=== PATIENT | female | born 1955 | race Caucasian/White ===

== ENCOUNTER → 2017-12-06 13:54 | Outpatient (CLI) | payer MEDICAID, SELFPAY ==
[2017-12-06 14:13] LABS: Basophils # 1.8 K/mm3 (0-0.2); Basophils % 5.1 % (0.1-2.0); Eosinophils # 1.2 K/mm3 (0.0-0.4); Eosinophils % 3.4 % (0.1-12.0); Hematocrit 39.5 % (37.0-47.0); Hemoglobin 11.8 g/dL (12.2-16.2); Lymphocytes # 6.4 K/mm3 (0.7-4.5); Mean Corpuscular HGB Conc 29.7 g/dL (31.8-35.4); Mean Corpuscular Hemoglobin 23.8 pg (27.0-31.2); Mean Corpuscular Volume 80.1 fl (81-99); Mean Platelet Volume 8.9 fl (7.4-10.4); Monocytes # 0.8 K/mm3 (0.1-1.0); Monocytes % 2.3 % (1.7-9.3); Neutrophils % 76.2 % (37.0-80.0); Platelet Count 410 K/mm3 (142-424); Red Blood Count 4.93 M/mm3 (4.20-5.40); Red Cell Distribution Width 15.9 % (11.5-17.5); White Blood Count 35.4 K/mm3 (4.8-10.8)
[2017-12-06 14:21] LABS: MANUAL DIFFERENTIAL MANUAL DIFFERENTIAL (MANUAL DIFF)
[2017-12-06 15:06] LABS: Alanine Aminotransferase 18 U/L (12-78); Albumin Level 4.2 gm/dL (3.4-5.0); Albumin/Globulin Ratio 1.2 (1.1-1.8); Alkaline Phosphatase 124 U/L (46-116); Anion Gap 12.3 mEq/L (5-15); Aspartate Amino Transferase 19 U/L (15-37); Bilirubin,Total 0.4 mg/dL (0.2-1.0); Blood Urea Nitrogen 11 mg/dL (7-18); Calcium 9.4 mg/dL (8.5-10.1); Carbon Dioxide 28 mmol/L (21.0-32.0); Chloride 105 mmol/L (98-107); Creatinine,Serum 0.84 mg/dL (0.55-1.02); Estimated Glomerular Filt Rate 69 ml/min (>60); GFR (African American) 84 ML/MIN (>60); Globulin 3.5 gm/dl (1.3-3.2); Glucose 110 mg/dL (74-106); Potassium 4.3 mmoL/L (3.5-5.1); Sodium 141 mmol/L (136-145); Total Protein,Serum 7.7 gm/dL (6.4-8.2)
[2017-12-06 15:20] LABS: Anisocytosis 1+; Eosinophils % 3 % (0-3); Lymphocytes % 24 % (10-50); Microcytosis 1+; Monocytes % 12 % (2-9); Neutrophils % 58 % (42-76); Platelet Estimate Normal; Total Cells Counted 100
[2017-12-08 15:13] LABS: Peripheral Smear Review Scanned Result
== END ==
PROVIDERS: PCP Family Medicine; Visit Provider Internal Medicine
DX: C92.10 Chronic myeloid leukemia, BCR/ABL-positive, not having achieved remission (principal)
CPT/HCPCS: 36415; 80053; 85007; 85025

== ENCOUNTER 2017-12-28 11:27 | Inpatient (IN) | payer MEDICAID, SELFPAY ==
[2017-12-28 11:28] VITALS: BP 141/71; PULSE 92; RESP 16; TEMP 37.1; O2SAT 96; BMI 34.3
[2017-12-28 11:59] LABS: Basophils # 2.8 K/mm3 (0-0.2); Eosinophils # 1.9 K/mm3 (0.0-0.4); Eosinophils % 3.3 % (0.1-12.0); Hematocrit 36.4 % (37.0-47.0); Hemoglobin 10.6 g/dL (12.2-16.2); Lymphocytes # 7.9 K/mm3 (0.7-4.5); Lymphocytes % 13.9 K/mm3 (10-50); Mean Corpuscular HGB Conc 29.1 g/dL (31.8-35.4); Mean Corpuscular Hemoglobin 24.1 pg (27.0-31.2); Mean Corpuscular Volume 82.8 fl (81-99); Mean Platelet Volume 8.6 fl (7.4-10.4); Monocytes # 2.2 K/mm3 (0.1-1.0); Monocytes % 3.8 % (1.7-9.3); Neutrophils # 44.8 K/mm3 (1.8-7.8); Platelet Count 460 K/mm3 (142-424); Red Cell Distribution Width 16.7 % (11.5-17.5)
[2017-12-28 12:02] LABS: White Blood Count 56.7 K/mm3 (4.8-10.8)
[2017-12-28 12:03] LABS: MANUAL DIFFERENTIAL MANUAL DIFFERENTIAL (MANUAL DIFF)
[2017-12-28 12:09] LABS: Alanine Aminotransferase 18 U/L (12-78); Albumin Level 3.7 gm/dL (3.4-5.0); Albumin/Globulin Ratio 0.9 (1.1-1.8); Alkaline Phosphatase 119 U/L (46-116); Anion Gap 11.9 mEq/L (5-15); Aspartate Amino Transferase 10 U/L (15-37); Bilirubin,Total 0.3 mg/dL (0.2-1.0); Blood Urea Nitrogen 9 mg/dL (7-18); Calcium 8.4 mg/dL (8.5-10.1); Carbon Dioxide 28 mmol/L (21.0-32.0); Chloride 102 mmol/L (98-107); Creatinine Clearance Estimated 86 mL/min (0-300); Estimated Glomerular Filt Rate 57 ml/min (>60); GFR (African American) 68 ML/MIN (>60); Globulin 3.9 gm/dl (1.3-3.2); Glucose 167 mg/dL (74-106); Potassium 3.9 mmoL/L (3.5-5.1); Sodium 138 mmol/L (136-145); Total Protein,Serum 7.6 gm/dL (6.4-8.2)
--- NOTE | 2017-12-28 12:16 | HMH.EDNVD ---
ED Disposition Clinical Impression: Colitis, Leucocytosis, CLL (chronic lymphocytic leukemia), HTN (hypertension), Diabetes Disposition: Still a Patient Condition on Discharge: Fair Referrals: Nguyen Stone MD [Primary Care Provider] - - Critical Care Critical Care Time: No Attestation: On 12/28/17, the high probability of a clinically significant, sudden or life threatening deterioration of the following system(s) required my full and direct attention, intervention and personal management. The time I documented below is in addition to time spent performing reported procedures but includes the following listed in this critical care notation. Medical Decision Making - Medical Records Medical records reviewed: Yes: I reviewed the patient's medical records. Vital Signs: 12/28/17 11:28 Temperature 98.7 F Temperature Source Oral Pulse Rate [Right Brachial] 92 H Respiratory Rate 16 Blood Pressure [Right Arm] 141/71 Blood Pressure Mean [Right Arm] 94 Blood Pressure Source [Right Arm] Automatic Cuff Blood Pressure Position [Right Arm] Supine 02 Sat by Pulse Oximetry 96 Oxygen Delivery Method Room Air - Lab Data Lab results reviewed: Yes: I reviewed the patient's lab results. Lab Results 12/28/17 11:40: WBC 56.7 H*, RBC 4.40, Hgb 10.6 L, Hct 36.4 L, MCV 82.8, MCH 24.1 L, MCHC 29.1 L, RDW 16.7, Plt Count 460 H, MPV 8.6, Neut % (Auto) 79.0, Lymph % (Auto) 13.9, [place] % (Auto) 3.8, Eos % (Auto) 3.3, Baso % (Auto) 5.0 H, Neut # (Auto) 44.8 H, Lymph # (Auto) 7.9 H, [place] # (Auto) 2.2 H, Eos # (Auto) 1.9 H, Baso # (Auto) 2.8 H, Total Counted 200, Neutrophils % (Manual) 62, Band Neutrophils % 3.5, Lymphocytes % (Manual) 16, Monocytes % (Manual) 7, Eosinophils % (Manual) 5 H, Basophils % (Manual) 3.5 H, Metamyelocytes % 3.0 H, Blast Cells % 0.5, Platelet Estimate Slight increase, Hypochromasia 1+, Anisocytosis 1+ 12/28/17 11:40: Sodium 138, Potassium 3.9, Chloride 102, Carbon Dioxide 28, Anion Gap 11.9, BUN 9, Creatinine 1.00, Estimated Creat Clear 86, Estimated GFR 57 L, Est GFR ( Amer) 68, Glucose 167 H, Calcium 8.4 L, Total Bilirubin 0.3, AST 10 L, ALT 18, Alkaline Phosphatase 119 H, Total Protein 7.6, Albumin 3.7, Globulin 3.9 H, Albumin/Globulin Ratio 0.9 L 12/28/17 11:40: Magnesium 1.7 12/28/17 11:40: PT 12.5 H, INR 1.16 H, APTT 30.4 Result diagrams: 12/28/17 11:40 12/28/17 11:40 Orders (Tests/Meds): ED MEDICATIONS Generic Name Dose Route Start Last Admin Trade Name Freq PRN Reason Stop Dose Admin Sodium Chloride 1,000 mls @ 999 mls/hr 12/28/17 12:00 12/28/17 11:58 Sod Chlor 0.9% 1000ml Bag IV 12/28/17 13:00 999 mls/hr .Q1H1M JONAS Administration Discontinued Medications Generic Name Dose Route Start Last Admin Trade Name Freq PRN Reason Stop Dose Admin Dicyclomine HCl 10 mg 12/28/17 12:30 12/28/17 12:34 Bentyl 10mg Capsule PO 12/28/17 12:31 10 mg ONCE ONE Administration Sodium Chloride 500 mls @ 999 mls/hr 12/28/17 12:15 Sod Chlor 0.9% 1000ml Bag IV 12/28/17 12:45 .Q31M JONAS Loperamide HCl 4 mg 12/28/17 12:29 12/28/17 12:34 Imodium 2 Mg Capsule PO 12/28/17 12:30 4 mg ONCE ONE Administration Ondansetron HCl 4 mg 12/28/17 12:35 12/28/17 12:36 Zofran 4mg/2ml Vial IV 12/28/17 12:36 4 mg ONCE ONE Administration ORDERS Category Date Time Status Acute abdomen XR series [XR acute abdomen series] Stat Exams 12/28/17 12:31 Ordered Diarrhea Panel, PCR Stat Lab 12/28/17 12:09 Ordered Urinalysis and Microscopic Stat Lab 12/28/17 11:39 Ordered Blood Culture Stat Micro 02/27/18 12:15 Ordered - Amanuel Inquiry Pt receiving controlled substance: No Amanuel was queried for this patient: No Medical Decision Making Narrative: The patient did have a white count of 57k with a 44% neutrophil. I obtain blood cultures lactic acid and started IV antibiotic. I repeated her abdominal exam that was soft nontender no guarding no rigidity
--- NOTE | 2017-12-28 12:20 | ED_ITS ---
ED Disposition Clinical Impression: Colitis, Leucocytosis, CLL (chronic lymphocytic leukemia), HTN (hypertension), Diabetes Disposition: Still a Patient Condition on Discharge: Fair Referrals: Nguyen Stone MD [Primary Care Provider] - - Critical Care Critical Care Time: No Attestation: On 12/28/17, the high probability of a clinically significant, sudden or life threatening deterioration of the following system(s) required my full and direct attention, intervention and personal management. The time I documented below is in addition to time spent performing reported procedures but includes the following listed in this critical care notation. Medical Decision Making - Medical Records Medical records reviewed: Yes: I reviewed the patient's medical records. Vital Signs: 12/28/17 11:28 Temperature 98.7 F Temperature Source Oral Pulse Rate [Right Brachial] 92 H Respiratory Rate 16 Blood Pressure [Right Arm] 141/71 Blood Pressure Mean [Right Arm] 94 Blood Pressure Source [Right Arm] Automatic Cuff Blood Pressure Position [Right Arm] Supine 02 Sat by Pulse Oximetry 96 Oxygen Delivery Method Room Air - Lab Data Lab results reviewed: Yes: I reviewed the patient's lab results. Lab Results 12/28/17 11:40: WBC 56.7 H*, RBC 4.40, Hgb 10.6 L, Hct 36.4 L, MCV 82.8, MCH 24.1 L, MCHC 29.1 L, RDW 16.7, Plt Count 460 H, MPV 8.6, Neut % (Auto) 79.0, Lymph % (Auto) 13.9, [place] % (Auto) 3.8, Eos % (Auto) 3.3, Baso % (Auto) 5.0 H, Neut # (Auto) 44.8 H, Lymph # (Auto) 7.9 H, [place] # (Auto) 2.2 H, Eos # (Auto) 1.9 H, Baso # (Auto) 2.8 H, Total Counted 200, Neutrophils % (Manual) 62, Band Neutrophils % 3.5, Lymphocytes % (Manual) 16, Monocytes % (Manual) 7, Eosinophils % (Manual) 5 H, Basophils % (Manual) 3.5 H, Metamyelocytes % 3.0 H, Blast Cells % 0.5, Platelet Estimate Slight increase, Hypochromasia 1+, Anisocytosis 1+ 12/28/17 11:40: Sodium 138, Potassium 3.9, Chloride 102, Carbon Dioxide 28, Anion Gap 11.9, BUN 9, Creatinine 1.00, Estimated Creat Clear 86, Estimated GFR 57 L, Est GFR ( Amer) 68, Glucose 167 H, Calcium 8.4 L, Total Bilirubin 0.3, AST 10 L, ALT 18, Alkaline Phosphatase 119 H, Total Protein 7.6, Albumin 3.7, Globulin 3.9 H, Albumin/Globulin Ratio 0.9 L 12/28/17 11:40: Magnesium 1.7 12/28/17 11:40: PT 12.5 H, INR 1.16 H, APTT 30.4 Result diagrams: 12/28/17 11:40 12/28/17 11:40 Orders (Tests/Meds): ED MEDICATIONS Generic Name Dose Route Start Last Admin Trade Name Freq PRN Reason Stop Dose Admin Sodium Chloride 1,000 mls @ 999 mls/hr 12/28/17 12:00 12/28/17 11:58 Sod Chlor 0.9% 1000ml Bag IV 12/28/17 13:00 999 mls/hr .Q1H1M JONAS Administration Discontinued Medications Generic Name Dose Route Start Last Admin Trade Name Freq PRN Reason Stop Dose Admin Dicyclomine HCl 10 mg 12/28/17 12:30 12/28/17 12:34 Bentyl 10mg Capsule PO 12/28/17 12:31 10 mg ONCE ONE Administration Sodium Chloride 500 mls @ 999 mls/hr 12/28/17 12:15 Sod Chlor 0.9% 1000ml Bag IV 12/28/17 12:45 .Q31M JONAS Loperamide HCl 4 mg 12/28/17 12:29 12/28/17 12:34 Imodium 2 Mg Capsule PO 12/28/17 12:30 4 mg ONCE ONE Administration Ondansetron HCl 4 mg 12/28/17 12:35 12/28/17 12:36 Zofran 4mg/2ml Vial IV 12/28/17 12:36 4 mg ONCE ONE Administration ORDERS
--- NOTE | 2017-12-28 12:31 | XR_ITS ---
XR acute abdomen series HISTORY: Nausea, vomiting, and diarrhea ITS.REASON: NVD ORDERING PHYSICIAN: Nguyen Stone MD PATIENT AGE: 62 years COMPARISON: 09/05/2017 FINDINGS: Cardiac size is upper limits of normal. No acute finding in the chest. There is a small hiatal hernia. The bowel gas pattern is nonspecific with gas-filled loops of small and large bowel. There are surgical clips in the right upper quadrant. A 2 mm calcific density is present to the left of the L3-L4 lumbar vertebra and was present on the previous study and may be due to a phlebolith. There are multiple pelvic calcifications consistent with phleboliths. No acute bony anomalies. IMPRESSION: Nonspecific nonobstructive bowel gas pattern, no acute finding.
[2017-12-28 12:38] LABS: Magnesium 1.7 mg/dL (1.4-2.2)
[2017-12-28 12:40] LABS: Activated Partial Thrombo Time 30.4 seconds (23.6-34.0); INR 1.16 (0.9-1.1); Prothrombin Time 12.5 seconds (9.4-11.8)
[2017-12-28 12:43] LABS: Band Neutrophils % 3.5 (0-8); Basophils % 3.5 (0-1); Blastocytes % 0.5; Eosinophils % 5 % (0-3); Lymphocytes % 16 % (10-50); Monocytes % 7 % (2-9); Neutrophils % 62 % (42-76); Platelet Estimate Slight Increase; Total Cells Counted 200
[2017-12-28 12:44] LABS: Hypochromasia 1+
[2017-12-28 12:45] LABS: Anisocytosis 1+
[2017-12-28 13:09] LABS: Microscopic, Urine URINE MICROSCOPIC (MICROSCOPIC)
[2017-12-28 13:11] VITALS: BMI 36.1
[2017-12-28 13:13] LABS: Appearance,Urine CLEAR (Clear); Bilirubin,Urine Negative (Negative); Blood, Urine Negative (Negative); Color,Urine YELLOW (Yellow); Glucose,Urine (UA) Negative (Negative); Ketones,Urine Negative (Negative); Leukocyte Esterase,Urine Negative (Negative); Nitrate,Urine Negative (Negative); PH,Urine 5.5 (5.0-8.5); Protein,Urine Negative (Negative); Specific Gravity, Urine <= 1.005 (1.005-1.030); Urobilinogen,Urine 0.2 EU/dl (0.2)
[2017-12-28 13:27] LABS: Lactic Acid 0.8 mmol/L (0.4-2.0)
[2017-12-28 13:30] VITALS: BP 109/67; PULSE 96; RESP 18; TEMP 36.4; O2SAT 96
[2017-12-28 13:32] LABS: Bacteria,Urine 1+ /lpf; Mucus,Urine 1+ /lpf; WBC,Urine Occasional #/hpf (0-3)
[2017-12-28 14:06] VITALS: BP 115/79; PULSE 83; RESP 18; TEMP 36.9; O2SAT 97
[2017-12-28 14:40] VITALS: BP 123/73; PULSE 87; RESP 20; TEMP 36.8; O2SAT 97
[2017-12-28 15:58] VITALS: O2SAT 97
--- NOTE | 2017-12-28 17:17 | PC.NURSE ---
1440 - Pt arrived to room 209 via wheelchair escorted by ER staff. Pt in NAD. Call perry within reach and bed in low position. Pt oriented to room.
--- NOTE | 2017-12-28 17:46 | HMH.HP ---
*Admission Date: 12/28/17 *Chief complaint: Nausea, vomiting, diarrhea *History of present illness: Ms Craven is a 62 year old white female with multiple medical problems including stage I chronic lymphocytic leukemia, hypertension and diabetes. She is status post cholecystectomy, appendectomy and hysterectomy. One week ago , she developed urinary tract infection and was given an antibiotic that she has finished. 3 days ago she developed vomiting , mostly food , green diarrhea and crampy diffuse abdominal pain. She denies fever/ chills. She came to the ED stating that I am dehydrated and I need IV fluids . She was diagnosed with CML and was last seen by Dr. Mcdonough 12/2017. She has had ongoing social problems from the beginning with bedbugs in the home. Social Security has been contacted to evaluate the home. The landlord said he was not going to do anything about them. When on the Gleevec she responded well with White BC decreasing from 60,000-3000. She then developed diarrhea and was seen multiple times in the emergency room because of the diarrhea, The chemo was stopped. She ststes this time she has had vomiting and diarrhea x 3 days in the last 3 days and diarrhea daily ?3 days. She has been able to retain some food and fluids. She has been voiding without difficulty although she describes dysuria. She denies any blood in her stool or vomiting blood. She has had no upper respiratory tract symptoms denies fever. [facility] History Medical History: Reports:: Arrhythmia, Atherosclerotic Heart Disease, Cancer, Coronary Artery Disease, Depression, Diabetes Mellitus Type 2, Heart Murmur, Hyperlipidemia, Hypertension, Myocardial Infarction, Peripheral Vascular Disease, Valvular Heart Disease Denies:: Diabetes Mellitus Type 1, MRSA Other Medical History: Reports: Anemia, Arthritis Laterality Cases: Left: Other, Bilateral: Tonsillectomy Other Surgeries: Yes: Angioplasty, Appendectomy, Cardiac Catheterization, Colonoscopy, Coronary Stent, Diagnostic Lap, EGD, Hysterectomy-Total Amputation: No Fractures: Yes (LEFT FOOT) - *Social History Educational Level: Completed GED/General Educational Development Smoking Status: Current every day smoker Tobacco Type: cigarettes # Packs/Day (cigarettes): 0 Alcohol Intake: never Substance Use Type: denies use Occupational Status: disabled Housing: house Household Members: children - Psychiatric History Expresses thoughts of harming self/others: None Suicide Plan Description: No Plan Pschychiatric History:: Reports:: Depression *Family Hx:: Cancer, Coronary Artery Disease, Diabetes, Hyperlipidemia, Hypertension, Stroke Review of Systems - Constitutional Reports headache(s), Denies body ache(s), Denies chills, Denies fever(s) - ENT Denies ear pain, Denies sore throat - *Cardiovascular Reports chest pain, Reports shortness of breath, Reports lightheadedness - *Respiratory Reports change in phlegm color, Reports cough, Reports shortness of breath, Denies coughing up blood - *Gastrointestinal Reports abdominal pain, Reports loose stools, Reports nausea, Reports vomiting, Denies heartburn, Denies vomiting blood, Denies bright, red blood in stools, Denies black, tarry stools - *Genitourinary Reports painful urination - *Musculoskeletal Reports muscle weakness Comments: The walker and cane for ambulation - *Neurologic Reports dizziness - Psychiatric Reports depression Meds Home Medications Medication Instructions Recorded Confirmed Type Albuterol Sulfate [Albuterol HFA 1 puff IH BID 12/28/17 12/28/17 History Inhaler] Atorvastatin Calcium [Atorvastatin 80 mg PO HS 12/28/17 12/28/17 History 80mg Tab] Ferrous Sulfate 325 mg PO DAILY 12/28/17 12/28/17 History Fluticasone/Vilanterol [Breo 1 spray IH DAILY 12/28/17 12/28/17 History Ellipta 100-25 Mcg INH] Furosemide [Furosemide 40MG tAB] 40 mg PO DAILY 12/28/17 12/28/17 History Lisinopril [Lisinopril 5mg Tab
--- NOTE | 2017-12-28 18:57 | PC.NURSE ---
Report given to Brittany Simpson RN
[2017-12-28 20:00] VITALS: BP 150/79; PULSE 89; RESP 18; TEMP 36.4; O2SAT 96
[2017-12-29] VITALS (8 sets, daily range): BP systolic 98–151; BP diastolic 48–81; PULSE 60–94; RESP 17–20; TEMP 36.4–36.9; O2SAT 95–99; BMI 35.9
[2017-12-29 06:54] LABS: Basophils # 1.4 K/mm3 (0-0.2); Basophils % 3.5 % (0.1-2.0); Eosinophils # 1.2 K/mm3 (0.0-0.4); Eosinophils % 3.1 % (0.1-12.0); Hematocrit 30.4 % (37.0-47.0); Lymphocytes # 5.6 K/mm3 (0.7-4.5); Lymphocytes % 14.7 K/mm3 (10-50); Mean Corpuscular HGB Conc 29.3 g/dL (31.8-35.4); Mean Corpuscular Hemoglobin 24.2 pg (27.0-31.2); Mean Corpuscular Volume 82.4 fl (81-99); Mean Platelet Volume 8.3 fl (7.4-10.4); Monocytes # 1.4 K/mm3 (0.1-1.0); Monocytes % 3.7 % (1.7-9.3); Neutrophils % 78.6 % (37.0-80.0); Platelet Count 334 K/mm3 (142-424); Red Blood Count 3.68 M/mm3 (4.20-5.40); Red Cell Distribution Width 16.7 % (11.5-17.5); White Blood Count 38.2 K/mm3 (4.8-10.8)
[2017-12-29 07:03] LABS: Anion Gap 8.1 mEq/L (5-15); Blood Urea Nitrogen 8 mg/dL (7-18); Carbon Dioxide 30 mmol/L (21.0-32.0); Chloride 107 mmol/L (98-107); Creatinine Clearance Estimated 104 mL/min (0-300); Creatinine,Serum 0.87 mg/dL (0.55-1.02); Estimated Glomerular Filt Rate 66 ml/min (>60); GFR (African American) 80 ML/MIN (>60); Glucose 103 mg/dL (74-106); Magnesium 1.7 mg/dL (1.4-2.2); Potassium 4.1 mmoL/L (3.5-5.1); Sodium 141 mmol/L (136-145)
--- NOTE | 2017-12-29 07:24 | PC.NURSE ---
REPORT GIVEN TO Dwight RAMON W/C
[2017-12-29 07:26] LABS: MANUAL DIFFERENTIAL MANUAL DIFFERENTIAL (MANUAL DIFF)
--- NOTE | 2017-12-29 07:29 | P.CONPHA_ITS ---
[facility] Pharmacy VTE Monitoring - Patient Demographics Admission date: 12/28/17 Report Date: 12/29/17 Time: 07:28 Allergies/Adverse Reactions: Patient Allergies acetaminophen [ACETAMINOPHEN] Allergy (Intermediate, Verified 12/28/17 11:29) I-RASH adhesive tape [ADHESIVE TAPE] Allergy (Intermediate, Verified 12/28/17 11:29) I-RASH digoxin [DIGOXIN] Allergy (Intermediate, Verified 12/28/17 11:29) NA-NAUSEA/VOMITING hydrocortisone [HYDROCORTISONE] Allergy (Intermediate, Verified 12/28/17 11:29) I-RASH Penicillins [PENICILLINS] Allergy (Intermediate, Verified 12/28/17 11:29) I-RASH ciprofloxacin [CIPROFLOXACIN] Allergy (Mild, Verified 12/28/17 11:29) NA-NAUSEA/VOMITING milk [MILK] Allergy (Mild, Verified 12/28/17 11:29) DIARRHEA Height: 1.63 m Weight: 95.481 kg Patient Problems: Current Active Problems Colitis (Acute) Leucocytosis (Acute) CLL (chronic lymphocytic leukemia) (Acute) HTN (hypertension) (Chronic) Diabetes (Chronic) - VTE Risk Labs: VTE Related Lab Results Hgb 10.6 g/dL (12.2-16.2) L 12/28/17 11:40 Hct 30.4 % (37.0-47.0) L 12/29/17 06:30 Plt Count 334 K/mm3 (142-424) D 12/29/17 06:30 PT 12.5 seconds (9.4-11.8) H 12/28/17 11:40 INR 1.16 (0.9-1.1) H 12/28/17 11:40 APTT 30.4 seconds (23.6-34.0) 12/28/17 11:40 BUN 8 mg/dL (7-18) 12/29/17 06:30 Creatinine 0.87 mg/dL (0.55-1.02) 12/29/17 06:30 Estimated Creat Clear 104 mL/min (0-300) 12/29/17 06:30 Was VTE Risk Assessment Performed: Yes VTE Score: 5 VTE Risk Level: Low Risk Clinical Trial Participant: No - Prophylaxis VTE Prophylaxis Ordered?: Yes Types of VTE Prophylaxis: TEDS Knee High, Pharmacological Pharmacologic Type: Other (XARELTO)
--- NOTE | 2017-12-29 08:40 | HMH.ACPN2 ---
Internal Medicine - PN: Subj *Date: 12/29/17 *Time: 08:40 Interval history: States that she slept at intervals. States her legs were bothering her. States she did not receive her pain medicine last night. She had no further diarrhea or vomiting since admission. She has been eating well. She has some slight nausea but no abdominal pain. Voiding without difficulty and has been up to the bathroom. Exam Vital signs and Labs for Last 24 Hours: Temp Pulse Resp BP Pulse Ox 98.5 F 68 20 98/48 99 12/29/17 07:34 12/29/17 07:34 12/29/17 07:34 12/29/17 07:34 12/29/17 07:34 Laboratory Results - last 24 hr 12/29/17 06:30: WBC 38.2 H* D, RBC 3.68 L, Hgb 9.0 L D, Hct 30.4 L, MCV 82.4, MCH 24.2 L, MCHC 29.3 L, RDW 16.7, Plt Count 334 D, MPV 8.3, Neut % (Auto) 78.6, Lymph % (Auto) 14.7, [place] % (Auto) 3.7, Eos % (Auto) 3.1, Baso % (Auto) 3.5 H, Neut # (Auto) 30.0 H, Lymph # (Auto) 5.6 H, [place] # (Auto) 1.4 H, Eos # (Auto) 1.2 H, Baso # (Auto) 1.4 H 12/29/17 06:30: Sodium 141, Potassium 4.1, Chloride 107, Carbon Dioxide 30, Anion Gap 8.1, BUN 8, Creatinine 0.87, Estimated Creat Clear 104, Estimated GFR 66, Est GFR ( Amer) 80, Glucose 103 D, Magnesium 1.7 I & O for Last 24 hours: Intake & Output 12/26/17 12/27/17 12/28/17 12/29/17 11:59 11:59 11:59 11:59 Intake Total 3274 / 4274 Output Total 400 / 400 Balance 2874 / 3874 Weight 210 lb 8 oz - Constitutional no acute distress Comments: Eating breakfast and appears comfortable. - *Routine HEENT Exam Comments: Bilateral ear exam reveal cerumen in bilateral ear canals. - *Routine Respiratory Exam Present: CTA bilaterally (Anteriorly and posteriorly) - *Routine Cardiovascular Exam Present: RRR, murmur - *Routine Abdominal Exam Present: soft, normoactive bowel sounds. Absent: tenderness, distended - *Routine Extremities Exam Present: full ROM. Absent: edema, calf tenderness - *Routine Skin Exam Comments: No excoriations noted - *Routine Neurological Exam Present: alert, oriented X3 Assessment and Plan (1) CLL (chronic lymphocytic leukemia) Current visit: Yes Status: Acute Category: Medical Code(s): C91.10 - Chronic lymphocytic leukemia of B-cell type not having achieved remission (2) Colitis Current visit: Yes Status: Acute Category: Medical Code(s): K52.9 - Noninfective gastroenteritis and colitis, unspecified (3) Diabetes Current visit: Yes Status: Chronic Category: Medical Code(s): E11.9 - Type 2 diabetes mellitus without complications (4) HTN (hypertension) Current visit: Yes Status: Chronic Category: Medical Code(s): I10 - Essential (primary) hypertension (5) Leucocytosis Current visit: Yes Status: Acute Category: Medical Code(s): D72.829 - Elevated white blood cell count, unspecified (6) Infestation by bed bug Current visit: Yes Status: Chronic Category: Medical Code(s): B88.8 - Other specified infestations She has chronic bedbug problems at home. - Assessment and plan all Dx Assessment and Plan for all problems:: Social service consult. Dr. Mcdonough to see today.
[2017-12-29 10:58] LABS: Eosinophils % 2 % (0-3); Lymphocytes % 20 % (10-50); Monocytes % 2 % (2-9); Neutrophils % 70 % (42-76); Platelet Estimate Normal; Total Cells Counted 100
[2017-12-29 10:59] LABS: Hypochromasia 1+
[2017-12-29 11:00] LABS: Anisocytosis 1+
--- NOTE | 2017-12-29 11:50 | SW/DCPLANNER ---
Spoke with this patient this morning regarding home situation. Patient has stated that she lives in a terrible home situation that is full of bed bugs and her adult son lives with her. Patient has stated that transitioning to housing is difficult due to needing her social security card (patient has already started process and will hopefully get card soon) and her adult living with her being a felon. I explained to patient the importance of moving in with family or homeless detention due to health issues and patient has refused. Patient has stated that once she gets her Social Security card she will begin the housing process. I informed patient that this can be a lengthy process and patient stated that she has already spoke with someone from housing and will be able to move into [place] when Social Security card is available. I will follow up with this patient at time of discharge to assist with any needs/new orders. Patient has refused all recommendations at this time
[2017-12-29 19:16] LABS: Adenovirus F 40/41, stool Not Detected (NotDetected); Astrovirus Not Detected (NotDetected); Campylobacter Not Detected (NotDetected); Clostridium Difficile A/B, PCR Not Detected (NotDetected); Cryptosporidium Not Detected (NotDetected); Cyclospora Cayetanesis Not Detected (NotDetected); Entamoeba histolytica Not Detected (NotDetected); Enteroaggregative E coli Not Detected (NotDetected); Enteropathogenic E coli Not Detected (NotDetected); Enterotoxigenic E coli Not Detected (NotDetected); Giardia lamblia Not Detected (NotDetected); Norovirus Not Detected (NotDetected); Plesimonas Shigalloides, PCR Not Detected (NotDetected); Rotavirus A Not Detected (NotDetected); Salmonella, PCR Not Detected (NotDetected); Sapovirus Not Detected (NotDetected); Shiga-like toxin E coli Not Detected (NotDetected); Shigella Enterovasive E coli Not Detected (NotDetected); Vibrio Cholerae Not Detected (NotDetected); Vibrio, PCR Not Detected (NotDetected); Yersinia Entercolitica, PCR Not Detected (NotDetected)
[2017-12-30 04:36] VITALS: BP 125/61; PULSE 82; RESP 22; TEMP 36.3; O2SAT 98
--- NOTE | 2017-12-30 04:53 | PC.NURSE ---
Addendum entered by Rosa Ramos RN 12/30/17 06:40: Pt wearing 2L NC at night, states she does this at home Original Note: Pt rested well this shift with no complaints of pain or discomfort. BS active in all 4 qauds, mild tenderness noted to BLQ. Lung sounds clear. BLE edema noted, non-pitting. VSS. No acute distress noted. Will continue to monitor.
[2017-12-30 06:19] VITALS: O2SAT 95
--- NOTE | 2017-12-30 07:01 | PC.NURSE ---
REPORT GIVEN TO Ramses ESQUIVEL
[2017-12-30 07:50] VITALS: BP 124/66; PULSE 86; RESP 22; TEMP 36.6; O2SAT 98
[2017-12-30 08:00] VITALS: O2SAT 98
--- NOTE | 2017-12-30 08:23 | HMH.ACPN2 ---
Internal Medicine - PN: Jah *Date: 12/30/17 *Time: 08:23 Interval history: Pt sitting up in bed, reports she is doing well and ready to go home today. She tolerated breakfast well, denies any pain or N/V/D. She notes some intermittent bloating and gas. Exam Vital signs and Labs for Last 24 Hours: Temp Pulse Resp BP Pulse Ox 97.8 F 86 22 124/66 98 12/30/17 07:50 12/30/17 07:50 12/30/17 07:50 12/30/17 07:50 12/30/17 07:50 Laboratory Results - last 24 hr 12/29/17 06:30: Total Counted 100, Neutrophils % (Manual) 70, Band Neutrophils % 3.0, Lymphocytes % (Manual) 20, Monocytes % (Manual) 2, Eosinophils % (Manual) 2, Basophils % (Manual) 1.0, Metamyelocytes % 2.0 H, Platelet Estimate Normal, RBC Morphology Not Reportable, Hypochromasia 1+, Anisocytosis 1+ 12/29/17 19:00: Stl Aeromonas (PCR) Not detected, Stl C. cayetanensis PCR Not detected, Stool Rotavirus (PCR) Not detected, Stl Adenov F 40/41 PCR Not detected, Stool Astrovirus (PCR) Not detected, Stool Campylobacter PCR Not detected, Stl C.difficile Tox PCR Not detected, Stool Cryptosporidium PCR Not detected, Stl E.coli Shiga Tox PCR Not detected, Stool E coli O157 PCR Not detected, Stl Enterotoxigenic E PCR Not detected, Stool EPEC (PCR) Not detected, Stool EAEC (PCR) Not detected, Stl E. histolytica PCR Not detected, Stool Giardia Lamblia PCR Not detected, Stool Salmonella PCR Not detected, Stool Sapovirus (PCR) Not detected, Stl P. shigelloides PCR Not detected, Stl Shigella/EIEC PCR Not detected, St Y.enterocolitica PCR Not detected, Stool Vibrio (PCR) Not detected, Stl Vibrio cholerae PCR Not detected, Stl Norovirus GI/GII PCR Not detected I & O for Last 24 hours: Intake & Output 12/27/17 12/28/17 12/29/17 12/30/17 11:59 11:59 11:59 11:59 Intake Total 3754 / 4754 1730 / 1730 Output Total 400 / 400 Balance 3354 / 4354 1730 / 1730 Weight 210 lb 8 oz 210 lb 7.993 oz - Constitutional no acute distress - *Routine HEENT Exam Comments: unremarkable - *Routine Respiratory Exam Present: CTA bilaterally - *Routine Cardiovascular Exam Present: RRR - *Routine Abdominal Exam Present: soft, normoactive bowel sounds. Absent: tenderness, distended, rigid, organomegaly, mass Comments: obese - *Routine Extremities Exam Present: full ROM. Absent: edema, calf tenderness - *Routine Skin Exam Present: dry, warm - *Routine Neurological Exam Present: alert, oriented X3, normal speech Assessment and Plan (1) CLL (chronic lymphocytic leukemia) Current visit: Yes Status: Acute Category: Medical Code(s): C91.10 - Chronic lymphocytic leukemia of B-cell type not having achieved remission (2) Colitis Current visit: Yes Status: Acute Category: Medical Code(s): K52.9 - Noninfective gastroenteritis and colitis, unspecified (3) Diabetes Current visit: Yes Status: Chronic Category: Medical Code(s): E11.9 - Type 2 diabetes mellitus without complications (4) HTN (hypertension) Current visit: Yes Status: Chronic Category: Medical Code(s): I10 - Essential (primary) hypertension (5) Leucocytosis Current visit: Yes Status: Acute Category: Medical Code(s): D72.829 - Elevated white blood cell count, unspecified (6) Infestation by bed bug Current visit: Yes Status: Chronic Category: Medical Code(s): B88.8 - Other specified infestations - Assessment and plan all Dx Assessment and Plan for all problems:: possible discharge today per Dr. Stone
--- NOTE | 2017-12-30 08:26 | P.PN_ITS ---
Internal Medicine - PN: Jah *Date: 12/30/17 *Time: 08:23 Interval history: Pt sitting up in bed, reports she is doing well and ready to go home today. She tolerated breakfast well, denies any pain or N/V/D. She notes some intermittent bloating and gas. Exam Vital signs and Labs for Last 24 Hours: Temp Pulse Resp BP Pulse Ox 97.8 F 86 22 124/66 98 12/30/17 07:50 12/30/17 07:50 12/30/17 07:50 12/30/17 07:50 12/30/17 07:50 Laboratory Results - last 24 hr 12/29/17 06:30: Total Counted 100, Neutrophils % (Manual) 70, Band Neutrophils % 3.0, Lymphocytes % (Manual) 20, Monocytes % (Manual) 2, Eosinophils % (Manual ) 2, Basophils % (Manual) 1.0, Metamyelocytes % 2.0 H, Platelet Estimate Normal , RBC Morphology Not Reportable, Hypochromasia 1+, Anisocytosis 1+ 12/29/17 19:00: Stl Aeromonas (PCR) Not detected, Stl C. cayetanensis PCR Not detected, Stool Rotavirus (PCR) Not detected, Stl Adenov F 40/41 PCR Not detected, Stool Astrovirus (PCR) Not detected, Stool Campylobacter PCR Not detected, Stl C.difficile Tox PCR Not detected, Stool Cryptosporidium PCR Not detected, Stl E.coli Shiga Tox PCR Not detected, Stool E coli O157 PCR Not detected, Stl Enterotoxigenic E PCR Not detected, Stool EPEC (PCR) Not detected , Stool EAEC (PCR) Not detected, Stl E. histolytica PCR Not detected, Stool Giardia Lamblia PCR Not detected, Stool Salmonella PCR Not detected, Stool Sapovirus (PCR) Not detected, Stl P. shigelloides PCR Not detected, Stl Shigella /EIEC PCR Not detected, St Y.enterocolitica PCR Not detected, Stool Vibrio (PCR ) Not detected, Stl Vibrio cholerae PCR Not detected, Stl Norovirus GI/GII PCR Not detected I & O for Last 24 hours: Intake & Output 12/27/17 12/28/17 12/29/17 12/30/17 11:59 11:59 11:59 11:59 Intake Total 3754 / 4754 1730 / 1730 Output Total 400 / 400 Balance 3354 / 4354 1730 / 1730 Weight 210 lb 8 oz 210 lb 7.993 oz - Constitutional no acute distress - *Routine HEENT Exam Comments: unremarkable - *Routine Respiratory Exam Present: CTA bilaterally - *Routine Cardiovascular Exam Present: RRR - *Routine Abdominal Exam Present: soft, normoactive bowel sounds. Absent: tenderness, distended, rigid, organomegaly, mass Comments: obese - *Routine Extremities Exam Present: full ROM. Absent: edema, calf tenderness - *Routine Skin Exam Present: dry, warm - *Routine Neurological Exam Present: alert, oriented X3, normal speech Assessment and Plan (1) CLL (chronic lymphocytic leukemia) Current visit: Yes Status: Acute Category: Medical Code(s): C91.10 - Chronic lymphocytic leukemia of B-cell type not having achieved remission (2) Colitis Current visit: Yes Status: Acute Category: Medical Code(s): K52.9 - Noninfective gastroenteritis and colitis, unspecified (3) Diabetes Current visit: Yes Status: Chronic Category: Medical Code(s): E11.9 - Type 2 diabetes mellitus without complications (4) HTN (hypertension) Current visit: Yes Status: Chronic Category: Medical Code(s): I10 - Essential (primary) hypertension (5) Leucocytosis Current visit: Yes Status: Acute Category: Medical Code(s): D72.829 - Elevated white blood cell count, unspecified (6) Infestation by bed bug Current visit: Yes Status: Chronic Category: Medical Code(s): B88.8 - Other specified infestations - Assessment and plan all Dx Assessment and Plan
--- NOTE | 2017-12-30 10:08 | PC.NURSE ---
Infection Control nurse contacted regarding patient's two year history of bed bugs in her home setting and whether to completely follow Bed Bug; Manangement of Patient with protocol due to not visually seeing any bed bugs on the patient or in the patient's belongings since admission- even after assisting the patient in the shower with visual inspection. Per protocol, the patient is to be moved to a clean room and the current room the patient is in is to be cleaned. IC nurse stated if no bed bugs were actually seen after the patient had been cleaned up and all belongings were double bagged, it was safe to keep the patient in the same room at this time. Will continue to monitor.
[2017-12-30 13:13] LABS: Peripheral Smear Review Scanned Result
--- NOTE | 2018-01-03 14:36 | HMH.DCSUM ---
General - General Admission date: 12/28/17 Discharge date: 12/30/17 HPI HPI: Ms Craven is a 62 year old white female with multiple medical problems including stage I chronic lymphocytic leukemia, hypertension and diabetes. She is status post cholecystectomy, appendectomy and hysterectomy. One week ago , she developed urinary tract infection and was given an antibiotic that she has finished. 3 days ago she developed vomiting , mostly food , green diarrhea and crampy diffuse abdominal pain. She denies fever/ chills. She came to the ED stating that I am dehydrated and I need IV fluids . She was diagnosed with CML and was last seen by Dr. Mcdonough 12/2017. She has had ongoing social problems from the beginning with bedbugs in the home. Automotive Tire Worker has been contacted to evaluate the home. The landlord said he was not going to do anything about them. When on the Gleevec she responded well with White BC decreasing from 60,000-3000. She then developed diarrhea and was seen multiple times in the emergency room because of the diarrhea. The chemo was stopped. She states this time she has had vomiting and diarrhea x 3 days in the last 3 days and diarrhea daily ?3 days. She has been able to retain some food and fluids. She has been voiding without difficulty although she describes dysuria. She denies any blood in her stool or vomiting blood. She has had no upper respiratory tract symptoms denies fever. Hospital Course Hospital Course: The patient was started on IVF's and antiemetics. Her diarrhea panel was normal. She did improve. Her nausea, vomiting, and diarrhea resolved. Dr. Mcdonough did see the patient and she has a follow-up appt with him on 01/19 at 2:00 PM. She was stable to be discharged home. She will be going to stay with a friend upon discharge d/t her bed bug situation. Objective Vital signs: Temp Pulse Resp BP Pulse Ox 97.8 F 86 22 124/66 98 12/30/17 07:50 12/30/17 07:50 12/30/17 07:50 12/30/17 07:50 12/30/17 08:00 Narrative: - Constitutional no acute distress Comments: Sitting up in the bed. Appears comfortable. Conversant. Has completed her dinner and ate pork chops and backed potato. She denies any nausea after this. - *Routine HEENT Exam Head: Present: normocephalic, atraumatic Eye: Present: PERRL. Absent: scleral injection ENT: Present: mucous membranes moist, oropharynx clear - *Routine Neck Exam Present: supple. Absent: carotid bruit, lymphadenopathy, thyromegaly - *Routine Respiratory Exam Present: CTA bilaterally Comments: Diminished breath sounds posteriorly - *Routine Cardiovascular Exam Present: RRR, murmur - *Routine Abdominal Exam Present: soft, normoactive bowel sounds. Absent: tenderness, distended - *Routine Extremities Exam Present: edema (Trace bilaterally), pulses intact. Absent: tenderness - *Routine Neurological Exam Present: alert, oriented X3 DS: Diagnosis - Discharge Diagnosis (1) Colitis Status: Acute (2) CLL (chronic lymphocytic leukemia) Status: Chronic (3) Leucocytosis Status: Chronic (4) Diabetes Status: Chronic (5) HTN (hypertension) Status: Chronic (6) Infestation by bed bug Status: Acute Discharge Plan - Patient Discharge Instructions ACTIVITY: Continue current activity DIET: diabetic diet Additional Instructions: Appointment in [address] Stone. Appointment January [address] Mcdonough at 2 PM the [facility]. Patient Instructions: DI for Colitis - Follow up Plan Follow up with: Nguyen Stone MD [Primary Care Provider] - 1 week Disposition: Home, Self-Longterm Medications: Home Medications Medication Instructions Recorded Confirmed Type Albuterol Sulfate [Albuterol HFA 1 puff IH BID 12/28/17 12/28/17 History Inhaler] Atorvastatin Calcium [Atorvastatin 80 mg PO HS 12/28/17 12/28/17 History 80mg Tab] Ferrous Sulfate 325 mg
--- NOTE | 2018-01-03 14:40 | P.DS_ITS ---
General - General Admission date: 12/28/17 Discharge date: 12/30/17 HPI HPI: Ms Craven is a 62 year old white female with multiple medical problems including stage I chronic lymphocytic leukemia, hypertension and diabetes. She is status post cholecystectomy, appendectomy and hysterectomy. One week ago , she developed urinary tract infection and was given an antibiotic that she has finished. 3 days ago she developed vomiting , mostly food , green diarrhea and crampy diffuse abdominal pain. She denies fever/ chills. She came to the ED stating that I am dehydrated and I need IV fluids . She was diagnosed with CML and was last seen by Dr. Mcdonough 12/2017. She has had ongoing social problems from the beginning with bedbugs in the home. Highway Painter Helper has been contacted to evaluate the home. The landlord said he was not going to do anything about them. When on the Gleevec she responded well with White BC decreasing from 60,000-3000. She then developed diarrhea and was seen multiple times in the emergency room because of the diarrhea. The chemo was stopped. She states this time she has had vomiting and diarrhea x 3 days in the last 3 days and diarrhea daily ?3 days. She has been able to retain some food and fluids. She has been voiding without difficulty although she describes dysuria. She denies any blood in her stool or vomiting blood. She has had no upper respiratory tract symptoms denies fever. Hospital Course Hospital Course: The patient was started on IVF's and antiemetics. Her diarrhea panel was normal. She did improve. Her nausea, vomiting, and diarrhea resolved. Dr. Mcdonough did see the patient and she has a follow-up appt with him on 01/19 at 2: 00 PM. She was stable to be discharged home. She will be going to stay with a friend upon discharge d/t her bed bug situation. Objective Vital signs: Temp Pulse Resp BP Pulse Ox 97.8 F 86 22 124/66 98 12/30/17 07:50 12/30/17 07:50 12/30/17 07:50 12/30/17 07:50 12/30/17 08:00 Narrative: - Constitutional no acute distress Comments: Sitting up in the bed. Appears comfortable. Conversant. Has completed her dinner and ate pork chops and backed potato. She denies any nausea after this. - *Routine HEENT Exam Head: Present: normocephalic, atraumatic Eye: Present: PERRL. Absent: scleral injection ENT: Present: mucous membranes moist, oropharynx clear - *Routine Neck Exam Present: supple. Absent: carotid bruit, lymphadenopathy, thyromegaly - *Routine Respiratory Exam Present: CTA bilaterally Comments: Diminished breath sounds posteriorly - *Routine Cardiovascular Exam Present: RRR, murmur - *Routine Abdominal Exam Present: soft, normoactive bowel sounds. Absent: tenderness, distended - *Routine Extremities Exam Present: edema (Trace bilaterally), pulses intact. Absent: tenderness - *Routine Neurological Exam Present: alert, oriented X3 DS: Diagnosis - Discharge Diagnosis (1) Colitis Status: Acute (2) CLL (chronic lymphocytic leukemia) Status: Chronic (3) Leucocytosis Status: Chronic (4) Diabetes Status: Chronic (5) HTN (hypertension) Status: Chronic (6) Infestation by bed bug Status: Acute Discharge Plan - Patient Discharge Instructions ACTIVITY: Continue current activity DIET: diabetic diet Additional Instructions: Appointment in [address] Stone. Appointment January [address] Mcdonough at 2 PM
--- NOTE | 2018-02-09 13:06 | HMH.CONS ---
*Admission Date: 12/28/17 *History of present illness: Ms Craven is a 62 year old white female with multiple medical problems including stage I chronic lymphocytic leukemia, hypertension and diabetes. She is status post cholecystectomy, appendectomy and hysterectomy. One week ago , she developed urinary tract infection and was given an antibiotic that she has finished. 3 days ago she developed vomiting , mostly food , green diarrhea and crampy diffuse abdominal pain. She denies fever/ chills. She came to the ED stating that I am dehydrated and I need IV fluids . She was diagnosed with CML and was last seen by Dr. Mcdonough 12/2017. She has had ongoing social problems from the beginning with bedbugs in the home. Autobody Technician has been contacted to evaluate the home. The landlord said he was not going to do anything about them. When on the Gleevec she responded well with White BC decreasing from 60,000-3000. She then developed diarrhea and was seen multiple times in the emergency room because of the diarrhea. The chemo was stopped. She states this time she has had vomiting and diarrhea x 3 days in the last 3 days and diarrhea daily ?3 days. She has been able to retain some food and fluids. She has been voiding without difficulty although she describes dysuria. She denies any blood in her stool or vomiting blood. She has had no upper respiratory tract symptoms denies fever. Consult from Dr. Mcdonough Was asked to see the patient because she was admitted for diarrhea. Had diarrhea on her Gleevec she also has diarrhea without the Gleevec. As of the diarrhea we been having difficulty getting control of her white count. We should stop this and start a new drug in the clinic. I will start her ondasatanib. Evelinael exam today she has no splenomegaly a white counts are 35,000 or higher. [facility] History Medical History: Reports:: Arrhythmia, Atherosclerotic Heart Disease, Cancer, Coronary Artery Disease, Depression, Diabetes Mellitus Type 2, Heart Murmur, Hyperlipidemia, Hypertension, Myocardial Infarction, Peripheral Vascular Disease, Valvular Heart Disease Denies:: Diabetes Mellitus Type 1, MRSA Other Medical History: Reports: Anemia, Arthritis Laterality Cases: Left: Other, Bilateral: Tonsillectomy Other Surgeries: Yes: Angioplasty, Appendectomy, Cardiac Catheterization, Colonoscopy, Coronary Stent, Diagnostic Lap, EGD, Hysterectomy-Total Amputation: No Fractures: Yes (LEFT FOOT) - *Social History Educational Level: Completed GED/General Educational Development Smoking Status: Current every day smoker Tobacco Type: cigarettes # Packs/Day (cigarettes): 0 Alcohol Intake: never Substance Use Type: denies use Occupational Status: disabled Housing: house Household Members: children - Psychiatric History Expresses thoughts of harming self/others: None Suicide Plan Description: No Plan Pschychiatric History:: Reports:: Depression *Family Hx:: Cancer, Coronary Artery Disease, Diabetes, Hyperlipidemia, Hypertension, Stroke Review of Systems - *Neurologic Reports dizziness, Reports headache(s) Meds Home Medications Medication Instructions Recorded Confirmed Type Albuterol Sulfate [Albuterol HFA 1 puff IH BID 12/28/17 01/20/18 History Inhaler] Atorvastatin Calcium [Atorvastatin 80 mg PO HS 12/28/17 01/20/18 History 80mg Tab] Ferrous Sulfate 325 mg PO DAILY 12/28/17 01/20/18 History Fluticasone/Vilanterol [Breo 1 spray IH DAILY 12/28/17 01/20/18 History Ellipta 100-25 Mcg INH] Furosemide [Furosemide 40MG tAB] 40 mg PO BID 12/28/17 01/20/18 History Lisinopril [Lisinopril 5mg Tablet] 5 mg PO DAILY 12/28/17 01/20/18 History Metformin HCl [Metformin 500mg 500 mg PO BIDWM 12/28/17 01/20/18 History Tablet] Omeprazole [Omeprazole 20mg 20 mg PO BID 12/28/17 01/20/18 History Capsule] Oxybutynin Chloride [Ditropan Xl] 5 mg PO BID 12/28/17 01/20/18 History Potassium Chloride [Pot Chlor 20 20 meq PO
--- NOTE | 2018-02-23 16:00 | HMH.CONS ---
*Admission Date: 12/28/17 *History of present illness: Ms Craven is a 62 year old white female with multiple medical problems including stage I chronic lymphocytic leukemia, hypertension and diabetes. She is status post cholecystectomy, appendectomy and hysterectomy. One week ago , she developed urinary tract infection and was given an antibiotic that she has finished. 3 days ago she developed vomiting , mostly food , green diarrhea and crampy diffuse abdominal pain. She denies fever/ chills. She came to the ED stating that I am dehydrated and I need IV fluids . She was diagnosed with CML and was last seen by Dr. Mcdonough 12/2017. She has had ongoing social problems from the beginning with bedbugs in the home. Wound Care Physician has been contacted to evaluate the home. The landlord said he was not going to do anything about them. When on the Gleevec she responded well with White BC decreasing from 60,000-3000. She then developed diarrhea and was seen multiple times in the emergency room because of the diarrhea. The chemo was stopped. She states this time she has had vomiting and diarrhea x 3 days in the last 3 days and diarrhea daily ?3 days. She has been able to retain some food and fluids. She has been voiding without difficulty although she describes dysuria. She denies any blood in her stool or vomiting blood. She has had no upper respiratory tract symptoms denies fever. Consult from Dr. Mcdonough Was asked to see the patient because she was admitted for diarrhea. Had diarrhea on her Gleevec she also has diarrhea without the Gleevec. As of the diarrhea we been having difficulty getting control of her white count. We should stop this and start a new drug in the clinic. I will start her ondasatanib. Evelinael exam today she has no splenomegaly a white counts are 35,000 or higher. [facility] History Medical History: Reports:: Arrhythmia, Atherosclerotic Heart Disease, Cancer, Coronary Artery Disease, Depression, Diabetes Mellitus Type 2, Heart Murmur, Hyperlipidemia, Hypertension, Myocardial Infarction, Peripheral Vascular Disease, Valvular Heart Disease Denies:: Diabetes Mellitus Type 1, MRSA Other Medical History: Reports: Anemia, Arthritis Laterality Cases: Left: Other, Bilateral: Tonsillectomy Other Surgeries: Yes: Angioplasty, Appendectomy, Cardiac Catheterization, Colonoscopy, Coronary Stent, Diagnostic Lap, EGD, Hysterectomy-Total Amputation: No Fractures: Yes (LEFT FOOT) - *Social History Educational Level: Completed GED/General Educational Development Smoking Status: Current every day smoker Tobacco Type: cigarettes # Packs/Day (cigarettes): 0 Alcohol Intake: never Substance Use Type: denies use Occupational Status: disabled Housing: house Household Members: children - Psychiatric History Expresses thoughts of harming self/others: None Suicide Plan Description: No Plan Pschychiatric History:: Reports:: Depression *Family Hx:: Cancer, Coronary Artery Disease, Diabetes, Hyperlipidemia, Hypertension, Stroke Review of Systems - *Neurologic Reports dizziness, Reports headache(s) Meds Home Medications Medication Instructions Recorded Confirmed Type Albuterol Sulfate [Albuterol HFA 1 puff IH BID 12/28/17 02/13/18 History Inhaler] Atorvastatin Calcium [Atorvastatin 80 mg PO HS 12/28/17 02/13/18 History 80mg Tab] Ferrous Sulfate 325 mg PO DAILY 12/28/17 02/13/18 History Fluticasone/Vilanterol [Breo 1 spray IH DAILY 12/28/17 02/13/18 History Ellipta 100-25 Mcg INH] Furosemide [Furosemide 40MG tAB] 40 mg PO BID 12/28/17 02/13/18 History Lisinopril [Lisinopril 5mg Tablet] 5 mg PO DAILY 12/28/17 02/13/18 History Metformin HCl [Metformin 500mg 500 mg PO BIDWM 12/28/17 02/13/18 History Tablet] Omeprazole [Omeprazole 20mg 20 mg PO BID 12/28/17 02/13/18 History Capsule] Oxybutynin Chloride [Ditropan Xl] 5 mg PO BID 12/28/17 02/13/18 History Potassium Chloride [Pot Chlor 20 20 meq PO
--- NOTE | 2018-02-23 16:04 | P.CONS_ITS ---
*Admission Date: 12/28/17 *History of present illness: Ms Craven is a 62 year old white female with multiple medical problems including stage I chronic lymphocytic leukemia, hypertension and diabetes. She is status post cholecystectomy, appendectomy and hysterectomy. One week ago , she developed urinary tract infection and was given an antibiotic that she has finished. 3 days ago she developed vomiting , mostly food , green diarrhea and crampy diffuse abdominal pain. She denies fever/ chills. She came to the ED stating that I am dehydrated and I need IV fluids . She was diagnosed with CML and was last seen by Dr. Mcdonough 12/2017. She has had ongoing social problems from the beginning with bedbugs in the home. Shoemaking Finisher has been contacted to evaluate the home. The landlord said he was not going to do anything about them. When on the Gleevec she responded well with White BC decreasing from 60,000-3000. She then developed diarrhea and was seen multiple times in the emergency room because of the diarrhea. The chemo was stopped. She states this time she has had vomiting and diarrhea x 3 days in the last 3 days and diarrhea daily ?3 days. She has been able to retain some food and fluids. She has been voiding without difficulty although she describes dysuria. She denies any blood in her stool or vomiting blood. She has had no upper respiratory tract symptoms denies fever. Consult from Dr. Mcdonough Was asked to see the patient because she was admitted for diarrhea. Had diarrhea on her Gleevec she also has diarrhea without the Gleevec. As of the diarrhea we been having difficulty getting control of her white count. We should stop this and start a new drug in the clinic. I will start her ondasatanib. Evelinael exam today she has no splenomegaly a white counts are 35, 000 or higher. [facility] History Medical History: Reports:: Arrhythmia, Atherosclerotic Heart Disease, Cancer, Coronary Artery Disease, Depression, Diabetes Mellitus Type 2, Heart Murmur, Hyperlipidemia, Hypertension, Myocardial Infarction, Peripheral Vascular Disease , Valvular Heart Disease Denies:: Diabetes Mellitus Type 1, MRSA Other Medical History: Reports: Anemia, Arthritis Laterality Cases: Left: Other, Bilateral: Tonsillectomy Other Surgeries: Yes: Angioplasty, Appendectomy, Cardiac Catheterization, Colonoscopy, Coronary Stent, Diagnostic Lap, EGD, Hysterectomy-Total Amputation: No Fractures: Yes (LEFT FOOT) - *Social History Educational Level: Completed GED/General Educational Development Smoking Status: Current every day smoker Tobacco Type: cigarettes # Packs/Day (cigarettes): 0 Alcohol Intake: never Substance Use Type: denies use Occupational Status: disabled Housing: house Household Members: children - Psychiatric History Expresses thoughts of harming self/others: None Suicide Plan Description: No Plan Pschychiatric History:: Reports:: Depression *Family Hx:: Cancer, Coronary Artery Disease, Diabetes, Hyperlipidemia, Hypertension, Stroke Review of Systems - *Neurologic Reports dizziness, Reports headache(s) Meds Home Medications Medication Instructions Recorded Confirmed Type Albuterol Sulfate [Albuterol HFA 1 puff IH BID 12/28/17 02/13/18 History Inhaler] Atorvastatin Calcium [Atorvastatin 80 mg PO HS 12/28/17 02/13/18 History 80mg Tab] Ferrous Sulfate 325 mg PO DAILY 12/28/17 02/13/18 History Fluticasone/Vilanterol [Breo 1 spray IH DAILY 12/28/17 02/13/18 History Ellipta 100-25 Mcg INH] Furosemide [Furosemide 40MG
== END 2017-12-30 13:40 | disposition home or self-care (01) | DRG 392 ==
LOC: ER 12:55 → 2ND 13:15
PROVIDERS: Admitting Provider Family Medicine; Emergency Provider Emergency Medicine; Family Provider Family Medicine; PCP Family Medicine; Visit Provider Family Medicine
DX: K52.9 Noninfective gastroenteritis and colitis, unspecified (principal); C91.10 Chronic lymphocytic leukemia of B-cell type not having achieved remission; I10 Essential (primary) hypertension; E11.9 Type 2 diabetes mellitus without complications; I25.10 Atherosclerotic heart disease of native coronary artery without angina pectoris; Z95.5 Presence of coronary angioplasty implant and graft; Z72.0 Tobacco use; Z60.8 Other problems related to social environment
CPT/HCPCS: 36415; 74021; 80048; 80053; 81001; 83605; 83735; 85007; 85025; 85610; 85730; 87040; 87086; 87507; 94640; 94760; 94761; 96365; 96366; 96367; 96374; 96375; 99284; J2405

== ENCOUNTER 2018-01-08 08:19 | Emergency (ER) | payer MEDICAID, SELFPAY ==
--- NOTE | 2018-01-08 | CT_ITS ---
CT cervical spine wo con Ordering Physician: Marlyn Lopez MD Patient Age: 62 years: Female HISTORY: ITS.REASON: FELL DOWN RAMP AND HIT HEAD posterior head and neck pain TECHNIQUE: Helical CT scanning performed through the cervical spine with sagittal coronal reconstructions on CT workstation. COMPARISON : None FINDINGS . No acute fracture nor subluxation evident. The cervical spine appears intact. C1-C2 relationships appear normal. The nonspecific straightening cervical spine most likely positional but can reflect spasm or recent injury. Vertebral bodies and disc spaces intact. There are some early degenerative facet changes throughout bilaterally. Most notable notable to the right at C 2/3 . Prevertebral soft tissues appear normal Other scattered small moderate nodes throughout the neck the Thyroid appears mildly enlarged bilaterally with right lobe larger than left and thickening of the isthmus which measures up to 8 mm AP.. Also Question/Suspect, 9 mm nodule coronal image 21 although .. At junction right lobe and isthmus.this low-density could be due to streak artifact here IMPRESSION. 1. No acute findings in the cervical spine. No fracture nor subluxation nonspecific straightening. 2. Mild degenerative facet changes as detailed intact. 3. Thyroid appears slightly enlarged of particularly the right lobe. Also note thickened isthmus, with suspect 9 mm nodule in the junction of right lobe and isthmus and question nodule inferior right lobe.
[2018-01-08 08:27] VITALS: BP 154/82; PULSE 75; RESP 16; TEMP 36.6; O2SAT 98; BMI 40.3
[2018-01-08 08:28] VITALS: BMI 40.3
--- NOTE | 2018-01-08 08:29 | CT_ITS ---
CT head/brain wo con Ordering Physician: Marlyn Lopez MD Patient Age: 62 years: Female HISTORY: ITS.REASON: fell down ramp and hit head Hit back of head. Posterior head and neck pain COMPARISON: 02/02/[address] head TECHNIQUE: Axial images obtained without contrast. Brain and bone windows performed & reviewed. FINDINGS: No acute intracranial findings No midline shift, mass effect, intracranial hemorrhage, hydrocephalus, or extra-axial fluid collection is evident. . Ventricles and basal cisterns are satisfactory Physiologic calcification of the basal ganglia bilaterally again noted The calvarium has an unremarkable appearance. No mastoid effusion. No sinus air-fluid levels.. IMPRESSION : Negative CT head without contrast. No acute intracranial finding CT No significant change since January [address]
--- NOTE | 2018-01-08 08:32 | HMH.EDFALL ---
ED Disposition Clinical Impression: Head contusion, DJD (degenerative joint disease) of cervical spine, Thyroid nodule, Anticoagulant long-term use, CLL (chronic lymphocytic leukemia), Fall Disposition: Home, Self-Care Condition on Discharge: Fair Additional Instructions: 1- You need to stay with a family member or a friend x 24 hours , fall precautions. 2- HOB 30 degree, apply ice pack and 24 hours head injury instructions. 3- to return for any change. 4- follow up with the business control specialist in [place] and discuss if xalerto still needed especially with her diagnosis of CLL. 5- follow up with pcp in am for a recheck and review your Ct scan regardinh non emergency findings. Referrals: Nguyen Stone MD [Primary Care Provider] - - Critical Care Critical Care Time: No Attestation: On , the high probability of a clinically significant, sudden or life threatening deterioration of the following system(s) required my full and direct attention, intervention and personal management. The time I documented below is in addition to time spent performing reported procedures but includes the following listed in this critical care notation. Medical Decision Making Vital Signs: 01/08/18 08:27 Temperature 97.8 F Temperature Source Oral Pulse Rate [Right Brachial] 75 Respiratory Rate 16 Blood Pressure [Right Arm] 154/82 Blood Pressure Mean [Right Arm] 106 Blood Pressure Source [Right Arm] Automatic Cuff Blood Pressure Position [Right Arm] Sitting 02 Sat by Pulse Oximetry 98 Oxygen Delivery Method Room Air - CT Data CT Scan: Head, C-Spine Time Received: 10:[address] Reviewed: Yes: I have viewed the radiologist's interpretation Preliminary Findings: Normal/NAD, Abnormal Findings Narrative: 1. No acute findings in the cervical spine. No fracture nor subluxation nonspecific straightening. 2. Mild degenerative facet changes as detailed intact. 3. Thyroid appears slightly enlarged of particularly the right lobe. Also note thickened isthmus, with suspect 9 mm nodule in the junction of right lobe and isthmus and question nodule inferior right lobe. - Amanuel Inquiry Pt receiving controlled substance: No Amanuel was queried for this patient: No Medical Decision Making Narrative: The patient remoianed stable , denieed any additional pains. There was no acute findings, but hse had non emergent findings especially on cervical ct scan , she was goven a copy to follow up with pcp on these foindings. I made her aware that CT scan is not a 100% and a head injury instructions is needed, she will need to stay with a relative or a friend tonight. she and her friend vervalized understanding. Fall HPI - General Stated Complaint: Fell at home hit head - History of Present Illness HPI Narrative: This is a 62 yrs old WF weel known to me from prior ED visits and hospital admissions with multiple medical problems including but not limited to CLL, diarrhea, CAD and anticoagulation with xalerto. Today, she slipped and fell on her outdoor ramp over the snow and hit the back of her head, she denies LOC, nausea or vomiting, no bleeding per orifices. she points to the right preito-occipital for tenderness. she started that ther neck always hurts but denies change in the nature of her neck pain. she is sitting up chatting and provided full history. 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 ) Location of injury: head Quality: dull Associated symptoms (after fall): denies - Related Data Home Medications Medication Instructions Recorded Confirmed Albuterol Sulfate [Albuterol HFA 1 puff IH BID 12/28/17 01/08/18 Inhaler] Atorvastatin Calcium [Atorvastatin 80
--- NOTE | 2018-01-08 08:36 | ED_ITS ---
ED Disposition Clinical Impression: Head contusion, DJD (degenerative joint disease) of cervical spine, Thyroid nodule, Anticoagulant long-term use, CLL (chronic lymphocytic leukemia), Fall Disposition: Home, Self-Care Condition on Discharge: Fair Additional Instructions: 1- You need to stay with a family member or a friend x 24 hours , fall precautions. 2- HOB 30 degree, apply ice pack and 24 hours head injury instructions. 3- to return for any change. 4- follow up with the brick paving checker in [place] and discuss if xalerto still needed especially with her diagnosis of CLL. 5- follow up with pcp in am for a recheck and review your Ct scan regardinh non emergency findings. Referrals: Nguyen Stone MD [Primary Care Provider] - - Critical Care Critical Care Time: No Attestation: On , the high probability of a clinically significant, sudden or life threatening deterioration of the following system(s) required my full and direct attention, intervention and personal management. The time I documented below is in addition to time spent performing reported procedures but includes the following listed in this critical care notation. Medical Decision Making Vital Signs: 01/08/18 08:27 Temperature 97.8 F Temperature Source Oral Pulse Rate [Right Brachial] 75 Respiratory Rate 16 Blood Pressure [Right Arm] 154/82 Blood Pressure Mean [Right Arm] 106 Blood Pressure Source [Right Arm] Automatic Cuff Blood Pressure Position [Right Arm] Sitting 02 Sat by Pulse Oximetry 98 Oxygen Delivery Method Room Air - CT Data CT Scan: Head, C-Spine Time Received: 10:[address] Reviewed: Yes: I have viewed the radiologist's interpretation Preliminary Findings: Normal/NAD, Abnormal Findings Narrative: 1. No acute findings in the cervical spine. No fracture nor subluxation nonspecific straightening. 2. Mild degenerative facet changes as detailed intact. 3. Thyroid appears slightly enlarged of particularly the right lobe. Also note thickened isthmus, with suspect 9 mm nodule in the junction of right lobe and isthmus and question nodule inferior right lobe. - Amanuel Inquiry Pt receiving controlled substance: No Amanuel was queried for this patient: No Medical Decision Making Narrative: The patient remoianed stable , denieed any additional pains. There was no acute findings, but hse had non emergent findings especially on cervical ct scan , she was goven a copy to follow up with pcp on these foindings. I made her aware that CT scan is not a 100% and a head injury instructions is needed, she will need to stay with a relative or a friend tonight. she and her friend vervalized understanding. Fall HPI - General Stated Complaint: Fell at home hit head - History of Present Illness HPI Narrative: This is a 62 yrs old WF weel known to me from prior ED visits and hospital admissions with multiple medical problems including but not limited to CLL, diarrhea, CAD and anticoagulation with xalerto. Today, she slipped and fell on her outdoor ramp over the snow and hit the back of her head, she denies LOC, nausea or vomiting, no bleeding per orifices. she points to the right preito- occipital for tenderness. she started that ther neck always hurts but denies change in the nature of her neck pain. she is sitting up chatting and provided full history. she remembered me from the last ED visit MD complaint: fall Onset (ago): minute(s)
[2018-01-08 10:32] VITALS: BP 135/85; PULSE 80; RESP 22; TEMP 36.7; O2SAT 94
== END 2018-01-08 10:35 | disposition home or self-care (01) ==
PROVIDERS: Emergency Provider Emergency Medicine; Family Provider Family Medicine; PCP Family Medicine
DX: S00.90XA Unspecified superficial injury of unspecified part of head, initial encounter (principal); W00.0XXA Fall on same level due to ice and snow, initial encounter; Y92.017 Garden or yard in single-family (private) house as the place of occurrence of the external cause; M47.892 Other spondylosis, cervical region; Z79.01 Long term (current) use of anticoagulants; I10 Essential (primary) hypertension; E11.9 Type 2 diabetes mellitus without complications; E78.5 Hyperlipidemia, unspecified; I73.9 Peripheral vascular disease, unspecified; I25.10 Atherosclerotic heart disease of native coronary artery without angina pectoris; Z90.49 Acquired absence of other specified parts of digestive tract; Z95.5 Presence of coronary angioplasty implant and graft; Z79.84 Long term (current) use of oral hypoglycemic drugs; Z88.0 Allergy status to penicillin; Z88.8 Allergy status to other drugs, medicaments and biological substances
CPT/HCPCS: 70450; 72125; 99282

== ENCOUNTER 2018-01-20 15:17 | Emergency (ER) | payer MEDICAID, SELFPAY ==
[2018-01-20 15:21] VITALS: BP 147/74; PULSE 61; RESP 18; TEMP 36.8; O2SAT 97; BMI 34.3
--- NOTE | 2018-01-20 15:27 | HMH.EDGENADL ---
ED Disposition Clinical Impression: Atypical chest pain, CLL (chronic lymphocytic leukemia) Disposition: Home, Self-Care Condition on Discharge: Good Additional Instructions: See Dr. Stone and Dr. Canales for follow up. Your white blood cell count is more elevated than usual and you need to discuss this with Dr. Canales. You may see Dr. Stone for your atypical chest pain for follow up; you will need to call for appointments this week. Referrals: Kole Muñoz MD [Primary Care Provider] - - Critical Care Critical Care Time: No Attestation: On , the high probability of a clinically significant, sudden or life threatening deterioration of the following system(s) required my full and direct attention, intervention and personal management. The time I documented below is in addition to time spent performing reported procedures but includes the following listed in this critical care notation. Medical Decision Making - Medical Records Medical records reviewed: Yes: I reviewed the patient's medical records. - Amanuel Inquiry Pt receiving controlled substance: No Vital Signs: 01/20/18 15:21 Temperature 98.3 F Temperature Source Oral Pulse Rate [Right Radial] 61 Respiratory Rate 18 Blood Pressure [Right Arm] 147/74 Blood Pressure Mean [Right Arm] 98 Blood Pressure Source [Right Arm] Automatic Cuff Blood Pressure Position [Right Arm] Sitting 02 Sat by Pulse Oximetry 97 Oxygen Delivery Method Room Air - Lab Data Lab results reviewed: Yes: I reviewed the patient's lab results. Lab Results 01/20/18 15:30: Urine Color Yellow, Urine Appearance Clear, Urine pH 8.0, Ur Specific [place] 1.010, Urine Protein Negative, Urine Glucose (UA) Negative, Urine Ketones Negative, Urine Blood Negative, Urine Nitrate Negative, Urine Bilirubin Negative, Urine Urobilinogen 0.2, Ur Leukocyte Esterase Negative, Urine RBC None, Urine WBC 5-10, Ur Squamous Epith Cells 10-20, Urine Bacteria Trace 01/20/18 15:30: WBC 85.1 H*, RBC 4.01 L, Hgb 10.0 L, Hct 33.1 L, MCV 82.7, MCH 24.9 L, MCHC 30.1 L, RDW 17.2, Plt Count 302, MPV 7.9, Neut % (Auto) 87.8 H, Lymph % (Auto) 7.8 L, [place] % (Auto) 2.7, Eos % (Auto) 1.7, Baso % (Auto) 3.9 H, Neut # (Auto) 74.7 H, Lymph # (Auto) 6.6 H, [place] # (Auto) 2.3 H, Eos # (Auto) 1.5 H, Baso # (Auto) 3.3 H, Total Counted 200, Neutrophils % (Manual) 66, Band Neutrophils % 2.0, Lymphocytes % (Manual) 18, Monocytes % (Manual) 7, Eosinophils % (Manual) 3, Metamyelocytes % 4.0 H, Blast Cells % 1.0, Platelet Estimate Normal, RBC Morphology Not Reportable, Hypochromasia 1+ 01/20/18 15:30: Sodium 141, Potassium 4.2, Chloride 104, Carbon Dioxide 30, Anion Gap 11.2, BUN 8, Creatinine 0.78, Estimated Creat Clear 110, Estimated GFR 75, Est GFR ( Amer) 91, Glucose 98, Calcium 8.4 L, Total Bilirubin 0.5, AST 19, ALT 20, Alkaline Phosphatase 156 H, Total Creatine Kinase 58, CK-MB (CK-2) < 0.5, CK-MB (CK-2) Rel Index 0.9, Troponin I < 0.02, Total Protein 7.4, Albumin 3.6, Globulin 3.8 H, Albumin/Globulin Ratio 0.9 L 01/20/18 16:45: Lactic Acid 0.8 Result diagrams: 01/20/18 15:30 01/20/18 15:30 Orders (Tests/Meds): ED MEDICATIONS Generic Name Dose Route Start Last Admin Trade Name Freq PRN Reason Stop Dose Admin Sodium Chloride 1,000 mls @ 250 mls/hr 01/20/18 16:30 01/20/18 16:30 Sod Chlor 0.9% 1000ml Bag IV 02/19/18 16:29 250 mls/hr .Q4H JONAS Administration ORDERS Category Date Time Status Blood Culture Stat Micro 01/20/18 16:48 Ordered - Radiology Data #1 Image(s): Chest Image Reviewed: Yes I have reviewed radiologist's interpretation Preliminary Findings: Normal/NAD - ECG Data Tracing #1 I reviewed this ECG and interpreted as documented below: no change from 02/04/17. Old nonspecific changes ECG initial impression date: 01/20/18 ECG initial impression time: 15:10 ECG normal with no acute: arrhythmias, ischemia, conduction abnormalities, chamber hypertrophy - Physician Consu
--- NOTE | 2018-01-20 15:28 | XR_ITS ---
XR chest portable HISTORY: ITS.REASON: CHEST PAIN ORDERING PHYSICIAN: Candelaria Deutsch MD PATIENT AGE: 62 years COMPARISON: 07/19/2017 FINDINGS: Mild cardiomegaly without failure. No lobar consolidation or collapse. Calcified granulomas present in the left midlung. IMPRESSION: Mild cardiomegaly, no acute finding.
--- NOTE | 2018-01-20 15:30 | ED_ITS ---
ED Disposition Clinical Impression: Atypical chest pain, CLL (chronic lymphocytic leukemia) Disposition: Home, Self-Care Condition on Discharge: Good Additional Instructions: See Dr. Stone and Dr. Canales for follow up. Your white blood cell count is more elevated than usual and you need to discuss this with Dr. Canales. You may see Dr. Stone for your atypical chest pain for follow up; you will need to call for appointments this week. Referrals: Kole Muñoz MD [Primary Care Provider] - - Critical Care Critical Care Time: No Attestation: On , the high probability of a clinically significant, sudden or life threatening deterioration of the following system(s) required my full and direct attention, intervention and personal management. The time I documented below is in addition to time spent performing reported procedures but includes the following listed in this critical care notation. Medical Decision Making - Medical Records Medical records reviewed: Yes: I reviewed the patient's medical records. - Amanuel Inquiry Pt receiving controlled substance: No Vital Signs: 01/20/18 15:21 Temperature 98.3 F Temperature Source Oral Pulse Rate [Right Radial] 61 Respiratory Rate 18 Blood Pressure [Right Arm] 147/74 Blood Pressure Mean [Right Arm] 98 Blood Pressure Source [Right Arm] Automatic Cuff Blood Pressure Position [Right Arm] Sitting 02 Sat by Pulse Oximetry 97 Oxygen Delivery Method Room Air - Lab Data Lab results reviewed: Yes: I reviewed the patient's lab results. Lab Results 01/20/18 15:30: Urine Color Yellow, Urine Appearance Clear, Urine pH 8.0, Ur Specific [place] 1.010, Urine Protein Negative, Urine Glucose (UA) Negative, Urine Ketones Negative, Urine Blood Negative, Urine Nitrate Negative, Urine Bilirubin Negative, Urine Urobilinogen 0.2, Ur Leukocyte Esterase Negative, Urine RBC None, Urine WBC 5-10, Ur Squamous Epith Cells 10-20, Urine Bacteria Trace 01/20/18 15:30: WBC 85.1 H*, RBC 4.01 L, Hgb 10.0 L, Hct 33.1 L, MCV 82.7, MCH 24.9 L, MCHC 30.1 L, RDW 17.2, Plt Count 302, MPV 7.9, Neut % (Auto) 87.8 H, Lymph % (Auto) 7.8 L, [place] % (Auto) 2.7, Eos % (Auto) 1.7, Baso % (Auto) 3.9 H, Neut # (Auto) 74.7 H, Lymph # (Auto) 6.6 H, [place] # (Auto) 2.3 H, Eos # (Auto) 1.5 H, Baso # (Auto) 3.3 H, Total Counted 200, Neutrophils % (Manual) 66, Band Neutrophils % 2.0, Lymphocytes % (Manual) 18, Monocytes % (Manual) 7, Eosinophils % (Manual) 3, Metamyelocytes % 4.0 H, Blast Cells % 1.0, Platelet Estimate Normal, RBC Morphology Not Reportable, Hypochromasia 1+ 01/20/18 15:30: Sodium 141, Potassium 4.2, Chloride 104, Carbon Dioxide 30, Anion Gap 11.2, BUN 8, Creatinine 0.78, Estimated Creat Clear 110, Estimated GFR 75, Est GFR ( Amer) 91, Glucose 98, Calcium 8.4 L, Total Bilirubin 0.5, AST 19, ALT 20, Alkaline Phosphatase 156 H, Total Creatine Kinase 58, CK- MB (CK-2) < 0.5, CK-MB (CK-2) Rel Index 0.9, Troponin I < 0.02, Total Protein 7.4, Albumin 3.6, Globulin 3.8 H, Albumin/Globulin Ratio 0.9 L 01/20/18 16:45: Lactic Acid 0.8 Result diagrams: 01/20/18 15:30 01/20/18 15:30 Orders (Tests/Meds): ED MEDICATIONS Generic Name Dose Route Start Last Admin Trade Name Freq PRN Reason Stop Dose Admin Sodium Chloride 1,000 mls @ 250 mls/hr 01/20/18 16:30 01/20/18 16:30 Sod Chlor 0.9% 1000ml Bag IV 02/19/18 16:29 250 mls/hr .Q4H JONAS Administration ORDERS Category Date Time Status Blood C
[2018-01-20 15:37] LABS: Microscopic, Urine URINE MICROSCOPIC (MICROSCOPIC)
[2018-01-20 15:40] LABS: Appearance,Urine CLEAR (Clear); Bilirubin,Urine Negative (Negative); Blood, Urine Negative (Negative); Color,Urine YELLOW (Yellow); Glucose,Urine (UA) Negative (Negative); Ketones,Urine Negative (Negative); Leukocyte Esterase,Urine Negative (Negative); Nitrate,Urine Negative (Negative); Protein,Urine Negative (Negative); Urobilinogen,Urine 0.2 EU/dl (0.2)
[2018-01-20 15:52] LABS: Basophils # 3.3 K/mm3 (0-0.2); Basophils % 3.9 % (0.1-2.0); Eosinophils # 1.5 K/mm3 (0.0-0.4); Eosinophils % 1.7 % (0.1-12.0); Hematocrit 33.1 % (37.0-47.0); Lymphocytes # 6.6 K/mm3 (0.7-4.5); Lymphocytes % 7.8 K/mm3 (10-50); Mean Corpuscular HGB Conc 30.1 g/dL (31.8-35.4); Mean Corpuscular Hemoglobin 24.9 pg (27.0-31.2); Mean Corpuscular Volume 82.7 fl (81-99); Mean Platelet Volume 7.9 fl (7.4-10.4); Monocytes # 2.3 K/mm3 (0.1-1.0); Monocytes % 2.7 % (1.7-9.3); Neutrophils # 74.7 K/mm3 (1.8-7.8); Neutrophils % 87.8 % (37.0-80.0); Platelet Count 302 K/mm3 (142-424); Red Blood Count 4.01 M/mm3 (4.20-5.40); Red Cell Distribution Width 17.2 % (11.5-17.5)
[2018-01-20 15:55] LABS: White Blood Count 85.1 K/mm3 (4.8-10.8)
--- NOTE | 2018-01-20 15:55 | PC.NURSE ---
ADVISED DR BURKETT WBC 81
[2018-01-20 15:56] LABS: MANUAL DIFFERENTIAL MANUAL DIFFERENTIAL (MANUAL DIFF)
--- NOTE | 2018-01-20 15:58 | PC.NURSE ---
[facility] TO COME PICK PT UP. FAMILY MEMBER TO RIDE WITH PT IN [place] TO [facility].
[2018-01-20 16:02] LABS: Bacteria,Urine Trace /lpf
[2018-01-20 16:12] LABS: Alanine Aminotransferase 20 U/L (12-78); Albumin Level 3.6 gm/dL (3.4-5.0); Albumin/Globulin Ratio 0.9 (1.1-1.8); Alkaline Phosphatase 156 U/L (46-116); Anion Gap 11.2 mEq/L (5-15); Aspartate Amino Transferase 19 U/L (15-37); Bilirubin,Total 0.5 mg/dL (0.2-1.0); Blood Urea Nitrogen 8 mg/dL (7-18); CKMB Relative Index 0.9 U/L (0-4.0); Calcium 8.4 mg/dL (8.5-10.1); Carbon Dioxide 30 mmol/L (21.0-32.0); Chloride 104 mmol/L (98-107); Creatine Kinase 58 U/L (26-192); Creatine Kinase MB < 0.5 ng/ml (0.0-3.6); Creatinine Clearance Estimated 110 mL/min (0-300); Creatinine,Serum 0.78 mg/dL (0.55-1.02); Estimated Glomerular Filt Rate 75 ml/min (>60); GFR (African American) 91 ML/MIN (>60); Globulin 3.8 gm/dl (1.3-3.2); Glucose 98 mg/dL (74-106); Potassium 4.2 mmoL/L (3.5-5.1); Sodium 141 mmol/L (136-145); Total Protein,Serum 7.4 gm/dL (6.4-8.2); Troponin I < 0.02 ng/ml (0.00-0.06)
[2018-01-20 17:12] LABS: Eosinophils % 3 % (0-3); Lymphocytes % 18 % (10-50); Monocytes % 7 % (2-9); Neutrophils % 66 % (42-76); Total Cells Counted 200
[2018-01-20 17:13] LABS: Lactic Acid 0.8 mmol/L (0.4-2.0)
[2018-01-20 17:13] LABS: Platelet Estimate Normal
[2018-01-20 17:14] LABS: Hypochromasia 1+
[2018-01-20 19:12] VITALS: BP 142/78; PULSE 84; RESP 18; TEMP 36.8; O2SAT 94
== END 2018-01-20 18:50 | disposition home or self-care (01) ==
PROVIDERS: Emergency Provider Emergency Medicine; Family Provider Family Medicine; PCP Family Medicine
DX: R07.89 Other chest pain (principal); C91.10 Chronic lymphocytic leukemia of B-cell type not having achieved remission; I10 Essential (primary) hypertension; I25.10 Atherosclerotic heart disease of native coronary artery without angina pectoris; F17.210 Nicotine dependence, cigarettes, uncomplicated; E11.9 Type 2 diabetes mellitus without complications; Z79.84 Long term (current) use of oral hypoglycemic drugs; Z79.82 Long term (current) use of aspirin; Z88.0 Allergy status to penicillin; Z90.49 Acquired absence of other specified parts of digestive tract; Z88.8 Allergy status to other drugs, medicaments and biological substances
CPT/HCPCS: 71045; 80053; 81001; 82550; 82553; 83605; 84484; 85007; 85025; 87040; 93005; 96365; 99284

== ENCOUNTER → 2018-02-07 14:08 | Outpatient (CLI) | payer MEDICAID, SELFPAY ==
[2018-02-07 14:27] LABS: Basophils # 0.2 K/mm3 (0-0.2); Basophils % 2.1 % (0.1-2.0); Eosinophils # 0.4 K/mm3 (0.0-0.4); Eosinophils % 4.8 % (0.1-12.0); Hematocrit 30.7 % (37.0-47.0); Hemoglobin 9.1 g/dL (12.2-16.2); Lymphocytes # 1.5 K/mm3 (0.7-4.5); Lymphocytes % 17.3 K/mm3 (10-50); Mean Corpuscular HGB Conc 29.6 g/dL (31.8-35.4); Mean Corpuscular Volume 84.5 fl (81-99); Mean Platelet Volume 9.6 fl (7.4-10.4); Monocytes # 0.4 K/mm3 (0.1-1.0); Monocytes % 4.7 % (1.7-9.3); Neutrophils # 6.3 K/mm3 (1.8-7.8); Neutrophils % 71.1 % (37.0-80.0); Platelet Count 232 K/mm3 (142-424); Red Blood Count 3.64 M/mm3 (4.20-5.40); Red Cell Distribution Width 16.7 % (11.5-17.5); White Blood Count 8.9 K/mm3 (4.8-10.8)
[2018-02-07 15:03] LABS: Alanine Aminotransferase 12 U/L (12-78); Albumin Level 3.6 gm/dL (3.4-5.0); Albumin/Globulin Ratio 1.1 (1.1-1.8); Alkaline Phosphatase 114 U/L (46-116); Anion Gap 11.2 mEq/L (5-15); Aspartate Amino Transferase 13 U/L (15-37); Bilirubin,Total 0.4 mg/dL (0.2-1.0); Blood Urea Nitrogen 10 mg/dL (7-18); Calcium 8.6 mg/dL (8.5-10.1); Carbon Dioxide 30 mmol/L (21.0-32.0); Chloride 106 mmol/L (98-107); Creatinine,Serum 0.66 mg/dL (0.55-1.02); Estimated Glomerular Filt Rate 91 ml/min (>60); GFR (African American) 111 ML/MIN (>60); Globulin 3.2 gm/dl (1.3-3.2); Glucose 101 mg/dL (74-106); Potassium 4.2 mmoL/L (3.5-5.1); Sodium 143 mmol/L (136-145); Total Protein,Serum 6.8 gm/dL (6.4-8.2)
== END ==
PROVIDERS: Visit Provider Internal Medicine
DX: C92.10 Chronic myeloid leukemia, BCR/ABL-positive, not having achieved remission (principal)
CPT/HCPCS: 36415; 80053; 85025

== ENCOUNTER → 2018-02-17 14:19 | Outpatient (CLI) | payer MEDICAID, SELFPAY | PROVIDERS: Visit Provider Family Medicine | DX: D50.9 Iron deficiency anemia, unspecified (principal) | CPT/HCPCS: 36415; 86850 ==

== ENCOUNTER 2018-02-18 08:45 | Outpatient (CLI) | payer MEDICAID, SELFPAY ==
[2018-02-18] VITALS (22 sets, daily range): BP systolic 109–133; BP diastolic 45–98; PULSE 60–78; RESP 20; TEMP 36.3–36.9; O2SAT 95–98; BMI 37.5
[2018-02-18 17:06] LABS: Hematocrit 32.7 % (37.0-47.0); Hemoglobin 10.2 g/dL (12.2-16.2)
== END 2018-02-18 17:23 | disposition home or self-care (01) ==
LOC: INF 08:45
PROVIDERS: Family Provider Family Medicine; PCP Family Medicine; Visit Provider Family Medicine
DX: D50.9 Iron deficiency anemia, unspecified (principal)
CPT/HCPCS: 36430; 85014; 85018; P9016

== ENCOUNTER → 2018-03-23 13:46 | Outpatient (CLI) | payer MEDICAID, SELFPAY ==
[2018-03-23 14:20] LABS: Basophils % 0.7 % (0.1-2.0); Eosinophils # 0.2 K/mm3 (0.0-0.4); Eosinophils % 3.9 % (0.1-12.0); Hematocrit 31.2 % (37.0-47.0); Hemoglobin 9.9 g/dL (12.2-16.2); Lymphocytes # 2.3 K/mm3 (0.7-4.5); Lymphocytes % 48.5 K/mm3 (10-50); Mean Corpuscular HGB Conc 31.8 g/dL (31.8-35.4); Mean Corpuscular Hemoglobin 26.7 pg (27.0-31.2); Mean Platelet Volume 9.2 fl (7.4-10.4); Monocytes # 0.3 K/mm3 (0.1-1.0); Monocytes % 5.5 % (1.7-9.3); Neutrophils % 41.4 % (37.0-80.0); Platelet Count 167 K/mm3 (142-424); Red Blood Count 3.71 M/mm3 (4.20-5.40); Red Cell Distribution Width 14.9 % (11.5-17.5); White Blood Count 4.8 K/mm3 (4.8-10.8)
[2018-03-23 15:15] LABS: Alanine Aminotransferase 25 U/L (12-78); Albumin Level 3.7 gm/dL (3.4-5.0); Albumin/Globulin Ratio 1.2 (1.1-1.8); Alkaline Phosphatase 194 U/L (46-116); Anion Gap 10.4 mEq/L (5-15); Aspartate Amino Transferase 20 U/L (15-37); Bilirubin,Total 0.5 mg/dL (0.2-1.0); Blood Urea Nitrogen 13 mg/dL (7-18); Calcium 8.8 mg/dL (8.5-10.1); Carbon Dioxide 31 mmol/L (21.0-32.0); Chloride 103 mmol/L (98-107); Estimated Glomerular Filt Rate 64 ml/min (>60); GFR (African American) 77 ML/MIN (>60); Globulin 3.1 gm/dl (1.3-3.2); Glucose 103 mg/dL (74-106); Potassium 4.4 mmoL/L (3.5-5.1); Sodium 140 mmol/L (136-145); Total Protein,Serum 6.8 gm/dL (6.4-8.2)
--- NOTE | 2018-03-29 18:27 | SW/DCPLANNER ---
[facility] Distress Screening Survey: 03/23/2018 Score: 10 Visited by Nurse Navigator (Tram) during initial appointment. Tram has stated that distress level was at a 10 due to two appointment (Oncology and family MD) scheduled the same day at same time, having bedbugs, and transportation. I called and spoke with patient this evening 03/29/18 and patient has stated that she currently still rates her distress level at a 10 due to not receiving her lost Passport insurance card in the mail today. I explained to the patient that this can be a lengthy process and having a holiday weekend () can make the process even slower. We discussed option with [facility] and patient has refused services at this time. Patient stated that she will be less stress once she receives her Passport card in the mail and be on waiting list for housing. I also attempted to assist patient with housing in December of this year and refused due to her son living with her whom is a felon. I did leave my name and phone number for this patient to contact if she has anything she needs or any questions.
== END ==
PROVIDERS: Physician Assistant; Visit Provider Internal Medicine
DX: C92.10 Chronic myeloid leukemia, BCR/ABL-positive, not having achieved remission (principal)
CPT/HCPCS: 36415; 80053; 84443; 85025

== ENCOUNTER 2018-07-27 16:59 | Observation (INO) ==
[2018-07-27 19:03] LABS: Albumin Level 3.6 gm/dL (3.4-5.0); Anion Gap 6.9 mEq/L (5-15); Bilirubin,Total 0.8 mg/dL (0.2-1.0); Calcium 8.8 mg/dL (8.5-10.1); Globulin 3.6 gm/dl (1.3-3.2); Potassium 3.9 mmoL/L (3.5-5.1); Total Protein,Serum 7.2 gm/dL (6.4-8.2)
[2018-07-27 19:37] LABS: Basophils % 0.3 % (0.1-2.0); Eosinophils # 0.2 K/mm3 (0.0-0.4); Eosinophils % 3.4 % (0.1-12.0); Hematocrit 27.7 % (37.0-47.0); Hemoglobin 8.4 g/dL (12.2-16.2); Lymphocytes # 1.2 K/mm3 (0.7-4.5); Lymphocytes % 28.6 K/mm3 (10-50); Mean Corpuscular HGB Conc 30.2 g/dL (31.8-35.4); Mean Corpuscular Hemoglobin 24.3 pg (27.0-31.2); Mean Corpuscular Volume 80.4 fl (81-99); Mean Platelet Volume 9.2 fl (7.4-10.4); Monocytes # 0.3 K/mm3 (0.1-1.0); Neutrophils # 2.6 K/mm3 (1.8-7.8); Neutrophils % 59.6 % (37.0-80.0); Platelet Count 163 K/mm3 (142-424); Red Blood Count 3.45 M/mm3 (4.20-5.40); Red Cell Distribution Width 15.2 % (11.5-17.5); White Blood Count 4.3 K/mm3 (4.8-10.8)
[2018-07-28 06:40] LABS: Eosinophils # 0.2 K/mm3 (0.0-0.4); Eosinophils % 4.5 % (0.1-12.0)
[2018-07-28 06:52] LABS: Basophils % 0.3 % (0.1-2.0); Hematocrit 31.6 % (37.0-47.0); Lymphocytes # 1.5 K/mm3 (0.7-4.5); Lymphocytes % 34.1 K/mm3 (10-50); Mean Corpuscular HGB Conc 32.3 g/dL (31.8-35.4); Mean Corpuscular Volume 80.6 fl (81-99); Mean Platelet Volume 9.4 fl (7.4-10.4); Monocytes # 0.5 K/mm3 (0.1-1.0); Monocytes % 10.4 % (1.7-9.3); Neutrophils # 2.2 K/mm3 (1.8-7.8); Neutrophils % 50.6 % (37.0-80.0); Platelet Count 149 K/mm3 (142-424); Red Blood Count 3.91 M/mm3 (4.20-5.40); Red Cell Distribution Width 15.7 % (11.5-17.5); White Blood Count 4.4 K/mm3 (4.8-10.8)
[2018-07-28 06:54] LABS: Hemoglobin 10.2 g/dL (12.2-16.2)
--- NOTE | 2018-07-28 07:40 | Pharmacy Consult Notes ---
[facility] Pharmacy VTE Monitoring - Patient Demographics Admission date: 07/28/18 Report Date: 07/28/18 Time: 07:40 Allergies/Adverse Reactions: Patient Allergies acetaminophen [ACETAMINOPHEN] Allergy (Intermediate, Verified 04/15/18 22:35) I-RASH adhesive tape [ADHESIVE TAPE] Allergy (Intermediate, Verified 04/15/18 22:35) I-RASH digoxin [DIGOXIN] Allergy (Intermediate, Verified 04/15/18 22:35) NA-NAUSEA/VOMITING hydrocortisone [HYDROCORTISONE] Allergy (Intermediate, Verified 04/15/18 22:35) I-RASH Penicillins [PENICILLINS] Allergy (Intermediate, Verified 04/15/18 22:35) I-RASH ciprofloxacin [CIPROFLOXACIN] Allergy (Mild, Verified 04/15/18 22:35) NA-NAUSEA/VOMITING milk [MILK] Allergy (Mild, Verified 04/15/18 22:35) DIARRHEA cephalexin [From Keflex] Allergy (Verified 04/15/18 22:35) Height: 1.63 m Weight: 97.664 kg - VTE Risk Labs: VTE Related Lab Results Hgb 10.2 g/dL (12.2-16.2) L D 07/28/18 05:50 Hct 31.6 % (37.0-47.0) L 07/28/18 05:50 Plt Count 149 K/mm3 (142-424) 07/28/18 05:50 BUN 10 mg/dL (7-18) 07/27/18 17:45 Creatinine 0.87 mg/dL (0.55-1.02) 07/27/18 17:45 Estimated Creat Clear 91 mL/min (0-300) 07/27/18 17:45 Was VTE Risk Assessment Performed: Yes VTE Score: 8 VTE Risk Level: Moderate Risk Clinical Trial Participant: No - Prophylaxis VTE Prophylaxis Ordered?: Yes Types of VTE Prophylaxis: TEDS Knee High
--- NOTE | 2018-07-28 08:21 | Progress Note ---
Internal Medicine - PN: Subj *Date: 07/28/18 *Time: 08:18 Interval history: Ms. Perez is a 63yo female with CML. She was admitted yesterday due to anemia and the need for a blood fusion. She was directly admitted from the office and received 2 units of blood. She states she still feels very weak and tired this morning. Exam Vital signs and Labs for Last 24 Hours: Temp Pulse Resp BP Pulse Ox 98.0 F 47 L 16 125/66 98 07/28/18 05:49 07/28/18 05:49 07/28/18 05:49 07/28/18 05:49 07/28/18 05:49 Laboratory Results - last 24 hr 07/27/18 17:45: Sodium 136, Potassium 3.9, Chloride 104, Carbon Dioxide 29, Anion Gap 6.9, BUN 10, Creatinine 0.87, Estimated Creat Clear 91, Estimated GFR 66, Est GFR ( Amer) 80, Glucose 82, Calcium 8.8, Total Bilirubin 0.8, AST 14 L, ALT 21, Alkaline Phosphatase 164 H, Total Protein 7.2, Albumin 3.6, Globulin 3.6 H, Albumin/Globulin Ratio 1.0 L 07/27/18 17:45: WBC 4.3 L D, RBC 3.45 L, Hgb 8.4 L, Hct 27.7 L, MCV 80.4 L, MCH 24.3 L, MCHC 30.2 L, RDW 15.2, Plt Count 163, MPV 9.2, Neut % (Auto) 59.6, Lymph % (Auto) 28.6, [place] % (Auto) 8.0, Eos % (Auto) 3.4, Baso % (Auto) 0.3, Neut # (Auto) 2.6, Lymph # (Auto) 1.2, [place] # (Auto) 0.3, Eos # (Auto) 0.2, Baso # (Auto) 0.0 07/27/18 20:45: Blood Type A Positive, Antibody Screen Negative, Crossmatch (AHG) See Detail 07/28/18 02:00: Stl Aeromonas (PCR) Not detected, Stl C. cayetanensis PCR Not detected, Stool Rotavirus (PCR) Not detected, Stl Adenov F 40/41 PCR Not detected, Stool Astrovirus (PCR) Not detected, Stool Campylobacter PCR Not detected, Stl C.difficile Tox PCR Not detected, Stool Cryptosporidium PCR Not detected, Stl E.coli Shiga Tox PCR Not detected, Stool E coli O157 PCR Not detected, Stl Enterotoxigenic E PCR Not detected, Stool EPEC (PCR) Detected A, Stool EAEC (PCR) Not detected, Stl E. histolytica PCR Not detected, Stool Giardia Lamblia PCR Not detected, Stool Salmonella PCR Not detected, Stool Sapovirus (PCR) Not detected, Stl P. shigelloides PCR Not detected, Stl Shigella/EIEC PCR Not detected, St Y.enterocolitica PCR Not detected, Stool Vibrio (PCR) Not detected, Stl Vibrio cholerae PCR Not detected, Stl Norovirus GI/GII PCR Not detected 07/28/18 05:50: WBC 4.4 L, RBC 3.91 L, Hgb 10.2 L D, Hct 31.6 L, MCV 80.6 L, MCH 26.0 L, MCHC 32.3, RDW 15.7, Plt Count 149, MPV 9.4, Neut % (Auto) 50.6, Lymph % (Auto) 34.1, [place] % (Auto) 10.4 H, Eos % (Auto) 4.5, Baso % (Auto) 0.3, Neut # (Auto) 2.2, Lymph # (Auto) 1.5, [place] # (Auto) 0.5, Eos # (Auto) 0.2, Baso # (Auto) 0.0 I & O for Last 24 hours: Intake & Output 07/25/18 07/26/18 07/27/18 07/28/18 11:59 11:59 11:59 11:59 Intake Total 651 / 651 Balance 651 / 651 Weight 215 lb 5 oz - Constitutional no acute distress - *Routine Respiratory Exam Present: CTA bilaterally - *Routine Cardiovascular Exam Present: RRR - *Routine Abdominal Exam Present: soft, normoactive bowel sounds, tenderness (diffusely ttp) - *Routine Extremities Exam Absent: cyanosis, clubbing, edema Assessment and Plan (1) Anemia Current visit: No Status: Acute Category: Medical Code(s): D64.9 - Anemia, unspecified (2) Infestation by bed bug Current visit: No Status: Acute Category: Medical Code(s): B88.8 - Other specified infestations (3) Diabetes Current visit: No Status: Chronic Category: Medical Code(s): E11.9 - Type 2 diabetes mellitus without complications (4) HTN (hypertension) Current visit: No Status: Chronic Category: Medical Code(s): I10 - Essential (primary) hypertension (5) CML (chronic myelocytic leukemia) Current visit: No Status: Chronic Category: Medical Code(s): C92.10 - Chronic myeloid leukemia, BCR/ABL-positive, not having achieved remission - Assessment and plan all Dx Assessment and Plan for all problems:: Patient's H&H has improved. Hematology has been consulted as patient had an appointment today but will miss it due to being in the hospital.
--- NOTE | 2018-07-28 14:24 | Discharge Summary ---
General - General Admission date:: 07/27/18 Discharge date: 07/28/18 HPI HPI: Ms. Hannah is a 63 year old female who presented to [facility] with c/o chest pain for 2 days. She was seen in the office after an [facility] ER visit for chest pain, anemia, and edema. She felt her chest pain seemed to be related to sinus drainage. She c/o shortness of breath all the time, worse with exertion, dizziness for 1 week, palpitations "flutters," and bilateral leg edema. She was extremely fatigued. She was admitted for a blood transfusion d/t a low HGB. Hospital Course Hospital Course: In the emergency room her hemoglobin was 7.8. Upon admission to the floor it was recorded as 8.4. She received 2 units of packed red blood cells and her hemoglobin improved to 10.2. Her pulse had been low. Her EKG on admission was reviewed. Her edema improved with lasix. She has an appointment with oncology as an outpatient at [address] [place] [address] and is stable to be discharged. Her stool was positive for EPEC but patient was not c/o diarrhea. Objective Vital signs: Temp Pulse Resp BP Pulse Ox 97.8 F 54 L 18 147/70 99 07/28/18 08:00 07/28/18 08:00 07/28/18 08:00 07/28/18 08:00 07/28/18 08:00 Narrative: General Appearance: NAD. HEENT: unremarkable. Oral cavity: no lesions, mucosa moist and WNL, no erythema. Neck: supple, no lymphadenopathy. Chest: normal shape and expansion. Heart: RSR, aortic murmur. Lungs: clear to auscultation. Abdomen: obese, soft and nontender. Neurologic Exam: Intact, gait normal. Skin: normal, no rash. Back: mild dorsal kyphosis. Extremities: 3+ leg edema and bug bites. Results Labs on day of discharge: Labs from last 24 hours 07/28/18 07/28/18 07/27/18 05:50 02:00 20:45 WBC 4.4 L RBC 3.91 L Hgb 10.2 L D Hct 31.6 L MCV 80.6 L MCH 26.0 L MCHC 32.3 RDW 15.7 Plt Count 149 MPV 9.4 Neut % (Auto) 50.6 Lymph % (Auto) 34.1 [place] % (Auto) 10.4 H Eos % (Auto) 4.5 Baso % (Auto) 0.3 Neut # (Auto) 2.2 Lymph # (Auto) 1.5 [place] # (Auto) 0.5 Eos # (Auto) 0.2 Baso # (Auto) 0.0 Sodium Potassium Chloride Carbon Dioxide Anion Gap BUN Creatinine Estimated Creat Clear Estimated GFR Est GFR ( Amer) Glucose Calcium Total Bilirubin AST ALT Alkaline Phosphatase Total Protein Albumin Globulin Albumin/Globulin Ratio Stl Aeromonas (PCR) Not detected Stl C. cayetanensis PCR Not detected Stool Rotavirus (PCR) Not detected Stl Adenov F 40/41 PCR Not detected Stool Astrovirus (PCR) Not detected Stool Campylobacter PCR Not detected Stl C.difficile Tox PCR Not detected Stool Cryptosporidium PCR Not detected Stl E.coli Shiga Tox PCR Not detected Stool E coli O157 PCR Not detected Stl Enterotoxigenic E PCR Not detected Stool EPEC (PCR) Detected A Stool EAEC (PCR) Not detected Stl E. histolytica PCR Not detected Stool Giardia Lamblia PCR Not detected Stool Salmonella PCR Not detected Stool Sapovirus (PCR) Not detected Stl P. shigelloides PCR Not detected Stl Shigella/EIEC PCR Not detected St Y.enterocolitica PCR Not detected Stool Vibrio (PCR) Not detected Stl Vibrio cholerae PCR Not detected Stl Norovirus GI/GII PCR Not detected Blood Type A Positive Antibody Screen Negative Crossmatch (AHG) See Detail 07/27/18 07/27/18 17:45 17:45 WBC 4.3 L D RBC 3.45 L Hgb 8.4 L Hct 27.7 L MCV 80.4 L MCH 24.3 L MCHC 30.2 L RDW 15.2 Plt Count 163 MPV 9.2 Neut % (Auto) 59.6 Lymph % (Auto) 28.6 [place] % (Auto) 8.0 Eos % (Auto) 3.4 Baso % (Auto) 0.3 Neut # (Auto) 2.6 Lymph # (Auto) 1.2 [place] # (Auto) 0.3 Eos # (Auto) 0.2 Baso # (Auto) 0.0 Sodium 136 Potassium 3.9 Chloride 104 Carbon Dioxide 29 Anion Gap 6.9 BUN 10 Creatinine 0.87 Estimated Creat Clear 91 Estimated GFR 66 Est GFR ( Amer) 80 Glucose 82 Calcium 8.8 Total Bilirubin 0.8 AST 14 L ALT 21 Alkaline Phosphatase 164 H Total Protein 7.2 Albumin 3.6 Globulin 3.6 H Albumin/Globulin Ratio 1.0 L Stl Aeromonas (PCR) Stl C. cayetanensis PCR Stool Rotavirus (PCR) Stl Adenov F 40/41 PCR Stool Astrovirus (PCR) Stool Campylobacter PCR Stl C.difficile Tox PCR Stool Cryptosporidium PCR Stl E.coli Shiga Tox PCR Stool E coli O157 PCR Stl Enterotoxigenic E PCR Stool EPEC (PCR) Stool EAEC (PCR) Stl E. histolytica PCR Stool Giardia Lamblia PCR Stool Salmonella PCR Stool Sapovirus (PCR) Stl P. shigelloides PCR Stl Shigella/EIEC PCR St Y.enterocolitica PCR Stool Vibrio (PCR) Stl Vibrio cholerae PCR Stl Norovirus GI/GII PCR Blood Type Antibody Screen Crossmatch (AHG) DS: Diagnosis - Discharge Diagnosis (1) Anemia Status: Acute (2) Infestation by bed bug Status: Acute (3) Diabetes Status: Chronic (4) HTN (hypertension) Status: Chronic (5) CML (chronic myelocytic leukemia) Status: Chronic (6) E coli infection Status: Acute Discharge Plan - Patient Discharge Instructions ACTIVITY: Continue current activity DIET: continue same diet Patient Instructions: Anemia - Follow up Plan Follow up with: Lata Morrell MD [Staff Physician] - 07/28/18 2:00 pm Disposition: Home, Self-Correction Medications: Home Medications Medication Instructions Recorded Confirmed Type Atorvastatin Calcium [Atorvastatin 80 mg PO HS 12/28/17 07/28/18 History 80mg Tab] Ferrous Sulfate 325 mg PO BID 12/28/17 07/28/18 History Fluticasone/Vilanterol [Breo 1 spray IH DAILY 12/28/17 07/28/18 History Ellipta 100-25 Mcg INH] Furosemide [Furosemide 40MG tAB] 40 mg PO BID 12/28/17 07/28/18 History Lisinopril [Lisinopril 5mg Tablet] 5 mg PO DAILY 12/28/17 07/28/18 History Metformin HCl [Glucophage 500mg 500 mg PO BIDWM 12/28/17 07/28/18 History Tablet] Omeprazole [Omeprazole 20mg 20 mg PO BID 12/28/17 07/28/18 History Capsule] Oxybutynin Chloride [Ditropan Xl] 5 mg PO BID 12/28/17 07/28/18 History Potassium Chloride [Pot Chlor 20 20 meq PO DAILY 12/28/17 07/28/18 History mEq Tab] Rivaroxaban [Xarelto 20mg Tablet] 20 mg PO DAILY 12/28/17 07/28/18 History Sotalol HCl [Betapace 80mg Tablet] 80 mg PO BID 12/28/17 07/28/18 History diazePAM [diazePAM 5mg Tablet] 5 mg PO TID 12/28/17 07/28/18 History Albuterol Sulfate [Albuterol HFA 1 inh PO DAILY 01/20/18 07/28/18 History Inhaler] Loperamide HCl [Imodium 2 mg 2 mg PO DAILY 01/20/18 07/28/18 History capsule] Aspirin 81 mg PO DAILY 07/28/18 07/28/18 History Prescriptions/Medication Reconciliation: Continue Potassium Chloride [Pot Chlor 20 mEq Tab] 20 meq PO DAILY Sotalol HCl [Betapace 80mg Tablet] 80 mg PO BID Rivaroxaban [Xarelto 20mg Tablet] 20 mg PO DAILY Oxybutynin Chloride [Ditropan Xl] 5 mg PO BID Omeprazole [Omeprazole 20mg Capsule] 20 mg PO BID Metformin HCl [Glucophage 500mg Tablet] 500 mg PO BIDWM Lisinopril [Lisinopril 5mg Tablet] 5 mg PO DAILY Furosemide [Furosemide 40MG tAB] 40 mg PO BID Ferrous Sulfate 325 mg PO BID Atorvastatin Calcium [Atorvastatin 80mg Tab] 80 mg PO HS diazePAM [diazePAM 5mg Tablet] 5 mg PO TID Albuterol Sulfate [Albuterol HFA Inhaler] 1 inh PO DAILY Loperamide HCl [Imodium 2 mg capsule] 2 mg PO DAILY Ondansetron [Zofran 4mg ODT] 4 mg PO Q8HP PRN #6 tab.rapdis PRN Reason: Nausea Aspirin 81 mg PO DAILY Fluticasone/Vilanterol [Breo Ellipta 100-25 Mcg INH] 1 spray IH DAILY Discontinued Albuterol Sulfate [Albuterol HFA Inhaler] 1 puff IH BID
== END 2018-07-28 13:30 | disposition home or self-care (01) ==
LOC: 2ND
PROVIDERS: ADMIT Family Medicine; ATTEND Family Medicine

== ENCOUNTER → 2018-08-08 15:18 | Outpatient (CLI) | payer MEDICAID, SELFPAY ==
[2018-08-08 16:31] LABS: Basophils % 0.7 % (0.1-2.0); Eosinophils # 0.2 K/mm3 (0.0-0.4); Eosinophils % 4.6 % (0.1-12.0); Hematocrit 34.8 % (37.0-47.0); Hemoglobin 10.5 g/dL (12.2-16.2); Lymphocytes # 1.8 K/mm3 (0.7-4.5); Lymphocytes % 43.8 K/mm3 (10-50); Mean Corpuscular HGB Conc 30.3 g/dL (31.8-35.4); Mean Corpuscular Hemoglobin 25.3 pg (27.0-31.2); Mean Corpuscular Volume 83.5 fl (81-99); Monocytes # 0.3 K/mm3 (0.1-1.0); Monocytes % 6.7 % (1.7-9.3); Neutrophils # 1.8 K/mm3 (1.8-7.8); Neutrophils % 44.2 % (37.0-80.0); Platelet Count 171 K/mm3 (142-424); Red Blood Count 4.16 M/mm3 (4.20-5.40); Red Cell Distribution Width 15.8 % (11.5-17.5); White Blood Count 4.1 K/mm3 (4.8-10.8)
[2018-08-08 19:01] LABS: Alanine Aminotransferase 16 U/L (12-78); Albumin Level 3.8 gm/dL (3.4-5.0); Albumin/Globulin Ratio 1.2 (1.1-1.8); Alkaline Phosphatase 124 U/L (46-116); Anion Gap 13.9 mEq/L (5-15); Aspartate Amino Transferase 17 U/L (15-37); Bilirubin,Total 0.6 mg/dL (0.2-1.0); Blood Urea Nitrogen 5 mg/dL (7-18); Calcium 8.7 mg/dL (8.5-10.1); Carbon Dioxide 30 mmol/L (21.0-32.0); Chloride 103 mmol/L (98-107); Creatinine,Serum 0.63 mg/dL (0.55-1.02); Estimated Glomerular Filt Rate 96 ml/min (>60); Ferritin 22 ng/mL (8-388); GFR (African American) 116 ML/MIN (>60); Globulin 3.2 gm/dl (1.3-3.2); Glucose 83 mg/dL (74-106); Potassium 3.9 mmoL/L (3.5-5.1); Sodium 143 mmol/L (136-145)
[2018-08-10 06:23] LABS: Iron 104 ug/dL (27-139); UIBC 235 ug/dL (118-369)
[2018-08-10 07:30] LABS: Iron Saturation 31 % (15-55)
== END ==
PROVIDERS: PCP Family Medicine; Visit Provider Internal Medicine Medical Oncology
DX: C92.10 Chronic myeloid leukemia, BCR/ABL-positive, not having achieved remission (principal)
CPT/HCPCS: 36415; 80053; 81206; 82728; 83540; 83550; 85025

== ENCOUNTER 2018-09-22 12:08 | Inpatient (IN) ==
--- NOTE | 2018-09-22 12:27 | Emergency Department Note ---
ED Disposition Clinical Impression: Pedal edema, Obesity (BMI 30-39.9), Sinus bradycardia, Chronic anemia, Hx of heart failure, Pre-syncope Clinical Impression: (Ruled Out): Congenital heart failure Disposition: Still a Patient Condition on Discharge: Fair Referrals: Nguyen Stone MD [Primary Care Provider] - - Critical Care Critical Care Time: No Attestation: On 09/22/18, the high probability of a clinically significant, sudden or life threatening deterioration of the following system(s) required my full and direct attention, intervention and personal management. The time I documented below is in addition to time spent performing reported procedures but includes the following listed in this critical care notation. Medical Decision Making - Amanuel Inquiry Pt receiving controlled substance: No Amanuel was queried for this patient: No Vital Signs: 09/22/18 12:11 09/22/18 14:22 09/22/18 14:42 Temperature 97.8 F Temperature Source Oral Pulse Rate [Left Radial] 60 62 64 Respiratory Rate 18 Blood Pressure [Right Arm] 146/76 H 140/85 133/62 Blood Pressure Mean [Right Arm] 99 103 85 Blood Pressure Source [Right Arm] Automatic Cuff Automatic Cuff Automatic Cuff Blood Pressure Position [Right Arm] Sitting Sitting Sitting 02 Sat by Pulse Oximetry 97 98 98 Oxygen Delivery Method Room Air Room Air Room Air - Lab Data Lab Results 09/22/18 12:24: WBC 5.2, RBC 4.06 L, Hgb 10.3 L, Hct 34.1 L, MCV 83.9, MCH 25.4 L, MCHC 30.2 L, RDW 14.6, Plt Count 200, MPV 8.5, Neut % (Auto) 57.9, Lymph % (Auto) 30.7, [place] % (Auto) 5.0, Eos % (Auto) 4.4, Baso % (Auto) 2.0, Neut # (Auto) 3.0, Lymph # (Auto) 1.6, [place] # (Auto) 0.3, Eos # (Auto) 0.2, Baso # (A uto) 0.1 09/22/18 12:24: Sodium 141, Potassium 3.6, Chloride 104, Carbon Dioxide 31, Anion Gap 9.6, BUN 14, Creatinine 0.84, Estimated Creat Clear 85, Estimated GFR 69, Est GFR ( Amer) 83, Glucose 96, Calcium 8.5, Total Bilirubin 0.7, AST 15, ALT 17, Alkaline Phosphatase 115, Troponin I < 0.02, Total Protein 7.0, Albumin 3.5, Globulin 3.5 H, Albumin/Globulin Ratio 1.0 L 09/22/18 12:24: B-Natriuretic Peptide 82 09/22/18 12:24: Stool Occult Blood Negative Result diagrams: 09/22/18 12:24 09/22/18 12:24 Orders (Tests/Meds): ED MEDICATIONS Discontinued Medications Generic Name Dose Route Start Last Admin Trade Name Jihan PRN Reason Stop Dose Admin Furosemide 20 mg 09/22/18 12:30 09/22/18 13:00 Lasix 20mg/2ml Vial IV 09/22/18 12:31 20 mg ONCE ONE Administration Iopamidol 75 ml 09/22/18 14:05 09/22/18 14:07 [id number]; 75ml Vial IV 09/22/18 14:06 75 ml ONCE ONE Administration Protocol Sodium Chloride 10 ml 09/22/18 14:05 09/22/18 14:07 Rad-Saline Flush 10ml Syringe IV 09/22/18 14:06 10 ml ONCE ONE Administration ORDERS Category Date Time Status CT abdomen pelvis w con Stat Cat Scan 09/22/18 12:31 Taken XR chest 2V Stat Exams 09/22/18 12:14 Taken Occult Blood,Stool Stat Lab 09/22/18 12:24 Ordered Urinalysis and Microscopic Stat Lab 09/22/18 14:17 Ordered - Radiology Data #1 Image(s): Chest Image Reviewed: Yes I reviewed the patient's radiology image Preliminary Findings: Normal/NAD - CT Data CT Scan: Abdomen, Pelvis Time Received: 15:24 - ECG Data Tracing #1 Sinus bradycardia 42/min Baseline artifact Q wave in inferior leads no acute findings ECG initial impression date: 09/22/18 ECG initial impression time: 12:25 Medical Decision Narrative: I reviewed her EKG that showed sinus bradycardia 42 compared to old EKG from July 29, 2018 and is unchanged. Patient continued to complain of dizziness I contacted Dr. Briggs who accepted her on behalf of Dr. Stone. General Adult HPI - General Chief complaint: PAIN Stated complaint: edema Time Seen by Provider: 09/22/18 12:15 Mode of Arrival: EMS Limitations: No Limitations Description of Symptoms (Recalled from ER Triage Doc. by RN): to ed per squad with c/o raj ankle edema worse yesterday, generalized pain, SOB starting yesterday. pt with hx of lower extremity edema but worse starting yesterday - History of Present Illness HPI narrative: 83 years old white female with history of congestive heart failure COPD and chronic lower abdominal pain, last bowel movement was last night, is scheduled for colonoscopy and upper GI by Dr. Galan on September 26, 2018. 3 days ago she developed shortness of breath that is progressively getting worse with ex ertional dyspnea without orthopnea. She denies having chest pain palpitations hemoptysis hematemesis coffee-ground emesis melanotic stool or bleeding per rectum. He denies having dysuria hematuria frequency.. He admits for pedal edema.. Onset (ago): day(s) (3 days shortness of breath. Chronic lower abdominal pain.) Location: chest, abdomen Radiation: non-radiation Severity: moderate Quality: aching Consistency: constant Relieving factors: none Exacerbating factors: none Associated symptoms: denies other symptoms - Related Data Home Medications Medication Instructions Recorded Confirmed Atorvastatin Calcium [Atorvastatin 80 mg PO HS 12/28/17 09/22/18 80mg Tab] Ferrous Sulfate 325 mg PO BID 12/28/17 09/22/18 Fluticasone/Vilanterol [Breo 1 spray IH DAILY 12/28/17 09/22/18 Ellipta 100-25 Mcg INH] Furosemide [Furosemide 40MG tAB] 40 mg PO BID 12/28/17 09/22/18 Lisinopril [Lisinopril 5mg Tablet] 5 mg PO DAILY 12/28/17 09/22/18 Metformin HCl [Glucophage 500mg 500 mg PO BIDWM 12/28/17 09/22/18 Tablet] Omeprazole [Omeprazole 20mg 20 mg PO BID 12/28/17 09/22/18 Capsule] Oxybutynin Chloride [Ditropan Xl] 5 mg PO BID 12/28/17 09/22/18 Potassium Chloride [Pot Chlor 20 20 meq PO DAILY 12/28/17 09/22/18 mEq Tab] Rivaroxaban [Xarelto 20mg Tablet] 20 mg PO DAILY 12/28/17 09/22/18 Sotalol HCl [Betapace 80mg Tablet] 80 mg PO BID 12/28/17 09/22/18 diazePAM [diazePAM 5mg Tablet] 5 mg PO TID 12/28/17 09/22/18 Albuterol Sulfate [Albuterol HFA 1 inh PO DAILY 01/20/18 09/22/18 Inhaler] Loperamide HCl [Imodium 2 mg 2 mg PO DAILY 01/20/18 09/22/18 capsule] Aspirin 81 mg PO DAILY 07/28/18 09/22/18 [id number]/Sod Sulf,Bicarb,Cl/KCl 240 ml PO Q10M 09/22/18 09/22/18 [[id number] and Electrolytes Soln] Previous Rx's Medication Instructions Recorded Ondansetron [Zofran 4mg ODT] 4 mg PO Q8HP PRN #6 tab.rapdis 05/24/18 Allergies Allergy/AdvReac Type Severity Reaction Status Date / Time acetaminophen [ACETAMINOPHEN] Allergy Intermediate I-RASH Verified 08/26/18 13:07 adhesive tape [ADHESIVE TAPE] Allergy Intermediate I-RASH Verified 08/26/18 13:07 digoxin [DIGOXIN] Allergy Intermediate NA-NAUSEA/V Verified 08/26/18 13:07 OMITING hydrocortisone Allergy Intermediate I-RASH Verified 08/26/18 13:07 [HYDROCORTISONE] Penicillins [PENICILLINS] Allergy Intermediate I-RASH Verified 08/26/18 13:07 ciprofloxacin [CIPROFLOXACIN] Allergy Mild NA-NAUSEA/V Verified 08/26/18 13:07 OMITING milk [MILK] Allergy Mild DIARRHEA Verified 08/26/18 13:07 cephalexin [From Keflex] Allergy Verified 08/26/18 13:07 [facility] History I have reviewed the patient's past medical history: Yes Medical History: Reports:: Arrhythmia, Atherosclerotic Heart Disease, Cancer (MCL), Coronary Artery Disease, Depression, Diabetes Mellitus Type 2, Heart Murmur, Hyperlipidemia, Hypertension, Myocardial Infarction, Peripheral Vascular Disease, Valvular Heart Disease Denies:: Diabetes Mellitus Type 1, Internal Pacemaker, MRSA Other Medical History: Reports: Anemia, Arthritis Comment: IBS Laterality Cases: Left: Other, Bilateral: Tonsillectomy Other Surgeries: Yes: Angioplasty, Appendectomy, Cardiac Catheterization, Cholecystectomy, Colonoscopy, Coronary Stent, Diagnostic Lap, EGD, Hysterectomy- Total. No: Pacemaker Amputation: No Fractures: Yes (LEFT FOOT) Comment: Cardiac stent, lt foot - Social History Smoking Status: Current every day smoker Tobacco Type: cigarettes # Packs/Day (cigarettes): 1 #Yrs smoked (if former smoker): 40 Alcohol Intake: never Substance Use Type: denies use Occupational Status: disabled Housing: house Household Members: children - Psychiatric History Expresses thoughts of harming self/others: None Suicide Plan Description: No Plan Pschychiatric History:: Reports:: Depression Family Hx:: Cancer, Coronary Artery Disease, Diabetes, Hyperlipidemia, Hypertension, Stroke ROS Obtained: Yes All systems reviewed & no additional complaints Physical Exam - General General appearance: alert, in no apparent distress - Head Head exam: atraumatic, normocephalic, normal inspection - Eye Eye exam: Present: normal appearance, PERRL, EOMI. Absent: scleral icterus, nystagmus - ENT ENT exam: Present: normal exam, normal oropharynx, mucous membranes moist, TM's normal bilaterally, normal external ear exam - Neck Neck exam: Present: normal inspection, full ROM, trachea midline, other (He has no JVD.). Absent: tenderness, meningismus, lymphadenopathy, thyromegaly - Chest Chest inspection: Present: normal inspection, symmetric chest wall rise. Absent: tenderness - Respiratory Respiratory exam: Present: normal lung sounds bilaterally. Absent: respiratory distress, wheezes - Cardiovascular Cardiovascular exam: Present: regular rate, normal rhythm, normal heart sounds. Absent: JVD - Abdominal Exam Abdominal exam: Present: soft, normal bowel sounds, other (Abdomen is large soft obese nontender no focal tenderness no guarding no rigidity no cross or rebound tenderness.). Absent: distention, tenderness, guarding, rebound, rigidity, Stokes's sign, tenderness at McBurney's Point - External exam: Present: normal external exam - Extremities Exam Extremities exam: Present: normal inspection, full ROM, normal capillary refill, pedal edema (1+ pedal edema of the left foot trace edema on the right foot. ). Absent: tenderness, calf tenderness - Back Exam Back exam: Present: normal inspection. Absent: tenderness, CVA tenderness (R), CVA tenderness (L), muscle spasm, paraspinal tenderness, vertebral tenderness - Neurological Exam Neurological exam: Present: alert, oriented X3, CN II-XII intact, motor sensory deficit, reflexes normal - Psychiatric Psychiatric exam: Present: normal affect, normal mood - Skin Skin exam: Present: warm, dry, intact, normal color - Lymphatic Lymphatic Findings: no adenopathy
[2018-09-22 12:47] LABS: Basophils # 0.1 K/mm3 (0-0.2); Eosinophils # 0.2 K/mm3 (0.0-0.4); Eosinophils % 4.4 % (0.1-12.0); Hematocrit 34.1 % (37.0-47.0); Hemoglobin 10.3 g/dL (12.2-16.2); Lymphocytes # 1.6 K/mm3 (0.7-4.5); Lymphocytes % 30.7 % (10-50); Mean Corpuscular HGB Conc 30.2 g/dL (31.8-35.4); Mean Corpuscular Hemoglobin 25.4 pg (27.0-31.2); Mean Corpuscular Volume 83.9 fl (81-99); Mean Platelet Volume 8.5 fl (7.4-10.4); Monocytes # 0.3 K/mm3 (0.1-1.0); Neutrophils % 57.9 % (37.0-80.0); Platelet Count 200 K/mm3 (142-424); Red Blood Count 4.06 M/mm3 (4.20-5.40); Red Cell Distribution Width 14.6 % (11.5-17.5); White Blood Count 5.2 K/mm3 (4.8-10.8)
[2018-09-22 12:59] LABS: Alanine Aminotransferase 17 U/L (12-78); Albumin Level 3.5 gm/dL (3.4-5.0); Alkaline Phosphatase 115 U/L (46-116); Anion Gap 9.6 mEq/L (5-15); Aspartate Amino Transferase 15 U/L (15-37); Bilirubin,Total 0.7 mg/dL (0.2-1.0); Blood Urea Nitrogen 14 mg/dL (7-18); Calcium 8.5 mg/dL (8.5-10.1); Carbon Dioxide 31 mmol/L (21.0-32.0); Chloride 104 mmol/L (98-107); Globulin 3.5 gm/dl (1.3-3.2); Glucose 96 mg/dL (74-106); Potassium 3.6 mmoL/L (3.5-5.1); Sodium 141 mmol/L (136-145)
[2018-09-23 06:34] LABS: Basophils # 0.1 K/mm3 (0-0.2); Basophils % 2.7 % (0.1-2.0); Eosinophils # 0.2 K/mm3 (0.0-0.4); Eosinophils % 4.2 % (0.1-12.0); Hematocrit 35.3 % (37.0-47.0); Hemoglobin 10.8 g/dL (12.2-16.2); Lymphocytes # 1.7 K/mm3 (0.7-4.5); Lymphocytes % 33.7 % (10-50); Mean Corpuscular HGB Conc 30.5 g/dL (31.8-35.4); Mean Corpuscular Hemoglobin 25.4 pg (27.0-31.2); Mean Corpuscular Volume 83.5 fl (81-99); Mean Platelet Volume 8.3 fl (7.4-10.4); Monocytes # 0.4 K/mm3 (0.1-1.0); Monocytes % 6.8 % (1.7-9.3); Neutrophils # 2.7 K/mm3 (1.8-7.8); Neutrophils % 52.7 % (37.0-80.0); Platelet Count 220 K/mm3 (142-424); Red Blood Count 4.23 M/mm3 (4.20-5.40); Red Cell Distribution Width 14.7 % (11.5-17.5); White Blood Count 5.2 K/mm3 (4.8-10.8)
[2018-09-23 06:47] LABS: Anion Gap 9.6 mEq/L (5-15); Calcium 8.9 mg/dL (8.5-10.1); Potassium 3.6 mmoL/L (3.5-5.1)
--- NOTE | 2018-09-23 09:06 | Pharmacy Consult Notes ---
[facility] Pharmacy VTE Monitoring - Patient Demographics Admission date: 09/22/18 Report Date: 09/23/18 Time: 09:06 Allergies/Adverse Reactions: Patient Allergies acetaminophen [ACETAMINOPHEN] Allergy (Intermediate, Verified 08/26/18 13:07) I-RASH adhesive tape [ADHESIVE TAPE] Allergy (Intermediate, Verified 08/26/18 13:07) I-RASH digoxin [DIGOXIN] Allergy (Intermediate, Verified 08/26/18 13:07) NA-NAUSEA/VOMITING hydrocortisone [HYDROCORTISONE] Allergy (Intermediate, Verified 08/26/18 13:07) I-RASH Penicillins [PENICILLINS] Allergy (Intermediate, Verified 08/26/18 13:07) I-RASH ciprofloxacin [CIPROFLOXACIN] Allergy (Mild, Verified 08/26/18 13:07) NA-NAUSEA/VOMITING milk [MILK] Allergy (Mild, Verified 08/26/18 13:07) DIARRHEA cephalexin [From Keflex] Allergy (Verified 08/26/18 13:07) Height: 1.63 m Weight: 105.715 kg Patient Problems: Current Active Problems Pedal edema (Acute) Obesity (BMI 30-39.9) (Acute) Sinus bradycardia (Acute) Chronic anemia (Acute) Hx of heart failure (Acute) Pre-syncope (Acute) - VTE Risk Labs: VTE Related Lab Results Hgb 10.8 g/dL (12.2-16.2) L 09/23/18 06:16 Hct 35.3 % (37.0-47.0) L 09/23/18 06:16 Plt Count 220 K/mm3 (142-424) 09/23/18 06:16 BUN 14 mg/dL (7-18) 09/23/18 06:16 Creatinine 0.85 mg/dL (0.55-1.02) 09/23/18 06:16 Estimated Creat Clear 99 mL/min (50-200) 09/23/18 06:16 - Prophylaxis VTE Prophylaxis Ordered?: Yes Types of VTE Prophylaxis: TEDS Knee High, Pharmacological Pharmacologic Type: Other (XARELTO) - VTE Diagnosis Confirmed Treatment or plan recommended: Continue Current Treatment
--- NOTE | 2018-09-23 10:01 | Progress Note ---
Internal Medicine - PN: Subj *Date: 09/23/18 *Time: 07:45 Interval history: Ms. Hannah is a 63yo WF with history of CHF, COPD, CAD with stent, depression, and CML treated by Dr. Mcdonough. She was brought to the [facility] ED yesterday by squad after three days of progressive SOB with exertional dyspnea at home and worsening bilateral lower extremity edema. She denied any associated chest pain or cough. She reported some lower abdominal pain which is chronic. Upon arrival, her CXR showed borderline cardiomegaly with nothing acute and no change since 07/29/2018. Her abdominal CT showed nothing acute. Her hgb was slightly decreased at 10.3. Her EKG showed sinus bradycardia and was unchanged from 07/29/2018. She was admitted for further evaluation. This morning she is resting quietly in bed watching tv. She reports some generalized achiness and pain. She tolerated her breakfast well. She feels that her edema has improved since admission. Exam Vital signs and Labs for Last 24 Hours: Temp Pulse Resp BP Pulse Ox 98.1 F 56 L 18 122/56 L 97 09/23/18 08:00 09/23/18 08:42 09/23/18 09:40 09/23/18 08:00 09/23/18 08:42 Laboratory Results - last 24 hr 09/22/18 12:24: WBC 5.2, RBC 4.06 L, Hgb 10.3 L, Hct 34.1 L, MCV 83.9, MCH 25.4 L, MCHC 30.2 L, RDW 14.6, Plt Count 200, MPV 8.5, Neut % (Auto) 57.9, Lymph % (Auto) 30.7, [place] % (Auto) 5.0, Eos % (Auto) 4.4, Baso % (Auto) 2.0, Neut # (Auto) 3.0, Lymph # (Auto) 1.6, [place] # (Auto) 0.3, Eos # (Auto) 0.2, Baso # (Auto) 0.1 09/22/18 12:24: Sodium 141, Potassium 3.6, Chloride 104, Carbon Dioxide 31, Anion Gap 9.6, BUN 14, Creatinine 0.84, Estimated Creat Clear 85, Estimated GFR 69, Est GFR ( Amer) 83, Glucose 96, Calcium 8.5, Total Bilirubin 0.7, AST 15, ALT 17, Alkaline Phosphatase 115, Troponin I < 0.02, Total Protein 7.0, Albumin 3.5, Globulin 3.5 H, Albumin/Globulin Ratio 1.0 L 09/22/18 12:24: B-Natriuretic Peptide 82 09/22/18 12:24: Stool Occult Blood Negative 09/22/18 19:45: Troponin I < 0.02 09/23/18 00:35: Troponin I < 0.02 09/23/18 06:16: WBC 5.2, RBC 4.23, Hgb 10.8 L, Hct 35.3 L, MCV 83.5, MCH 25.4 L, MCHC 30.5 L, RDW 14.7, Plt Count 220, MPV 8.3, Neut % (Auto) 52.7, Lymph % (Auto) 33.7, [place] % (Auto) 6.8, Eos % (Auto) 4.2, Baso % (Auto) 2.7 H, Neut # (Auto) 2.7, Lymph # (Auto) 1.7, [place] # (Auto) 0.4, Eos # (Auto) 0.2, Baso # (Auto) 0.1 09/23/18 06:16: Sodium 141, Potassium 3.6, Chloride 102, Carbon Dioxide 33 H, Anion Gap 9.6, BUN 14, Creatinine 0.85, Estimated Creat Clear 99, Estimated GFR 68, Est GFR ( Amer) 82, Glucose 109 H, Calcium 8.9 I & O for Last 24 hours: Intake & Output 09/20/18 09/21/18 09/22/18 09/23/18 11:59 11:59 11:59 11:59 Intake Total 840 / 840 Output Total 3350 / 3350 Balance -2510 / -2510 Weight 233 lb 1 oz
--- NOTE | 2018-09-23 10:05 | History & Physical Report ---
*Admission Date: 09/22/18 *Chief complaint: Shortness of Breath, Pedal Edema *History of present illness: Ms. Hannah is a 63yo WF with history of CHF, COPD, DM, CAD with stent, depression, and CML treated by Dr. Mcdonough. She was brought to the [facility] ED yesterday by squad after three days of progressive SOB with exertional dyspnea at home and worsening bilateral lower extremity edema. She denied any associated chest pain or cough. She reported some lower abdominal pain which is chronic. Upon arrival, her CXR showed borderline cardiomegaly with nothing acute and no change since 07/29/2018. Her abdominal CT showed nothing acute. Her hgb was slightly decreased at 10.3. Her EKG showed sinus bradycardia and was unchanged from 07/29/2018. She was admitted for further evaluation. This morning she is resting quietly in bed watching tv. She reports some generalized achiness and pain. She tolerated her breakfast well. She feels that her edema and SOB have improved since admission. She denies any chest pain or productive cough. She reports that she is scheduled for colonoscopy and EGD with Dr. Lantigua this coming Wednesday. [facility] History Medical History: Reports:: Arrhythmia, Atherosclerotic Heart Disease, Cancer (MCL), Congestive Heart Failure, Chronic Obstructive Pulmonary Disease (COPD), Coronary Artery Disease, Depression, Diabetes Mellitus Type 2, Heart Murmur, Hiatal Hernia, Hyperlipidemia, Hypertension, Myocardial Infarction, Peripheral Vascular Disease, Valvular Heart Disease Denies:: Diabetes Mellitus Type 1, Internal Pacemaker, MRSA Other Medical History: Reports: Anemia, Arthritis Laterality Cases: Left: Other, Bilateral: Tonsillectomy Other Surgeries: Yes: Angioplasty, Appendectomy, Cardiac Catheterization, Cholecystectomy, Colonoscopy, Coronary Stent, Diagnostic Lap, EGD, Hysterectomy- Total. No: Pacemaker Amputation: No Fractures: Yes (LEFT FOOT) - *Social History Smoking Status: Current every day smoker Tobacco Type: cigarettes # Packs/Day (cigarettes): 1 #Yrs smoked (if former smoker): 40 Alcohol Intake: never Substance Use Type: denies use Occupational Status: disabled Housing: house Household Members: children - Psychiatric History Expresses thoughts of harming self/others: None Suicide Plan Description: No Plan Pschychiatric History:: Reports:: Depression *Family Hx:: Cancer, Coronary Artery Disease, Diabetes, Hyperlipidemia, Hypertension, Stroke Review of Systems - Constitutional Reports fatigue, Reports headache(s), Reports weakness - Eyes Reports blurry vision, Reports change in vision, Denies loss of vision - ENT Reports headache(s), Reports nasal congestion - *Cardiovascular Reports shortness of breath, Reports leg swelling, Reports lightheadedness, Denies chest pain, Denies chest pain with activity - *Respiratory Reports shortness of breath, Reports shortness of breath with activity, Denies chest congestion, Denies cough - *Gastrointestinal Reports abdominal pain, Denies loose stools, Denies nausea, Denies vomiting - *Genitourinary Reports urinary incontinence - *Musculoskeletal Reports muscle weakness - *Neurologic Reports dizziness, Reports weakness - Hematologic/Lymphatic Denies enlarged lymph nodes Meds Home Medications Medication Instructions Recorded Confirmed Type Atorvastatin Calcium [Atorvastatin 80 mg PO HS 12/28/17 09/22/18 History 80mg Tab] Ferrous Sulfate 325 mg PO BID 12/28/17 09/22/18 History Fluticasone/Vilanterol [Breo 1 spray IH DAILY 12/28/17 09/22/18 History Ellipta 100-25 Mcg INH] Furosemide [Furosemide 40MG tAB] 40 mg PO BID 12/28/17 09/22/18 History Lisinopril [Lisinopril 5mg Tablet] 5 mg PO DAILY 12/28/17 09/22/18 History Metformin HCl [Glucophage 500mg 500 mg PO BIDWM 12/28/17 09/22/18 History Tablet] Omeprazole [Omeprazole 20mg 20 mg PO BID 12/28/17 09/22/18 History Capsule] Oxybutynin Chloride [Ditropan Xl] 5 mg PO BID 12/28/17 09/22/18 History Potassium Chloride [Pot Chlor 20 20 meq PO DAILY 12/28/17 09/22/18 History mEq Tab] Rivaroxaban [Xarelto 20mg Tablet] 20 mg PO DAILY 12/28/17 09/22/18 History Sotalol HCl [Betapace 80mg Tablet] 80 mg PO BID 12/28/17 09/22/18 History diazePAM [diazePAM 5mg Tablet] 5 mg PO TID 12/28/17 09/22/18 History Albuterol Sulfate [Albuterol HFA 1 inh PO BIDP PRN 01/20/18 09/23/18 History Inhaler] Loperamide HCl [Imodium 2 mg 2 mg PO DAILY 01/20/18 09/22/18 History capsule] Aspirin 81 mg PO DAILY 07/28/18 09/22/18 History Nitroglycerin 0.4 mg SL Q5MINP PRN 09/22/18 09/22/18 History [id number]/Sod Sulf,Bicarb,Cl/KCl 240 ml PO Q10M 09/22/18 09/22/18 History [[id number] and Electrolytes Soln] Promethazine HCl [Phenergan 25mg 25 mg PO TIDP PRN 09/22/18 09/22/18 History tab] Allergies Allergy/AdvReac Type Severity Reaction Status Date / Time acetaminophen [ACETAMINOPHEN] Allergy Intermediate I-RASH Verified 08/26/18 13:07 adhesive tape [ADHESIVE TAPE] Allergy Intermediate I-RASH Verified 08/26/18 13:07 digoxin [DIGOXIN] Allergy Intermediate NA-NAUSEA/V Verified 08/26/18 13:07 OMITING hydrocortisone Allergy Intermediate I-RASH Verified 08/26/18 13:07 [HYDROCORTISONE] Penicillins [PENICILLINS] Allergy Intermediate I-RASH Verified 08/26/18 13:07 ciprofloxacin [CIPROFLOXACIN] Allergy Mild NA-NAUSEA/V Verified 08/26/18 13:07 OMITING milk [MILK] Allergy Mild DIARRHEA Verified 08/26/18 13:07 cephalexin [From Keflex] Allergy Verified 08/26/18 13:07 Exam Vital signs and Labs for Last 24 Hours: Temp Pulse Resp BP Pulse Ox 98.1 F 56 L 18 122/56 L 97 09/23/18 08:00 09/23/18 08:42 09/23/18 09:40 09/23/18 08:00 09/23/18 08:42 Laboratory Results - last 24 hr 09/22/18 12:24: WBC 5.2, RBC 4.06 L, Hgb 10.3 L, Hct 34.1 L, MCV 83.9, MCH 25.4 L, MCHC 30.2 L, RDW 14.6, Plt Count 200, MPV 8.5, Neut % (Auto) 57.9, Lymph % (Auto) 30.7, [place] % (Auto) 5.0, Eos % (Auto) 4.4, Baso % (Auto) 2.0, Neut # (Auto) 3.0, Lymph # (Auto) 1.6, [place] # (Auto) 0.3, Eos # (Auto) 0.2, Baso # (Auto) 0.1 09/22/18 12:24: Sodium 141, Potassium 3.6, Chloride 104, Carbon Dioxide 31, Anion Gap 9.6, BUN 14, Creatinine 0.84, Estimated Creat Clear 85, Estimated GFR 69, Est GFR ( Amer) 83, Glucose 96, Calcium 8.5, Total Bilirubin 0.7, AST 15, ALT 17, Alkaline Phosphatase 115, Troponin I < 0.02, Total Protein 7.0, Albumin 3.5, Globulin 3.5 H, Albumin/Globulin Ratio 1.0 L 09/22/18 12:24: B-Natriuretic Peptide 82 09/22/18 12:24: Stool Occult Blood Negative 09/22/18 19:45: Troponin I < 0.02 09/23/18 00:35: Troponin I < 0.02 09/23/18 06:16: WBC 5.2, RBC 4.23, Hgb 10.8 L, Hct 35.3 L, MCV 83.5, MCH 25.4 L, MCHC 30.5 L, RDW 14.7, Plt Count 220, MPV 8.3, Neut % (Auto) 52.7, Lymph % (Auto) 33.7, [place] % (Auto) 6.8, Eos % (Auto) 4.2, Baso % (Auto) 2.7 H, Neut # (Auto) 2.7, Lymph # (Auto) 1.7, [place] # (Auto) 0.4, Eos # (Auto) 0.2, Baso # (Auto) 0.1 09/23/18 06:16: Sodium 141, Potassium 3.6, Chloride 102, Carbon Dioxide 33 H, Anion Gap 9.6, BUN 14, Creatinine 0.85, Estimated Creat Clear 99, Estimated GFR 68, Est GFR ( Amer) 82, Glucose 109 H, Calcium 8.9 I & O for Last 24 hours: Intake & Output 09/20/18 09/21/18 09/22/18 09/23/18 11:59 11:59 11:59 11:59 Intake Total 840 / 840 Output Total 3350 / 3350 Balance -2510 / -2510 Weight 233 lb 1 oz - Constitutional no acute distress - *Routine HEENT Exam Head: Present: normocephalic, atraumatic Eye: Present: EOMI, PERRL, normal accommodation ENT: Present: mucous membranes moist, nares patent - *Routine Neck Exam Present: supple, full ROM. Absent: lymphadenopathy, thyromegaly, tenderness - *Routine Respiratory Exam Present: CTA bilaterally - *Routine Cardiovascular Exam Present: RRR, murmur - *Routine Abdominal Exam Present: soft, normoactive bowel sounds. Absent: distended, rebound, guarding, rigid Comments: mildly and diffusely ttp bilateral lower quadrants - *Routine Extremities Exam Present: full ROM, pulses intact. Absent: calf tenderness Comments: trace bilateral pedal/ankle edema - *Routine Neurological Exam Present: alert, oriented X3, moving all extremities, normal speech Assessment and Plan (1) Pedal edema Current visit: Yes Status: Acute Category: Medical Code(s): R60.0 - Localized edema (2) Sinus bradycardia Current visit: Yes Status: Acute Category: Medical Code(s): R00.1 - Bradycardia, unspecified (3) Abdominal pain of unknown etiology Current visit: No Status: Acute Category: Medical Code(s): R10.9 - Unspecified abdominal pain (4) Anemia Current visit: No Status: Acute Category: Medical Code(s): D64.9 - Anemia, unspecified - Assessment and plan all Dx Assessment and Plan for all problems:: further per Dr. Stone.
--- NOTE | 2018-09-24 10:47 | Progress Note ---
Internal Medicine - PN: Subj *Date: 09/24/18 *Time: 10:45 Interval history: She remained stable. She remains with bradycardia but not symptomatic. She complains of urinary incontinence and discomfort. Exam Vital signs and Labs for Last 24 Hours: Temp Pulse Resp BP Pulse Ox 98.0 F 69 18 107/63 L 95 09/24/18 08:00 09/24/18 08:00 09/24/18 08:00 09/24/18 08:00 09/24/18 08:00 I & O for Last 24 hours: Intake & Output 09/21/18 09/22/18 09/23/18 09/24/18 11:59 11:59 11:59 11:59 Intake Total 840 / 840 1440 / 1440 Output Total 3350 / 3350 4100 / 4100 Balance -2510 / -2510 -2660 / -2660 Weight 233 lb 1 oz 259 lb 4 oz - Constitutional no acute distress - *Routine HEENT Exam Eye: Present: EOMI, PERRL ENT: Present: mucous membranes moist - *Routine Respiratory Exam Present: CTA bilaterally - *Routine Cardiovascular Exam Present: RRR, bradycardia - *Routine Abdominal Exam Present: soft, normoactive bowel sounds. Absent: tenderness - *Routine Extremities Exam Absent: edema - *Routine Skin Exam Present: warm. Absent: rash Assessment and Plan (1) Pedal edema Current visit: Yes Status: Acute Category: Medical Code(s): R60.0 - Localized edema (2) Sinus bradycardia Current visit: Yes Status: Acute Category: Medical Code(s): R00.1 - Bradycardia, unspecified (3) Abdominal pain of unknown etiology Current visit: No Status: Acute Category: Medical Code(s): R10.9 - Unspecified abdominal pain (4) Anemia Current visit: No Status: Acute Category: Medical Code(s): D64.9 - Anemia, unspecified - Assessment and plan all Dx Assessment and Plan for all problems:: I am going to decrease the sotalol to 80 mg in the morning and 40 mg at night. Home soon.
[2018-09-25 11:58] LABS: Basophils # 0.3 K/mm3 (0-0.2); Basophils % 2.6 % (0.1-2.0); Eosinophils # 0.4 K/mm3 (0.0-0.4); Eosinophils % 3.6 % (0.1-12.0); Hematocrit 41.2 % (37.0-47.0); Lymphocytes # 2.6 K/mm3 (0.7-4.5); Lymphocytes % 26.7 % (10-50); Mean Corpuscular HGB Conc 31.5 g/dL (31.8-35.4); Mean Corpuscular Hemoglobin 25.6 pg (27.0-31.2); Mean Corpuscular Volume 81.3 fl (81-99); Mean Platelet Volume 8.6 fl (7.4-10.4); Monocytes # 0.5 K/mm3 (0.1-1.0); Monocytes % 5.7 % (1.7-9.3); Neutrophils # 5.9 K/mm3 (1.8-7.8); Neutrophils % 61.4 % (37.0-80.0); Platelet Count 307 K/mm3 (142-424); Red Blood Count 5.06 M/mm3 (4.20-5.40); Red Cell Distribution Width 14.7 % (11.5-17.5); White Blood Count 9.6 K/mm3 (4.8-10.8)
[2018-09-25 12:05] LABS: Anion Gap 13.2 mEq/L (5-15); Calcium 9.3 mg/dL (8.5-10.1); Potassium 4.2 mmoL/L (3.5-5.1)
--- NOTE | 2018-09-25 12:52 | Progress Note ---
Internal Medicine - PN: Subj *Date: 09/25/18 *Time: 12:49 Interval history: She still complains of dizziness but has been quite comfortable. Her heart rate is 84 at the present time. I feel that the decrease in the sotalol may be a helpful thing. We will discharge today with a Holter monitor. Follow-up will be in the office tomorrow at [facility] due to the fact that she is supposed to have endoscopy on Wednesday. I would like to talk to Dr. Lantigua and see if this can still be accomplished. Exam Vital signs and Labs for Last 24 Hours: Temp Pulse Resp BP Pulse Ox 98.6 F 85 18 111/67 94 L 09/25/18 08:00 09/25/18 08:00 09/25/18 08:00 09/25/18 08:00 09/25/18 08:00 Laboratory Results - last 24 hr 09/25/18 11:48: WBC 9.6 D, RBC 5.06, Hgb 13.0, Hct 41.2, MCV 81.3, MCH 25.6 L, MCHC 31.5 L, RDW 14.7, Plt Count 307 D, MPV 8.6, Neut % (Auto) 61.4, Lymph % (Auto) 26.7, [place] % (Auto) 5.7, Eos % (Auto) 3.6, Baso % (Auto) 2.6 H, Neut # (Auto) 5.9, Lymph # (Auto) 2.6, [place] # (Auto) 0.5, Eos # (Auto) 0.4, Baso # (Auto) 0.3 H 09/25/18 11:48: Sodium 137, Potassium 4.2, Chloride 96 L, Carbon Dioxide 32, Anion Gap 13.2, BUN 32 H D, Creatinine 1.29 H D, Estimated Creat Clear 40, Estimated GFR 42 L, Est GFR ( Amer) 51 L D, Glucose 108 H, Calcium 9.3 I & O for Last 24 hours: Intake & Output 09/23/18 09/24/18 09/25/18 09/26/18 11:59 11:59 11:59 11:59 Intake Total 840 / 840 1440 / 1440 1000 / 1000 Output Total 3350 / 3350 4100 / 4100 1000 / 1000 Balance -2510 / -2510 -2660 / -2660 0 / 0 Weight 233 lb 1 oz 259 lb 4 oz 257 lb 1 oz - Constitutional no acute distress - *Routine HEENT Exam Head: Present: normocephalic Eye: Present: PERRL ENT: Present: mucous membranes moist - *Routine Respiratory Exam Present: CTA bilaterally - *Routine Cardiovascular Exam Present: RRR (84) - *Routine Abdominal Exam Present: soft. Absent: tenderness - *Routine Extremities Exam Present: edema (Trace) Assessment and Plan (1) Pedal edema Current visit: Yes Status: Acute Category: Medical Code(s): R60.0 - Localized edema (2) Sinus bradycardia Current visit: Yes Status: Acute Category: Medical Code(s): R00.1 - Bradycardia, unspecified (3) Abdominal pain of unknown etiology Current visit: No Status: Acute Category: Medical Code(s): R10.9 - Unspecified abdominal pain (4) Anemia Current visit: No Status: Acute Category: Medical Code(s): D64.9 - Anemia, unspecified - Assessment and plan all Dx Assessment and Plan for all problems:: Discharge today. Her monitor. Follow-up in [facility] office tomorrow with Dr. Stone.
--- NOTE | 2018-09-26 08:19 | Progress Note ---
Internal Medicine - PN: Subj *Date: 09/26/18 *Time: 08:16 Interval history: Patient states she has some midsternal chest discomfort. She describes it as being tender there is evidence for hiatal hernia. She is a little short of breath but has not been receiving any of her inhalers. She is eating without difficulty. Patient was supposed to go home yesterday but developed atrial fib with a right rapid ventricular response. Thus discharge was canceled. Exam Vital signs and Labs for Last 24 Hours: Temp Pulse Resp BP Pulse Ox 98.1 F 77 17 101/54 L 97 09/26/18 04:00 09/26/18 07:49 09/26/18 04:00 09/26/18 04:00 09/26/18 04:00 Laboratory Results - last 24 hr 09/25/18 11:48: WBC 9.6 D, RBC 5.06, Hgb 13.0, Hct 41.2, MCV 81.3, MCH 25.6 L, MCHC 31.5 L, RDW 14.7, Plt Count 307 D, MPV 8.6, Neut % (Auto) 61.4, Lymph % (Auto) 26.7, [place] % (Auto) 5.7, Eos % (Auto) 3.6, Baso % (Auto) 2.6 H, Neut # ( Auto) 5.9, Lymph # (Auto) 2.6, [place] # (Auto) 0.5, Eos # (Auto) 0.4, Baso # (Auto) 0.3 H 09/25/18 11:48: Sodium 137, Potassium 4.2, Chloride 96 L, Carbon Dioxide 32, Anion Gap 13.2, BUN 32 H D, Creatinine 1.29 H D, Estimated Creat Clear 40, Estimated GFR 42 L, Est GFR ( Amer) 51 L D, Glucose 108 H, Calcium 9.3 I & O for Last 24 hours: Intake & Output 09/23/18 09/24/18 09/25/18 09/26/18 11:59 11:59 11:59 11:59 Intake Total 840 / 840 1440 / 1440 1000 / 1000 730 / 730 Output Total 3350 / 3350 4100 / 4100 1000 / 1000 Balance -2510 / -2510 -2660 / -2660 0 / 0 730 / 730 Weight 233 lb 1 oz 259 lb 4 oz 257 lb 1 oz 257 lb 1 oz - Constitutional no acute distress Comments: Awake and alert sitting up in the bed eating her breakfast. Appears comfortable. - Routine Chest/Breast/Axilla Exam Chest wall: Present: tenderness (Midsternal) - *Routine Respiratory Exam Comments: Some bilateral wheezing anteriorly. Lungs clear to auscultation bilaterally posteriorly used albuterol inhaler while in the room - *Routine Cardiovascular Exam Present: irregular rhythm (Monitor showing atrial fibrillation with ventricular rate 118- 120 on monitor) - *Routine Abdominal Exam Present: soft, normoactive bowel sounds, tenderness (Diffusely) - *Routine Extremities Exam Absent: edema, calf tenderness - *Routine Neurological Exam Present: alert, oriented X3 (Conversant) Assessment and Plan (1) Pedal edema Current visit: Yes Status: Acute Category: Medical Code(s): R60.0 - Localized edema (2) Sinus bradycardia Current visit: Yes Status: Acute Category: Medical Code(s): R00.1 - Bradycardia, unspecified (3) Abdominal pain of unknown etiology Current visit: No Status: Acute Category: Medical Code(s): R10.9 - Unspecified abdominal pain (4) Anemia Current visit: No Status: Acute Category: Medical Code(s): D64.9 - Anemia, unspecified (5) Atrial fibrillation Current visit: Yes Status: Acute Category: Medical Code(s): I48.91 - Unspecified atrial fibrillation - Assessment and plan all Dx Assessment and Plan for all problems:: Sotalol has been restarted. Troponin I's have been normal. Will discuss care with Dr. Stone.
--- NOTE | 2018-09-26 10:46 | Consult Report ---
Addendum entered and electronically signed by DELFINO Lloyd 09/26/18 15:27: Pt has decided she would like to have any procedure performed in [place], [place]. Will inform Dr. Stone. Original Note: History of Present Illness Consult date: 09/26/18 Requesting physician: Nguyen Stone Chief complaint: Atrial dysrhythmia, bradycardia Additional Medical History:: 1. Diabetes mellitus, type II, treated for about 4 years 2. Hypertension 3. Hyperlipidemia 4. Tobacco use of one pack per day times 40 years 5. Coronary artery disease `A. 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 De Dios, [place], [place] 6. History of TIA with short-term memory loss 7. CML, followed by Dr. Mcdonough History of present illness: Ms. Hannah is a 63yo WF with history of CHF, COPD, DM, CAD with stent, depression, and CML treated by Dr. Mcdonough. She was brought to the [facility] ED yesterday by squad after three days of progressive SOB with exertional dyspnea at home and worsening bilateral lower extremity edema. She denied any associated chest pain or cough. She reported some lower abdominal pain which is chronic. Upon arrival, her CXR showed borderline cardiomegaly with nothing acute and no change since 07/29/2018. Her abdominal CT showed nothing acute. Her hgb was slightly decreased at 10.3. Her EKG showed sinus bradycardia and was unchanged from 07/29/2018. She was admitted for further evaluation. This morning she is resting quietly in bed watching tv. She reports some generalized achiness and pain. She tolerated her breakfast well. She feels that her edema and SOB have improved since admission. She denies any chest pain or productive cough. She reports that she is scheduled for colonoscopy and EGD with Dr. Lantigua this coming Wednesday. The above per day no diet, [employer] for Dr. Stone Cardiology consulted today due to episodes of sinus bradycardia in the 40s while on sotalol therapy. Sotalol recently discontinued with occurrence of atrial tachydysrhythmia at a rate of about 170 bpm. Review of EKGs show sinus bradycardia and PAT with 2-1 block along with poor R wave progression anteriorly and possible inferior infarct pattern. Patient relates her bicycle repairer in [place] has previously talked about a pacemaker and/or AICD/pacemaker combination in the past but due to success of sotalol this had been postponed. [facility] History Medical History: Reports:: Arrhythmia, Atherosclerotic Heart Disease, Cancer (MCL), Congestive Heart Failure, Chronic Obstructive Pulmonary Disease (COPD), Coronary Artery Disease, Depression, Diabetes Mellitus Type 2, Heart Murmur, Hiatal Hernia, Hyperlipidemia, Hypertension, Myocardial Infarction, Peripheral Vascular Disease, Valvular Heart Disease Denies:: Diabetes Mellitus Type 1, Internal Pacemaker, MRSA Other Medical History: Reports: Anemia, Arthritis Laterality Cases: Left: Other, Bilateral: Tonsillectomy Other Surgeries: Yes: Angioplasty, Appendectomy, Cardiac Catheterization, Cholecystectomy, Colonoscopy, Coronary Stent, Diagnostic Lap, EGD, Hysterectomy- Total. No: Pacemaker Amputation: No Fractures: Yes (LEFT FOOT) - *Social History Smoking Status: Current every day smoker Tobacco Type: cigarettes # Packs/Day (cigarettes): 1 #Yrs smoked (if former smoker): 40 Alcohol Intake: never Substance Use Type: denies use Occupational Status: disabled Housing: house Household Members: children - Psychiatric History Expresses thoughts of harming self/others: None Suicide Plan Description: No Plan Pschychiatric History:: Reports:: Depression *Family Hx:: Cancer, Coronary Artery Disease, Diabetes, Hyperlipidemia, Hypertension, Stroke Meds Home Medications Medication Instructions Recorded Confirmed Type Atorvastatin Calcium [Atorvastatin 80 mg PO HS 12/28/17 09/22/18 History 80mg Tab] Ferrous Sulfate 325 mg PO BID 12/28/17 09/22/18 History Fluticasone/Vilanterol [Breo 1 spray IH DAILY 12/28/17 09/22/18 History Ellipta 100-25 Mcg INH] Furosemide [Furosemide 40MG tAB] 40 mg PO BID 12/28/17 09/22/18 History Lisinopril [Lisinopril 5mg Tablet] 5 mg PO DAILY 12/28/17 09/22/18 History Metformin HCl [Glucophage 500mg 500 mg PO BIDWM 12/28/17 09/22/18 History Tablet] Omeprazole [Omeprazole 20mg 20 mg PO BID 12/28/17 09/22/18 History Capsule] Oxybutynin Chloride [Ditropan Xl] 5 mg PO BID 12/28/17 09/22/18 History Potassium Chloride [Pot Chlor 20 20 meq PO DAILY 12/28/17 09/22/18 History mEq Tab] diazePAM [diazePAM 5mg Tablet] 5 mg PO TID 12/28/17 09/22/18 History Albuterol Sulfate [Albuterol HFA 1 inh PO BIDP PRN 01/20/18 09/23/18 History Inhaler] Loperamide HCl [Imodium 2 mg 2 mg PO DAILY 01/20/18 09/22/18 History capsule] Aspirin 81 mg PO DAILY 07/28/18 09/22/18 History Nitroglycerin 0.4 mg SL Q5MINP PRN 09/22/18 09/22/18 History [id number]/Sod Sulf,Bicarb,Cl/KCl 240 ml PO Q10M 09/22/18 09/22/18 History [Peg-3350 and Electrolytes Soln] Promethazine HCl [Phenergan 25mg 25 mg PO TIDP PRN 09/22/18 09/22/18 History tab] Allergies Allergy/AdvReac Type Severity Reaction Status Date / Time acetaminophen [ACETAMINOPHEN] Allergy Intermediate I-RASH Verified 08/26/18 13:07 adhesive tape [ADHESIVE TAPE] Allergy Intermediate I-RASH Verified 08/26/18 13:07 digoxin [DIGOXIN] Allergy Intermediate NA-NAUSEA/V Verified 08/26/18 13:07 OMITING hydrocortisone Allergy Intermediate I-RASH Verified 08/26/18 13:07 [HYDROCORTISONE] Penicillins [PENICILLINS] Allergy Intermediate I-RASH Verified 08/26/18 13:07 ciprofloxacin [CIPROFLOXACIN] Allergy Mild NA-NAUSEA/V Verified 08/26/18 13:07 OMITING milk [MILK] Allergy Mild DIARRHEA Verified 08/26/18 13:07 cephalexin [From Keflex] Allergy Verified 08/26/18 13:07 Review of Systems - *Cardiovascular Reports shortness of breath, Reports shortness of breath with activity, Reports fast heart rate, Reports slow heart rate - *Respiratory Reports shortness of breath with activity - *Gastrointestinal Denies abdominal pain - *Genitourinary Denies blood in urine - *Musculoskeletal Denies back pain - *Neurologic Reports dizziness, Reports headache(s), Reports weakness, Denies loss of vision Exam Vital signs and Labs for Last 24 Hours: Temp Pulse Resp BP Pulse Ox 97.5 F L 58 L 18 123/57 L 97 09/26/18 08:27 09/26/18 08:27 09/26/18 08:27 09/26/18 08:27 09/26/18 08:27 Laboratory Results - last 24 hr 09/25/18 11:48: WBC 9.6 D, RBC 5.06, Hgb 13.0, Hct 41.2, MCV 81.3, MCH 25.6 L, MCHC 31.5 L, RDW 14.7, Plt Count 307 D, MPV 8.6, Neut % (Auto) 61.4, Lymph % (Auto) 26.7, [place] % (Auto) 5.7, Eos % (Auto) 3.6, Baso % (Auto) 2.6 H, Neut # (Auto) 5.9, Lymph # (Auto) 2.6, [place] # (Auto) 0.5, Eos # (Auto) 0.4, Baso # (Auto) 0.3 H 09/25/18 11:48: Sodium 137, Potassium 4.2, Chloride 96 L, Carbon Dioxide 32, Anion Gap 13.2, BUN 32 H D, Creatinine 1.29 H D, Estimated Creat Clear 40, Basia mated GFR 42 L, Est GFR ( Amer) 51 L D, Glucose 108 H, Calcium 9.3 I & O for Last 24 hours: Intake & Output 09/23/18 09/24/18 09/25/18 09/26/18 11:59 11:59 11:59 11:59 Intake Total 840 / 840 1440 / 1440 1000 / 1000 970 / 970 Output Total 3350 / 3350 4100 / 4100 1000 / 1000 Balance -2510 / -2510 -2660 / -2660 0 / 0 970 / 970 Weight 233 lb 1 oz 259 lb 4 oz 257 lb 1 oz 257 lb 1 oz - *Routine Neck Exam Present: supple. Absent: JVD, carotid bruit - *Routine Respiratory Exam Present: CTA bilaterally. Absent: accessory muscle use, rales, rhonchi, wheezes - *Routine Cardiovascular Exam Present: RRR, murmur. Absent: gallop, rubs - *Routine Abdominal Exam Present: soft. Absent: tenderness, distended, guarding - *Routine Extremities Exam Absent: edema, calf tenderness - *Routine Neurological Exam Present: alert, oriented X3, moving all extremities Assessment and Plan (1) Sick sinus syndrome Current visit: Yes Status: Acute Category: Medical Code(s): I49.5 - Sick sinus syndrome (2) Paroxysmal atrial tachycardia with block Current visit: Yes Status: Acute Category: Medical Code(s): I47.1 - Supraventricular tachycardia (3) Pedal edema Current visit: Yes Status: Acute Category: Medical Code(s): R60.0 - Localized edema (4) Sinus bradycardia Current visit: Yes Status: Acute Category: Medical Code(s): R00.1 - Bradycardia, unspecified (5) Abdominal pain of unknown etiology Current visit: No Status: Acute Category: Medical Code(s): R10.9 - Unspecified abdominal pain (6) Anemia Current visit: No Status: Acute Category: Medical Code(s): D64.9 - Anemia, unspecified (7) Atrial fibrillation Current visit: Yes Status: Acute Category: Medical Code(s): I48.91 - Unspecified atrial fibrillation - Assessment and plan all Dx Assessment and Plan for all problems:: 1. Will obtain an echocardiogram to evaluate for wall motion abnormalities and left ventricular ejection fraction since patient has a history of coronary artery disease, previous stent placement and a questionable history of congestive heart failure along with an abnormal EKG. 2. Discussed options of referral to an electrophysiology bicycle repairer for possible ablation versus proceeding with pacemaker implantation (considering transferring to [place], [place] for the procedure since her regular Automatic Pattern Edger is there). Patient is going to discuss with her family and consider options and let us know what she wants to do later today. 3. Patient's sotalol has been restarted at 40 mg twice daily. Currently rate is controlled in sinus rhythm.
--- NOTE | 2018-09-26 11:40 | Consult Report ---
*Admission Date: 09/22/18 *Chief complaint: Planned scopes *History of present illness: Patient is a 63-year-old white female whom I had seen in the office as her role for upper endoscopy due to a reported history of hematemesis. She was scheduled for upper endoscopy and for colonoscopy (for history of tubular adenoma 7 years ago) as an outpatient for tomorrow. Patient is on anti-regulation therapy for history of heart disease. She was admitted on 09/22/18 with syncope. Consideration was being given for discharge. However the patient had developed atrial tachyarrhythmia night. Cardiology has been consulted. She is undergoing echocardiogram today. Consideration is being given for possible elect rophysiology referral or possibly pacemaker placement. Review of Systems - Review of Systems Review of systems:: pertinent systems reviewed and negative unless documented below - *Neurologic Reports dizziness, Reports headache(s), Reports weakness, Denies loss of vision [facility] History Medical History: Reports:: Arrhythmia, Atherosclerotic Heart Disease, Cancer (MCL), Congestive Heart Failure, Chronic Obstructive Pulmonary Disease (COPD), Coronary Artery Disease, Depression, Diabetes Mellitus Type 2, Heart Murmur, Hiatal Hernia, Hyperlipidemia, Hypertension, Myocardial Infarction, Peripheral Vascular Disease, Valvular Heart Disease Denies:: Diabetes Mellitus Type 1, Internal Pacemaker, MRSA Other Medical History: Reports: Anemia, Arthritis Laterality Cases: Left: Other, Bilateral: Tonsillectomy Other Surgeries: Yes: Angioplasty, Appendectomy, Cardiac Catheterization, Cholecystectomy, Colonoscopy, Coronary Stent, Diagnostic Lap, EGD, Hysterectomy- Total. No: Pacemaker Amputation: No Fractures: Yes (LEFT FOOT) - *Social History Smoking Status: Current every day smoker Tobacco Type: cigarettes # Packs/Day (cigarettes): 1 #Yrs smoked (if former smoker): 40 Alcohol Intake: never Substance Use Type: denies use Occupational Status: disabled Housing: house Household Members: children - Psychiatric History Expresses thoughts of harming self/others: None Suicide Plan Description: No Plan Pschychiatric History:: Reports:: Depression *Family Hx:: Cancer, Coronary Artery Disease, Diabetes, Hyperlipidemia, Hypertension, Stroke Meds Home Medications Medication Instructions Recorded Confirmed Type Atorvastatin Calcium [Atorvastatin 80 mg PO HS 12/28/17 09/22/18 History 80mg Tab] Ferrous Sulfate 325 mg PO BID 12/28/17 09/22/18 History Fluticasone/Vilanterol [Breo 1 spray IH DAILY 12/28/17 09/22/18 History Ellipta 100-25 Mcg INH] Furosemide [Furosemide 40MG tAB] 40 mg PO BID 12/28/17 09/22/18 History Lisinopril [Lisinopril 5mg Tablet] 5 mg PO DAILY 12/28/17 09/22/18 History Metformin HCl [Glucophage 500mg 500 mg PO BIDWM 12/28/17 09/22/18 History Tablet] Omeprazole [Omeprazole 20mg 20 mg PO BID 12/28/17 09/22/18 History Capsule] Oxybutynin Chloride [Ditropan Xl] 5 mg PO BID 12/28/17 09/22/18 History Potassium Chloride [Pot Chlor 20 20 meq PO DAILY 12/28/17 09/22/18 History mEq Tab] diazePAM [diazePAM 5mg Tablet] 5 mg PO TID 12/28/17 09/22/18 History Albuterol Sulfate [Albuterol HFA 1 inh PO BIDP PRN 01/20/18 09/23/18 History Inhaler] Loperamide HCl [Imodium 2 mg 2 mg PO DAILY 01/20/18 09/22/18 History capsule] Aspirin 81 mg PO DAILY 07/28/18 09/22/18 History Nitroglycerin 0.4 mg SL Q5MINP PRN 09/22/18 09/22/18 History [id number]/Sod Sulf,Bicarb,Cl/KCl 240 ml PO Q10M 09/22/18 09/22/18 History [Peg-3350 and Electrolytes Soln] Promethazine HCl [Phenergan 25mg 25 mg PO TIDP PRN 09/22/18 09/22/18 History tab] Allergies Allergy/AdvReac Type Severity Reaction Status Date / Time acetaminophen [ACETAMINOPHEN] Allergy Intermediate I-RASH Verified 08/26/18 13:07 adhesive tape [ADHESIVE TAPE] Allergy Intermediate I-RASH Verified 08/26/18 13:07 digoxin [DIGOXIN] Allergy Intermediate NA-NAUSEA/V Verified 08/26/18 13:07 OMITING hydrocortisone Allergy Intermediate I-RASH Verified 08/26/18 13:07 [HYDROCORTISONE] Penicillins [PENICILLINS] Allergy Intermediate I-RASH Verified 08/26/18 13:07 ciprofloxacin [CIPROFLOXACIN] Allergy Mild NA-NAUSEA/V Verified 08/26/18 13:07 OMITING milk [MILK] Allergy Mild DIARRHEA Verified 08/26/18 13:07 cephalexin [From Keflex] Allergy Verified 08/26/18 13:07 Exam Vital signs and Labs for Last 24 Hours: Temp Pulse Resp BP Pulse Ox 97.5 F L 58 L 18 123/57 L 97 09/26/18 08:27 09/26/18 08:27 09/26/18 08:27 09/26/18 08:27 09/26/18 08:27 Laboratory Results - last 24 hr 09/25/18 11:48: WBC 9.6 D, RBC 5.06, Hgb 13.0, Hct 41.2, MCV 81.3, MCH 25.6 L, MCHC 31.5 L, RDW 14.7, Plt Count 307 D, MPV 8.6, Neut % (Auto) 61.4, Lymph % (Auto) 26.7, [place] % (Auto) 5.7, Eos % (Auto) 3.6, Baso % (Auto) 2.6 H, Neut # (Auto) 5.9, Lymph # (Auto) 2.6, [place] # (Auto) 0.5, Eos # (Auto) 0.4, Baso # (Auto) 0.3 H 09/25/18 11:48: Sodium 137, Potassium 4.2, Chloride 96 L, Carbon Dioxide 32, Anion Gap 13.2, BUN 32 H D, Creatinine 1.29 H D, Estimated Creat Clear 40, Estimated GFR 42 L, Est GFR ( Amer) 51 L D, Glucose 108 H, Calcium 9.3 I & O for Last 24 hours: Intake & Output 09/23/18 09/24/18 09/25/18 09/26/18 11:59 11:59 11:59 11:59 Intake Total 840 / 840 1440 / 1440 1000 / 1000 970 / 970 Output Total 3350 / 3350 4100 / 4100 1000 / 1000 Balance -2510 / -2510 -2660 / -2660 0 / 0 970 / 970 Weight 233 lb 1 oz 259 lb 4 oz 257 lb 1 oz 257 lb 1 oz Results - Labs 09/25/18 11:48 09/25/18 11:48 Laboratory Results - last 24 hr 09/25/18 11:48: WBC 9.6 D, RBC 5.06, Hgb 13.0, Hct 41.2, MCV 81.3, MCH 25.6 L, MCHC 31.5 L, RDW 14.7, Plt Count 307 D, MPV 8.6, Neut % (Auto) 61.4, Lymph % (Auto) 26.7, [place] % (Auto) 5.7, Eos % (Auto) 3.6, Baso % (Auto) 2.6 H, Neut # (Auto) 5.9, Lymph # (Auto) 2.6, [place] # (Auto) 0.5, Eos # (Auto) 0.4, Baso # (Auto) 0.3 H 09/25/18 11:48: Sodium 137, Potassium 4.2, Chloride 96 L, Carbon Dioxide 32, Anion Gap 13.2, BUN 32 H D, Creatinine 1.29 H D, Estimated Creat Clear 40, Estimated GFR 42 L, Est GFR ( Amer) 51 L D, Glucose 108 H, Calcium 9.3 Assessment and Plan (1) Sick sinus syndrome Current visit: Yes Status: Acute Category: Medical Code(s): I49.5 - Sick sinus syndrome (2) Paroxysmal atrial tachycardia with block Current visit: Yes Status: Acute Category: Medical Code(s): I47.1 - Supraventricular tachycardia (3) Pedal edema Current visit: Yes Status: Acute Category: Medical Code(s): R60.0 - Localized edema (4) Sinus bradycardia Current visit: Yes Status: Acute Category: Medical Code(s): R00.1 - Bradycardia, unspecified (5) Abdominal pain of unknown etiology Current visit: No Status: Acute Category: Medical Code(s): R10.9 - Unspecified abdominal pain (6) Anemia Current visit: No Status: Acute Category: Medical Code(s): D64.9 - Anemia, unspecified (7) Atrial fibrillation Current visit: Yes Status: Acute Category: Medical Code(s): I48.91 - Unspecified atrial fibrillation - Assessment and plan all Dx Assessment and Plan for all problems:: Plan to cancel her EGD and colonoscopy for tomorrow.
--- NOTE | 2018-09-26 21:06 | Cardiology Report ---
PROCEDURE: 2-D M-mode and color Doppler study INDICATIONS FOR THE TEST: Chest pain COPD+ Heart Murmur+ Tobacco Smoking+ Palpitations Fatigue Syncope Edema+ Hypertension+Diabetes Mellitus+ Rheumatic Fever SOB MARIN Obesity+Hyperlipidemia+ Family History HD Additional History STENT,CAD,CHF,LEUKEMIA,PRESYNCOPE PATIENT INFORMATION HEIGHT:64 WEIGHT:257 GENDER: Female B/P:101/54 2-D/M-MODE INTERPRETATION: 2-D MEASUREMENTS OBSERVED VALUES IN CMS Right Ventricular Dimension (RVDd) 2.1 Interventricular Septum (Thickness)(IVsd) 1.4 Left Ventricular Internal Dimensions(LVIDd) 3.6 Left Ventricular Posterior Wall (Thickness)(LVPWd) 1.0 Aortic Root 2.0 Aortic Cusp Separation 1.2 Left Atrial Dimensions (LAD) 2.9 2D 1. Left atrium is mildly enlarged, left ventricle is normal size, visually estimated ejection fraction approximately 50% with no regional wall motion abnormality, endocardial surfaces are poorly visualized. 2. The right atrium and right ventricle are mildly enlarged with normal contractility. 3. The aortic valve is thickened and calcified, leaflets are not well visualized. 4. The mitral and tricuspid valve leaflets are minimally thickened. 5. The pulmonic valve is poorly visualized. 6. No significant pericardial effusion noted. DOPPLER INTERROGATION: Doppler interrogation of the aortic, mitral and tricuspid valvular presence of mild mitral and tricuspid regurgitation, tricuspid regurgitation jet velocity is inadequate for calculation of the right ventricular systolic pressure, grade 1 diastolic dysfunction seen without tissue Doppler evidence of raised left atrial pressure. CONCLUSION: 1. Mildly enlarged left atrium, normal left ventricular size, mild concentric left ventricular hypertrophy, visually estimated ejection fraction 50% with no regional wall motion abnormality, endocardial surfaces are poorly visualized, grade 1 diastolic dysfunction seen without tissue Doppler evidence of raised left atrial pressure. 2. Thickened and calcified aortic valve without Doppler evidence of aortic stenosis aortic insufficiency. 3. Mild mitral and tricuspid regurgitation 4. No significant pericardial effusion noted.
--- NOTE | 2018-09-27 08:51 | Progress Note ---
Internal Medicine - PN: Subj *Date: 09/27/18 Interval history: She is clinically stable. She monitors atrial dysrhythmia. The consult from cardiology is appreciated. The patient definitely wants to follow-up with Dr. Radford in [place]. I will contact his office today to try to arrange transfer. Exam Vital signs and Labs for Last 24 Hours: Temp Pulse Resp BP Pulse Ox 98.4 F 56 L 18 107/53 L 98 09/27/18 08:00 09/27/18 08:00 09/27/18 08:00 09/27/18 08:00 09/27/18 08:00 I & O for Last 24 hours: Intake & Output 09/24/18 09/25/18 09/26/18 09/27/18 11:59 11:59 11:59 11:59 Intake Total 1440 / 1440 1000 / 1000 970 / 970 1210 / 1210 Output Total 4100 / 4100 1000 / 1000 Balance -2660 / -2660 0 / 0 970 / 970 1210 / 1210 Weight 259 lb 4 oz 257 lb 1 oz 257 lb 1 oz 256 lb 6 oz - Constitutional no acute distress - *Routine HEENT Exam Head: Present: normocephalic Eye: Present: PERRL ENT: Present: mucous membranes moist - *Routine Respiratory Exam Present: CTA bilaterally - *Routine Cardiovascular Exam Present: irregular rhythm - *Routine Abdominal Exam Present: soft. Absent: tenderness - *Routine Extremities Exam Present: edema (Trace of edema) Assessment and Plan (1) Sick sinus syndrome Current visit: Yes Status: Acute Category: Medical Code(s): I49.5 - Sick sinus syndrome (2) Paroxysmal atrial tachycardia with block Current visit: Yes Status: Acute Category: Medical Code(s): I47.1 - Supraventricular tachycardia (3) Pedal edema Current visit: Yes Status: Acute Category: Medical Code(s): R60.0 - Localized edema (4) Sinus bradycardia Current visit: Yes Status: Acute Category: Medical Code(s): R00.1 - Bradycardia, unspecified (5) Abdominal pain of unknown etiology Current visit: No Status: Acute Category: Medical Code(s): R10.9 - Unspecified abdominal pain (6) Anemia Current visit: No Status: Acute Category: Medical Code(s): D64.9 - Anemia, unspecified (7) Atrial fibrillation Current visit: Yes Status: Acute Category: Medical Code(s): I48.91 - Unspecified atrial fibrillation - Assessment and plan all Dx Assessment and Plan for all problems:: The plan is to contact Dr. Radford and to transfer the patient if he agrees.
--- NOTE | 2018-09-27 22:13 | Discharge Summary ---
General - General Admission date:: 09/22/18 Discharge date: 09/27/18 HPI HPI: Ms. Hannah is a 63yo WF with history of CHF, COPD, DM, CAD with stent, depression, and CML treated by Dr. Mcdonough. She was brought to the [facility] ED yesterday by squad after three days of progressive SOB with exertional dyspnea at home and worsening bilateral lower extremity edema. She denied any associated chest pain or cough. She reported some lower abdominal pain which is chronic. Upon arrival, her CXR showed borderline cardiomegaly with nothing acute and no change since 07/29/2018. Her abdominal CT showed nothing acute. Her hgb was slightly decreased at 10.3. Her EKG showed sinus bradycardia and was unchanged from 07/29/2018. She was admitted for further evaluation. This morning she is resting quietly in bed watching tv. She reports some generalized achiness and pain. She tolerated her breakfast well. She feels that her edema and SOB have improved since admission. She denies any chest pain or productive cough. She reports that she is scheduled for colonoscopy and EGD with Dr. Lantigua this coming Wednesday. Hospital Course Hospital Course: Her sotalol was decreased to 80mg in the am and 40mg at night d/t bradycardia. Her HR improved. She was supposed to be discharged, but an EKG prior to discharge showed a first degree block with a normal rate. She complained of some chest discomfort. The discharge was canceled. She then showed some tachy arrhythmia which appeared to be atrial. Cardiology was consulted. They ordered an echo and it showed an EF of 50%. They discussed options of referral to an electrophysiology home economics expert for possible ablation versus proceeding with pacemaker implantation (considering transferring to [place], [place] for the procedure since her regular Stenographer Secretary is there. Her sotalol was restarted at 40 mg twice daily. She continued to show an atrial dysrhythmia on the monitor. She wanted to follow-up with Dr. Radford in [place]. Arrangements were made to transfer to [facility] and admit to Dr. Gao, for consult by Dr. De Dios. Objective Vital signs: Temp Pulse Resp BP Pulse Ox 97.8 F 86 18 100/64 L 96 09/27/18 16:47 09/27/18 16:47 09/27/18 16:47 09/27/18 16:47 09/27/18 15:35 Narrative: - Constitutional no acute distress - *Routine HEENT Exam Head: Present: normocephalic, atraumatic Eye: Present: EOMI, PERRL, normal accommodation ENT: Present: mucous membranes moist, nares patent - *Routine Neck Exam Present: supple, full ROM. Absent: lymphadenopathy, thyromegaly, tenderness - *Routine Respiratory Exam Present: CTA bilaterally - *Routine Cardiovascular Exam Present: RRR, murmur - *Routine Abdominal Exam Present: soft, normoactive bowel sounds. Absent: distended, rebound, guarding, rigid Comments: mildly and diffusely ttp bilateral lower quadrants - *Routine Extremities Exam Present: full ROM, pulses intact. Absent: calf tenderness Comments: trace bilateral pedal/ankle edema - *Routine Neurological Exam Present: alert, oriented X3, moving all extremities, normal speech DS: Diagnosis - Discharge Diagnosis (1) Sick sinus syndrome Status: Acute (2) Paroxysmal atrial tachycardia with block Status: Acute (3) Pedal edema Status: Acute (4) Sinus bradycardia Status: Acute (5) Abdominal pain of unknown etiology Status: Acute (6) Anemia Status: Acute (7) Atrial fibrillation Status: Acute Discharge Plan - Patient Discharge Instructions DIET: continue same diet Additional Instructions: Wear Holter (heart) monitor until seen by Dr. Stone in office on Wednesday. Please call office first thing Wednesday morning for time. Patient Instructions: DI for Syncope in Adults (Fainting), Anemia of Chronic Disease, DI for Sick Sinus Syndrome, DI for Paroxysmal Supraventricular Tachycardia, DI for Bradycardia Forms: Transfer Record - Follow up Plan Disposition: Xfer Short-Term Hosp Home Medications: Home Medications Medication Instructions Recorded Confirmed Type Atorvastatin Calcium [Atorvastatin 80 mg PO HS 12/28/17 09/22/18 History 80mg Tab] Ferrous Sulfate 325 mg PO BID 12/28/17 09/22/18 History Fluticasone/Vilanterol [Breo 1 spray IH DAILY 12/28/17 09/22/18 History Ellipta 100-25 Mcg INH] Furosemide [Furosemide 40MG tAB] 40 mg PO BID 12/28/17 09/22/18 History Lisinopril [Lisinopril 5mg Tablet] 5 mg PO DAILY 12/28/17 09/22/18 History Metformin HCl [Glucophage 500mg 500 mg PO BIDWM 12/28/17 09/22/18 History Tablet] Omeprazole [Omeprazole 20mg 20 mg PO BID 12/28/17 09/22/18 History Capsule] Oxybutynin Chloride [Ditropan Xl] 5 mg PO BID 12/28/17 09/22/18 History Potassium Chloride [Pot Chlor 20 20 meq PO DAILY 12/28/17 09/22/18 History mEq Tab] diazePAM [diazePAM 5mg Tablet] 5 mg PO TID 12/28/17 09/22/18 History Albuterol Sulfate [Albuterol HFA 1 inh PO BIDP PRN 01/20/18 09/23/18 History Inhaler] Loperamide HCl [Imodium 2 mg 2 mg PO DAILY 01/20/18 09/22/18 History capsule] Aspirin 81 mg PO DAILY 07/28/18 09/22/18 History Nitroglycerin 0.4 mg SL Q5MINP PRN 09/22/18 09/22/18 History [id number]/Sod Sulf,Bicarb,Cl/KCl 240 ml PO Q10M 09/22/18 09/22/18 History [Peg-3350 and Electrolytes Soln] Promethazine HCl [Phenergan 25mg 25 mg PO TIDP PRN 09/22/18 09/22/18 History tab] Prescriptions/Medication Reconciliation: New Sotalol HCl [Sotalol] 80 mg PO BID #60 tablet Continue Potassium Chloride [Pot Chlor 20 mEq Tab] 20 meq PO DAILY Oxybutynin Chloride [Ditropan Xl] 5 mg PO BID Omeprazole [Omeprazole 20mg Capsule] 20 mg PO BID Metformin HCl [Glucophage 500mg Tablet] 500 mg PO BIDWM Lisinopril [Lisinopril 5mg Tablet] 5 mg PO DAILY Furosemide [Furosemide 40MG tAB] 40 mg PO BID Ferrous Sulfate 325 mg PO BID Atorvastatin Calcium [Atorvastatin 80mg Tab] 80 mg PO HS diazePAM [diazePAM 5mg Tablet] 5 mg PO TID Albuterol Sulfate [Albuterol HFA Inhaler] 1 inh PO BIDP PRN PRN Reason: SOA Loperamide HCl [Imodium 2 mg capsule] 2 mg PO DAILY Ondansetron [Zofran 4mg ODT] 4 mg PO Q8HP PRN #6 tab.rapdis PRN Reason: Nausea Aspirin 81 mg PO DAILY [id number]/Sod Sulf,Bicarb,Cl/KCl [Peg-3350 and Electrolytes Soln] 240 ml PO Q10M Nitroglycerin 0.4 mg SL Q5MINP PRN PRN Reason: Chest Pain Promethazine HCl [Phenergan 25mg tab] 25 mg PO TIDP PRN PRN Reason: Nausea And Vomiting Fluticasone/Vilanterol [Breo Ellipta 100-25 Mcg INH] 1 spray IH DAILY Discontinued Sotalol HCl [Betapace 80mg Tablet] 80 mg PO BID Rivaroxaban [Xarelto 20mg Tablet] 20 mg PO DAILY
== END 2018-09-27 17:28 | disposition short-term general hospital (02) ==
LOC: ER 12:08 → 2ND 12:08 → OBSVTOIN 16:24 → 2ND 16:25
PROVIDERS: ADMIT Family Medicine; ATTEND Family Medicine

== ENCOUNTER → 2018-10-14 10:55 | Outpatient (CLI) | payer MEDICAID, SELFPAY ==
--- NOTE | 2018-10-14 10:59 | NVE_ITS ---
Venous Exam Indications: 729.5 Pain in limb. Patient had a pacemaker placed near . Patient is a poor historian. She states her arm hurt before the procedure but seems worse since. Patient takes Eliquis daily. IMPRESSIONS No evidence of deep or superficial vein thrombosis involving the veins of the left upper extremity History: Left upper extremity pain. The patient has leukemia. Risk factors: Former tobacco use. Hypertension. Left upper extremity venous duplex. Doppler flow study including spectral analysis, color and trent scale imaging. Location: Vascular laboratory. Patient status: Outpatient. Tables: Venous flow and imaging: + + + Location Flow properties + + + Left internal jugular Normal phasicity; spontaneous; compressible + + + Left subclavian Normal phasicity; spontaneous; normal augmentation; compressible + + + Left axillary Normal phasicity; spontaneous; normal augmentation; compressible + + + Left brachial Normal phasicity; spontaneous; normal augmentation; compressible + + + Left cephalic Normal phasicity; spontaneous; normal augmentation; compressible + + + Left basilic Normal phasicity; spontaneous; normal augmentation; compressible + + + Left radial Compressible + + + Left ulnar Compressible + + + (Report amended ) Electronically signed by: Hilario Jacobs [id number]
== END ==
PROVIDERS: PCP Family Medicine; Visit Provider Emergency Medicine
DX: M79.622 Pain in left upper arm (principal); M79.89 Other specified soft tissue disorders; R79.1 Abnormal coagulation profile
CPT/HCPCS: 93971

== ENCOUNTER → 2018-12-01 13:08 | Outpatient (CLI) | payer MEDICAID, SELFPAY ==
[2018-12-01 14:11] LABS: Basophils # 1.3 K/mm3 (0-0.2); Basophils % 2.3 % (0.1-2.0); Eosinophils # 1.3 K/mm3 (0.0-0.4); Eosinophils % 2.3 % (0.1-12.0); Hemoglobin 9.7 g/dL (12.2-16.2); Lymphocytes # 5.2 K/mm3 (0.7-4.5); Lymphocytes % 9.3 % (10-50); Mean Corpuscular HGB Conc 29.5 g/dL (31.8-35.4); Mean Corpuscular Hemoglobin 24.6 pg (27.0-31.2); Mean Corpuscular Volume 83.4 fl (81-99); Mean Platelet Volume 9.5 fl (7.4-10.4); Monocytes # 1.9 K/mm3 (0.1-1.0); Monocytes % 3.4 % (1.7-9.3); Neutrophils # 47.5 K/mm3 (1.8-7.8); Platelet Count 258 K/mm3 (142-424); Red Blood Count 3.95 M/mm3 (4.20-5.40); Red Cell Distribution Width 15.1 % (11.5-17.5)
[2018-12-01 14:14] LABS: White Blood Count 55.9 K/mm3 (4.8-10.8)
[2018-12-01 14:16] LABS: MANUAL DIFFERENTIAL MANUAL DIFFERENTIAL (MANUAL DIFF)
[2018-12-01 14:32] LABS: Alanine Aminotransferase 20 U/L (12-78); Albumin Level 3.6 gm/dL (3.4-5.0); Albumin/Globulin Ratio 1.2 (1.1-1.8); Alkaline Phosphatase 170 U/L (46-116); Anion Gap 15.9 mEq/L (5-15); Aspartate Amino Transferase 38 U/L (15-37); Bilirubin,Total 0.4 mg/dL (0.2-1.0); Blood Urea Nitrogen 9 mg/dL (7-18); Calcium 8.6 mg/dL (8.5-10.1); Carbon Dioxide 27 mmol/L (21.0-32.0); Chloride 105 mmol/L (98-107); Creatinine,Serum 0.97 mg/dL (0.55-1.02); Estimated Glomerular Filt Rate 58 ml/min (>60); GFR (African American) 71 ML/MIN (>60); Globulin 3.1 gm/dl (1.3-3.2); Glucose 126 mg/dL (74-106); Potassium 3.9 mmoL/L (3.5-5.1); Sodium 144 mmol/L (136-145); Total Protein,Serum 6.7 gm/dL (6.4-8.2)
[2018-12-01 16:10] LABS: Eosinophils % 2 % (0-3); Lymphocytes % 19 % (10-50); Monocytes % 3 % (2-9); Neutrophils % 63 % (42-76); Promyelocytes % 1 %; Total Cells Counted 100
[2018-12-01 16:11] LABS: Ovalocytes 1+; Platelet Estimate Normal; Schistocytes 1+; Stomatocytes 2+; Tear Drop Cells 1+
[2018-12-03 13:31] LABS: Peripheral Smear Review Scanned Result
== END ==
PROVIDERS: Visit Provider Internal Medicine Medical Oncology
DX: C91.10 Chronic lymphocytic leukemia of B-cell type not having achieved remission (principal)
CPT/HCPCS: 36415; 80053; 85007; 85025

== ENCOUNTER → 2018-12-15 12:29 | Outpatient (CLI) | payer MEDICAID, SELFPAY ==
[2018-12-15 13:34] LABS: Basophils # 0.6 K/mm3 (0-0.2); Basophils % 2.1 % (0.1-2.0); Eosinophils # 0.5 K/mm3 (0.0-0.4); Eosinophils % 1.7 % (0.1-12.0); Hematocrit 30.3 % (37.0-47.0); Hemoglobin 9.2 g/dL (12.2-16.2); Lymphocytes # 3.6 K/mm3 (0.7-4.5); Lymphocytes % 12.2 % (10-50); Mean Corpuscular HGB Conc 30.2 g/dL (31.8-35.4); Mean Corpuscular Hemoglobin 24.2 pg (27.0-31.2); Mean Platelet Volume 8.3 fl (7.4-10.4); Monocytes # 1.4 K/mm3 (0.1-1.0); Monocytes % 4.5 % (1.7-9.3); Neutrophils # 23.7 K/mm3 (1.8-7.8); Neutrophils % 79.5 % (37.0-80.0); Platelet Count 268 K/mm3 (142-424); Red Blood Count 3.79 M/mm3 (4.20-5.40); Red Cell Distribution Width 15.8 % (11.5-17.5); White Blood Count 29.7 K/mm3 (4.8-10.8)
[2018-12-15 13:38] LABS: MANUAL DIFFERENTIAL MANUAL DIFFERENTIAL (MANUAL DIFF)
[2018-12-15 14:40] LABS: Alanine Aminotransferase 15 U/L (12-78); Albumin Level 3.7 gm/dL (3.4-5.0); Albumin/Globulin Ratio 1.2 (1.1-1.8); Alkaline Phosphatase 164 U/L (46-116); Anion Gap 13.9 mEq/L (5-15); Aspartate Amino Transferase 13 U/L (15-37); Bilirubin,Total 0.9 mg/dL (0.2-1.0); Blood Urea Nitrogen 10 mg/dL (7-18); Calcium 8.9 mg/dL (8.5-10.1); Carbon Dioxide 29 mmol/L (21.0-32.0); Chloride 102 mmol/L (98-107); Creatinine,Serum 1.01 mg/dL (0.55-1.02); Estimated Glomerular Filt Rate 56 ml/min (>60); GFR (African American) 67 ML/MIN (>60); Globulin 3.2 gm/dl (1.3-3.2); Glucose 127 mg/dL (74-106); Potassium 3.9 mmoL/L (3.5-5.1); Sodium 141 mmol/L (136-145); Total Protein,Serum 6.9 gm/dL (6.4-8.2)
[2018-12-15 14:44] LABS: Hypochromasia 2+; Lymphocytes % 13 % (10-50); Monocytes % 2 % (2-9); Neutrophils % 81 % (42-76); Platelet Estimate Normal; Total Cells Counted 100
== END ==
PROVIDERS: Visit Provider Internal Medicine Medical Oncology
DX: C92.10 Chronic myeloid leukemia, BCR/ABL-positive, not having achieved remission (principal)
CPT/HCPCS: 36415; 80053; 85007; 85025

== ENCOUNTER → 2019-01-19 14:41 | Outpatient (CLI) | payer MEDICAID, SELFPAY ==
[2019-01-19 15:24] LABS: Basophils % 0.9 % (0.1-2.0); Eosinophils # 0.1 K/mm3 (0.0-0.4); Eosinophils % 2.1 % (0.1-12.0); Lymphocytes # 1.1 K/mm3 (0.7-4.5); Lymphocytes % 33.9 % (10-50); Mean Corpuscular HGB Conc 29.6 g/dL (31.8-35.4); Mean Corpuscular Hemoglobin 23.8 pg (27.0-31.2); Mean Corpuscular Volume 80.4 fl (81-99); Mean Platelet Volume 7.8 fl (7.4-10.4); Monocytes # 0.2 K/mm3 (0.1-1.0); Monocytes % 7.3 % (1.7-9.3); Neutrophils # 1.8 K/mm3 (1.8-7.8); Neutrophils % 55.8 % (37.0-80.0); Platelet Count 146 K/mm3 (142-424); Red Blood Count 2.97 M/mm3 (4.20-5.40); Red Cell Distribution Width 15.4 % (11.5-17.5); White Blood Count 3.1 K/mm3 (4.8-10.8)
[2019-01-19 15:28] LABS: Hematocrit 23.9 % (37.0-47.0)
[2019-01-19 15:29] LABS: Hemoglobin 7.1 g/dL (12.2-16.2)
[2019-01-19 15:44] LABS: Alanine Aminotransferase 17 U/L (12-78); Albumin Level 3.6 gm/dL (3.4-5.0); Albumin/Globulin Ratio 1.1 (1.1-1.8); Alkaline Phosphatase 178 U/L (46-116); Anion Gap 12.7 mEq/L (5-15); Aspartate Amino Transferase 15 U/L (15-37); Bilirubin,Total 0.6 mg/dL (0.2-1.0); Blood Urea Nitrogen 12 mg/dL (7-18); Calcium 8.2 mg/dL (8.5-10.1); Carbon Dioxide 28 mmol/L (21.0-32.0); Chloride 104 mmol/L (98-107); Creatinine,Serum 0.76 mg/dL (0.55-1.02); Estimated Glomerular Filt Rate 77 ml/min (>60); GFR (African American) 94 ML/MIN (>60); Globulin 3.3 gm/dl (1.3-3.2); Glucose 120 mg/dL (74-106); Potassium 3.7 mmoL/L (3.5-5.1); Sodium 141 mmol/L (136-145); Total Protein,Serum 6.9 gm/dL (6.4-8.2)
== END ==
PROVIDERS: Visit Provider Internal Medicine Medical Oncology
DX: C91.10 Chronic lymphocytic leukemia of B-cell type not having achieved remission (principal)
CPT/HCPCS: 36415; 80053; 85025

== ENCOUNTER 2019-01-23 08:48 | Outpatient (CLI) | payer MEDICAID, SELFPAY ==
[2019-01-23] VITALS (20 sets, daily range): BP systolic 132–167; BP diastolic 55–78; PULSE 72–89; RESP 18; TEMP 36.6–36.8; O2SAT 95–97; BMI 37.9
[2019-01-23 17:00] LABS: Hematocrit 28.1 % (37.0-47.0); Hemoglobin 8.8 g/dL (12.2-16.2)
[2019-01-24 06:15] LABS: Iron 18 ug/dL (27-139); UIBC 347 ug/dL (118-369)
[2019-01-24 13:11] LABS: Iron Saturation 5 % (15-55)
== END 2019-01-23 17:24 | disposition home or self-care (01) ==
LOC: INF 08:50
PROVIDERS: PCP Family Medicine; Visit Provider Internal Medicine Medical Oncology
DX: C92.10 Chronic myeloid leukemia, BCR/ABL-positive, not having achieved remission (principal)
CPT/HCPCS: 36415; 36430; 83540; 83550; 85014; 85018; 86850; P9016

== ENCOUNTER 2019-02-07 12:45 | Outpatient (CLI) | payer MEDICAID, SELFPAY ==
[2019-02-07 13:10] VITALS: BP 141/73; PULSE 83; RESP 18; TEMP 37; O2SAT 98
[2019-02-07 13:50] VITALS: BP 155/71; PULSE 79; RESP 18; TEMP 37; O2SAT 98
== END 2019-02-07 13:50 | disposition home or self-care (01) ==
LOC: INF 13:08
PROVIDERS: Visit Provider Internal Medicine Medical Oncology
DX: C92.10 Chronic myeloid leukemia, BCR/ABL-positive, not having achieved remission (principal)
CPT/HCPCS: 96365; J1439

== ENCOUNTER → 2019-03-02 15:03 | Outpatient (CLI) | payer MEDICAID, SELFPAY ==
[2019-03-02 15:15] LABS: Basophils % 0.5 % (0.1-2.0); Eosinophils # 0.2 K/mm3 (0.0-0.4); Eosinophils % 6.2 % (0.1-12.0); Hematocrit 27.6 % (37.0-47.0); Hemoglobin 8.7 g/dL (12.2-16.2); Lymphocytes # 0.9 K/mm3 (0.7-4.5); Lymphocytes % 28.1 % (10-50); Mean Corpuscular HGB Conc 31.5 g/dL (31.8-35.4); Mean Corpuscular Hemoglobin 26.5 pg (27.0-31.2); Mean Corpuscular Volume 84.1 fl (81-99); Mean Platelet Volume 9.4 fl (7.4-10.4); Monocytes # 0.2 K/mm3 (0.1-1.0); Monocytes % 7.5 % (1.7-9.3); Neutrophils # 1.9 K/mm3 (1.8-7.8); Neutrophils % 57.8 % (37.0-80.0); Platelet Count 167 K/mm3 (142-424); Red Blood Count 3.28 M/mm3 (4.20-5.40); Red Cell Distribution Width 19.4 % (11.5-17.5); White Blood Count 3.3 K/mm3 (4.8-10.8)
[2019-03-02 15:54] LABS: Alanine Aminotransferase 20 U/L (12-78); Albumin Level 3.6 gm/dL (3.4-5.0); Alkaline Phosphatase 146 U/L (46-116); Anion Gap 10.8 mEq/L (5-15); Aspartate Amino Transferase 7 U/L (15-37); Bilirubin,Total 0.5 mg/dL (0.2-1.0); Blood Urea Nitrogen 10 mg/dL (7-18); Calcium 8.4 mg/dL (8.5-10.1); Carbon Dioxide 27 mmol/L (21.0-32.0); Chloride 104 mmol/L (98-107); Creatinine,Serum 0.71 mg/dL (0.55-1.02); Estimated Glomerular Filt Rate 84 ml/min (>60); GFR (African American) 101 ML/MIN (>60); Globulin 3.5 gm/dl (1.3-3.2); Glucose 94 mg/dL (74-106); Potassium 3.8 mmoL/L (3.5-5.1); Sodium 138 mmol/L (136-145); Total Protein,Serum 7.1 gm/dL (6.4-8.2)
== END ==
PROVIDERS: Visit Provider Internal Medicine Medical Oncology
DX: C92.10 Chronic myeloid leukemia, BCR/ABL-positive, not having achieved remission (principal)
CPT/HCPCS: 36415; 80053; 81206; 85025

== ENCOUNTER 2019-03-31 10:33 | Emergency (ER) | payer MEDICAID, SELFPAY ==
[2019-03-31 10:40] VITALS: BP 118/42; PULSE 86; RESP 18; TEMP 37.1; O2SAT 98; BMI 34.3
[2019-03-31 10:56] VITALS: BP 118/42; PULSE 86; RESP 18; TEMP 37.1; O2SAT 98; BMI 34.3
--- NOTE | 2019-03-31 11:03 | HMH.EDUTC ---
[facility] [place] Clinical Impression: Diarrhea Qualifiers: Diarrhea type: unspecified type Qualified Code(s): R19.7 - Diarrhea, unspecified Disposition: Home, Self-Care Condition on Discharge: Good Instructions: DI for Diarrhea and Traveler's Diarrhea -- Adult Additional Instructions: F/U with Dr Stone. If not improving, may need diarrhea panel. Prescriptions: Ondansetron [Zofran 4mg ODT] 4 mg PO TID PRN 5 Days #10 tab.rapdis PRN Reason: Nausea Referrals: Nguyen Stone MD [Primary Care Provider] - Time of Disposition: 11:11 Medical Decision Making - Amanuel Inquiry Pt receiving controlled substance: No Vital Signs: 03/31/19 10:40 03/31/19 10:56 Temperature 98.7 F 98.7 F Temperature Source Oral Oral Pulse Rate [Left Radial] 86 86 Respiratory Rate 18 18 Blood Pressure [Left Arm] 118/42 L 118/42 L Blood Pressure Mean [Left Arm] 67 67 Blood Pressure Source [Left Arm] Automatic Cuff Automatic Cuff Blood Pressure Position [Left Arm] Sitting Sitting 02 Sat by Pulse Oximetry 98 98 Oxygen Delivery Method Room Air Room Air [facility] [place] H[place] - General Stated complaint: diarrhea for 5 days Time Seen by Provider: 03/31/19 11:03 Mode of Arrival: Ambulatory Source of Information: Patient Limitations: No Limitations Description of Symptoms (Recalled from Triage Doc. by RN): C/O DIARRHEA X5 DAYS HEENT Symptoms (Recalled from RN notes): No Resp Symptoms (Recalled from RN notes): No Skin Symptoms (Recalled from RN notes): No MS Symptoms (Recalled from RN notes): No Functional Status (Recalled from RN notes): N/A - History of Present Illness Provider Complaint: Patient states she has had stomach cramps and diarrhea X 5 days. No vomiting. Food doesn't taste good. Is taking in liquids. History of colitis a few months ago. No fever. H/O CLL. Denies bloody stools. Onset (ago): day(s) (5) Location: abdomen Relieving factors: none Exacerbating factors: none Associated symptoms: denies other symptoms Treatments prior to arrival: none - Related Data Home Medications Medication Instructions Recorded Confirmed Atorvastatin Calcium [Atorvastatin 80 mg PO HS 12/28/17 03/02/19 80mg Tab] Ferrous Sulfate 325 mg PO BID 12/28/17 03/02/19 Fluticasone/Vilanterol [Breo 1 spray IH DAILY 12/28/17 03/02/19 Ellipta 100-25 Mcg INH] Furosemide [Furosemide 40MG tAB] 40 mg PO BID 12/28/17 03/02/19 Lisinopril [Lisinopril 5mg Tablet] 5 mg PO DAILY 12/28/17 03/02/19 Metformin HCl [Glucophage 500mg 500 mg PO BIDWM 12/28/17 03/02/19 Tablet] Omeprazole [Omeprazole 20mg 20 mg PO BID 12/28/17 03/02/19 Capsule] Oxybutynin Chloride [Ditropan Xl] 5 mg PO BID 12/28/17 03/02/19 Potassium Chloride [Pot Chlor 20 20 meq PO DAILY 12/28/17 03/02/19 mEq Tab] diazePAM [diazePAM 5mg Tablet] 5 mg PO TID 12/28/17 03/02/19 Albuterol Sulfate [Albuterol HFA 1 inh PO BIDP PRN 01/20/18 03/02/19 Inhaler] Loperamide HCl [Imodium 2 mg 2 mg PO DAILY 01/20/18 03/02/19 capsule] Nitroglycerin 0.4 mg SL Q5MINP PRN 09/22/18 03/02/19 Promethazine HCl [Phenergan 25mg 25 mg PO TIDP PRN 09/22/18 03/02/19 tab] apixaban 5 mg tablet 5 mg PO BID 02/17/19 03/02/19 Previous Rx's Medication Instructions Recorded Ondansetron [Zofran 4mg ODT] 4 mg PO Q8HP PRN #6 tab.marcialdis 05/24/18 Ondansetron [Zofran 4mg ODT] 4 mg PO TID PRN 5 Days #10 03/31/19 tab.[email or web address] Allergies Allergy/AdvReac Type Severity Reaction Status Date / Time acetaminophen [ACETAMINOPHEN] Allergy Intermediate I-RASH Verified 03/02/19 15:26 adhesive tape [ADHESIVE TAPE] Allergy Intermediate I-RASH Verified 03/02/19 15:26 digoxin [DIGOXIN] Allergy Intermediate NA-NAUSEA/V Verified 03/02/19 15:26 OMITING hydrocortisone Allergy Intermediate I-RASH Verified 03/02/19 15:26 [HYDROCORTISONE] Penicillins [PENICILLINS] Allergy Intermediate I-RASH Verified 03/02/19 15:26 ciprofloxacin [CIPROFLOXACIN] Allergy Mild NA-NAUSEA/V Verified 03/02/19 15
--- NOTE | 2019-03-31 11:07 | ED_ITS ---
[facility] [place] Clinical Impression: Diarrhea Qualifiers: Diarrhea type: unspecified type Qualified Code(s): R19.7 - Diarrhea, unspecified Disposition: Home, Self-Care Condition on Discharge: Good Instructions: DI for Diarrhea and Traveler's Diarrhea -- Adult Additional Instructions: F/U with Dr Stone. If not improving, may need diarrhea panel. Prescriptions: Ondansetron [Zofran 4mg ODT] 4 mg PO TID PRN 5 Days #10 tab.rapdis PRN Reason: Nausea Referrals: Nguyen Stone MD [Primary Care Provider] - Time of Disposition: 11:11 Medical Decision Making - Amanuel Inquiry Pt receiving controlled substance: No Vital Signs: 03/31/19 10:40 03/31/19 10:56 Temperature 98.7 F 98.7 F Temperature Source Oral Oral Pulse Rate [Left Radial] 86 86 Respiratory Rate 18 18 Blood Pressure [Left Arm] 118/42 L 118/42 L Blood Pressure Mean [Left Arm] 67 67 Blood Pressure Source [Left Arm] Automatic Cuff Automatic Cuff Blood Pressure Position [Left Arm] Sitting Sitting 02 Sat by Pulse Oximetry 98 98 Oxygen Delivery Method Room Air Room Air [facility] [place]PI - General Stated complaint: diarrhea for 5 days Time Seen by Provider: 03/31/19 11:03 Mode of Arrival: Ambulatory Source of Information: Patient Limitations: No Limitations Description of Symptoms (Recalled from Triage Doc. by RN): C/O DIARRHEA X5 DAYS HEENT Symptoms (Recalled from RN notes): No Resp Symptoms (Recalled from RN notes): No Skin Symptoms (Recalled from RN notes): No MS Symptoms (Recalled from RN notes): No Functional Status (Recalled from RN notes): N/A - History of Present Illness Provider Complaint: Patient states she has had stomach cramps and diarrhea X 5 days. No vomiting. Food doesn't taste good. Is taking in liquids. History of colitis a few months ago. No fever. H/O CLL. Denies bloody stools. Onset (ago): day(s) (5) Location: abdomen Relieving factors: none Exacerbating factors: none Associated symptoms: denies other symptoms Treatments prior to arrival: none - Related Data Home Medications Medication Instructions Recorded Confirmed Atorvastatin Calcium [Atorvastatin 80 mg PO HS 12/28/17 03/02/19 80mg Tab] Ferrous Sulfate 325 mg PO BID 12/28/17 03/02/19 Fluticasone/Vilanterol [Breo 1 spray IH DAILY 12/28/17 03/02/19 Ellipta 100-25 Mcg INH] Furosemide [Furosemide 40MG tAB] 40 mg PO BID 12/28/17 03/02/19 Lisinopril [Lisinopril 5mg Tablet] 5 mg PO DAILY 12/28/17 03/02/19 Metformin HCl [Glucophage 500mg 500 mg PO BIDWM 12/28/17 03/02/19 Tablet] Omeprazole [Omeprazole 20mg 20 mg PO BID 12/28/17 03/02/19 Capsule] Oxybutynin Chloride [Ditropan Xl] 5 mg PO BID 12/28/17 03/02/19 Potassium Chloride [Pot Chlor 20 20 meq PO DAILY 12/28/17 03/02/19 mEq Tab] diazePAM [diazePAM 5mg Tablet] 5 mg PO TID 12/28/17 03/02/19 Albuterol Sulfate [Albuterol HFA 1 inh PO BIDP PRN 01/20/18 03/02/19 Inhaler] Loperamide HCl [Imodium 2 mg 2 mg PO DAILY 01/20/18 03/02/19 capsule] Nitroglycerin 0.4 mg SL Q5MINP PRN 09/22/18 03/02/19 Promethazine HCl [Phenergan 25mg 25 mg PO TIDP PRN 09/22/18 03/02/19 tab] apixaban 5 mg tablet 5 mg PO BID 02/17/19 03/02/19 Previous Rx's
[2019-03-31 11:14] VITALS: BP 118/42; PULSE 86; RESP 18; TEMP 37.1; O2SAT 98
== END 2019-03-31 11:17 | disposition home or self-care (01) ==
LOC: ER 10:45 → UTC 10:54
PROVIDERS: Emergency Provider Physician Assistant; PCP Family Medicine
DX: R19.7 Diarrhea, unspecified (principal); I25.10 Atherosclerotic heart disease of native coronary artery without angina pectoris; I10 Essential (primary) hypertension; E11.9 Type 2 diabetes mellitus without complications; Z79.84 Long term (current) use of oral hypoglycemic drugs; J44.9 Chronic obstructive pulmonary disease, unspecified; Z88.0 Allergy status to penicillin; Z88.8 Allergy status to other drugs, medicaments and biological substances
CPT/HCPCS: 99201

== ENCOUNTER 2019-04-24 20:49 | Observation (INO) ==
[2019-04-24 21:42] LABS: Basophils % 0.4 % (0.1-2.0); Eosinophils # 0.2 K/mm3 (0.0-0.4); Eosinophils % 4.3 % (0.1-12.0); Hemoglobin 8.3 g/dL (12.2-16.2); Lymphocytes # 1.4 K/mm3 (0.7-4.5); Lymphocytes % 35.9 % (10-50); Mean Corpuscular HGB Conc 29.7 g/dL (31.8-35.4); Mean Corpuscular Volume 82.8 fl (81-99); Mean Platelet Volume 8.2 fl (7.4-10.4); Monocytes # 0.4 K/mm3 (0.1-1.0); Monocytes % 9.8 % (1.7-9.3); Neutrophils # 1.9 K/mm3 (1.8-7.8); Neutrophils % 49.7 % (37.0-80.0); Platelet Count 223 K/mm3 (142-424); Red Blood Count 3.36 M/mm3 (4.20-5.40); Red Cell Distribution Width 16.3 % (11.5-17.5); White Blood Count 3.8 K/mm3 (4.8-10.8)
[2019-04-24 21:44] LABS: Hematocrit 27.8 % (37.0-47.0)
[2019-04-24 21:53] LABS: Albumin Level 3.3 gm/dL (3.4-5.0); Albumin/Globulin Ratio 0.9 (1.1-1.8); Anion Gap 10.8 mEq/L (5-15); Bilirubin,Total 0.4 mg/dL (0.2-1.0); C-Reactive Protein 0.4 mg/L (0.0-0.9); Calcium 8.4 mg/dL (8.5-10.1); Globulin 3.7 gm/dl (1.3-3.2)
--- NOTE | 2019-04-24 21:55 | Emergency Department Note ---
ED Disposition Clinical Impression: Cellulitis of both lower extremities, CLL (chronic lymphocytic leukemia), Obesity (BMI 30-39.9) Anemia Qualifiers: Anemia type: unspecified type Qualified Code(s): D64.9 - Anemia, unspecified Disposition: Admitted as Observation Condition on Discharge: Good - Critical Care Critical Care Time: No Attestation: On 04/24/19, the high probability of a clinically significant, sudden or life threatening deterioration of the following system(s) required my full and direct attention, intervention and personal management. The time I documented below is in addition to time spent performing reported procedures but includes the following listed in this critical care notation. Medical Decision Making - Medical Records Medical records reviewed: Yes: I reviewed the patient's medical records. - Amanuel Inquiry Pt receiving controlled substance: No Vital Signs: 04/24/19 20:50 Temperature 98.5 F Temperature Source Oral Pulse Rate [Right Radial] 77 Respiratory Rate 18 Blood Pressure [Right Arm] 158/79 H Blood Pressure Mean [Right Arm] 105 02 Sat by Pulse Oximetry 98 Oxygen Delivery Method Room Air - Lab Data Lab results reviewed: Yes: I reviewed the patient's lab results. Lab Results 04/24/19 21:30: WBC 3.8 L, RBC 3.36 L, Hgb 8.3 L, Hct 27.8 L, MCV 82.8, MCH 24.6 L, MCHC 29.7 L, RDW 16.3, Plt Count 223, MPV 8.2, Neut % (Auto) 49.7, Lymph % (Auto) 35.9, [place] % (Auto) 9.8 H, Eos % (Auto) 4.3, Baso % (Auto) 0.4, Neut # (Auto) 1.9, Lymph # (Auto) 1.4, [place] # (Auto) 0.4, Eos # (Auto) 0.2, Baso # (Auto) 0.0 04/24/19 21:30: Sodium 140, Potassium 3.8, Chloride 103, Carbon Dioxide 30, Anion Gap 10.8, BUN 9, Creatinine 1.10 H, Estimated Creat Clear 76, Estimated GFR 50 L, Est GFR ( Amer) 61, Glucose 118 H, Calcium 8.4 L, Total Bilirubin 0.4, AST 17, ALT 24, Alkaline Phosphatase 173 H, C-Reactive Protein 0.4, Total Protein 7.0, Albumin 3.3 L, Globulin 3.7 H, Albumin/Globulin Ratio 0.9 L 04/24/19 21:30: B-Natriuretic Peptide 51 04/24/19 21:30: ESR 64 H 04/24/19 21:30: Lactate 0.7 Result diagrams: 04/24/19 21:30 04/24/19 21:30 Orders (Tests/Meds): ED MEDICATIONS Generic Name Dose Route Start Last Admin Trade Name Jihan PRN Reason Stop Dose Admin Clindamycin Phosphate 900 mg/ 106 mls @ 100 mls/hr 04/24/19 22:30 Sodium Chloride IV 05/08/19 22:29 Q8H [facility] Protocol - Physician Consults Physician Consulted: dez Reason -: Admission Lower Extremity Injury HPI - General Chief Complaint: Extremity Injury, Lower Stated Complaint: swollen legs Time Seen by Provider: 04/24/19 21:00 Mode of Arrival: EMS Source of Information: Patient, EMS, Medical Record Limitations: No Limitations Description of Symptoms (Recalled from ER Triage Doc. by RN): pt states that her legs have been swollen and she has pain and redness of the lower extremities x 2 weeks. - History of Present Illness HPI Narrative: progressive swelling and reddness and tenderness lower ext bilat over the last 2 weeks with dec ambulation MD complaint: other (swollen lower ext - no trauma ) Onset (ago): week(s) Place: home Severity: moderate Other symptoms: none - Related Data Home Medications Medication Instructions Recorded Confirmed Atorvastatin Calcium [Atorvastatin 80 mg PO HS 12/28/17 04/24/19 80mg Tab] Ferrous Sulfate 325 mg PO BID 12/28/17 04/24/19 Fluticasone/Vilanterol [Breo 1 spray IH DAILY 12/28/17 04/24/19 Ellipta 100-25 Mcg INH] Furosemide [Furosemide 40MG tAB] 40 mg PO BID 12/28/17 04/24/19 Lisinopril [Lisinopril 5mg Tablet] 5 mg PO DAILY 12/28/17 04/24/19 Metformin HCl [Glucophage 500mg 500 mg PO BIDWM 12/28/17 04/24/19 Tablet] Omeprazole [Omeprazole 20mg 20 mg PO BID 12/28/17 04/24/19 Capsule] Oxybutynin Chloride [Ditropan Xl] 5 mg PO BID 12/28/17 04/24/19 Potassium Chloride [Pot Chlor 20 20 meq PO DAILY 12/28/17 04/24/19 mEq Tab] diazePAM [diazePAM 5mg Tablet] 5 mg PO TID 12/28/17 04/24/19 Albuterol Sulfate [Albuterol HFA 1 inh PO BIDP PRN 01/20/18 04/24/19 Inhaler] Loperamide HCl [Imodium 2 mg 2 mg PO DAILYP PRN 01/20/18 04/24/19 capsule] apixaban 5 mg tablet 5 mg PO BID 02/17/19 04/24/19 Previous Rx's Medication Instructions Recorded Ondansetron [Zofran 4mg ODT] 4 mg PO Q8HP PRN #6 tab.rapdis 05/24/18 Allergies Allergy/AdvReac Type Severity Reaction Status Date / Time acetaminophen [ACETAMINOPHEN] Allergy Intermediate I-RASH Verified 04/24/19 20:58 adhesive tape [ADHESIVE TAPE] Allergy Intermediate I-RASH Verified 04/24/19 20:58 digoxin [DIGOXIN] Allergy Intermediate NA-NAUSEA/V Verified 04/24/19 20:58 OMITING hydrocortisone Allergy Intermediate I-RASH Verified 04/24/19 20:58 [HYDROCORTISONE] Penicillins [PENICILLINS] Allergy Intermediate I-RASH Verified 04/24/19 20:58 ciprofloxacin [CIPROFLOXACIN] Allergy Mild NA-NAUSEA/V Verified 04/24/19 20:58 OMITING milk [MILK] Allergy Mild DIARRHEA Verified 04/24/19 20:58 cephalexin [From Keflex] Allergy Verified 04/24/19 20:58 [facility] History - Hepatitis A Screen Drug use history?: No High risk sexual behaviors?: No History of sexually transmitted infection?: No Currently employed?: No Childcare worker?: No Do you have indoor plumbing?: Yes Do you have electricity?: Yes Attestation statement:: This patient has been screened for Hepatitis A risk factors. I have reviewed the patient's past medical history: Yes Medical History: Reports:: Arrhythmia, Atherosclerotic Heart Disease, Cancer (bone), Congestive Heart Failure, Chronic Obstructive Pulmonary Disease (COPD), Coronary Artery Disease, Depression, Diabetes Mellitus Type 2, Heart Murmur, Hiatal Hernia, Hyperlipidemia, Hypertension, Lung Disease (COPD), Myocardial Infarction, Peripheral Vascular Disease, Valvular Heart Disease Denies:: Diabetes Mellitus Type 1, Internal Pacemaker, MRSA Other Medical History: Reports: Anemia, Arthritis Comment: IBS Laterality Cases: Left: Other, Bilateral: Tonsillectomy Other Surgeries: Yes: Angioplasty, Appendectomy, Cardiac Catheterization, Cardiac Surgery, Cholecystectomy, Colonoscopy, Coronary Stent, Diagnostic Lap, EGD, Hysterectomy-Total, Other. No: Pacemaker Amputation: No Fractures: Yes (LEFT FOOT) Comment: Cardiac stent, lt foot - Social History Smoking Status: Former smoker Tobacco Type: cigarettes # Packs/Day (cigarettes): 1 #Yrs smoked (if former smoker): 40 Alcohol Intake: never Substance Use Type: denies use Occupational Status: disabled Housing: house Household Members: children - Psychiatric History Expresses thoughts of harming self/others: None Suicide Plan Description: No Plan Pschychiatric History:: Reports:: Depression Family Hx:: Cancer, Coronary Artery Disease, Diabetes, Hyperlipidemia, Hypertension, Stroke ROS Obtained: Yes All systems reviewed & no additional complaints - Constitutional Constitutional: Denies fever(s) - Eyes Eyes: Denies change in vision - ENT Ears, Nose, Mouth, and Throat: Denies sore throat - Cardiovascular Cardiovascular: Denies chest pain - Respiratory Respiratory: No cough - Gastrointestinal Gastrointestingal: Denies: diarrhea - Genitourinary Female Genitourinary: Denies hematuria - Musculoskeletal Musculoskeletal: Reports as per HPI, Denies joint swelling - Integumentary/Breasts Skin/Breast: Reports as per HPI, Reports other (lower ext swelling ) - Neurologic Neurologic: Denies seizure-like activity Physical Exam - General General appearance: alert - Head Head exam: normocephalic - Eye Eye exam: Present: PERRL, EOMI. Absent: scleral icterus - ENT ENT exam: Present: mucous membranes dry - Neck Neck exam: Present: trachea midline - Respiratory Respiratory exam: Present: other (dec bs bilat ). Absent: respiratory distress - Cardiovascular Cardiovascular exam: Present: regular rate, systolic murmur, +S4 - Abdominal Exam Abdominal exam: Present: soft - Extremities Exam Extremities exam: Present: other (lower ext swelling bilat with reddness ). Absent: calf tenderness - Neurological Exam Neurological exam: Present: alert, oriented X3, CN II-XII intact - Psychiatric Psychiatric exam: Present: normal affect - Skin Skin exam: Present: rash (reddness lower ext bilat )
[2019-04-25 04:57] LABS: Basophils % 0.4 % (0.1-2.0); Eosinophils # 0.2 K/mm3 (0.0-0.4); Eosinophils % 4.6 % (0.1-12.0); Lymphocytes # 1.3 K/mm3 (0.7-4.5); Lymphocytes % 38.6 % (10-50); Mean Corpuscular HGB Conc 30.1 g/dL (31.8-35.4); Mean Corpuscular Volume 82.2 fl (81-99); Mean Platelet Volume 8.5 fl (7.4-10.4); Monocytes # 0.3 K/mm3 (0.1-1.0); Neutrophils # 1.7 K/mm3 (1.8-7.8); Neutrophils % 48.5 % (37.0-80.0); Platelet Count 213 K/mm3 (142-424); Red Blood Count 3.18 M/mm3 (4.20-5.40); Red Cell Distribution Width 15.9 % (11.5-17.5); White Blood Count 3.4 K/mm3 (4.8-10.8)
[2019-04-25 05:02] LABS: Anion Gap 11.4 mEq/L (5-15); Blood Urea Nitrogen 11 mg/dL (7-18); Carbon Dioxide 31 mmol/L (21.0-32.0); Chloride 101 mmol/L (98-107); Glucose 105 mg/dL (74-106); Sodium 140 mmol/L (136-145)
[2019-04-25 05:15] LABS: Hematocrit 26.1 % (37.0-47.0); Hemoglobin 7.9 g/dL (12.2-16.2)
--- NOTE | 2019-04-25 07:22 | Pharmacy Consult Notes ---
[facility] Pharmacy VTE Monitoring - Patient Demographics Admission date: 04/24/19 Report Date: 04/25/19 Time: 07:22 Allergies/Adverse Reactions: Patient Allergies acetaminophen [ACETAMINOPHEN] Allergy (Intermediate, Verified 04/24/19 20:58) I-RASH adhesive tape [ADHESIVE TAPE] Allergy (Intermediate, Verified 04/24/19 20:58) I-RASH digoxin [DIGOXIN] Allergy (Intermediate, Verified 04/24/19 20:58) NA-NAUSEA/VOMITING hydrocortisone [HYDROCORTISONE] Allergy (Intermediate, Verified 04/24/19 20:58) I-RASH Penicillins [PENICILLINS] Allergy (Intermediate, Verified 04/24/19 20:58) I-RASH ciprofloxacin [CIPROFLOXACIN] Allergy (Mild, Verified 04/24/19 20:58) NA-NAUSEA/VOMITING milk [MILK] Allergy (Mild, Verified 04/24/19 20:58) DIARRHEA cephalexin [From Keflex] Allergy (Verified 04/24/19 20:58) Height: 1.63 m Weight: 101.661 kg Patient Problems: Current Active Problems (Updated 04/24/19 @ 22:33 by Demetrio Dunn MD) CLL (chronic lymphocytic leukemia) (Chronic) Anemia (Acute) Obesity (BMI 30-39.9) (Acute) Cellulitis of both lower extremities (Acute) - VTE Risk Labs: VTE Related Lab Results Hgb 7.9 g/dL (12.2-16.2) L* 04/25/19 04:40 Hct 26.1 % (37.0-47.0) L 04/25/19 04:40 Plt Count 213 K/mm3 (142-424) 04/25/19 04:40 BUN 11 mg/dL (7-18) 04/25/19 04:40 Creatinine 1.11 mg/dL (0.55-1.02) H 04/25/19 04:40 Estimated Creat Clear 84 mL/min (50-200) 04/25/19 04:40 VTE Score: 8 VTE Risk Level: Moderate Risk - Prophylaxis VTE Prophylaxis Ordered?: Yes Types of VTE Prophylaxis: Pharmacological Pharmacologic Type: Other (ELIQUIS) - VTE Diagnosis Confirmed Treatment or plan recommended: Continue Current Treatment
--- NOTE | 2019-04-25 08:24 | History & Physical Report ---
*Admission Date: 04/24/19 *Chief complaint: Redness, edema, and pain of bilateral lower legs. *History of present illness: Ms. Perez is a 63-year-old female with a history of hypertension, depression, coronary artery disease, pacemaker placement in September 2018, interstitial cystitis, peripheral artery disease, and CML who presented to [facility] emergency room last p.m. via ambulance with worsening edema and erythema of bilateral lower legs for the past 2 weeks. She states she was unab le to go to the office of [facility] for evaluation due to the fact that she had no transportation. She describes difficulty with ambulation. She thinks she may have had a fever. With evaluation in the emergency room she was started on clindamycin and then admitted for further treatment. This a.m. she thinks her legs are better with less redness and swelling. She has required pain medicine for leg pain. She was able to sleep. She ate breakfast without difficulty. She is mostly concerned about her Social Security and an evaluation which has been ordered. She does still live in a home with bedbugs with plans to move in several weeks. [facility] History Medical History: Reports:: Arrhythmia, Atherosclerotic Heart Disease, Atrial Fibrillation, Cancer (LEUKEMIA), Congestive Heart Failure, Chronic Obstructive Pulmonary Disease (COPD), Coronary Artery Disease, Depression, Diabetes Mellitus Type 2, Gastroesophageal Reflux Disease(GERD), Heart Murmur, Hiatal Hernia, Hyperlipidemia, Hypertension, Lung Disease (COPD), Myocardial Infarction, Peripheral Vascular Disease, Valvular Heart Disease Denies:: Diabetes Mellitus Type 1, Internal Pacemaker, MRSA *Have you ever received a pneumonia vaccine?: No *Have you received a flu vaccine this season?: No Other Medical History: Reports: Anemia, Arthritis, Chemotherapy Comment:: CML and is followed by Dr. Morrell monthly. Laterality Cases: Left: Other, Bilateral: Tonsillectomy Other Surgeries: Yes: Angioplasty, Appendectomy, Cardiac Catheterization, Cardiac Surgery, Cholecystectomy, Colonoscopy, Coronary Stent, Diagnostic Lap, EGD, Hysterectomy-Total, Pacemaker, Other Amputation: No Fractures: Yes (LEFT FOOT) - *Social History Educational Level: Completed High School Smoking Status: Current every day smoker Tobacco Type: cigarettes # Packs/Day (cigarettes): 2 #Yrs smoked (if former smoker): 30 Smoking End Date: 09/01/2018 Alcohol Intake: never Substance Use Type: denies use *Occupational Status:: disabled Housing: house Household Members: children *Travel in the last 8 weeks: None - Psychiatric History Expresses thoughts of harming self/others: None Suicide Plan Description: No Plan Pschychiatric History:: Reports:: Depression Family Hx:: Cancer, Coronary Artery Disease, Diabetes, Hyperlipidemia, Hypertension, Stroke Review of Systems - Constitutional Reports fever(s), Reports headache(s) - Eyes Reports change in vision - ENT Reports post nasal drip, Reports dizziness, Denies ear discharge, Denies sore throat - *Cardiovascular Reports shortness of breath with activity, Denies chest pain - *Respiratory Reports cough, Reports shortness of breath with activity, Denies chest congestion, Denies coughing up blood - *Gastrointestinal Reports abdominal pain, Reports change in bowel habits, Reports loose stools (Daily to every other day), Reports vomiting blood (Does have a history of vomiting blood but none recently), Reports nausea, Denies bright, red blood in stools, Denies black, tarry stools, Denies vomiting Comments: Was to have an EGD and colonoscopy but has never been done due to conflicting heart problems. - *Genitourinary Denies difficulty urinating - *Musculoskeletal Reports abnormal walking, Reports joint pain - *Neurologic Reports headache(s), Denies seizure-like activity - Psychiatric Reports depression Meds Home Medications Medication Instructions Recorded Confirmed Type Atorvastatin Calcium [Atorvastatin 80 mg PO HS 12/28/17 04/24/19 History 80mg Tab] Ferrous Sulfate 325 mg PO BID 12/28/17 04/24/19 History Fluticasone/Vilanterol [Breo 1 spray IH DAILY 12/28/17 04/24/19 History Ellipta 100-25 Mcg INH] Furosemide [Furosemide 40MG tAB] 40 mg PO BID 12/28/17 04/24/19 History Lisinopril [Lisinopril 5mg Tablet] 5 mg PO DAILY 12/28/17 04/24/19 History Metformin HCl [Glucophage 500mg 500 mg PO BIDWM 12/28/17 04/24/19 History Tablet] Omeprazole [Omeprazole 20mg 20 mg PO BID 12/28/17 04/24/19 History Capsule] Oxybutynin Chloride [Ditropan Xl] 5 mg PO BID 12/28/17 04/24/19 History diazePAM [diazePAM 5mg Tablet] 5 mg PO TID 12/28/17 04/24/19 History Albuterol Sulfate [Albuterol HFA 1 inh PO BIDP PRN 01/20/18 04/24/19 History Inhaler] Ondansetron [Zofran 4mg ODT] 4 mg PO Q8HP PRN #6 tab.rapdis 05/24/18 04/24/19 Rx apixaban 5 mg tablet 5 mg PO BID 02/17/19 04/24/19 History Dasatinib [Sprycel] 100 mg PO DAILY 04/25/19 04/25/19 History Allergies Allergy/AdvReac Type Severity Reaction Status Date / Time acetaminophen [ACETAMINOPHEN] Allergy Intermediate I-RASH Verified 04/24/19 20:58 adhesive tape [ADHESIVE TAPE] Allergy Intermediate I-RASH Verified 04/24/19 20:58 digoxin [DIGOXIN] Allergy Intermediate NA-NAUSEA/V Verified 04/24/19 20:58 OMITING hydrocortisone Allergy Intermediate I-RASH Verified 04/24/19 20:58 [HYDROCORTISONE] Penicillins [PENICILLINS] Allergy Intermediate I-RASH Verified 04/24/19 20:58 ciprofloxacin [CIPROFLOXACIN] Allergy Mild NA-NAUSEA/V Verified 04/24/19 20:58 OMITING milk [MILK] Allergy Mild DIARRHEA Verified 04/24/19 20:58 cephalexin [From Keflex] Allergy Verified 04/24/19 20:58 Exam Vital signs and Labs for Last 24 Hours: Temp Pulse Resp BP Pulse Ox 98.0 F 71 18 139/65 99 04/25/19 07:55 04/25/19 07:55 04/25/19 07:55 04/25/19 07:55 04/25/19 07:55 Laboratory Results - last 24 hr 04/24/19 21:30: WBC 3.8 L, RBC 3.36 L, Hgb 8.3 L, Hct 27.8 L, MCV 82.8, MCH 24.6 L, MCHC 29.7 L, RDW 16.3, Plt Count 223, MPV 8.2, Neut % (Auto) 49.7, Lymph % (Auto) 35.9, Barry % (Auto) 9.8 H, Eos % (Auto) 4.3, Baso % (Auto) 0.4, Neut # (Auto) 1.9, Lymph # (Auto) 1.4, Barry # (Auto) 0.4, Eos # (Auto) 0.2, Baso # (Auto) 0.0 04/24/19 21:30: Sodium 140, Potassium 3.8, Chloride 103, Carbon Dioxide 30, Anion Gap 10.8, BUN 9, Creatinine 1.10 H, Estimated Creat Clear 76, Estimated GFR 50 L, Est GFR ( Amer) 61, Glucose 118 H, Calcium 8.4 L, Total Bilirubin 0.4, AST 17, ALT 24, Alkaline Phosphatase 173 H, C-Reactive Protein 0.4, Total Protein 7.0, Albumin 3.3 L, Globulin 3.7 H, Albumin/Globulin Ratio 0.9 L 04/24/19 21:30: B-Natriuretic Peptide 51 04/24/19 21:30: ESR 64 H 04/24/19 21:30: Lactate 0.7 04/25/19 01:45: Troponin I < 0.02 04/25/19 04:40: WBC 3.4 L, RBC 3.18 L, Hgb 7.9 L*, Hct 26.1 L, MCV 82.2, MCH 24.8 L, MCHC 30.1 L, RDW 15.9, Plt Count 213, MPV 8.5, Neut % (Auto) 48.5, Lymph % (Auto) 38.6, Barry % (Auto) 8.0, Eos % (Auto) 4.6, Baso % (Auto) 0.4, Neut # (Auto) 1.7 L, Lymph # (Auto) 1.3, Barry # (Auto) 0.3, Eos # (Auto) 0.2, Baso # (Auto) 0.0 04/25/19 04:40: Sodium 140, Potassium 3.4 L, Chloride 101, Carbon Dioxide 31, Anion Gap 11.4, BUN 11, Creatinine 1.11 H, Estimated Creat Clear 84, Estimated GFR 50 L, Est GFR ( Amer) 60, Glucose 105, Calcium 8.0 L, Magnesium 1.6, Troponin I < 0.02 04/25/19 06:31: POC Glucose 104 I & O for Last 24 hours: Intake & Output 04/22/19 04/23/19 04/24/19 04/25/19 11:59 11:59 11:59 11:59 Intake Total 600 / 600 Output Total 1300 / 1300 Balance -700 / -700 Weight 224 lb 2 oz - Constitutional no acute distress, obese, cooperative Comments: Conversant - *Routine HEENT Exam Head: Present: normocephalic, atraumatic Eye: Present: PERRL. Absent: conjunctival icterus, scleral injection ENT: Present: mucous membranes moist, oropharynx clear - *Routine Neck Exam Present: supple, carotid bruit (Bilaterally; versus radiating murmur). Absent: lymphadenopathy, thyromegaly - *Routine Respiratory Exam Present: CTA bilaterally (Anteriorly and posteriorly) - *Routine Cardiovascular Exam Present: RRR, murmur - *Routine Abdominal Exam Present: soft, normoactive bowel sounds. Absent: tenderness, distended, guarding - *Routine Extremities Exam Present: edema, pulses intact (Bilateral lower leg anterior erythema) - *Routine Neurological Exam Present: alert, oriented X3, normal speech Assessment and Plan (1) Cellulitis of both lower extremities Current visit: Yes Status: Acute Category: Medical Code(s): L03.115 - Cellulitis of right lower limb; L03.116 - Cellulitis of left lower limb (2) History of atrial fibrillation Current visit: Yes Status: Chronic Category: Medical Code(s): Z86.79 - Personal history of other diseases of the circulatory system (3) History of permanent cardiac pacemaker placement Current visit: Yes Status: Chronic Category: Surgical Code(s): Z95.0 - Presence of cardiac pacemaker (4) Coronary artery disease Current visit: Yes Status: Chronic Category: Medical Code(s): I25.10 - Atherosclerotic heart disease of [place] coronary artery without angina pectoris (5) Obesity (BMI 30-39.9) Current visit: Yes Status: Chronic Category: Medical Code(s): E66.9 - Obesity, unspecified (6) CLL (chronic lymphocytic leukemia) Current visit: Yes Status: Chronic Category: Medical Code(s): C91.10 - Chronic lymphocytic leukemia of B-cell type not having achieved remission (7) Chronic anemia Current visit: No Status: Chronic Category: Medical Code(s): D64.9 - Anemia, unspecified (8) Diarrhea Current visit: No Status: Chronic Qualifiers: Diarrhea type: unspecified type Qualified Code(s): R19.7 - Diarrhea, unspecified Category: Medical Code(s): R19.7 - Diarrhea, unspecified (9) Edema extremities Current visit: No Status: Acute Category: Medical Code(s): R60.0 - Localized edema (10) Diabetes Current visit: No Status: Chronic Category: Medical Code(s): E11.9 - Type 2 diabetes mellitus without complications (11) HTN (hypertension) Current visit: No Status: Chronic Category: Medical Code(s): I10 - Essential (primary) hypertension (12) Hypokalemia Current visit: Yes Status: Acute Category: Medical Code(s): E87.6 - Hypokalemia (13) Renal insufficiency Current visit: Yes Status: Acute Category: Medical Code(s): N28.9 - Disorder of kidney and ureter, unspecified - Assessment and plan all Dx Assessment and Plan for all problems:: We will give 2 units of packed red blood cells today. Will restart potassium. We will continue with IV antibiotics. Will consult Dr. Johnson patient portal concierge. Also will consult care management for housing and Social Security questions. Eliquis discontinued until after GI consult and patient started on Lovenox for DVT prophylaxis and anticoagulation.
[2019-04-25 19:31] LABS: Hematocrit 32.5 % (37.0-47.0)
[2019-04-25 19:48] LABS: Hemoglobin 10.1 g/dL (12.2-16.2)
[2019-04-26 06:53] LABS: Basophils % 0.6 % (0.1-2.0); Eosinophils # 0.2 K/mm3 (0.0-0.4); Eosinophils % 5.6 % (0.1-12.0); Hematocrit 32.9 % (37.0-47.0); Hemoglobin 10.2 g/dL (12.2-16.2); Lymphocytes # 1.3 K/mm3 (0.7-4.5); Lymphocytes % 38.5 % (10-50); Mean Corpuscular HGB Conc 31.1 g/dL (31.8-35.4); Mean Corpuscular Volume 81.5 fl (81-99); Mean Platelet Volume 8.2 fl (7.4-10.4); Monocytes # 0.4 K/mm3 (0.1-1.0); Neutrophils # 1.5 K/mm3 (1.8-7.8); Neutrophils % 43.3 % (37.0-80.0); Platelet Count 229 K/mm3 (142-424); Red Blood Count 4.04 M/mm3 (4.20-5.40); Red Cell Distribution Width 15.7 % (11.5-17.5); White Blood Count 3.4 K/mm3 (4.8-10.8)
[2019-04-26 07:37] LABS: Calcium 8.7 mg/dL (8.5-10.1)
[2019-04-26 07:42] VITALS: BP 141/61
--- NOTE | 2019-04-26 08:10 | Progress Note ---
Internal Medicine - PN: Subj *Date: 04/26/19 *Time: 08:06 Interval history: Patient feels stronger after receiving 2 units of packed red blood cells yesterday. She has been out of bed without difficulty. She is eating well. She denies chest pain and shortness of breath. She states her legs sometimes sting but are better. hemoglobin hematocrit are 10.2/32.9 this a.m. Renal function has normalized. Exam Vital signs and Labs for Last 24 Hours: Temp Pulse Resp BP Pulse Ox 98.1 F 69 18 141/61 H 97 04/26/19 07:40 04/26/19 07:40 04/26/19 07:40 04/26/19 07:40 04/26/19 07:40 Laboratory Results - last 24 hr 04/25/19 09:36: Blood Type A Positive, Antibody Screen Negative, Crossmatch (AHG) See Detail 04/25/19 10:58: POC Glucose 94 04/25/19 16:10: POC Glucose 99 04/25/19 19:23: Hgb 10.1 L D, Hct 32.5 L 04/25/19 20:09: POC Glucose 129 H 04/26/19 06:02: POC Glucose 108 04/26/19 06:31: WBC 3.4 L, RBC 4.04 L D, Hgb 10.2 L, Hct 32.9 L, MCV 81.5, MCH 25.4 L, MCHC 31.1 L, RDW 15.7, Plt Count 229, MPV 8.2, Neut % (Auto) 43.3, Lymph % (Auto) 38.5, [place] % (Auto) 12.0 H, Eos % (Auto) 5.6, Baso % (Auto) 0.6, Neut # (Auto) 1.5 L, Lymph # (Auto) 1.3, [place] # (Auto) 0.4, Eos # (Auto) 0.2, Baso # (Auto) 0.0 04/26/19 06:31: Sodium 138, Potassium 4.0, Chloride 100, Carbon Dioxide 30, Anion Gap 12.0, BUN 18 D, Creatinine 1.00, Estimated Creat Clear 93, Estimated GFR 56 L, Est GFR ( Amer) 68, Glucose 106, Calcium 8.7 I & O for Last 24 hours: Intake & Output 04/23/19 04/24/19 04/25/19 04/26/19 11:59 11:59 11:59 11:59 Intake Total 600 / 600 1860 / 1860 Output Total 1400 / 1400 1900 / 1900 Balance -800 / -800 -40 / -40 Weight 224 lb 2 oz 223 lb 6 oz - Constitutional no acute distress Comments: Appears comfortable lying in the bed. - *Routine Respiratory Exam Present: CTA bilaterally (Anteriorly and posteriorly) - *Routine Cardiovascular Exam Present: RRR, murmur - *Routine Abdominal Exam Present: soft, normoactive bowel sounds. Absent: tenderness - *Routine Extremities Exam Present: edema Comments: Both legs wrapped with aces up to below the knees. Edema appears less. Assessment and Plan (1) Cellulitis of both lower extremities Current visit: Yes Status: Acute Category: Medical Code(s): L03.115 - Cellulitis of right lower limb; L03.116 - Cellulitis of left lower limb (2) History of atrial fibrillation Current visit: Yes Status: Chronic Category: Medical Code(s): Z86.79 - Personal history of other diseases of the circulatory system (3) History of permanent cardiac pacemaker placement Current visit: Yes Status: Chronic Category: Surgical Code(s): Z95.0 - Pre sence of cardiac pacemaker (4) Coronary artery disease Current visit: Yes Status: Chronic Category: Medical Code(s): I25.10 - Atherosclerotic heart disease of [place] coronary artery without angina pectoris (5) Obesity (BMI 30-39.9) Current visit: Yes Status: Chronic Category: Medical Code(s): E66.9 - Obesity, unspecified (6) CLL (chronic lymphocytic leukemia) Current visit: Yes Status: Chronic Category: Medical Code(s): C91.10 - Chronic lymphocytic leukemia of B-cell type not having achieved remission (7) Chronic anemia Current visit: No Status: Chronic Category: Medical Code(s): D64.9 - Anemia, unspecified (8) Diarrhea Current visit: No Status: Chronic Qualifiers: Diarrhea type: unspecified type Qualified Code(s): R19.7 - Diarrhea, unspecified Category: Medical Code(s): R19.7 - Diarrhea, unspecified (9) Edema extremities Current visit: No Status: Acute Category: Medical Code(s): R60.0 - Localized edema (10) Diabetes Current visit: No Status: Chronic Category: Medical Code(s): E11.9 - Type 2 diabetes mellitus without complications (11) HTN (hypertension) Current visit: No Status: Chronic Category: Medical Code(s): I10 - Essential (primary) hypertension (12) Hypokalemia Current visit: Yes Status: Acute Category: Medical Code(s): E87.6 - Hypokalemia (13) Renal insufficiency Current visit: Yes Status: Acute Category: Medical Code(s): N28.9 - Disorder of kidney and ureter, unspecified - Assessment and plan all Dx Assessment and Plan for all problems:: Continue with IV antibiotics. GI consult for today if possible.
--- NOTE | 2019-04-27 09:36 | Discharge Summary ---
General - General Admission date:: 04/24/19 Discharge date: 04/26/19 HPI HPI: Ms. Perez is a 63-year-old female with a history of hypertension, depression, coronary artery disease, pacemaker placement in September 2018, interstitial cystitis, peripheral artery disease, and CML who presented to [facility] emergency room last p.m. via ambulance with worsening edema and erythema of bilateral lower legs for the past 2 weeks. She states she was unable to go to the office of [facility] for evaluation due to the fact that she had no transportation. She describes difficulty with ambulation. She thinks she may have had a fever. With evaluation in the emergency room she was started on clindamycin and then admitted for further treatment. This a.m. she thinks her legs are better with less redness and swelling. She has required pain medicine for leg pain. She was able to sleep. She ate breakfast without difficulty. She is mostly concerned about her Social Security and an evaluation which has been ordered. She does still live in a home with bedbugs with plans to move in several weeks. Hospital Course Hospital Course: The patient's H&H dropped to 7.9 and 26.1. She was therefore transfused with 2 units of packed red blood cells with improvement in her H&H to 10.1 and 32.5. Her potassium was restarted and she was continued on IV antibiotics. Dr. Johnson was consulted as was care management for housing and Social Security questions. Eliquis was discontinued until after her GI consult and she was started on Lovenox for DVT prophylaxis and anticoagulation. The patient felt much stronger after receiving 2 units of packed red blood cells. She was up out of bed without difficulty and eating well. Her leg pain improved. Her renal function normalized. She was not seen by Dr. Johnson, but was stable to be discharged home on continued p.o. antibiotics. She will f/u in the office of [facility] with Dr. Stone. Objective Vital signs: Temp Pulse Resp BP Pulse Ox 98.1 F 69 18 141/61 H 97 04/26/19 07:40 04/26/19 07:40 04/26/19 07:40 04/26/19 07:40 04/26/19 07:40 Narrative: - Constitutional no acute distress, obese, cooperative Comments: Conversant - *Routine HEENT Exam Head: Present: normocephalic, atraumatic Eye: Present: PERRL. Absent: conjunctival icterus, scleral injection ENT: Present: mucous membranes moist, oropharynx clear - *Routine Neck Exam Present: supple, carotid bruit (Bilaterally; versus radiating murmur). Absent: lymphadenopathy, thyromegaly - *Routine Respiratory Exam Present: CTA bilaterally (Anteriorly and posteriorly) - *Routine Cardiovascular Exam Present: RRR, murmur - *Routine Abdominal Exam Present: soft, normoactive bowel sounds. Absent: tenderness, distended, guarding - *Routine Extremities Exam Present: edema, pulses intact (Bilateral lower leg anterior erythema) - *Routine Neurological Exam Present: alert, oriented X3, normal speech Results Labs on day of discharge: Labs from last 24 hours 04/26/19 11:19 POC Glucose 91 DS: Diagnosis - Discharge Diagnosis (1) Cellulitis of both lower extremities Status: Acute (2) History of atrial fibrillation Status: Chronic (3) History of permanent cardiac pacemaker placement Status: Chronic (4) Coronary artery disease Status: Chronic (5) Obesity (BMI 30-39.9) Status: Chronic (6) CLL (chronic lymphocytic leukemia) Status: Chronic (7) Chronic anemia Status: Chronic (8) Diarrhea Status: Chronic (9) Edema extremities Status: Acute (10) Diabetes Status: Chronic (11) HTN (hypertension) Status: Chronic (12) Hypokalemia Status: Acute (13) Renal insufficiency Status: Acute Discharge Plan - Patient Discharge Instructions ACTIVITY: Continue current activity DIET: advance to your usual diet Patient Instructions: DI for Cellulitis -- Adult, Chronic Lymphocytic Leukemia, Cellulitis, Anemia - Follow up Plan Follow up with: Nguyen Stone MD [Primary Care Provider] - 04/29/19 11:15 am Disposition: Home, Self-[facility] Medications: Home Medications Medication Instructions Recorded Confirmed Type Atorvastatin Calcium [Atorvastatin 80 mg PO HS 12/28/17 04/24/19 History 80mg Tab] Ferrous Sulfate 325 mg PO BID 12/28/17 04/24/19 History Fluticasone/Vilanterol [Breo 1 puff IH DAILY 12/28/17 04/25/19 History Ellipta 100-25 Mcg INH] Furosemide [Furosemide 40MG tAB] 40 mg PO BID 12/28/17 04/24/19 History Lisinopril [Lisinopril 5mg Tablet] 5 mg PO DAILY 12/28/17 04/24/19 History Metformin HCl [Glucophage 500mg 500 mg PO BIDWM 12/28/17 04/24/19 History Tablet] Omeprazole [Omeprazole 20mg 40 mg PO DAILY 12/28/17 04/25/19 History Capsule] Oxybutynin Chloride [Ditropan Xl] 5 mg PO BID 12/28/17 04/24/19 History diazePAM [diazePAM 5mg Tablet] 5 mg PO TID 12/28/17 04/24/19 History Albuterol Sulfate [Albuterol HFA 2 puff PO QIDP PRN 01/20/18 04/25/19 History Inhaler] Ondansetron [Zofran 4mg ODT] 4 mg PO Q8HP PRN #6 tab.rapdis 05/24/18 04/24/19 Rx apixaban 5 mg tablet 5 mg PO BID 02/17/19 04/24/19 History Dasatinib [Sprycel] 100 mg PO DAILY 04/25/19 04/25/19 History Clindamycin HCl [Clindamycin HCl 300 mg PO QID #28 cap 04/26/19 Rx 300mg Cap] Prescriptions/Medication Reconciliation: New Clindamycin HCl [Clindamycin HCl 300mg Cap] 300 mg PO QID #28 cap Continued apixaban 5 mg tablet 5 mg PO BID Oxybutynin Chloride [Ditropan Xl] 5 mg PO BID Omeprazole [Omeprazole 20mg Capsule] 40 mg PO DAILY Metformin HCl [Glucophage 500mg Tablet] 500 mg PO BIDWM Lisinopril [Lisinopril 5mg Tablet] 5 mg PO DAILY Furosemide [Furosemide 40MG tAB] 40 mg PO BID Ferrous Sulfate 325 mg PO BID Atorvastatin Calcium [Atorvastatin 80mg Tab] 80 mg PO HS diazePAM [diazePAM 5mg Tablet] 5 mg PO TID Albuterol Sulfate [Albuterol HFA Inhaler] 2 puff PO QIDP PRN PRN Reason: Shortness Of Breath Ondansetron [Zofran 4mg ODT] 4 mg PO Q8HP PRN #6 tab.rapdis PRN Reason: Nausea Dasatinib [Sprycel] 100 mg PO DAILY Fluticasone/Vilanterol [Breo Ellipta 100-25 Mcg INH] 1 puff IH DAILY
== END 2019-04-26 12:32 | disposition home or self-care (01) ==
LOC: ER 20:49 → 2ND 20:49
PROVIDERS: ADMIT Emergency Medicine; ATTEND Family Medicine
DX: C91.10 Chronic lymphocytic leukemia of B-cell type not having achieved remission; E87.6 Hypokalemia; D64.9 Anemia, unspecified; I25.10 Atherosclerotic heart disease of native coronary artery without angina pectoris; E11.9 Type 2 diabetes mellitus without complications; L03.116 Cellulitis of left lower limb; Z86.79 Personal history of other diseases of the circulatory system; Z68.38 Body mass index [BMI] 38.0-38.9, adult; N28.9 Disorder of kidney and ureter, unspecified; E66.9 Obesity, unspecified; R60.0 Localized edema; Z79.899 Other long term (current) drug therapy; I10 Essential (primary) hypertension; L03.115 Cellulitis of right lower limb; Z79.84 Long term (current) use of oral hypoglycemic drugs; R19.7 Diarrhea, unspecified; Z95.0 Presence of cardiac pacemaker
CPT/HCPCS: 36415; 80048; 80053; 82962; 83605; 83735; 83880; 84484; 85014; 85018; 85025; 85651; 86140; 86850; 96365; 96375; 99283; G0378; P9016

== ENCOUNTER → 2019-05-25 11:57 | Outpatient (CLI) | payer MEDICAID, SELFPAY ==
[2019-05-25 12:32] LABS: Basophils % 0.8 % (0.1-2.0); Eosinophils # 0.3 K/mm3 (0.0-0.4); Hematocrit 25.6 % (37.0-47.0); Lymphocytes # 1.9 K/mm3 (0.7-4.5); Lymphocytes % 39.8 % (10-50); Mean Corpuscular HGB Conc 29.8 g/dL (31.8-35.4); Mean Corpuscular Hemoglobin 24.2 pg (27.0-31.2); Mean Corpuscular Volume 81.3 fl (81-99); Mean Platelet Volume 9.4 fl (7.4-10.4); Monocytes # 0.3 K/mm3 (0.1-1.0); Monocytes % 5.7 % (1.7-9.3); Neutrophils # 2.2 K/mm3 (1.8-7.8); Neutrophils % 47.7 % (37.0-80.0); Platelet Count 125 K/mm3 (142-424); Red Blood Count 3.15 M/mm3 (4.20-5.40); Red Cell Distribution Width 14.5 % (11.5-17.5); White Blood Count 4.7 K/mm3 (4.8-10.8)
[2019-05-25 13:21] LABS: Hemoglobin 7.6 g/dL (12.2-16.2)
[2019-05-25 13:31] LABS: Alanine Aminotransferase 18 U/L (12-78); Albumin Level 3.3 gm/dL (3.4-5.0); Alkaline Phosphatase 111 U/L (46-116); Aspartate Amino Transferase 16 U/L (15-37); Bilirubin,Total 0.2 mg/dL (0.2-1.0); Blood Urea Nitrogen 14 mg/dL (7-18); Carbon Dioxide 27 mmol/L (21.0-32.0); Chloride 104 mmol/L (98-107); Creatinine,Serum 0.87 mg/dL (0.55-1.02); Estimated Glomerular Filt Rate 66 ml/min (>60); GFR (African American) 80 ML/MIN (>60); Globulin 3.3 gm/dl (1.3-3.2); Glucose 108 mg/dL (74-106); Sodium 139 mmol/L (136-145); Total Protein,Serum 6.6 gm/dL (6.4-8.2)
[2019-05-27 06:56] LABS: Ferritin 8 ng/mL (8-388); Iron 14; Iron Saturation 4; UIBC 335
== END ==
PROVIDERS: Internal Medicine Hematology & Oncology; Visit Provider Internal Medicine Medical Oncology
DX: D64.9 Anemia, unspecified (principal)
CPT/HCPCS: 36415; 80053; 82728; 83540; 83550; 85025

== ENCOUNTER 2019-07-25 15:38 | Inpatient (IN) ==
--- NOTE | 2019-07-25 16:01 | Emergency Department Note ---
ED Disposition Clinical Impression: Dental infection Anemia Qualifiers: Anemia type: unspecified type Qualified Code(s): D64.9 - Anemia, unspecified Disposition: Admitted As Inpatient Condition on Discharge: Good - Critical Care Critical Care Time: No Attestation: On 07/25/19, the high probability of a clinically significant, sudden or life threatening deterioration of the following system(s) required my full and direct attention, intervention and personal management. The time I documented below is in addition to time spent performing reported procedures but includes the following listed in this critical care notation. Medical Decision Making - Amanuel Inquiry Pt receiving controlled substance: No Vital Signs: 07/25/19 15:41 07/25/19 15:52 07/25/19 16:11 Temperature 98.4 F Temperature Source Oral Pulse Rate [Right Brachial] 79 79 79 Respiratory Rate 18 15 18 Blood Pressure [Right Arm] 161/91 H 161/91 H 161/91 H Blood Pressure Mean [Right Arm] 114 114 114 Blood Pressure Source [Right Arm] Automatic Cuff Blood Pressure Position [Right Arm] Supine Sitting 02 Sat by Pulse Oximetry 99 99 99 Oxygen Delivery Method Room Air Room Air 07/25/19 16:30 07/25/19 17:30 Temperature Temperature Source Pulse Rate [Right Brachial] 100 H 79 Respiratory Rate 18 18 Blood Pressure [Right Arm] 160/90 H 150/92 H Blood Pressure Mean [Right Arm] 113 111 Blood Pressure Source [Right Arm] Automatic Cuff Blood Pressure Position [Right Arm] Supine Sitting 02 Sat by Pulse Oximetry 99 99 Oxygen Delivery Method Room Air Room Air - Lab Data Lab Results 07/25/19 16:45: WBC 5.4, RBC 2.87 L, Hgb 6.2 L*, Hct 22.4 L*, MCV 78.2 L, MCH 21.6 L, MCHC 27.6 L, RDW 15.7, Plt Count 231, MPV 8.5, Neut % (Auto) 46.3, Lymph % (Auto) 40.7, [place] % (Auto) 9.3, Eos % (Auto) 3.5, Baso % (Auto) 0.3, Neut # (Auto) 2.5, Lymph # (Auto) 2.2, [place] # (Auto) 0.5, Eos # (Auto) 0.2, Baso # (Auto) 0.0 07/25/19 16:45: Sodium 139, Potassium 4.0, Chloride 103, Carbon Dioxide 28, Anion Gap 12.0, BUN 7, Creatinine 0.86, Estimated Creat Clear 84, Estimated GFR 67, Est GFR ( Amer) 81, Glucose 98, Calcium 8.6, Total Bilirubin 0.5, AST 17, ALT 10 L, Alkaline Phosphatase 131 H, Total Protein 7.2, Albumin 3.3 L, Globulin 3.9 H, Albumin/Globulin Ratio 0.8 L, TSH 1.94 D, Free T4 Index 3.3 L, Thyroxine (T4) 10.0, T3 Uptake 33 07/25/19 17:40: Stool Occult Blood Negative Result diagrams: 07/25/19 16:45 07/25/19 16:45 Orders (Tests/Meds): ED MEDICATIONS Generic Name Dose Route Start Last Admin Trade Name Freq PRN Reason Stop Dose Admin Sodium Chloride 1,000 mls @ 999 mls/hr 07/25/19 18:00 07/25/19 18:08 Sod Chlor 0.9% 1000ml Bag IV 07/25/19 19:00 999 mls/hr .Q1H1M JONAS Administration Clindamycin Phosphate 600 mg/ 104 mls @ 100 mls/hr 07/25/19 18:45 Sodium Chloride IV 08/08/19 18:44 Q8H JONAS Protocol ORDERS Category Date Time Status Type and Screen Stat BBK 07/25/19 18:[address] sinus wo con Stat Cat Scan 07/25/19 16:12 Taken - CT Data CT Scan: Other (sinus) Time Received: 18:[address] Reviewed: Yes: I have viewed the radiologist's interpretation Findings Narrative: CT scan interpreted by [facility] radiologist. Faxed report received and reviewed: Mild edema bilaterally anterior to lower orbits. Poor dentition. - Physician Consults Physician Consulted: Chester Stone Time: 18:40 Reason -: Admission Comment/Response: Agrees to admit the patient to the hospital. We discussed the patient's clinical information, including history, exam, laboratory and radiology results and ED course. Per hospital procedure, I will write temporary bridge inpatient orders on the patient. Specific orders requested by the admitt ing physician: Transfused 2 units packed red blood cells, clindamycin. General Adult HPI - General Chief complaint: Dental/Oral Stated complaint: face is swollen Time Seen by Provider: 07/25/19 16:01 Mode of Arrival: Ambulatory Limitations: Physical Limitations Description of Symptoms (Recalled from ER Triage Doc. by RN): Pt comes in with c/o facial swelling which she thinks is caused by her canine tooth that is bad. Reports that she has been here 3x for this same problem. - History of Present Illness HPI narrative: Patient complains of facial swelling. She has had pain in her right anterior maxillary teeth in the region of the canine for "quite some time". She has been her multiple times. I reviewed visits and she was here as far back as 06/14/2019 for toothache and abdominal pain. She has been here multiple times since then. She has been on clindamycin and doxycycline without improvement. She does not have a dentist. She has not tried to make any sort of appointment for dental follow-up. She has not seen her primary care provider. She does have subjective fever, but no documented fevers. She also has some rhinorrhea and nasal congestion. - Related Data Home Medications Medication Instructions Recorded Confirmed Atorvastatin Calcium [Atorvastatin 80 mg PO HS 12/28/17 07/25/19 80mg Tab] Ferrous Sulfate 325 mg PO BID 12/28/17 07/25/19 Fluticasone/Vilanterol [Breo 1 puff IH DAILY 12/28/17 07/25/19 Ellipta 100-25 Mcg INH] Furosemide [Furosemide 40MG tAB] 40 mg PO BID 12/28/17 07/25/19 Lisinopril [Lisinopril 5mg 5 mg PO DAILY 12/28/17 07/25/19 Tablet] Metformin HCl [Glucophage 500mg 500 mg PO BIDWM 12/28/17 07/25/19 Tablet] Omeprazole [Omeprazole 20mg 40 mg PO DAILY 12/28/17 07/25/19 Capsule] Oxybutynin Chloride [Ditropan Xl] 5 mg PO BID 12/28/17 07/25/19 diazePAM [diazePAM 5mg Tablet] 5 mg PO TID 12/28/17 07/25/19 Albuterol Sulfate [Albuterol HFA 2 puff PO QIDP PRN 01/20/18 07/25/19 Inhaler] apixaban 5 mg tablet 5 mg PO BID 02/17/19 07/25/19 Dasatinib [Sprycel] 100 mg PO DAILY 04/25/19 07/25/19 potassium chloride ER 20 mEq 20 meq PO DAILY #60 tab 05/25/19 07/25/19 tablet,extended release(part/cryst) Doxycycline Hyclate [Doxycycline 100 mg PO Q12 07/25/19 07/25/19 100mg Capsule] Ketorolac Tromethamine [Toradol 10 mg PO Q6H 07/25/19 07/25/19 10mg tablet] Previous Rx's Medication Instructions Recorded Ondansetron [Zofran 4mg ODT] 4 mg PO Q8HP PRN #6 tab.rapdis 05/24/18 Allergies Allergy/AdvReac Type Severity Reaction Status Date / Time acetaminophen [ACETAMINOPHEN] Allergy Intermediate I-RASH Verified 07/25/19 16:00 adhesive tape [ADHESIVE TAPE] Allergy Intermediate I-RASH Verified 07/25/19 16:00 digoxin [DIGOXIN] Allergy Intermediate NA-NAUSEA/V Verified 07/25/19 16:00 OMITING hydrocortisone Allergy Intermediate I-RASH Verified 07/25/19 16:00 [HYDROCORTISONE] Penicillins [PENICILLINS] Allergy Intermediate I-RASH Verified 07/25/19 16:00 ciprofloxacin [CIPROFLOXACIN] Allergy Mild NA-NAUSEA/V Verified 07/25/19 16:00 OMITING milk [MILK] Allergy Mild DIARRHEA Verified 07/25/19 16:00 cephalexin [From Keflex] Allergy Verified 07/25/19 16:00 [facility] History - Hepatitis A Screen Drug use history?: No High risk sexual behaviors?: No History of sexually transmitted infection?: No Currently employed?: No Childcare worker?: No Do you have indoor plumbing?: Yes Do you have electricity?: Yes Attestation statement:: This patient has been screened for Hepatitis A risk factors. I have reviewed the patient's past medical history: Yes Medical History: Reports:: Arrhythmia, Atherosclerotic Heart Disease, Atrial Fibrillation, Cancer, Congestive Heart Failure, Chronic Obstructive Pulmonary Disease (COPD), Coronary Artery Disease, Depression, Diabetes Mellitus Type 2, Gastroesophageal Reflux Disease(GERD), Heart Murmur, Hiatal Hernia, Hyperlipidemia, Hypertension, Internal Pacemaker, Lung Disease (COPD), Myocardial Infarction, Peripheral Vascular Disease, Valvular Heart Disease Denies:: Diabetes Mellitus Type 1, MRSA Other Medical History: Reports: Anemia, Arthritis, Chemotherapy Comment: CML and is followed by Dr. Morrell monthly. Laterality Cases: Left: Other, Bilateral: Tonsillectomy Other Surgeries: Yes: Angioplasty, Appendectomy, Cardiac Catheterization, Cardiac Surgery, Cholecystectomy, Colonoscopy, Coronary Stent, Diagnostic Lap, EGD, Hysterectomy-Total, Hysterectomy-Partial, Pacemaker, Other Amputation: No Fractures: Yes (LEFT FOOT) Comment: Cardiac stent, lt foot - Social History Smoking Status: Never smoker Tobacco Type: cigarettes # Packs/Day (cigarettes): 2 #Yrs smoked (if former smoker): 30 Alcohol Intake: never Alcohol Intake Frequency:: other Substance Use Type: denies use Occupational Status: disabled Housing: house Household Members: children - Psychiatric History Pschychiatric History:: Reports:: Depression Family Hx:: Cancer, Coronary Artery Disease, Diabetes, Hyperlipidemia, Hypertension, Stroke ROS Obtained: Yes All systems reviewed & no additional complaints - Constitutional Constitutional: Reports fever(s) (subjective) - Eyes Eyes: Reports as per HPI (swelling) - ENT Ears, Nose, Mouth, and Throat: Reports dental pain, Reports nasal congestion, Reports nasal discharge - Cardiovascular Cardiovascular: Denies chest pain - Respiratory Respiratory: No dyspnea Physical Exam - General General appearance: alert, in no apparent distress - Head Head exam: atraumatic, normocephalic - Eye Eye exam: Present: PERRL, EOMI. Absent: scleral icterus, conjunctival redness, conjunctival injection, discharge - Expanded Eye Exam Comment: Bilateral periorbital edema, especially infraorbital areas, symmetric. No erythema. - Expanded ENT Exam Comment: Pharynx is normal. She has some tenderness of her right anterior maxillary teeth, but no erythema or edema of the gingiva. No gross dental caries. There is no swelling of her lip or face in the region of her dental pain. - Neck Neck exam: Present: normal inspection, full ROM, trachea midline - Chest Chest inspection: Present: normal inspection, symmetric chest wall rise - Respiratory Respiratory exam: Present: normal lung sounds bilaterally. Absent: respiratory distress - Cardiovascular Cardiovascular exam: Present: regular rate, normal rhythm, normal heart sounds - Abdominal Exam Abdominal exam: Present: soft, normal bowel sounds. Absent: distention, tenderness - Extremities Exam Extremities exam: Present: pedal edema - Neurological Exam Neurological exam: Present: alert, oriented X3 - Psychiatric Psychiatric exam: Present: flat affect - Skin Skin exam: Present: warm, dry
[2019-07-25 16:57] LABS: Basophils % 0.3 % (0.1-2.0); Eosinophils # 0.2 K/mm3 (0.0-0.4); Eosinophils % 3.5 % (0.1-12.0); Lymphocytes # 2.2 K/mm3 (0.7-4.5); Lymphocytes % 40.7 % (10-50); Mean Corpuscular HGB Conc 27.6 g/dL (31.8-35.4); Mean Corpuscular Volume 78.2 fl (81-99); Mean Platelet Volume 8.5 fl (7.4-10.4); Monocytes # 0.5 K/mm3 (0.1-1.0); Monocytes % 9.3 % (1.7-9.3); Neutrophils # 2.5 K/mm3 (1.8-7.8); Neutrophils % 46.3 % (37.0-80.0); Platelet Count 231 K/mm3 (142-424); Red Blood Count 2.87 M/mm3 (4.20-5.40); Red Cell Distribution Width 15.7 % (11.5-17.5); White Blood Count 5.4 K/mm3 (4.8-10.8)
[2019-07-25 17:00] LABS: Hemoglobin 6.2 g/dL (12.2-16.2)
[2019-07-25 17:01] LABS: Hematocrit 22.4 % (37.0-47.0)
[2019-07-25 18:24] LABS: Albumin Level 3.3 gm/dL (3.4-5.0); Albumin/Globulin Ratio 0.8 (1.1-1.8); Bilirubin,Total 0.5 mg/dL (0.2-1.0); Calcium 8.6 mg/dL (8.5-10.1); Free Thyroxine Index 3.3 ug/dL (5.93-13.13); Globulin 3.9 gm/dl (1.3-3.2); Thyroid Stimulating Hormone 1.94 uIU/ml (0.358-3.740); Total Protein,Serum 7.2 gm/dL (6.4-8.2)
[2019-07-26 05:42] LABS: Basophils % 0.6 % (0.1-2.0); Eosinophils # 0.2 K/mm3 (0.0-0.4); Eosinophils % 4.2 % (0.1-12.0); Hematocrit 24.7 % (37.0-47.0); Lymphocytes # 1.3 K/mm3 (0.7-4.5); Lymphocytes % 32.6 % (10-50); Mean Corpuscular HGB Conc 29.5 g/dL (31.8-35.4); Mean Corpuscular Volume 78.3 fl (81-99); Mean Platelet Volume 8.9 fl (7.4-10.4); Monocytes # 0.4 K/mm3 (0.1-1.0); Monocytes % 9.7 % (1.7-9.3); Neutrophils # 2.1 K/mm3 (1.8-7.8); Neutrophils % 52.8 % (37.0-80.0); Platelet Count 220 K/mm3 (142-424); Red Blood Count 3.15 M/mm3 (4.20-5.40); Red Cell Distribution Width 17.5 % (11.5-17.5); White Blood Count 3.9 K/mm3 (4.8-10.8)
[2019-07-26 05:46] LABS: Hemoglobin 7.3 g/dL (12.2-16.2)
--- NOTE | 2019-07-26 07:31 | Pharmacy Consult Notes ---
[facility] Pharmacy VTE Monitoring - Patient Demographics Admission date: 07/25/19 Report Date: 07/26/19 Time: 07:30 Allergies/Adverse Reactions: Patient Allergies acetaminophen [ACETAMINOPHEN] Allergy (Intermediate, Verified 07/25/19 16:00) I-RASH adhesive tape [ADHESIVE TAPE] Allergy (Intermediate, Verified 07/25/19 16:00) I-RASH digoxin [DIGOXIN] Allergy (Intermediate, Verified 07/25/19 16:00) NA-NAUSEA/VOMITING hydrocortisone [HYDROCORTISONE] Allergy (Intermediate, Verified 07/25/19 16:00) I-RASH Penicillins [PENICILLINS] Allergy (Intermediate, Verified 07/25/19 16:00) I-RASH ciprofloxacin [CIPROFLOXACIN] Allergy (Mild, Verified 07/25/19 16:00) NA-NAUSEA/VOMITING milk [MILK] Allergy (Mild, Verified 07/25/19 16:00) DIARRHEA cephalexin [From Keflex] Allergy (Verified 07/25/19 16:00) Height: 1.63 m Weight: 102.682 kg Patient Problems: Current Active Problems Anemia (Acute) Dental infection (Acute) - VTE Risk Labs: VTE Related Lab Results Hgb 7.3 g/dL (12.2-16.2) L* 07/26/19 05:34 Hct 24.7 % (37.0-47.0) L 07/26/19 05:34 Plt Count 220 K/mm3 (142-424) 07/26/19 05:34 BUN 7 mg/dL (7-18) 07/25/19 16:45 Creatinine 0.86 mg/dL (0.55-1.02) 07/25/19 16:45 Estimated Creat Clear 84 mL/min (50-200) 07/25/19 16:45 Was VTE Risk Assessment Performed: Yes VTE Score: 6 VTE Risk Level: Moderate Risk - Prophylaxis VTE Prophylaxis Ordered?: Yes Types of VTE Prophylaxis: Pharmacological Pharmacologic Type: Other (ELIQUIS ORDERED) - VTE Diagnosis Confirmed Treatment or plan recommended: Continue Current Treatment
--- NOTE | 2019-07-26 09:13 | History & Physical Report ---
*Admission Date: 07/25/19 *Chief complaint: Facial swelling *History of present illness: Ms. Perez is a 64-year-old female with a complex medical history to include hypertension, depression, CML, chronic back pain, coronary artery disease, and hiatal hernia, who presented to [facility] emergency room complaining of facial swelling. She had been started on clindamycin which she states she took 4 doses. She stopped taking it when she began having diarrhea and nausea. She has been unable to eat. She has felt weak. She feels like she has had a fever. She denies chest pain and shortness of air. She has been weak and dizzy. Patient sees Dr. Stone in the office of [facility] her last visit was 05/22/2019. She was previously admitted to [facility] in April 2019 with anemia and received several units of packed red blood cells. She is followed for her CML by hematology who she saw last month. She had a medicine adjustment with her Sprycel and was supposed to have her iron checked. She has not completed the GI work-up. With work-up in the emergency room her hemoglobin was found to be 6.8. She was admitted and started on a unit of packed red blood cells. She was started on IV clindamycin. She states she had a rectal in the emergency room. Stool for occult blood was negative. This a.m. at time of exam she is very tired. She states she has not slept due to all of the activity. She feels like her facial swelling has improved. She is noted no blood in her stools. She denies nausea and vomiting. [facility] History Medical History: Reports:: Arrhythmia, Atherosclerotic Heart Disease, Atrial Fibrillation, Cancer, Congestive Heart Failure, Chronic Obstructive Pulmonary Disease (COPD), Coronary Artery Disease, Depression, Diabetes Mellitus Type 2, Gastroesophageal Reflux Disease(GERD), Heart Murmur, Hiatal Hernia, Hyperlipidemia, Hypertension, Internal Pacemaker, Lung Disease (COPD), Myocardial Infarction (X2 2008 -2016), Peripheral Vascular Disease, Valvular Heart Disease Denies:: Diabetes Mellitus Type 1, MRSA *Have you ever received a pneumonia vaccine?: No (refused) *Have you received a flu vaccine this season?: No (refused) Other Medical History: Reports: Anemia, Arthritis, Chemotherapy Laterality Cases: Left: Other, Bilateral: Tonsillectomy Other Surgeries: Yes: Angioplasty, Appendectomy, Cardiac Catheterization, Cardiac Surgery, Cholecystectomy, Colonoscopy, Coronary Stent, Diagnostic Lap, EGD, Hysterectomy-Total, Hysterectomy-Partial, Pacemaker, Other (L ankle fusion) Amputation: No Fractures: Yes (LEFT FOOT) - *Social History Educational Level: Completed GED/General Educational Development Smoking Status: Former smoker Tobacco Type: cigarettes # Packs/Day (cigarettes): 1 #Yrs smoked (if former smoker): 41 Smoking End Date: 08/01/18 Alcohol Intake: never Alcohol Intake Frequency:: other Substance Use Type: denies use *Occupational Status:: disabled Housing: house Household Members: children *Travel in the last 8 weeks: None - Psychiatric History Pschychiatric History:: Reports:: Depression Family Hx:: Cancer, Diabetes, Heart Attack, Hyperlipidemia, Hypertension, Kidney Disease, Stroke Review of Systems - Constitutional Reports weakness, Denies headache(s) - Eyes Reports blurry vision - ENT Denies ear pain, Denies sore throat - *Cardiovascular Reports shortness of breath, Reports leg swelling, Denies chest pain - *Respiratory Reports shortness of breath, Denies chest congestion, Denies cough - *Gastrointestinal Reports change in bowel habits, Reports loose stools, Denies coffee ground vomit, Denies heartburn, Denies vomiting blood, Denies bright, red blood in stools, Denies black, tarry stools, Denies nausea, Denies vomiting - *Genitourinary Denies difficulty urinating - *Musculoskeletal Reports muscle weakness - *Neurologic Denies confusion Meds Home Medications Medication Instructions Recorded Confirmed Type Atorvastatin Calcium [Atorvastatin 80 mg PO HS 12/28/17 07/25/19 History 80mg Tab] Ferrous Sulfate 325 mg PO BID 12/28/17 07/25/19 History Fluticasone/Vilanterol [Breo 1 puff IH DAILY 12/28/17 07/25/19 History Ellipta 100-25 Mcg INH] Furosemide [Furosemide 40MG tAB] 40 mg PO BID 12/28/17 07/25/19 History Lisinopril [Lisinopril 5mg 5 mg PO DAILY 12/28/17 07/25/19 History Tablet] Metformin HCl [Glucophage 500mg 500 mg PO BIDWM 12/28/17 07/25/19 History Tablet] Omeprazole [Omeprazole 20mg 40 mg PO DAILY 12/28/17 07/25/19 History Capsule] Oxybutynin Chloride [Ditropan Xl] 5 mg PO BID 12/28/17 07/25/19 History diazePAM [diazePAM 5mg Tablet] 5 mg PO TID 12/28/17 07/25/19 History Albuterol Sulfate [Albuterol HFA 2 puff PO QIDP PRN 01/20/18 07/25/19 History Inhaler] Ondansetron [Zofran 4mg ODT] 4 mg PO Q8HP PRN #6 tab.rapdis 05/24/18 07/25/19 Rx apixaban 5 mg tablet 5 mg PO BID 02/17/19 07/25/19 History Dasatinib [Sprycel] 100 mg PO DAILY 04/25/19 07/25/19 History potassium chloride ER 20 mEq 20 meq PO DAILY #60 tab 05/25/19 07/25/19 History tablet,extended release(part/cryst) Doxycycline Hyclate [Doxycycline 100 mg PO Q12 07/25/19 07/25/19 History 100mg Capsule] Ketorolac Tromethamine [Toradol 10 mg PO Q6H 07/25/19 07/25/19 History 10mg tablet] Allergies Allergy/AdvReac Type Severity Reaction Status Date / Time acetaminophen [ACETAMINOPHEN] Allergy Intermediate I-RASH Verified 07/25/19 16:00 adhesive tape [ADHESIVE TAPE] Allergy Intermediate I-RASH Verified 07/25/19 16 :00 digoxin [DIGOXIN] Allergy Intermediate NA-NAUSEA/V Verified 07/25/19 16:00 OMITING hydrocortisone Allergy Intermediate I-RASH Verified 07/25/19 16:00 [HYDROCORTISONE] Penicillins [PENICILLINS] Allergy Intermediate I-RASH Verified 07/25/19 16:00 ciprofloxacin [CIPROFLOXACIN] Allergy Mild NA-NAUSEA/V Verified 07/25/19 16:00 OMITING milk [MILK] Allergy Mild DIARRHEA Verified 07/25/19 16:00 cephalexin [From Keflex] Allergy Verified 07/25/19 16:00 Exam Vital signs and Labs for Last 24 Hours: Temp Pulse Resp BP Pulse Ox 98.6 F 69 16 131/69 98 07/26/19 05:00 07/26/19 05:00 07/26/19 05:00 07/26/19 05:00 07/26/19 05:00 Laboratory Results - last 24 hr 07/25/19 16:45: WBC 5.4, RBC 2.87 L, Hgb 6.2 L*, Hct 22.4 L*, MCV 78.2 L, MCH 21.6 L, MCHC 27.6 L, RDW 15.7, Plt Count 231, MPV 8.5, Neut % (Auto) 46.3, Lymph % (Auto) 40.7, [place] % (Auto) 9.3, Eos % (Auto) 3.5, Baso % (Auto) 0.3, Neut # (Auto) 2.5, Lymph # (Auto) 2.2, [place] # (Auto) 0.5, Eos # (Auto) 0.2, Baso # (Auto) 0.0 07/25/19 16:45: Sodium 139, Potassium 4.0, Chloride 103, Carbon Dioxide 28, Anion Gap 12.0, BUN 7, Creatinine 0.86, Estimated Creat Clear 84, Estimated GFR 67, Est GFR ( Amer) 81, Glucose 98, Calcium 8.6, Total Bilirubin 0.5, AST 17, ALT 10 L, Alkaline Phosphatase 131 H, Total Protein 7.2, Albumin 3.3 L, Globulin 3.9 H, Albumin/Globulin Ratio 0.8 L, TSH 1.94 D, Free T4 Index 3.3 L, Thyroxine (T4) 10.0, T3 Uptake 33 07/25/19 17:40: Stool Occult Blood Negative 07/25/19 18:24: Blood Type A Positive, Antibody Screen Negative, Crossmatch ([facility]) See Detail 07/25/19 21:37: POC Glucose 119 H 07/26/19 05:34: WBC 3.9 L D, RBC 3.15 L, Hgb 7.3 L*, Hct 24.7 L, MCV 78.3 L, MCH 23.1 L, MCHC 29.5 L, RDW 17.5, Plt Count 220, MPV 8.9, Neut % (Auto) 52.8, Lymph % (Auto) 32.6, [place] % (Auto) 9.7 H, Eos % (Auto) 4.2, Baso % (Auto) 0.6, Neut # (Auto) 2.1, Lymph # (Auto) 1.3, [place] # (Auto) 0.4, Eos # (Auto) 0.2, Baso # (Auto) 0.0 07/26/19 05:54: POC Glucose 112 H I & O for Last 24 hours: Intake & Output 07/23/19 07/24/19 07/25/19 07/26/19 11:59 11:59 11:59 11:59 Intake Total 222 / 222 Output Total 750 / 750 Balance -528 / -528 Weight 226 lb 6 oz Radiology Reports for the Last 24 Hours: 07/25/2019 CT of the sinuses IMPRESSION: 1. Mild diffuse subcutaneous soft tissue swelling 2. No evidence of acute sinusitis. 3. 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 Appears comfortable - *Routine Respiratory Exam Present: CTA bilaterally (Anteriorly and posteriorly) - *Routine Cardiovascular Exam Present: RRR, murmur - *Routine Abdominal Exam Present: soft, normoactive bowel sounds, tenderness (Epigastrium). Absent: guarding - *Routine Extremities Exam Present: edema. Absent: calf tenderness - *Routine Neurological Exam Present: alert, oriented X3 Assessment and Plan (1) Anemia Current visit: Yes Status: Acute Qualifiers: Anemia type: unspecified type Qualified Code(s): D64.9 - Anemia, unspecified Category: Medical Code(s): D64.9 - Anemia, unspecified (2) Dental infection Current visit: Yes Status: Acute Category: Medical Code(s): K04.7 - Periapical abscess without sinus (3) Anticoagulant long-term use Current visit: No Status: Chronic Category: Medical Code(s): Z79.01 - terminologist (current) use of anticoagulants (4) Atrial fibrillation Current visit: No Status: Chronic Category: Medical Code(s): I48.91 - Unspecified atrial fibrillation (5) Broken tooth Current visit: No Status: Acute Qualifiers: Encounter type: initial encounter Fracture type: open Qualified Code(s): S02.5XXB - Fracture of tooth (traumatic), initial encounter for open fracture Category: Medical Code(s): S02.5XXA - Fracture of tooth (traumatic), initial encounter for closed fracture (6) Cellulitis of both lower extremities Current visit: No Status: Acute Category: Medical Code(s): L03.115 - Cellulitis of right lower limb; L03.116 - Cellulitis of left lower limb (7) CML (chronic myelocytic leukemia) Current visit: No Status: Chronic Category: Medical Code(s): C92.10 - Chronic myeloid leukemia, BCR/ABL-positive, not having achieved remission - Assessment and plan all Dx Assessment and Plan for all problems:: We will give additional 2 units of packed red blood cells. We will continue with clindamycin. Oncology consult.
[2019-07-27 02:17] LABS: Hematocrit 30.2 % (37.0-47.0)
[2019-07-27 02:28] LABS: Hemoglobin 9.3 g/dL (12.2-16.2)
--- NOTE | 2019-07-27 10:08 | Progress Note ---
Internal Medicine - PN: Subj *Date: 07/27/19 *Time: 10:06 Interval history: Clinically she is stable. Her hemoglobin has improved after transfusion. She is to be seen by Dr. Yang today. Possibly she could be discharged later on. Exam Vital signs and Labs for Last 24 Hours: Temp Pulse Resp BP Pulse Ox 98.3 F 64 21 113/64 99 07/27/19 08:00 07/27/19 08:00 07/27/19 08:00 07/27/19 08:00 07/27/19 08:00 Laboratory Results - last 24 hr 07/25/19 18:24: Blood Type A Positive, Antibody Screen Negative, Crossmatch (AHG) See Detail 07/26/19 12:13: POC Glucose 116 H 07/26/19 16:49: POC Glucose 116 H 07/26/19 20:04: POC Glucose 124 H 07/27/19 01:55: Hgb 9.3 L D, Hct 30.2 L 07/27/19 06:33: POC Glucose 98 I & O for Last 24 hours: Intake & Output 07/24/19 07/25/19 07/26/19 07/27/19 11:59 11:59 11:59 11:59 Intake Total 582 / 582 850 / 850 Output Total 750 / 750 450 / 450 Balance -168 / -168 400 / 400 Weight 226 lb 6 oz 222 lb 4 oz - Constitutional no acute distress - *Routine HEENT Exam Head: Present: normocephalic Eye: Present: PERRL ENT: Present: mucous membranes moist - *Routine Respiratory Exam Present: CTA bilaterally - *Routine Cardiovascular Exam Present: RRR, murmur (Aortic 3/6) - *Routine Abdominal Exam Present: soft. 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 (4) Atrial fibrillation Current visit: No Status: Chronic Category: Medical Code(s): I48.91 - Unspecified atrial fibrillation (5) Broken tooth Current visit: No Status: Acute Qualifiers: Encounter type: initial encounter Fracture type: open Qualified Code(s): S02.5XXB - Fracture of tooth (traumatic), initial encounter for open fracture Category: Medical Code(s): S02.5XXA - Fracture of tooth (traumatic), initial encounter for closed fracture (6) Cellulitis of both lower extremities Current visit: No Status: Acute Category: Medical Code(s): L03.115 - Cellulitis of right lower limb; L03.116 - Cellulitis of left lower limb (7) CML (chronic myelocytic leukemia) Current visit: No Status: Chronic Category: Medical Code(s): C92.10 - Chronic myeloid leukemia, BCR/ABL-positive, not having achieved remission - Assessment and plan all Dx Assessment and Plan for all problems:: Hematology oncology consult. Possible discharge later today.
--- NOTE | 2019-07-27 12:10 | Consult Report ---
*Admission Date: 07/25/19 *Reason for consult:: anemia *History of present illness: 64 yo wf admitted to the hospital with anemia and dental infection. pt is known pt of mine I see for CML. her wbc are normal. she has h/o iron def and we have been trying to get her in for iron infusions however she keeps canceling. she was given 3 units prbc in the hospital. I have also tried to have her have gi w/up for bleeding however she has not been compliant with this either. she reports she is feeling better today and may be able to go home. she is receiving clindamycin for the dental infection. [facility] History Medical History: Reports:: Arrhythmia, Atherosclerotic Heart Disease, Atrial Fibrillation, Cancer, Congestive Heart Failure, Chronic Obstructive Pulmonary Disease (COPD), Coronary Artery Disease, Depression, Diabetes Mellitus Type 2, Gastroesophageal Reflux Disease(GERD), Heart Murmur, Hiatal Hernia, Hyperlipidemia, Hypertension, Internal Pacemaker, Lung Disease (COPD), Myocardial Infarction (X2 2008 -2016), Peripheral Vascular Disease, Valvular Heart Disease Denies:: Diabetes Mellitus Type 1, MRSA *Have you ever received a pneumonia vaccine?: No (refused) *Have you received a flu vaccine this season?: No (refused) Other Medical History: Reports: Anemia, Arthritis, Chemotherapy Laterality Cases: Left: Other, Bilateral: Tonsillectomy Other Surgeries: Yes: Angioplasty, Appendectomy, Cardiac Catheterization, Cardiac Surgery, Cholecystectomy, Colonoscopy, Coronary Stent, Diagnostic Lap, EGD, Hysterectomy-Total, Hysterectomy-Partial, Pacemaker, Other (L ankle fusion) Amputation: No Fractures: Yes (LEFT FOOT) - *Social History Educational Level: Completed GED/General Educational Development Smoking Status: Former smoker Tobacco Type: cigarettes # Packs/Day (cigarettes): 1 #Yrs smoked (if former smoker): 41 Smoking End Date: 08/01/18 Alcohol Intake: never Alcohol Intake Frequency:: other Substance Use Type: denies use *Occupational Status:: disabled Housing: house Household Members: children *Travel in the last 8 weeks: None - Psychiatric History Pschychiatric History:: Reports:: Depression Family Hx:: Cancer, Diabetes, Heart Attack, Hyperlipidemia, Hypertension, Kidney Disease, Stroke Review of Systems - *Neurologic Reports weakness, Denies confusion, Denies headache(s) Meds Home Medications Medication Instructions Recorded Confirmed Type Atorvastatin Calcium [Atorvastatin 80 mg PO HS 12/28/17 07/25/19 History 80mg Tab] Ferrous Sulfate 325 mg PO BID 12/28/17 07/25/19 History Fluticasone/Vilanterol [Breo 1 puff IH DAILY 12/28/17 07/25/19 History Ellipta 100-25 Mcg INH] Furosemide [Furosemide 40MG tAB] 40 mg PO BID 12/28/17 07/25/19 History Lisinopril [Lisinopril 5mg 5 mg PO DAILY 12/28/17 07/25/19 History Tablet] Metformin HCl [Glucophage 500mg 500 mg PO BIDWM 12/28/17 07/25/19 History Tablet] Omeprazole [Omeprazole 20mg 40 mg PO DAILY 12/28/17 07/25/19 History Capsule] diazePAM [diazePAM 5mg Tablet] 5 mg PO TID 12/28/17 07/25/19 History Albuterol Sulfate [Albuterol HFA 2 puff PO QIDP PRN 01/20/18 07/25/19 History Inhaler] Ondansetron [Zofran 4mg ODT] 4 mg PO Q8HP PRN #6 tab.rapdis 05/24/18 07/25/19 Rx apixaban 5 mg tablet 5 mg PO BID 02/17/19 07/25/19 History Dasatinib [Sprycel] 100 mg PO DAILY 04/25/19 07/25/19 History potassium chloride ER 20 mEq 20 meq PO BID #60 tab 05/25/19 07/26/19 History tablet,extended release(part/cryst) Doxycycline Hyclate [Doxycycline 100 mg PO Q12 07/25/19 07/25/19 History 100mg Capsule] Ketorolac Tromethamine [Toradol 10 mg PO Q6H 07/25/19 07/25/19 History 10mg tablet] Oxybutynin Chloride [Ditropan 5mg 5 mg PO BID 07/26/19 07/26/19 History tablet] Allergies Allergy/AdvReac Type Severity Reaction Status Date / Time acetaminophen [ACETAMINOPHEN] Allergy Intermediate I-RASH Verified 07/25/19 16:00 adhesive tape [ADHESIVE TAPE] Allergy Intermediate I-RASH Verified 07/25/19 16:00 digoxin [DIGOXIN] Allergy Intermediate NA-NAUSEA/V Verified 07/25/19 16:00 OMITING hydrocortisone Allergy Intermediate I-RASH Verified 07/25/19 16:00 [HYDROCORTISONE] Penicillins [PENICILLINS] Allergy Intermediate I-RASH Verified 07/25/19 16:00 ciprofloxacin [CIPROFLOXACIN] Allergy Mild NA-NAUSEA/V Verified 07/25/19 16:00 OMITING milk [MILK] Allergy Mild DIARRHEA Verified 07/25/19 16:00 cephalexin [From Keflex] Allergy Verified 07/25/19 16:00 Exam Vital signs and Labs for Last 24 Hours: Temp Pulse Resp BP Pulse Ox 98.3 F 64 21 113/64 99 07/27/19 08:00 07/27/19 08:00 07/27/19 08:00 07/27/19 08:00 07/27/19 08:00 Laboratory Results - last 24 hr 07/25/19 18:24: Blood Type A Positive, Antibody Screen Negative, Crossmatch (AHG) See Detail 07/26/19 12:13: POC Glucose 116 H 07/26/19 16:49: POC Glucose 116 H 07/26/19 20:04: POC Glucose 124 H 07/27/19 01:55: Hgb 9.3 L D, Hct 30.2 L 07/27/19 06:33: POC Glucose 98 07/27/19 11:32: POC Glucose 112 H I & O for Last 24 hours: Intake & Output 07/25/19 07/26/19 07/27/19 07/28/19 11:59 11:59 11:59 11:59 Intake Total 582 / 582 850 / 850 Output Total 750 / 750 450 / 450 Balance -168 / -168 400 / 400 Weight 226 lb 6 oz 222 lb 4 oz - *Routine HEENT Exam Eye: Present: EOMI, PERRL ENT: Present: mucous membranes moist Internal Medicine - CN: Reslt - Labs CBC & Chem 7: 07/27/19 01:55 07/25/19 16:45 Labs: Short CBC 07/27/19 Range/Units 01:55 Hgb 9.3 L D (12.2-16.2) g/dL Hct 30.2 L (37.0-47.0) % Assessment and Plan (1) Anemia Current visit: Yes Status: Acute Qualifiers: Anemia type: unspecified type Qualified Code(s): D64.9 - Anemia, unspecified Category: Medical Code(s): D64.9 - Anemia, unspecified (2) Dental infection Current visit: Yes Status: Acute Category: Medical Code(s): K04.7 - Periapical abscess without sinus (3) Anticoagulant long-term use Current visit: No Status: Chronic Category: Medical Code(s): Z79.01 - 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 (4) Atrial fibrillation Current visit: No Status: Chronic Category: Medical Code(s): I48.91 - Unspecified atrial fibrillation (5) Broken tooth Current visit: No Status: Acute Qualifiers: Encounter type: initial encounter Fracture type: open Qualified Code(s): S02.5XXB - Fracture of tooth (traumatic), initial encounter for open fracture Category: Medical Code(s): S02.5XXA - Fracture of tooth (traumatic), initial encounter for closed fracture (6) Cellulitis of both lower extremities Current visit: No Status: Acute Category: Medical Code(s): L03.115 - Cellulitis of right lower limb; L03.116 - Cellulitis of left lower limb (7) CML (chronic myelocytic leukemia) Current visit: No Status: Chronic Category: Medical Code(s): C92.10 - Chronic myeloid leukemia, BCR/ABL-positive, not having achieved remission - Assessment and plan all Dx Assessment and Plan for all problems:: iron def anemia- s/p prbc. will try to get pt back in office for iron infusion but she has not been compliant in the past. needs gi w/up. cml- stable. continue sprycel infection- agree with abx ok for discharge from my perspective. Lata Morrell MD
--- NOTE | 2019-07-27 15:54 | Discharge Summary ---
General - General Admission date:: 07/25/19 Discharge date: 07/27/19 HPI HPI: Ms. Perez is a 64-year-old female with a complex medical history to include hypertension, depression, CML, chronic back pain, coronary artery disease, and hiatal hernia, who presented to [facility] emergency room complaining of facial swelling. She had been started on clindamycin which she states she took 4 doses. She stopped taking it when she began having diarrhea and nausea. She has been unable to eat. She has felt weak. She feels like she has had a fever. She denies chest pain and shortness of air. She has been weak and dizzy. Patient sees Dr. Stone in the office of [facility] her last visit was 05/22/2019. She was previously admitted to [facility] in April 2019 with anemia and received several units of packed red blood cells. She is followed for her CML by hematology who she saw last month. She had a medicine adjustment with her Sprycel and was supposed to have her iron checked. She has not completed the GI work-up. With work-up in the emergency room her hemoglobin was found to be 6.8. She was admitted and started on a unit of packed red blood cells. She was started on IV clindamycin. She states she had a rectal in the emergency room. Stool for occult blood was negative. This a.m. at time of exam she is very tired. She states she has not slept due to all of the activity. She feels like her facial swelling has improved. She is noted no blood in her stools. She denies nausea and vomiting. Hospital Course Hospital Course: The patient had a CT of her sinuses upon admission showing diffuse subcutaneous soft tissue swelling but no evidence of acute sinusitis. She was started on IV clindamycin. She was given a blood transfusion and Dr. Morrell was consulted. Her hemoglobin improved after transfusion and she was clinically stable. Dr. Morrell saw the patient and once again noted her noncompliance with iron infusions and with GI follow-up. She felt she was stable to be discharged home but would need to follow-up in her office for iron infusions. She also felt she would need a GI work-up. The patient was discharged home on oral clindamycin and will need to follow-up with Dr. Stone as well as Dr. Morrell next week. Objective Vital signs: Temp Pulse Resp BP Pulse Ox 98.3 F 64 21 113/64 99 07/27/19 08:00 07/27/19 08:00 07/27/19 08:00 07/27/19 08:00 07/27/19 08:00 Narrative: - Constitutional no acute distress Comments: Awakened for exam. Appears comfortable - *Routine Respiratory Exam Present: CTA bilaterally (Anteriorly and posteriorly) - *Routine Cardiovascular Exam Present: RRR, murmur - *Routine Abdominal Exam Present: soft, normoactive bowel sounds, tenderness (Epigastrium). Absent: guarding - *Routine Extremities Exam Present: edema. Absent: calf tenderness - *Routine Neurological Exam Present: alert, oriented X3 Results Labs on day of discharge: Labs from last 24 hours 07/27/19 07/27/19 07/27/19 11:32 06:33 01:55 Hgb 9.3 L D Hct 30.2 L POC Glucose 112 H 98 Blood Type Antibody Screen Crossmatch (AHG) 07/26/19 07/26/19 07/25/19 20:04 16:49 18:24 Hgb Hct POC Glucose 124 H 116 H Blood Type A Positive Antibody Screen Negative Crossmatch (AHG) See Detail DS: Diagnosis - Discharge Diagnosis (1) Anemia Status: Acute (2) Dental infection Status: Acute (3) Anticoagulant long-term use Status: Chronic (4) Atrial fibrillation Status: Chronic (5) Broken tooth Status: Acute (6) Cellulitis of both lower extremities Status: Acute (7) CML (chronic myelocytic leukemia) Status: Chronic Discharge Plan - Patient Discharge Instructions ACTIVITY: Limited activity DIET: continue same diet Patient Instructions: Anemia, DI for Dental Pain - Follow up Plan Follow up with: Lata Morrell MD [Staff Physician] - 09/07/19 2:45 pm Nguyen Stone MD [Primary Care Provider] - 08/02/19 4:15 pm () Disposition: Home, Self-Assisted Medications: Home Medications Medication Instructions Recorded Confirmed Type Atorvastatin Calcium [Atorvastatin 80 mg PO HS 12/28/17 07/25/19 History 80mg Tab] Ferrous Sulfate 325 mg PO BID 12/28/17 07/25/19 History Fluticasone/Vilanterol [Breo 1 puff IH DAILY 12/28/17 07/25/19 History Ellipta 100-25 Mcg INH] Furosemide [Furosemide 40MG tAB] 40 mg PO BID 12/28/17 07/25/19 History Lisinopril [Lisinopril 5mg 5 mg PO DAILY 12/28/17 07/25/19 History Tablet] Metformin HCl [Glucophage 500mg 500 mg PO BIDWM 12/28/17 07/25/19 History Tablet] Omeprazole [Omeprazole 20mg 40 mg PO DAILY 12/28/17 07/25/19 History Capsule] diazePAM [diazePAM 5mg Tablet] 5 mg PO TID 12/28/17 07/25/19 History Albuterol Sulfate [Albuterol HFA 2 puff PO QIDP PRN 01/20/18 07/25/19 History Inhaler] Ondansetron [Zofran 4mg ODT] 4 mg PO Q8HP PRN #6 tab.rapdis 05/24/18 Rx apixaban 5 mg tablet 5 mg PO BID 02/17/19 07/25/19 History Dasatinib [Sprycel] 100 mg PO DAILY 04/25/19 07/25/19 History potassium chloride ER 20 mEq 20 meq PO BID #60 tab 05/25/19 07/26/19 History tablet,extended release(part/cryst) Ketorolac Tromethamine [Toradol 10 mg PO Q6H 07/25/19 07/25/19 History 10mg tablet] Oxybutynin Chloride [Ditropan 5mg 5 mg PO BID 07/26/19 07/26/19 History tablet] Clindamycin HCl [Clindamycin HCl 300 mg PO Q8 10 Days #30 cap 07/27/19 Rx 300mg Cap] Prescriptions/Medication Reconciliation: New Clindamycin HCl [Clindamycin HCl 300mg Cap] 300 mg PO Q8 10 Days #30 cap Continued potassium chloride ER 20 mEq tablet,extended release(part/cryst) 20 meq PO B ID #60 tab apixaban 5 mg tablet 5 mg PO BID Omeprazole [Omeprazole 20mg Capsule] 40 mg PO DAILY Metformin HCl [Glucophage 500mg Tablet] 500 mg PO BIDWM Lisinopril [Lisinopril 5mg Tablet] 5 mg PO DAILY Furosemide [Furosemide 40MG tAB] 40 mg PO BID Ferrous Sulfate 325 mg PO BID Atorvastatin Calcium [Atorvastatin 80mg Tab] 80 mg PO HS diazePAM [diazePAM 5mg Tablet] 5 mg PO TID Albuterol Sulfate [Albuterol HFA Inhaler] 2 puff PO QIDP PRN PRN Reason: Shortness Of Breath Ondansetron [Zofran 4mg ODT] 4 mg PO Q8HP PRN #6 tab.rapdis PRN Reason: Nausea Dasatinib [Sprycel] 100 mg PO DAILY Ketorolac Tromethamine [Toradol 10mg tablet] 10 mg PO Q6H Oxybutynin Chloride [Ditropan 5mg tablet] 5 mg PO BID Fluticasone/Vilanterol [Breo Ellipta 100-25 Mcg INH] 1 puff IH DAILY Discontinued Doxycycline Hyclate [Doxycycline 100mg Capsule] 100 mg PO Q12 - Problem Reconciliation Problems Reviewed?: Yes
== END 2019-07-27 18:55 | disposition home or self-care (01) | DRG 842 ==
LOC: ER 15:38 → 2ND 18:43
PROVIDERS: ADMIT Family Medicine; ATTEND Family Medicine
CPT/HCPCS: 36415; 70486; 80053; 82272; 82607; 82962; 84436; 84443; 84479; 85014; 85018; 85025; 86850; 96365; 96367; 99284; G0328; P9016

== ENCOUNTER → 2019-08-02 14:02 | Outpatient (CLI) | payer MEDICAID, SELFPAY | PROVIDERS: Visit Provider Internal Medicine Medical Oncology | DX: C92.10 Chronic myeloid leukemia, BCR/ABL-positive, not having achieved remission ==

== ENCOUNTER → 2019-11-16 14:54 | Outpatient (CLI) | payer OTHER, SELFPAY ==
--- NOTE | 2019-11-16 15:04 | XR_ITS ---
PROCEDURE: XR ABDOMEN MIN 2V CLINICAL INDICATION: ABD PAIN, DIARRHEA Abdominal pain and diarrhea COMPARISON: CT ABDOMEN PELVIS W CON from 11/08/2019 FINDINGS: Surgical clips are present in the right upper quadrant. There are multiple pelvic calcifications present. A calcification is present to the left of the L5 transverse process consistent with phleboliths. No intestinal obstruction. No acute bony anomalies. IMPRESSION: No acute findings. Dictated by: Hilario Jacobs MD 11/16/2019 16:45 Electronically signed by Hilario Jacobs MD in [place] 11/16/2019 16:45
== END ==
PROVIDERS: PCP Physician Assistant; Visit Provider Physician Assistant
DX: R10.84 Generalized abdominal pain (principal)
CPT/HCPCS: 74019

== ENCOUNTER → 2019-11-20 13:45 | Outpatient (CLI) | payer OTHER, SELFPAY ==
[2019-11-20 13:48] LABS: Adenovirus F 40/41, stool Not Detected (NotDetected); Astrovirus Not Detected (NotDetected); Campylobacter Not Detected (NotDetected); Clostridium Difficile A/B, PCR Not Detected (NotDetected); Cryptosporidium Not Detected (NotDetected); Cyclospora Cayetanesis Not Detected (NotDetected); Entamoeba histolytica Not Detected (NotDetected); Enteroaggregative E coli Not Detected (NotDetected); Enteropathogenic E coli Not Detected (NotDetected); Enterotoxigenic E coli Not Detected (NotDetected); Giardia lamblia Not Detected (NotDetected); Norovirus Not Detected (NotDetected); Plesimonas Shigalloides, PCR Not Detected (NotDetected); Rotavirus A Not Detected (NotDetected); Salmonella, PCR Not Detected (NotDetected); Sapovirus Not Detected (NotDetected); Shiga-like toxin E coli Not Detected (NotDetected); Shigella Enterovasive E coli Not Detected (NotDetected); Vibrio Cholerae Not Detected (NotDetected); Vibrio, PCR Not Detected (NotDetected); Yersinia Entercolitica, PCR Not Detected (NotDetected)
== END ==
PROVIDERS: Visit Provider Physician Assistant
DX: R19.7 Diarrhea, unspecified (principal)
CPT/HCPCS: 87507

== ENCOUNTER → 2020-05-16 15:27 | Outpatient (CLI) | payer OTHER, SELFPAY ==
[2020-05-16 15:54] LABS: Basophils % 0.5 % (0.1-2.0); Eosinophils # 0.2 K/mm3 (0.0-0.4); Eosinophils % 4.6 % (0.1-12.0); Hematocrit 32.2 % (37.0-47.0); Hemoglobin 10.6 g/dL (12.2-16.2); Lymphocytes # 1.5 K/mm3 (0.7-4.5); Lymphocytes % 44.8 % (10-50); Mean Corpuscular Volume 84.8 fl (81-99); Mean Platelet Volume 8.9 fl (7.4-10.4); Monocytes # 0.1 K/mm3 (0.1-1.0); Monocytes % 4.1 % (1.7-9.3); Neutrophils # 1.5 K/mm3 (1.8-7.8); Platelet Count 179 K/mm3 (142-424); Red Cell Distribution Width 14.8 % (11.5-17.5); White Blood Count 3.3 K/mm3 (4.8-10.8)
[2020-05-16 16:27] LABS: Chloride 104 mmol/L (98-107); Sodium 135 mmol/L (136-145)
[2020-05-16 16:29] LABS: Blood Urea Nitrogen 21 mg/dl (7-17); Estimated Glomerular Filt Rate 41 ml/min (>60); GFR (African American) 50 ML/MIN (>60)
[2020-05-16 16:30] LABS: Alanine Aminotransferase 8 U/L (12-78); Albumin/Globulin Ratio 1.6 (1.1-1.8); Alkaline Phosphatase 75 U/L (38-126); Aspartate Amino Transferase 17 U/L (14-36); Bilirubin,Total 0.3 mg/dl (0.2-1.3); Carbon Dioxide 23 mmol/L (22.0-30.0); Globulin 2.5 g/dL (1.3-3.2); Total Protein,Serum 6.5 g/dl (6.3-8.2)
[2020-05-16 16:36] LABS: Calcium 9.2 mg/dl (8.4-10.2)
[2020-05-16 19:45] LABS: Glucose 107 mg/dl (74-100)
== END ==
PROVIDERS: Visit Provider Internal Medicine Medical Oncology
DX: C91.10 Chronic lymphocytic leukemia of B-cell type not having achieved remission (principal)
CPT/HCPCS: 36415; 80053; 81206; 85025

== ENCOUNTER 2020-05-26 20:57 | Emergency (ER) | payer OTHER, SELFPAY ==
[2020-05-26 21:00] VITALS: BP 134/64; PULSE 64; RESP 18; O2SAT 97
[2020-05-26 21:08] VITALS: BP 134/46; PULSE 60; RESP 14; TEMP 37.1; O2SAT 97; BMI 34.3
--- NOTE | 2020-05-26 21:19 | CT_ITS ---
PROCEDURE: CT ABDOMEN PELVIS W CON CLINICAL INDICATION: RLQ pain with diarrhea. Patient states she has had leukemia and is taking chemo pills. COMPARISON: CT ABDOMEN PELVIS W CON from 11/23/2019 TECHNIQUE: IV Contrast: 75ML OPTIRAY 350 Oral Contrast None Axial images obtained with sagittal and coronal reformats. All CT scans at the facility use one or more dose reduction, viz: automated exposure control, ma/kV adjustment per patient size (including targeted exams where dose is matched to indication, i.e. head), or iterative reconstruction technique. FINDINGS: LOWER THORAX: No acute finding. There is a stable cardiomegaly. Cardiac pacemaker leads are again seen in place. ABDOMEN & PELVIS: Mildly decreased attenuation of the liver parenchyma, compatible with mild steatosis. No discrete hepatic lesion is identified. The gallbladder is surgically absent. Ex vacuo mild dilatation of the biliary ductal system. There is diffusely decreased density of the pancreas, indicative of pancreatic lipomatosis. No pancreatic mass or cyst is identified. No pancreatic ductal dilatation. Spleen is not enlarged. A small accessory spleen is present. Normal bilateral adrenal glands. Kidneys and ureters: No hydronephrosis, calculus or enhancing lesion identified. A small 1 centimeter cortical cyst is seen laterally of the mid left kidney. Stomach and bowel: No distension or abnormal wall thickening. Status post prior appendectomy. No intestinal obstruction or free air. No evidence of diverticulitis. No lymphadenopathy, pelvic mass, abnormal fluid collection, or focal inflammatory change of the pelvis. Status post prior hysterectomy. The adnexa are unremarkable. No acute bony anomalies. Moderately advanced degenerative disc/endplate disease changes are again seen at L5-S1. IMPRESSION: No acute abnormality is seen in the abdomen/pelvis to explain patient's abdominal pain. No mass or lymphadenopathy is demonstrated. Moderately advanced degenerative disc/endplate disease changes re-noted at L5-S1. Dictated by: Dev Recio 05/27/2020 09:58 Electronically signed by Dev Recio in [place] 05/27/2020 09:58
[2020-05-26 21:30] VITALS: BP 129/59; PULSE 88; RESP 18; O2SAT 99
[2020-05-26 21:34] LABS: Basophils % 0.5 % (0.1-2.0); Eosinophils # 0.2 K/mm3 (0.0-0.4); Eosinophils % 3.4 % (0.1-12.0); Hematocrit 36.2 % (37.0-47.0); Hemoglobin 11.7 g/dL (12.2-16.2); Lymphocytes % 41.9 % (10-50); Mean Corpuscular HGB Conc 32.2 g/dL (31.8-35.4); Mean Corpuscular Hemoglobin 28.1 pg (27.0-31.2); Mean Corpuscular Volume 87.3 fl (81-99); Mean Platelet Volume 8.1 fl (7.4-10.4); Monocytes # 0.3 K/mm3 (0.1-1.0); Monocytes % 5.6 % (1.7-9.3); Neutrophils # 2.3 K/mm3 (1.8-7.8); Neutrophils % 48.7 % (37.0-80.0); Platelet Count 194 K/mm3 (142-424); Red Blood Count 4.14 M/mm3 (4.20-5.40); Red Cell Distribution Width 15.3 % (11.5-17.5); White Blood Count 4.7 K/mm3 (4.8-10.8)
[2020-05-26 21:38] LABS: Chloride 102 mmol/L (98-107)
[2020-05-26 21:39] LABS: Potassium 3.7 mmoL/L (3.5-5.1); Sodium 140 mmol/L (136-145)
[2020-05-26 21:42] LABS: Alanine Aminotransferase 13 U/L (12-78); Albumin Level 4.6 g/dl (3.5-5.0); Albumin/Globulin Ratio 1.3 (1.1-1.8); Alkaline Phosphatase 92 U/L (38-126); Amylase 76 U/L (30-110); Anion Gap 14.7 mEq/L (5-15); Aspartate Amino Transferase 20 U/L (14-36); Bilirubin,Total 0.4 mg/dl (0.2-1.3); Blood Urea Nitrogen 14 mg/dl (7-17); Calcium 9.6 mg/dl (8.4-10.2); Carbon Dioxide 27 mmol/L (22.0-30.0); Creatinine Clearance Estimated 82 mL/min (50-200); Estimated Glomerular Filt Rate 63 ml/min (>60); GFR (African American) 77 ML/MIN (>60); Globulin 3.5 g/dL (1.3-3.2); Glucose 150 mg/dl (74-100); Lipase 38 U/L (23-300); Total Protein,Serum 8.1 g/dl (6.3-8.2)
[2020-05-26 21:59] LABS: C-Reactive Protein 0.7 mg/L (0-4)
[2020-05-26 22:00] LABS: Erythrocyte Sedimentation Rate 23 mm/hr (0-30)
--- NOTE | 2020-05-26 23:32 | HMH.EDNVD ---
ED Disposition Clinical Impression: CML (chronic myelocytic leukemia) Abdominal pain Qualifiers: Abdominal location: generalized Qualified Code(s): R10.84 - Generalized abdominal pain Disposition: Home, Self-Care Condition on Discharge: Good Instructions: DI for Acute Abdomen Additional Instructions: keep appt in am Referrals: Nguyen Stone MD [Primary Care Provider] - - Critical Care Critical Care Time: No Attestation: On 05/26/20, the high probability of a clinically significant, sudden or life threatening deterioration of the following system(s) required my full and direct attention, intervention and personal management. The time I documented below is in addition to time spent performing reported procedures but includes the following listed in this critical care notation. Medical Decision Making - Medical Records Medical records reviewed: Yes: I reviewed the patient's medical records. - Amanuel Inquiry Pt receiving controlled substance: No Vital Signs: 05/26/20 21:00 05/26/20 21:08 05/26/20 21:30 Temperature 98.7 F Temperature Source Oral Pulse Rate [Right] 64 60 88 Respiratory Rate 18 14 18 Blood Pressure [Right Arm] 134/64 134/46 L 129/59 L Blood Pressure Mean [Right Arm] 87 75 82 Blood Pressure Source [Right Arm] Automatic Cuff Automatic Cuff Automatic Cuff Blood Pressure Position [Right Arm] Supine Sitting Supine 02 Sat by Pulse Oximetry 97 97 99 Oxygen Delivery Method Room Air Room Air Room Air - Lab Data Lab results reviewed: Yes: I reviewed the patient's lab results. Lab Results 05/26/20 21:15: WBC 4.7 L, RBC 4.14 L, Hgb 11.7 L, Hct 36.2 L, MCV 87.3, MCH 28.1, MCHC 32.2, RDW 15.3, Plt Count 194, MPV 8.1, Neut % (Auto) 48.7, Lymph % (Auto) 41.9, [place] % (Auto) 5.6, Eos % (Auto) 3.4, Baso % (Auto) 0.5, Neut # (Auto) 2.3, Lymph # (Auto) 2.0, [place] # (Auto) 0.3, Eos # (Auto) 0.2, Baso # (Auto) 0.0, ESR 23 05/26/20 21:15: Sodium 140, Potassium 3.7, Chloride 102, Carbon Dioxide 27, Anion Gap 14.7, BUN 14, Creatinine 0.90, Estimated Creat Clear 82, Estimated GFR 63, Est GFR ( Amer) 77, Glucose 150 H, Calcium 9.6, Total Bilirubin 0.4, AST 20, ALT 13, Alkaline Phosphatase 92, C-Reactive Protein 0.7, Total Protein 8.1, Albumin 4.6, Globulin 3.5 H, Albumin/Globulin Ratio 1.3, Amylase 76, Lipase 38 Result diagrams: 05/26/20 21:15 05/26/20 21:15 Orders (Tests/Meds): ED MEDICATIONS Generic Name Dose Route Start Last Admin Trade Name Freq PRN Reason Stop Dose Admin Sodium Chloride 1,000 mls @ 999 mls/hr 05/26/20 21:30 05/26/20 21:27 Sod Chlor 0.9% 1000ml Bag IV 05/26/20 22:30 999 mls/hr .Q1H1M JONAS Administration Sodium Chloride 8 ml 05/26/20 21:19 Sodium Chloride 0.9% 10ml Vial IV 06/25/20 21:18 NEEDED PRN dilute pepcid Discontinued Medications Generic Name Dose Route Start Last Admin Trade Name Freq PRN Reason Stop Dose Admin Famotidine 20 mg 05/26/20 21:19 05/26/20 21:27 Pepcid 20mg/2ml Vial IV 05/26/20 21:20 20 mg ONCE ONE Administration Ioversol 75 ml 05/26/20 23:08 05/26/20 23:10 Rad-Optiray 350 100ml Vial IV 05/26/20 23:09 75 ml ONCE ONE Administration Protocol Ketorolac Tromethamine 30 mg 05/26/20 21:19 05/26/20 21:27 Toradol 30mg/Ml Vial IV 05/26/20 21:20 30 mg ONCE ONE Administration Metoclopramide HCl 10 mg 05/26/20 21:19 05/26/20 21:27 Reglan 10mg/2ml Vial IVP 05/26/20 21:20 10 mg ONCE ONE Administration Ondansetron HCl 4 mg 05/26/20 21:19 05/26/20 21:27 Zofran 4mg/2ml Vial IV 05/26/20 21:20 4 mg ONCE ONE Administration Sodium Chloride 10 ml 05/26/20 23:08 05/26/20 22:35 Rad-Saline Flush 10ml Syringe IV 05/26/20 23:09 10 ml ONCE ONE Administration ORDERS Category Date Time Status CT abdomen pelvis w con Stat Cat Scan 05/26/20 21:19 Taken - CT Data CT Scan: Abdomen, Pelvis Time Received: 23:[address] Reviewed: Yes: I have viewed the
[2020-05-26 23:38] VITALS: BP 138/66; PULSE 76; RESP 16; TEMP 37.1; O2SAT 96
== END 2020-05-26 23:43 | disposition home or self-care (01) ==
PROVIDERS: Emergency Provider Emergency Medicine; PCP Family Medicine
DX: C92.10 Chronic myeloid leukemia, BCR/ABL-positive, not having achieved remission (principal); E11.65 Type 2 diabetes mellitus with hyperglycemia; K21.9 Gastro-esophageal reflux disease without esophagitis; E78.5 Hyperlipidemia, unspecified; I10 Essential (primary) hypertension; Z95.0 Presence of cardiac pacemaker; I25.2 Old myocardial infarction; I25.10 Atherosclerotic heart disease of native coronary artery without angina pectoris; J44.9 Chronic obstructive pulmonary disease, unspecified; I48.91 Unspecified atrial fibrillation; Z79.899 Other long term (current) drug therapy; F17.210 Nicotine dependence, cigarettes, uncomplicated; Z88.0 Allergy status to penicillin; Z88.8 Allergy status to other drugs, medicaments and biological substances
CPT/HCPCS: 74177; 80053; 82150; 83690; 85025; 85651; 86140; 96365; 96375; 99283; 99284; J2405; Q9967

== ENCOUNTER → 2020-05-27 12:48 | Outpatient (POV) | payer OTHER, SELFPAY | PROVIDERS: PCP Family Medicine; Visit Provider Nurse Practitioner Family | DX: Z00.00 Encounter for general adult medical examination without abnormal findings (principal) ==

== ENCOUNTER 2020-08-20 19:07 | Emergency (ER) | payer OTHER, SELFPAY ==
[2020-08-20 19:08] VITALS: BP 141/45; PULSE 60; RESP 16; TEMP 37; O2SAT 96; BMI 34.3
[2020-08-20 19:43] LABS: Microscopic, Urine URINE MICROSCOPIC (MICROSCOPIC)
[2020-08-20 19:46] LABS: Appearance,Urine CLEAR (Clear); Bilirubin,Urine Negative (Negative); Blood, Urine TRACE-L (Negative); Color,Urine YELLOW (Yellow); Glucose,Urine (UA) Negative (Negative); Ketones,Urine Negative (Negative); Leukocyte Esterase,Urine Negative (Negative); Nitrate,Urine Negative (Negative); Protein,Urine 2+ (Negative); Specific Gravity, Urine 1.025 (1.005-1.030); Urobilinogen,Urine 0.2 EU/dl (0.2)
[2020-08-20 19:52] LABS: Basophils % 0.6 % (0.1-2.0); Eosinophils # 0.1 K/mm3 (0.0-0.4); Eosinophils % 3.8 % (0.1-12.0); Hematocrit 31.9 % (37.0-47.0); Hemoglobin 9.9 g/dL (12.2-16.2); Lymphocytes # 0.9 K/mm3 (0.7-4.5); Lymphocytes % 27.2 % (10-50); Mean Corpuscular HGB Conc 31.1 g/dL (31.8-35.4); Mean Corpuscular Volume 86.7 fl (81-99); Mean Platelet Volume 8.6 fl (7.4-10.4); Monocytes # 0.3 K/mm3 (0.1-1.0); Monocytes % 8.9 % (1.7-9.3); Neutrophils # 2.1 K/mm3 (1.8-7.8); Neutrophils % 59.6 % (37.0-80.0); Platelet Count 149 K/mm3 (142-424); Red Blood Count 3.68 M/mm3 (4.20-5.40); Red Cell Distribution Width 14.3 % (11.5-17.5); White Blood Count 3.4 K/mm3 (4.8-10.8)
[2020-08-20 20:00] LABS: Potassium 3.8 mmoL/L (3.5-5.1); Sodium 138 mmol/L (136-145)
[2020-08-20 20:02] LABS: Alanine Aminotransferase 36 U/L (12-78); Alkaline Phosphatase 181 U/L (38-126); Anion Gap 10.8 mEq/L (5-15); Aspartate Amino Transferase 55 U/L (14-36); Bilirubin,Total 0.6 mg/dl (0.2-1.3); Blood Urea Nitrogen 12 mg/dl (7-17); Carbon Dioxide 30 mmol/L (22.0-30.0); Chloride 101 mmol/L (98-107); Creatinine Clearance Estimated 82 mL/min (50-200); Estimated Glomerular Filt Rate 72 ml/min (>60); GFR (African American) 88 ML/MIN (>60)
[2020-08-20 20:03] LABS: Bacteria,Urine 1+ /lpf; RBC,Urine Occasional #/hpf (0-3)
[2020-08-20 20:03] LABS: Albumin Level 3.9 g/dl (3.5-5.0); Albumin/Globulin Ratio 1.4 (1.1-1.8); Calcium 9.5 mg/dl (8.4-10.2); Globulin 2.7 g/dL (1.3-3.2); Glucose 126 mg/dl (74-100); Total Protein,Serum 6.6 g/dl (6.3-8.2)
--- NOTE | 2020-08-20 20:03 | CT_ITS ---
PROCEDURE: CT ABDOMEN PELVIS W CON CLINICAL INDICATION: right side pain and diarrhea Nausea vomiting and diarrhea with right-sided abdominal pain and swelling COMPARISON: CT CT ABDOMEN PELVIS W CON from 05/26/2020 TECHNIQUE: IV Contrast: 75ML OPTIRAY 350 Oral Contrast None Axial images obtained with sagittal and coronal reformats. All CT scans at the facility use one or more dose reduction, viz: automated exposure control, ma/kV adjustment per patient size (including targeted exams where dose is matched to indication, i.e. head), or iterative reconstruction technique. FINDINGS: LOWER THORAX: There are small bilateral pleural effusions slightly larger on the right compared to the left. Nodularity is present in the right lung base medially measuring 15 mm and may be due to an area loculated fluid not readily apparent on the previous exam. Follow-up may confirm and to exclude developing nodule. Similar nodular opacity noted in the left CP angle laterally. Coronary artery calcifications are present. Pacemaker is present. ABDOMEN & PELVIS: Prior cholecystectomy. The liver and adrenal glands are unremarkable. No renal or ureteral calculi. No hydronephrosis. Unremarkable appearing spleen. The pancreas has a mildly edematous appearance with very minimal stranding of the peripancreatic fat. Prior appendectomy. No intestinal obstruction or free air. There is colonic diverticulosis but no evidence of diverticulitis. There has been a prior hysterectomy. There is small amount of fluid in the pelvis on the left. Urinary bladder is contracted with thickening of the wall which may be due to the nondistention. There is degenerative disc disease at L5-S1 with a broad-based central left paracentral disc osteophyte complex with gas noted anterior to the left aspect of the thecal sac at S1 which could be within an extruded disc. IMPRESSION: 1. Possible mild pancreatitis. 2. Small bilateral pleural effusions with possible areas of loculated fluid in the lung bases which may be confirmed with follow-up. Dictated by: Hilario Jacobs MD 08/21/2020 10:38 Hilario Jacobs MD in [place] 08/21/2020 10:38
[2020-08-20 20:09] LABS: C-Reactive Protein 2.5 mg/L (0-4)
[2020-08-20 20:24] LABS: Erythrocyte Sedimentation Rate 24 mm/hr (0-30)
[2020-08-20 20:34] LABS: Amylase 72 U/L (30-110)
[2020-08-20 20:35] LABS: Lipase 48 U/L (23-300)
--- NOTE | 2020-08-20 20:46 | HMH.EDGENADL ---
ED Disposition Clinical Impression: Abdominal pain Qualifiers: Abdominal location: right upper quadrant Qualified Code(s): R10.11 - Right upper quadrant pain Disposition: Home, Self-Care Condition on Discharge: Good Instructions: DI for Acute Pain -- Adult Additional Instructions: fluids and see pcp for follow up Referrals: Nguyen Stone MD [Primary Care Provider] - - Critical Care Critical Care Time: No Attestation: On 08/20/20, the high probability of a clinically significant, sudden or life threatening deterioration of the following system(s) required my full and direct attention, intervention and personal management. The time I documented below is in addition to time spent performing reported procedures but includes the following listed in this critical care notation. Medical Decision Making - Medical Records Medical records reviewed: Yes: I reviewed the patient's medical records. - Amanuel Inquiry Pt receiving controlled substance: No Vital Signs: 08/20/20 19:08 08/20/20 21:14 Temperature 98.6 F Temperature Source Oral Pulse Rate [Left Radial] 60 60 Respiratory Rate 16 18 Blood Pressure [Right Arm] 141/45 H 125/58 L Blood Pressure Mean [Right Arm] 77 80 Blood Pressure Source [Right Arm] Automatic Cuff Blood Pressure Position [Right Arm] Sitting 02 Sat by Pulse Oximetry 96 97 Oxygen Delivery Method Room Air Room Air - Lab Data Lab results reviewed: Yes: I reviewed the patient's lab results. Lab Results 08/20/20 19:15: Urine Color Yellow, Urine Appearance Clear, Urine pH 6.0, Ur Specific [place] 1.025, Urine Protein 2+, Urine Glucose (UA) Negative, Urine Ketones Negative, Urine Blood Trace-l, Urine Nitrate Negative, Urine Bilirubin Negative, Urine Urobilinogen 0.2, Ur Leukocyte Esterase Negative, Urine RBC Occasional, Urine WBC 5-10, Ur Squamous Epith Cells 5-10, Urine Bacteria 1+ 08/20/20 19:45: WBC 3.4 L, RBC 3.68 L, Hgb 9.9 L, Hct 31.9 L, MCV 86.7, MCH 27.0, MCHC 31.1 L, RDW 14.3, Plt Count 149, MPV 8.6, Neut % (Auto) 59.6, Lymph % (Auto) 27.2, [place] % (Auto) 8.9, Eos % (Auto) 3.8, Baso % (Auto) 0.6, Neut # (Auto) 2.1, Lymph # (Auto) 0.9, [place] # (Auto) 0.3, Eos # (Auto) 0.1, Baso # (Auto) 0.0 08/20/20 19:45: Sodium 138, Potassium 3.8, Chloride 101, Carbon Dioxide 30, Anion Gap 10.8, BUN 12, Creatinine 0.80, Estimated Creat Clear 82, Estimated GFR 72, Est GFR ( Amer) 88, Glucose 126 H, Calcium 9.5, Total Bilirubin 0.6, AST 55 H, ALT 36, Alkaline Phosphatase 181 H, C-Reactive Protein 2.5, Total Protein 6.6, Albumin 3.9, Globulin 2.7, Albumin/Globulin Ratio 1.4 08/20/20 19:45: ESR 24 08/20/20 19:45: Amylase 72, Lipase 48 Result diagrams: 08/20/20 19:45 08/20/20 19:45 Orders (Tests/Meds): ED MEDICATIONS Generic Name Dose Route Start Last Admin Trade Name Freq PRN Reason Stop Dose Admin Sodium Chloride 1,000 mls @ 999 mls/hr 08/20/20 20:30 08/20/20 20:18 Sod Chlor 0.9% 1000ml Bag IV 08/20/20 21:30 999 mls/hr .Q1H1M JONAS Administration Discontinued Medications Generic Name Dose Route Start Last Admin Trade Name Freq PRN Reason Stop Dose Admin Ioversol 75 ml 08/20/20 20:43 08/20/20 20:44 Ioversol-350 (74%) 150ml Vial IV 08/20/20 20:44 75 ml ONCE ONE Administration Ketorolac Tromethamine 30 mg 08/20/20 20:16 08/20/20 20:18 Ketorolac 30mg/Ml Vial IV 08/20/20 20:17 30 mg ONCE ONE Administration Ondansetron HCl 4 mg 08/20/20 20:16 08/20/20 20:18 Ondansetron 4mg/2ml Vial IV 08/20/20 20:17 4 mg ONCE ONE Administration Sodium Chloride 10 ml 08/20/20 20:43 08/20/20 20:44 Sodium Chloride 0.9% 10ml Syr (Rad Only) IV 08/20/20 20:44 10 ml ONCE ONE Administration ORDERS Category Date Time Status CT abdomen pelvis w con Stat Cat Scan 08/20/20 20:03 Taken - CT Data CT Scan: Abdomen, Pelvis Time Received: 21:[address] Reviewed: Yes: I have viewed the radiologist's interpretation Preliminary Findings: Abnormal Gene
[2020-08-20 21:14] VITALS: BP 125/58; PULSE 60; RESP 18; O2SAT 97
[2020-08-20 21:34] VITALS: BP 132/48; PULSE 60; RESP 16; TEMP 36.7; O2SAT 97
== END 2020-08-20 21:40 | disposition home or self-care (01) ==
PROVIDERS: Emergency Medicine; Emergency Provider Emergency Medicine; PCP Family Medicine
DX: R10.11 Right upper quadrant pain (principal); R19.7 Diarrhea, unspecified; I48.20 Chronic atrial fibrillation, unspecified; I25.10 Atherosclerotic heart disease of native coronary artery without angina pectoris; K21.9 Gastro-esophageal reflux disease without esophagitis; E78.5 Hyperlipidemia, unspecified; I10 Essential (primary) hypertension; E11.9 Type 2 diabetes mellitus without complications; I25.2 Old myocardial infarction; F17.210 Nicotine dependence, cigarettes, uncomplicated
CPT/HCPCS: 74177; 80053; 81001; 82150; 83690; 85025; 85651; 86140; 96365; 96375; 99283; J2405; Q9967

== ENCOUNTER → 2020-08-22 13:31 | Outpatient (CLI) | payer OTHER, SELFPAY ==
[2020-08-22 13:44] LABS: Basophils % 0.8 % (0.1-2.0); Eosinophils # 0.1 K/mm3 (0.0-0.4); Eosinophils % 3.2 % (0.1-12.0); Hematocrit 32.4 % (37.0-47.0); Hemoglobin 9.9 g/dL (12.2-16.2); Lymphocytes # 1.1 K/mm3 (0.7-4.5); Lymphocytes % 33.8 % (10-50); Mean Corpuscular HGB Conc 30.7 g/dL (31.8-35.4); Mean Corpuscular Hemoglobin 26.8 pg (27.0-31.2); Mean Corpuscular Volume 87.3 fl (81-99); Mean Platelet Volume 10.7 fl (7.4-10.4); Monocytes # 0.2 K/mm3 (0.1-1.0); Monocytes % 7.7 % (1.7-9.3); Neutrophils # 1.7 K/mm3 (1.8-7.8); Neutrophils % 54.7 % (37.0-80.0); Platelet Count 125 K/mm3 (142-424); Red Blood Count 3.71 M/mm3 (4.20-5.40); Red Cell Distribution Width 14.3 % (11.5-17.5); White Blood Count 3.2 K/mm3 (4.8-10.8)
[2020-08-22 14:24] LABS: Chloride 103 mmol/L (98-107); Potassium 3.9 mmoL/L (3.5-5.1); Sodium 139 mmol/L (136-145)
[2020-08-22 14:27] LABS: Alanine Aminotransferase 25 U/L (12-78); Albumin Level 3.8 g/dl (3.5-5.0); Albumin/Globulin Ratio 1.6 (1.1-1.8); Alkaline Phosphatase 152 U/L (38-126); Anion Gap 9.9 mEq/L (5-15); Aspartate Amino Transferase 30 U/L (14-36); Bilirubin,Total 0.6 mg/dl (0.2-1.3); Blood Urea Nitrogen 14 mg/dl (7-17); Calcium 8.8 mg/dl (8.4-10.2); Carbon Dioxide 30 mmol/L (22.0-30.0); Estimated Glomerular Filt Rate 63 ml/min (>60); GFR (African American) 77 ML/MIN (>60); Globulin 2.4 g/dL (1.3-3.2); Glucose 108 mg/dl (74-100); Total Protein,Serum 6.2 g/dl (6.3-8.2)
== END ==
PROVIDERS: Visit Provider Internal Medicine Medical Oncology
DX: C92.10 Chronic myeloid leukemia, BCR/ABL-positive, not having achieved remission (principal)
CPT/HCPCS: 36415; 80053; 81206; 85025

== ENCOUNTER → 2020-11-15 12:47 | Outpatient (CLI) | payer OTHER, SELFPAY ==
[2020-11-15 13:08] LABS: Basophils % 0.3 % (0.1-2.0); Eosinophils # 0.1 K/mm3 (0.0-0.4); Eosinophils % 2.6 % (0.1-12.0); Hematocrit 33.9 % (37.0-47.0); Hemoglobin 10.6 g/dL (12.2-16.2); Lymphocytes # 1.5 K/mm3 (0.7-4.5); Mean Corpuscular HGB Conc 31.2 g/dL (31.8-35.4); Mean Corpuscular Hemoglobin 26.4 pg (27.0-31.2); Mean Corpuscular Volume 84.7 fl (81-99); Mean Platelet Volume 10.2 fl (7.4-10.4); Monocytes # 0.3 K/mm3 (0.1-1.0); Monocytes % 6.4 % (1.7-9.3); Neutrophils # 2.6 K/mm3 (1.8-7.8); Neutrophils % 57.7 % (37.0-80.0); Platelet Count 128 K/mm3 (142-424); Red Cell Distribution Width 15.2 % (11.5-17.5); White Blood Count 4.6 K/mm3 (4.8-10.8)
[2020-11-15 13:39] LABS: Alanine Aminotransferase 14 U/L (12-78); Albumin Level 4.3 g/dl (3.5-5.0); Albumin/Globulin Ratio 1.5 (1.1-1.8); Alkaline Phosphatase 141 U/L (38-126); Anion Gap 12.1 mEq/L (5-15); Aspartate Amino Transferase 24 U/L (14-36); Bilirubin,Total 0.9 mg/dl (0.2-1.3); Blood Urea Nitrogen 14 mg/dl (7-17); Calcium 9.9 mg/dl (8.4-10.2); Carbon Dioxide 31 mmol/L (22.0-30.0); Chloride 100 mmol/L (98-107); Estimated Glomerular Filt Rate 63 ml/min (>60); GFR (African American) 77 ML/MIN (>60); Globulin 2.8 g/dL (1.3-3.2); Glucose 110 mg/dl (74-100); Potassium 4.1 mmoL/L (3.5-5.1); Sodium 139 mmol/L (136-145); Total Protein,Serum 7.1 g/dl (6.3-8.2)
[2020-11-15 13:53] LABS: Microscopic, Urine URINE MICROSCOPIC (MICROSCOPIC)
[2020-11-15 17:28] LABS: Appearance,Urine CLEAR (Clear); Bilirubin,Urine Negative (Negative); Blood, Urine Negative (Negative); Color,Urine YELLOW (Yellow); Glucose,Urine (UA) Negative (Negative); Ketones,Urine Negative (Negative); Leukocyte Esterase,Urine Negative (Negative); Nitrate,Urine Negative (Negative); Protein,Urine Negative (Negative); Specific Gravity, Urine 1.015 (1.005-1.030); Urobilinogen,Urine 0.2 EU/dl (0.2)
[2020-11-15 17:30] LABS: Amorphous Sediment,Urine Trace /lpf
[2020-11-20 13:03] LABS: e13a2 (b2a2) transcript <0.0032 %; e14a2 (b3a2) transcript <0.0032 %; e1a2 transcript <0.0032 %
== END ==
PROVIDERS: Visit Provider Internal Medicine Medical Oncology
DX: C92.10 Chronic myeloid leukemia, BCR/ABL-positive, not having achieved remission (principal); D50.9 Iron deficiency anemia, unspecified; R10.9 Unspecified abdominal pain; R19.7 Diarrhea, unspecified; R35.0 Frequency of micturition
CPT/HCPCS: 36415; 80053; 81001; 81206; 85025; 87086

== ENCOUNTER 2020-12-02 14:27 | Emergency (ER) | payer OTHER, SELFPAY ==
[2020-12-02 14:28] VITALS: BP 142/50; PULSE 60; RESP 18; TEMP 37.3; O2SAT 98; BMI 34.3
[2020-12-02 14:58] VITALS: BP 118/55; PULSE 61; O2SAT 97
--- NOTE | 2020-12-02 15:07 | HMH.EDABDPAI ---
ED Disposition Clinical Impression: Encounter for medical screening examination Disposition: Home, Self-Care Condition on Discharge: Good Additional Instructions: Follow-up via telehealth with your primary care provider at 3:45 PM as planned. - Critical Care Critical Care Time: No Attestation: On 12/02/20, the high probability of a clinically significant, sudden or life threatening deterioration of the following system(s) required my full and direct attention, intervention and personal management. The time I documented below is in addition to time spent performing reported procedures but includes the following listed in this critical care notation. Medical Decision Making - Medical Records Medical records reviewed: Yes: I reviewed the patient's medical records. - Amanuel Inquiry Pt receiving controlled substance: No Vital Signs: 12/02/20 14:28 12/02/20 14:58 Temperature 99.1 F Temperature Source Oral Pulse Rate [Right Radial] 60 61 Respiratory Rate 18 Blood Pressure [Right Arm] 142/50 H 118/55 L Blood Pressure Mean [Right Arm] 80 76 Blood Pressure Source [Right Arm] Automatic Cuff Automatic Cuff Blood Pressure Position [Right Arm] Sitting Sitting 02 Sat by Pulse Oximetry 98 97 Oxygen Delivery Method Room Air Room Air Orders (Tests/Meds): ORDERS Category Date Time Status UA [Urinalysis and Microscopic] Stat Lab 12/02/20 14:54 Received Medical Decision Narrative: Patient here for chronic condition, essentially seeking help with following up with her primary care provider as she did not understand arrangement for telehealth. We have called her primary care doctor's office and she has an appointment at [facility]. We have ascertained and confirmed an appropriate phone number and patient will follow up with her PCP as planned via telehealth. No acute new complaints today that need emergency department work-up at this time. Abdominal Pain HPI - General Stated Complaint: swelling on right abd side Time Seen by Provider: 12/02/20 15:07 Mode of Arrival: Ambulatory Source of Information: Patient Limitations: No Limitations - History of Present Illness HPI narrative: This is a 65-year-old female with a past medical history significant for hyperlipidemia, COPD, leukemia who presents to the emergency department for right-sided abdominal swelling and watery diarrhea that is been ongoing for at least 3 months. She has followed with her primary care provider, had labs and a CT scan with no acute etiology identified apparently for her diarrhea. She reportedly had an appointment today, but told them that she did not know she had a fever, so was unable to be seen at the doctor's office. They told her to go home and wait for a telehealth appointment, but she presents here. She is a poor historian, very medically illiterate which makes discussion about her condition difficult. This is a chronic issue for which she has been seen several times apparently by PCP according to her report. She does not currently have any abdominal pain. No vomiting. No fever. She does get sweaty sometimes with her bowel movements. Nothing seems to make it better or worse. Her main complaint is being raw around her bottom from her frequent diarrhea. - Related Data Home Medications Medication Instructions Recorded Confirmed Atorvastatin Calcium [Lipitor 80mg 80 mg PO HS 12/28/17 11/15/20 Tab] Ferrous Sulfate 325 mg PO BID 12/28/17 11/15/20 Fluticasone/Vilanterol [Breo 1 puff IH DAILY 12/28/17 11/15/20 Ellipta 100-25 Mcg INH] Furosemide [Furosemide 40MG tAB*] 40 mg PO BID 12/28/17 11/15/20 Metformin HCl [Glucophage 500mg 500 mg PO BIDWM 12/28/17 11/15/20 Tablet] Omeprazole [Omeprazole 20mg 40 mg PO DAILY 12/28/17 11/15/20 Capsule] diazePAM [diazePAM 5mg Tablet] 5 mg PO TID 12/28/17 11/15/20 lisinopriL [Lisinopril 5mg 5 mg PO DAILY 12/28/17 11/15/20 Tablet] Albuterol Sulfate [Ventolin HFA 2 puff PO
[2020-12-02 15:15] LABS: Microscopic, Urine URINE MICROSCOPIC (MICROSCOPIC)
[2020-12-02 15:25] LABS: Appearance,Urine CLEAR (Clear); Bilirubin,Urine Negative (Negative); Blood, Urine Negative (Negative); Color,Urine YELLOW (Yellow); Glucose,Urine (UA) Negative (Negative); Ketones,Urine Negative (Negative); Leukocyte Esterase,Urine Negative (Negative); Nitrate,Urine Negative (Negative); PH,Urine 5.5 (5.0-8.5); Protein,Urine TRACE (Negative); Specific Gravity, Urine 1.025 (1.005-1.030); Urobilinogen,Urine 0.2 EU/dl (0.2)
[2020-12-02 15:28] VITALS: BP 132/62; PULSE 61; O2SAT 96
[2020-12-02 15:51] LABS: WBC,Urine Occasional #/hpf (0-3)
[2020-12-02 16:07] VITALS: BP 132/62; PULSE 60; RESP 18; TEMP 37.3; O2SAT 97
== END 2020-12-02 16:07 | disposition home or self-care (01) ==
PROVIDERS: Emergency Provider Emergency Medicine; PCP Family Medicine
DX: R19.7 Diarrhea, unspecified (principal); E78.5 Hyperlipidemia, unspecified; J44.9 Chronic obstructive pulmonary disease, unspecified; I10 Essential (primary) hypertension; E11.9 Type 2 diabetes mellitus without complications; K21.9 Gastro-esophageal reflux disease without esophagitis; I48.91 Unspecified atrial fibrillation; I25.10 Atherosclerotic heart disease of native coronary artery without angina pectoris; F33.1 Major depressive disorder, recurrent, moderate; F17.210 Nicotine dependence, cigarettes, uncomplicated; Z79.899 Other long term (current) drug therapy; Z88.0 Allergy status to penicillin; Z88.8 Allergy status to other drugs, medicaments and biological substances
CPT/HCPCS: 81001; 99282

== ENCOUNTER 2020-12-18 14:56 | Emergency (ER) | payer OTHER, SELFPAY ==
[2020-12-18 15:00] VITALS: BP 140/70; PULSE 60; RESP 20; TEMP 36.6; O2SAT 97; BMI 34.3
--- NOTE | 2020-12-18 15:18 | HMH.EDUTC ---
[facility] [place]: [place]cessed [place] Disposition: Home, Self-Care Condition on Discharge: Good Instructions: Tooth Abscess Additional Instructions: You have to follow up with a dentist as soon as you can be seen. Start the antibiotics that we sent to your pharmacy. Follow up with your primary care doctor. GO TO THE ER FOR ANY WORSENING SYMPTOMS OR CONCERNS Prescriptions: clindamycin HCL [Cleocin HCl] 300 mg PO Q8H 10 Days #30 cap Transmission Status: Received by [facility] Referrals: Nguyen Stone MD [Primary Care Provider] - Time of Disposition: 15:31 Medical Decision Making - Medical Records Medical records reviewed: No: I reviewed the patient's medical records. - Amanuel Inquiry Pt receiving controlled substance: No Vital Signs: 12/18/20 15:00 12/18/20 15:32 Temperature 97.8 F 97.8 F Temperature Source Temporal Artery Scan Pulse Rate 60 Pulse Rate [Right Brachial] 60 Respiratory Rate 20 20 Blood Pressure 140/70 Blood Pressure [Right Arm] 140/70 Blood Pressure Mean [Right Arm] 93 Blood Pressure Source [Right Arm] Automatic Cuff Blood Pressure Position [Right Arm] Sitting 02 Sat by Pulse Oximetry 97 Oxygen Delivery Method Room Air [facility] [place] - General Stated complaint: possible tooth abcess Time Seen by Provider: 12/18/20 15:18 Mode of Arrival: Ambulatory Source of Information: Patient Limitations: No Limitations Description of Symptoms (Recalled from Triage Doc. by RN): PATIENT C/O SWELLING TO RIGHT JAW SINCE YESTERDAY. POSSIBLE ABSCESS TOOTH HEENT Symptoms (Recalled from RN notes): Yes Resp Symptoms (Recalled from RN notes): No Skin Symptoms (Recalled from RN notes): No MS Symptoms (Recalled from RN notes): No Functional Status (Recalled from RN notes): WNL - History of Present Illness Provider Complaint: She states that for the past 3 days she has had worsening mouth swelling and dental pain. She thinks that she has an abscessed tooth. - Related Data Home Medications Medication Instructions Recorded Confirmed Atorvastatin Calcium [Lipitor 80mg 80 mg PO HS 12/28/17 11/15/20 Tab] Ferrous Sulfate 325 mg PO BID 12/28/17 11/15/20 Fluticasone/Vilanterol [Breo 1 puff IH DAILY 12/28/17 11/15/20 Ellipta 100-25 Mcg INH] Furosemide [Furosemide 40MG tAB*] 40 mg PO BID 12/28/17 11/15/20 Metformin HCl [Glucophage 500mg 500 mg PO BIDWM 12/28/17 11/15/20 Tablet] Omeprazole [Omeprazole 20mg 40 mg PO DAILY 12/28/17 11/15/20 Capsule] diazePAM [diazePAM 5mg Tablet] 5 mg PO TID 12/28/17 11/15/20 lisinopriL [Lisinopril 5mg 5 mg PO DAILY 12/28/17 11/15/20 Tablet] Albuterol Sulfate [Ventolin HFA 2 puff PO QIDP PRN 01/20/18 11/15/20 Inhaler] apixaban 5 mg tablet 5 mg PO BID 02/17/19 11/15/20 Dasatinib [Sprycel] 100 mg PO DAILY 04/25/19 11/15/20 potassium chloride 20 mEq 20 meq PO BID #60 tab 05/25/19 11/15/20 tablet,extended release(part/cryst) Ketorolac Tromethamine [Toradol 10 mg PO Q6H 07/25/19 11/15/20 10mg tablet] Oxybutynin Chloride [Ditropan 5mg 5 mg PO BID 07/26/19 11/15/20 tablet] Previous Rx's Medication Instructions Recorded clindamycin HCL [Cleocin HCl] 300 mg PO Q8H 10 Days #30 cap 12/18/20 Allergies Allergy/AdvReac Type Severity Reaction Status Date / Time acetaminophen [ACETAMINOPHEN] Allergy Intermediate I-RASH Verified 11/15/20 13:13 adhesive tape [ADHESIVE TAPE] Allergy Intermediate I-RASH Verified 11/15/20 13:13 digoxin [DIGOXIN] Allergy Intermediate NA-NAUSEA/V Verified 11/15/20 13:13 OMITING hydrocortisone Allergy Intermediate I-RASH Verified 11/15/20 13:13 [HYDROCORTISONE] Penicillins [PENICILLINS] Allergy Intermediate I-RASH Verified 11/15/20 13:13 ciprofloxacin [CIPROFLOXACIN] Allergy Mild NA-NAUSEA/V Verified 11/15/20 13:13 OMITING milk [MILK] Allergy Mild DIARRHEA Verified 11/15/20 13:13 cephalexin [From Keflex] Allergy Verified 11/15/20 13:13
[2020-12-18 15:32] VITALS: BP 140/70; PULSE 60; RESP 20; TEMP 36.6; O2SAT 97
== END 2020-12-18 15:36 | disposition home or self-care (01) ==
PROVIDERS: Emergency Provider Nurse Practitioner Family; PCP Family Medicine
DX: K04.7 Periapical abscess without sinus (principal); I48.91 Unspecified atrial fibrillation; Z95.0 Presence of cardiac pacemaker; I10 Essential (primary) hypertension; E78.5 Hyperlipidemia, unspecified; I25.10 Atherosclerotic heart disease of native coronary artery without angina pectoris; J44.9 Chronic obstructive pulmonary disease, unspecified; E11.9 Type 2 diabetes mellitus without complications; K21.9 Gastro-esophageal reflux disease without esophagitis; I25.2 Old myocardial infarction; F33.1 Major depressive disorder, recurrent, moderate; F17.210 Nicotine dependence, cigarettes, uncomplicated; Z79.899 Other long term (current) drug therapy; Z88.0 Allergy status to penicillin; Z88.8 Allergy status to other drugs, medicaments and biological substances
CPT/HCPCS: 99202; G0463

== ENCOUNTER 2021-01-06 13:36 | Emergency (ER) | payer OTHER, SELFPAY ==
[2021-01-06 13:49] VITALS: BP 186/80; PULSE 61; RESP 17; TEMP 37.2; O2SAT 95; BMI 34.3
[2021-01-06 14:04] VITALS: BP 186/80; PULSE 61; RESP 17; TEMP 37.2; O2SAT 95; BMI 34.3
--- NOTE | 2021-01-06 14:06 | HMH.EDUTC ---
[facility] [place] Impression: Facial swelling, Dental abscess Disposition: Home, Self-Care Condition on Discharge: Good Instructions: Tooth Abscess, DI for Tooth Abscess Additional Instructions: You have to be seen by your dentist. Please call today and make yourself an appointment. Take the medication as directed. Follow up with your primary care doctor. GO TO THE ER FOR ANY WORSENING SYMPTOMS OR CONCERNS Prescriptions: clindamycin HCL [Clindamycin HCl] 300 mg PO Q8H 10 Days #30 cap Transmission Status: Received by [facility] Referrals: Nguyen Stone MD [Primary Care Provider] - Time of Disposition: 14:20 Medical Decision Making - Medical Records Medical records reviewed: No: I reviewed the patient's medical records. - Amanuel Inquiry Pt receiving controlled substance: No Vital Signs: 01/06/21 13:49 01/06/21 14:04 01/06/21 14:38 Temperature 98.9 F 98.9 F 98 F Temperature Source Oral Oral Pulse Rate 66 Pulse Rate [Left Radial] 61 61 Respiratory Rate 17 17 14 Blood Pressure 180/83 H Blood Pressure [Right Arm] 186/80 H 186/80 H Blood Pressure Mean [Right Arm] 115 115 Blood Pressure Source [Right Arm] Automatic Cuff Automatic Cuff Blood Pressure Position [Right Arm] Sitting Sitting 02 Sat by Pulse Oximetry 95 95 Oxygen Delivery Method Room Air Room Air [facility] [place] - General Stated complaint: swollen face and undereyes Time Seen by Provider: 01/06/21 14:06 Mode of Arrival: Ambulatory Source of Information: Patient Limitations: No Limitations Description of Symptoms (Recalled from Triage Doc. by RN): pt c/o left face swelling again even with taking her antibiotics. States she has bad teeth. - History of Present Illness Provider Complaint: She has had right sided facial swelling and right sided dental pain for the past 3 days. - Related Data Home Medications Medication Instructions Recorded Confirmed Atorvastatin Calcium [Lipitor 80mg 80 mg PO HS 12/28/17 11/15/20 Tab] Ferrous Sulfate 325 mg PO BID 12/28/17 11/15/20 Fluticasone/Vilanterol [Breo 1 puff IH DAILY 12/28/17 11/15/20 Ellipta 100-25 Mcg INH] Furosemide [Furosemide 40MG tAB*] 40 mg PO BID 12/28/17 11/15/20 Metformin HCl [Glucophage 500mg 500 mg PO BIDWM 12/28/17 11/15/20 Tablet] Omeprazole [Omeprazole 20mg 40 mg PO DAILY 12/28/17 11/15/20 Capsule] diazePAM [diazePAM 5mg Tablet] 5 mg PO TID 12/28/17 11/15/20 lisinopriL [Lisinopril 5mg 5 mg PO DAILY 12/28/17 11/15/20 Tablet] Albuterol Sulfate [Ventolin HFA 2 puff PO QIDP PRN 01/20/18 11/15/20 Inhaler] apixaban 5 mg tablet 5 mg PO BID 02/17/19 11/15/20 Dasatinib [Sprycel] 100 mg PO DAILY 04/25/19 11/15/20 potassium chloride 20 mEq 20 meq PO BID #60 tab 05/25/19 11/15/20 tablet,extended release(part/cryst) Ketorolac Tromethamine [Toradol 10 mg PO Q6H 07/25/19 11/15/20 10mg tablet] Oxybutynin Chloride [Ditropan 5mg 5 mg PO BID 07/26/19 11/15/20 tablet] Previous Rx's Medication Instructions Recorded clindamycin HCL [Cleocin HCl] 300 mg PO Q8H 10 Days #30 cap 12/18/20 clindamycin HCL [Clindamycin HCl] 300 mg PO Q8H 10 Days #30 cap 01/06/21 Allergies Allergy/AdvReac Type Severity Reaction Status Date / Time acetaminophen [ACETAMINOPHEN] Allergy Intermediate I-RASH Verified 11/15/20 13:13 adhesive tape [ADHESIVE TAPE] Allergy Intermediate I-RASH Verified 11/15/20 13:13 digoxin [DIGOXIN] Allergy Intermediate NA-NAUSEA/V Verified 11/15/20 13:13 OMITING hydrocortisone Allergy Intermediate I-RASH Verified 11/15/20 13:13 [HYDROCORTISONE] Penicillins [PENICILLINS] Allergy Intermediate I-RASH Verified 11/15/20 13:13 ciprofloxacin [CIPROFLOXACIN] Allergy Mild NA-NAUSEA/V Verified 11/15/20 13:13 OMITING milk [MILK] Allergy Mild DIARRHEA Verified 11/15/20 13:13 cephalexin [From Keflex] Allergy Verified 11/15/20 13:13 [facility] History - Hepatitis A Screen Attestation statement::
[2021-01-06 14:38] VITALS: BP 180/83; PULSE 66; RESP 14; TEMP 36.6
== END 2021-01-06 14:38 | disposition home or self-care (01) ==
LOC: ER 13:49 → UTC 13:49
PROVIDERS: Emergency Provider Nurse Practitioner Family; PCP Family Medicine
DX: K04.7 Periapical abscess without sinus (principal); E11.9 Type 2 diabetes mellitus without complications; I10 Essential (primary) hypertension; I25.2 Old myocardial infarction; K21.9 Gastro-esophageal reflux disease without esophagitis; I48.91 Unspecified atrial fibrillation; I25.10 Atherosclerotic heart disease of native coronary artery without angina pectoris; J44.9 Chronic obstructive pulmonary disease, unspecified; R01.1 Cardiac murmur, unspecified; F33.1 Major depressive disorder, recurrent, moderate; E78.5 Hyperlipidemia, unspecified; Z95.0 Presence of cardiac pacemaker; F17.210 Nicotine dependence, cigarettes, uncomplicated; Z88.0 Allergy status to penicillin
CPT/HCPCS: 99202; G0463

== ENCOUNTER → 2021-02-13 13:40 | Outpatient (CLI) | payer OTHER, SELFPAY ==
[2021-02-13 14:24] LABS: Basophils % 0.5 % (0.1-2.0); Eosinophils # 0.2 K/mm3 (0.0-0.4); Eosinophils % 4.8 % (0.1-12.0); Hematocrit 31.9 % (37.0-47.0); Hemoglobin 9.8 g/dL (12.2-16.2); Lymphocytes # 1.2 K/mm3 (0.7-4.5); Lymphocytes % 37.8 % (10-50); Mean Corpuscular HGB Conc 30.9 g/dL (31.8-35.4); Mean Corpuscular Hemoglobin 25.5 pg (27.0-31.2); Mean Corpuscular Volume 82.6 fl (81-99); Mean Platelet Volume 9.1 fl (7.4-10.4); Monocytes # 0.2 K/mm3 (0.1-1.0); Monocytes % 6.1 % (1.7-9.3); Neutrophils # 1.7 K/mm3 (1.8-7.8); Neutrophils % 50.8 % (37.0-80.0); Platelet Count 148 K/mm3 (142-424); Red Blood Count 3.86 M/mm3 (4.20-5.40); Red Cell Distribution Width 14.6 % (11.5-17.5); White Blood Count 3.3 K/mm3 (4.8-10.8)
[2021-02-13 15:09] LABS: Chloride 103 mmol/L (98-107); Potassium 3.9 mmoL/L (3.5-5.1); Sodium 139 mmol/L (136-145)
[2021-02-13 15:11] LABS: Blood Urea Nitrogen 16 mg/dl (7-17); Estimated Glomerular Filt Rate 72 ml/min (>60); GFR (African American) 88 ML/MIN (>60)
[2021-02-13 15:12] LABS: Alanine Aminotransferase 22 U/L (12-78); Albumin Level 4.4 g/dl (3.5-5.0); Albumin/Globulin Ratio 1.8 (1.1-1.8); Alkaline Phosphatase 118 U/L (38-126); Anion Gap 11.9 mEq/L (5-15); Aspartate Amino Transferase 31 U/L (14-36); Bilirubin,Total 0.7 mg/dl (0.2-1.3); Carbon Dioxide 28 mmol/L (22.0-30.0); Globulin 2.5 g/dL (1.3-3.2); Total Protein,Serum 6.9 g/dl (6.3-8.2)
[2021-02-13 15:13] LABS: Calcium 8.9 mg/dl (8.4-10.2); Glucose 134 mg/dl (74-100)
[2021-02-21 16:03] LABS: Interpretation: Negative (.)
== END ==
PROVIDERS: Visit Provider Internal Medicine Medical Oncology
DX: C92.10 Chronic myeloid leukemia, BCR/ABL-positive, not having achieved remission (principal)
CPT/HCPCS: 36415; 80053; 81206; 85025

== ENCOUNTER 2021-04-09 14:32 | Emergency (ER) | payer OTHER, SELFPAY ==
[2021-04-09 14:32] VITALS: BP 152/57; PULSE 99; RESP 20; TEMP 36.6; O2SAT 100; BMI 33.6
[2021-04-09 15:00] VITALS: BP 143/53; PULSE 63; O2SAT 100
[2021-04-09 15:30] VITALS: BP 142/51; PULSE 60; RESP 20; O2SAT 97
--- NOTE | 2021-04-09 15:34 | CT_ITS ---
PROCEDURE: CT HEAD/BRAIN WO CON CLINICAL INDICATION: head injury Head injury with headache/pain, contusion, abrasion or hematoma COMPARISON: No exams were available for comparison TECHNIQUE: Axial images obtained. All CT scans at the facility use one or more dose reduction, viz: automated exposure control, ma/kV adjustment per patient size (including targeted exams where dose is matched to indication, i.e. head), or iterative reconstruction technique. FINDINGS: No midline shift, mass effect, intracranial hemorrhage, hydrocephalus, or extra-axial fluid collection is evident. Basal ganglia calcifications are present. 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 The calvarium has an unremarkable appearance. No mastoid effusion. No sinus air-fluid level. IMPRESSION: No acute intracranial finding Dictated by: Hilario Jacobs MD 04/09/2021 16:46 Hilario Jacobs MD in [place] 04/09/2021 16:46
--- NOTE | 2021-04-09 15:34 | CT_ITS ---
PROCEDURE: CT CERVICAL SPINE WO CON CLINICAL INDICATION: injury COMPARISON: CT SPCERVWO CT cervical spine wo con from 01/08/2018 TECHNIQUE: Axial images obtained with sagittal and coronal reformats. All CT scans at the facility use one or more dose reduction, viz: automated exposure control, ma/kV adjustment per patient size (including targeted exams where dose is matched to indication, i.e. head), or iterative reconstruction technique. Axial spiral CT scanning performed of the cervical spine beginning at the base of the skull and continuing to the upper T-spine. 3-D multiplanar reconstruction with 3-D manipulation of volumetric data set in image rendering was completed by the radiologist and/or technologist with the supervision of the radiologist on independent workstation. FINDINGS: Normal alignment. No acute fracture or dislocation. No lytic or blastic change. Lung apices are clear. Scattered small nodes are present in the neck. IMPRESSION: Cervical spine intact with no fracture nor subluxation. Dictated by: Hilario Jacobs MD 04/09/2021 16:51 Hilario Jacobs MD in [place] 04/09/2021 16:51
--- NOTE | 2021-04-09 15:44 | PC.NURSE ---
PT GOING TO CT
--- NOTE | 2021-04-09 16:17 | HMH.EDGENADL ---
ED Disposition Clinical Impression: Scalp contusion Qualifiers: Encounter type: initial encounter Qualified Code(s): S00.03XA - Contusion of scalp, initial encounter Cervical strain Qualifiers: Encounter type: initial encounter Qualified Code(s): S16.1XXA - Strain of muscle, fascia and tendon at neck level, initial encounter Disposition: Home, Self-Care Condition on Discharge: Good Instructions: DI for Closed Head Injury Additional Instructions: Additional instructions for HEAD INJURY: See your physician as soon as possible for further evaluation. Return immediately if severe headache, vomiting, problems with vision or speech, numbness or weakness of the extremities, or severe neck pain. Referrals: Nguyen Stone MD [Primary Care Provider] - - Critical Care Critical Care Time: No Attestation: On 04/09/21, the high probability of a clinically significant, sudden or life threatening deterioration of the following system(s) required my full and direct attention, intervention and personal management. The time I documented below is in addition to time spent performing reported procedures but includes the following listed in this critical care notation. Medical Decision Making - Amanuel Inquiry Pt receiving controlled substance: No Vital Signs: 04/09/21 14:32 04/09/21 15:00 04/09/21 15:30 Temperature 97.8 F Temperature Source Oral Pulse Rate 63 60 Pulse Rate [Left Radial] 99 H Respiratory Rate 20 20 Blood Pressure 143/53 H 142/51 H Blood Pressure [Right Arm] 152/57 H Blood Pressure Mean 83 81 Blood Pressure Mean [Right Arm] 88 02 Sat by Pulse Oximetry 100 100 97 Oxygen Delivery Method Room Air - CT Data CT Scan: Head, C-Spine Time Received: 16:[address] Reviewed: Yes: I have viewed the radiologist's interpretation Findings Narrative: PROCEDURE: CT HEAD/BRAIN WO CON CLINICAL INDICATION: head injury Head injury with headache/pain, contusion, abrasion or hematoma COMPARISON: No exams were available for comparison TECHNIQUE: Axial images obtained. All CT scans at the facility use one or more dose reduction, viz: automated exposure control, ma/kV adjustment per patient size (including targeted exams where dose is matched to indication, i.e. head), or iterative reconstruction technique. FINDINGS: No midline shift, mass effect, intracranial hemorrhage, hydrocephalus, or extra-axial fluid collection is evident. Basal ganglia calcifications are present. 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 The calvarium has an unremarkable appearance. No mastoid effusion. No sinus air-fluid level. IMPRESSION: No acute intracranial finding Dictated by: Hilario Jacobs MD 04/09/2021 16:46 Hilario Jacobs MD in [place] 04/09/2021 16:46 PROCEDURE: CT CERVICAL SPINE WO CON CLINICAL INDICATION: injury COMPARISON: CT SPCERVWO CT cervical spine wo con from 01/08/2018 TECHNIQUE: Axial images obtained with sagittal and coronal reformats. All CT scans at the facility use one or more dose reduction, viz: automated exposure control, ma/kV adjustment per patient size (including targeted exams where dose is matched to indication, i.e. head), or iterative reconstruction technique. Axial spiral CT scanning performed of the cervical spine beginning at the base of the skull and continuing to the upper T-spine. 3-D multiplanar reconstruction with 3-D manipulation of volumetric data set in image rendering was completed by the radiologist and/or technologist with the supervision of the radiologist on independent workstation. FINDINGS: Normal alignment. No acute fracture or dislocation. No lytic or blastic change. Lung apices are clear. Scattered small nodes are present in the neck. IMPRESSION: Cervical spine intact with no fracture nor subluxation. Dictated by: Hilario Jacobs MD 04/09/2021 16:51 Hilario Jacobs MD in [place] 04/09/2021 16:51
[2021-04-09 17:11] VITALS: BP 132/74; PULSE 78; RESP 16; TEMP 36.6; O2SAT 98
== END 2021-04-09 17:12 | disposition home or self-care (01) ==
PROVIDERS: Emergency Provider Emergency Medicine; PCP Family Medicine
DX: S16.1XXA Strain of muscle, fascia and tendon at neck level, initial encounter (principal); S00.03XA Contusion of scalp, initial encounter; W22.8XXA Striking against or struck by other objects, initial encounter; Y92.481 Parking lot as the place of occurrence of the external cause; I48.91 Unspecified atrial fibrillation; J44.9 Chronic obstructive pulmonary disease, unspecified; E11.9 Type 2 diabetes mellitus without complications; K21.9 Gastro-esophageal reflux disease without esophagitis; E78.5 Hyperlipidemia, unspecified; I10 Essential (primary) hypertension; I25.10 Atherosclerotic heart disease of native coronary artery without angina pectoris; Z79.899 Other long term (current) drug therapy; Z88.0 Allergy status to penicillin; Z88.8 Allergy status to other drugs, medicaments and biological substances
CPT/HCPCS: 70450; 72125; 99282

== ENCOUNTER → 2021-04-16 15:04 | Outpatient (CLI) | payer OTHER, SELFPAY ==
--- NOTE | 2021-04-16 15:11 | CA_ITS ---
APPROVED REPORT EXAM: Comprehensive 2D, Doppler, and color-flow Echocardiogram Legal Department Manager: Aleida Jamison CRT Ht: 5 ft 4 in Wt: 190lbs BSA: 1.91 BP: 142/51 mmHg Indications: pacer, gerd, COPD, Murmur, Atrial Fibrillation, Hyperlipidemia, Hypertension/HDD 2D Dimensions LVOT 1.51 cm (M/F) 1.5-2.5 M-Mode Dimensions RVDd 2.91 cm (0.9-2.6) LA Diam 3.77 cm (1.9-4.0) LVDd 4.99 cm (3.5-5.7) Ao Diam 3.48 cm (2.0-3.7) LVDs 3.18 cm (3.5-5.7) IVSd 1.44 cm (0.6-1.1) PWd 1.24 cm (0.6-1.1) EF (Teich) 65.80% FS 36.30% EDV (Teich) 117.70 mL TAPSE 1.87 (<1.7) ESV (Teich) 40.30 mL LV Diastology E Decel Time 170.00 (160-240 msec) E/A Ratio 2.42 MED E' 3.20 (< 7 cm/sec) MED A' 6.20 cm/s E'/MED E' Ratio 51.22 (>14) LAT E' 11.80 (<10 cm/sec) LAT A' 5.40 cm/s E/LAT E' Ratio 13.89 (>14) Aortic Valve LVOT Max 154.00 (70-110 cm/s) LVOT VTI 39.03 cm AoV Peak Lionel. 271.00 (50-130 cm/s) AI PHT 509.00 ms AO Peak GR. 29.70 mmHg AO Mean GR. 16.30 (<5 mmHg) AO VTI 61.49 (18-25 cm) PATIENCE (VTI) 1.14 (2.5-4.5 cm2) Mitral Valve MV E Max Lionel. 164.00 (40-130 cm/s) MV A Velocity 68.00 (40-130 cm/s) E/A Ratio 2.42 MV Decel. Time 170.00 (160-240 ms) MV PHT 50.00 ms Pulmonary Valve PV Peak Velocity 96.00 (50-150 cm/s) Tricuspid Valve TR P. Velocity 260.00 cm/s RAP Estimate 10.00 mmHg RVSP 37.10 mmHg Left Ventricle Left atrium is mildly enlarged, left ventricle is normal size, mild concentric left ventricular hypertrophy, visually estimated ejection fraction 50%, there is abnormal septal motion. Diastolic parameters are inconclusive. Right Ventricle Right atrium and right ventricle are mildly enlarged with normal contractility, pacemaker lead seen right atrium and right ventricle. Aortic Valve Aortic valve is thickened and calcified, mean gradient across aortic valve is 18 mmHg, valve area is 1.1 cm, represents moderate aortic stenosis, there is mild aortic insufficiency. Mitral Valve Mitral valve leaflets are minimally thickened, there is mild mitral regurgitation. Tricuspid Valve Tricuspid grossly normal, there is mild tricuspid regurgitation, calculated right ventricular systolic pressure is 37 mmHg. Pulmonic Valve Pulmonic valve is poorly visualized. Great Vessels Aortic root is normal size. Pericardium No significant pericardial effusion noted. Conclusion 1. Mild biatrial enlargement, normal left ventricular size, mild concentric left ventricular hypertrophy, visually estimated ejection fraction 50%, there is abnormal septal motion, diastolic parameters are inconclusive. 2. Thickened and calcified aortic valve with moderate aortic stenosis, valve area is 1.1 cm???, there is mild aortic insufficiency. 3. Mild mitral and tricuspid regurgitation, calculated right ventricular systolic pressure 37 mmHg. 4. No significant pericardial effusion noted. Electronically signed by : Thong Rogel, 04/17/2021 10:33:55
== END ==
PROVIDERS: PCP Family Medicine; Visit Provider Family Medicine
DX: I35.0 Nonrheumatic aortic (valve) stenosis (principal)
CPT/HCPCS: 93306

== ENCOUNTER → 2021-05-27 11:42 | Outpatient (CLI) | payer OTHER, SELFPAY ==
--- NOTE | 2021-05-27 | CA_ITS ---
APPROVED REPORT Exam: Pharmacologic Technologist: andre pulliam, Ht: 5 ft 4 in Wt: 199 lbs BSA: 1.95 m2 HR: 60 bpm BP: 120/57 mmHg Indications: CAD Medical History Medications: Lisinopril,,,,, Omeprazole,,,,, Metformin,,,,, Diazepam,,,,, Lasix,,,,, Lipitor,,,,, Albuterol,,,,, OxYbutynin,,,,, Apixaban,,,,, Allergies: Tylenol, Digoxin, PCN, Cipro, Milk,Keflex Cardiac Risk Factors: HTN, Hyperlipidemia, Diabetes (non-insulin) Stress Test Details Test: LEXISCAN HR Resting HR: 60 bpm Max Heart Rate (APMHR): 156.098736 bpm Max HR Achieved: 72 bpm Target HR (85% APMHR): 132.486174 bpm % of APMHR: 46.15 Recovery HR: 60 bpm BP Resting BP: 120/57 mmHg Max BP: 180/65 mmHg Recovery BP: 180.0/65.0 mmHg ECG Resting ECG: Ventricular paced rhythm with isorhythmic AV dissociation Clinical Exercise duration: 04:03 min Highest Stage Achieved: Stress ECG Conclusion Aminophylline 100mg slow IV given. Malaise, SOA nausea , vomiting, and mild chest discomfort during peak infusion, that resolved during recovery with the Aminophylline IV slow push. AV dissociation. No significant ST changes. Non-diagnostic Lexiscan stress. Images reported separately. Test Summary REST 03:07 . . 60 . 120/ 57 . . Stage 1 01:00 . . 64 . . . . Stage 2 01:00 . . 63 . 130/ 50 . . Stage 3 01:00 . . 62 . 119/ 50 . . Stage 4 01:00 . . 64 . . . . Stage 4 01:03 . . 64 . . . Stop exercise at 04:03 RECOVERY 01:00 . . 61 . . . . RECOVERY 02:00 . . 60 . 180/ 65 . . RECOVERY 03:00 . . 60 . 180/ 65 . . RECOVERY 04:00 . . 60 . 180/ 65 . . RECOVERY 05:00 . . 60 . 180/ 65 . . RECOVERY 06:00 . . 63 . 150/ 59 . . RECOVERY 07:00 . . 60 . 150/ 59 . . RECOVERY 08:00 . . 60 . 146/ 56 . . RECOVERY 08:07 . . 60 . 146/ 56 . . Electronically signed by : Thong Rogel, 05/27/2021 20:12:25
--- NOTE | 2021-05-27 11:42 | NM_ITS ---
APPROVED REPORT Exam: Nuclear Stress Test Indication: CHEST PAIN..SHORT OF BREATH..FATIGUE Patient Location: Outpatient Stress Tech: Sheri Preston OR Tech:SHIMON Sandy RT(R)(N) Ht: 5 ft 4 in Wt: 198 lbs Bra Size: 42 C HR: 60 bpm BP: 120/57 mmHg BSA: 1.95 m2 BMI: 33.9 History: CHEST PAIN..SHORT OF BREATH..FATIGUE Procedure: Patient received a 0.4 mg of intravenous Lexiscan, resting heart rate 60 bpm, resting blood pressure 120/57 mmHg, with Lexiscan maximum heart rate achived was 63 bpm which is Less than 85 % of the maximum predicted heart rate and blood pressure was 130/50 mmHg. Electrocardiogram Resting electrocardiogram shows electronically paced ventricular rhythm, A-V dissociation complete heart block. With Lexiscan there is less than 1.[address] segment depression noted from the baseline EKG. The EKG portion of the Lexiscan is nondiagnostic. Cardiac Stress and Resting SPECT Images: Cardiac Stress and Resting SPECT images were obtained using technetium 99m Myoview 32.2 mCi stress and 10.37 mCi at rest. Gated SPECT for analysis of segmental wall motion and calculation of the ejection fraction also done. Cardiac stress and resting SPECT images show decrease tracer activity in the anterior and apical wall which improves on the resting images suggestive of reversible ischemia, computer derived ejection fraction is 47% with no regional wall motion abnormality, right ventricle is mildly enlarged with normal contractility. Conclusion: 1. The EKG portion of the Lexiscan is nondiagnostic. 2. Scintigraphic evidence of reversible ischemia involving the anterior and apical wall, computer derived ejection fraction is 47% with no segmental wall motion abnormality, right ventricle is normal size and contractility. 3. Abnormal Lexiscan Myoview study. Electronically signed by : Thong Rogel, 05/27/2021 20:23:50
--- NOTE | 2021-05-27 13:07 | HMH.ITSHM ---
Current Home Medications as stated by this patient Evelyne Hannah or service representative. []SPIRONOLACTONE POTASSIUM LISINOPRIL DIAZEPAM APIXABAN OXYBUTYNIN OMEPRAZOLE METFORMIN FUROSEMIDE ATORVASTATIN ALBUTEROL
== END ==
PROVIDERS: PCP Family Medicine; Visit Provider Physician Assistant
DX: I25.118 Atherosclerotic heart disease of native coronary artery with other forms of angina pectoris (principal)
CPT/HCPCS: 78452; 93017; A9502; J0280; J2785

== ENCOUNTER → 2021-06-19 13:31 | Outpatient (CLI) | payer OTHER, SELFPAY ==
[2021-06-19 13:56] LABS: Basophils % 0.6 % (0.1-2.0); Eosinophils # 0.2 K/mm3 (0.0-0.4); Eosinophils % 3.6 % (0.1-12.0); Hematocrit 32.2 % (37.0-47.0); Hemoglobin 10.5 g/dL (12.2-16.2); Lymphocytes # 2.1 K/mm3 (0.7-4.5); Mean Corpuscular HGB Conc 32.4 g/dL (31.8-35.4); Mean Corpuscular Hemoglobin 26.4 pg (27.0-31.2); Mean Corpuscular Volume 81.4 fl (81-99); Mean Platelet Volume 10.2 fl (7.4-10.4); Monocytes # 0.3 K/mm3 (0.1-1.0); Monocytes % 5.3 % (1.7-9.3); Neutrophils # 3.2 K/mm3 (1.8-7.8); Neutrophils % 54.6 % (37.0-80.0); Platelet Count 151 K/mm3 (142-424); Red Blood Count 3.96 M/mm3 (4.20-5.40); Red Cell Distribution Width 15.1 % (11.5-17.5); White Blood Count 5.8 K/mm3 (4.8-10.8)
[2021-06-19 16:12] LABS: Alanine Aminotransferase 13 U/L (12-78); Albumin Level 4.4 g/dl (3.5-5.0); Albumin/Globulin Ratio 1.7 (1.1-1.8); Alkaline Phosphatase 93 U/L (38-126); Anion Gap 16.6 mEq/L (5-15); Aspartate Amino Transferase 21 U/L (14-36); Bilirubin,Total 0.6 mg/dl (0.2-1.3); Blood Urea Nitrogen 22 mg/dl (7-17); Carbon Dioxide 27 mmol/L (22.0-30.0); Chloride 100 mmol/L (98-107); Estimated Glomerular Filt Rate 56 ml/min (>60); GFR (African American) 68 ML/MIN (>60); Globulin 2.6 g/dL (1.3-3.2); Glucose 94 mg/dl (74-100); Potassium 4.6 mmoL/L (3.5-5.1); Sodium 139 mmol/L (136-145)
[2021-06-25 01:10] LABS: Interpretation: Negative (.)
== END ==
PROVIDERS: Visit Provider Internal Medicine Medical Oncology
DX: C92.11 Chronic myeloid leukemia, BCR/ABL-positive, in remission (principal)
CPT/HCPCS: 36415; 80053; 81206; 85025

== ENCOUNTER 2021-07-22 09:01 | Day surgery (SDC) | payer OTHER, SELFPAY ==
[2021-07-22] VITALS (14 sets, daily range): BP systolic 121–153; BP diastolic 53–69; PULSE 59–61; RESP 16–18; TEMP 36.8; O2SAT 96–100; BMI 32.8
--- NOTE | 2021-07-22 07:27 | IR_ITS ---
APPROVED REPORT Patient Location: Outpatient PROCEDURES Left heart catheterization Left ventriculogram Selective coronary angiogram Drug-eluting stent deployment to the proximal dominant right coronary artery INDICATION Coronary disease, Angina pectoris, Abnormal Myoview Informed consent was obtained prior to the procedure. COMPLICATIONS None Estimated Blood Loss: Less than 10 mls TECHNIQUE One percent lidocaine was used to anesthetize the right groin. The right femoral artery was accessed via the Seldinger technique. A 4-Uruguayan sheath was placed in the right femoral artery. The JL-4 and JR-4 catheter was also used to perform left heart catheterization left ventriculogram and selective coronary angiogram. At the end of the diagnostic procedure therapeutic heparin was administered and the 4 [place] sheath was exchanged for a 6 [place] sheath. A 6 [place] LE guide catheter was placed in the ostial right coronary artery and a Choice PT extra-support wire was placed distally. A 3 mm x 12 mm resolute Dolliver stent was deployed at 20 bing reducing the critical stenosis. Following this a 3.5 x 12 mm noncompliant balloon was deployed at 24 bing to post dilate the ostial segment. Excellent angiographic results were obtained. At the end of the procedure the apparatus was removed the groin was reprepped closure changed sheath was removed good hemostasis was achieved using Perclose device patient was transferred to the postoperative stable addition ANGIOGRAPHIC RESULTS The left main artery Normal The left anterior descending artery Is a large-caliber vessel which wraps the apex and has diffuse proximal and mid vessel 10 to 20% stenosis The circumflex artery Is nondominant yet still a large system with mild diffuse 10 to 20% luminal irregularities The right coronary artery Is a large dominant vessel with a stent in the ostial segment which has concentric 90% in-stent restenosis followed by proximal and mid vessel 30 to 40% stenosis The GARCIA ventriculogram reveals Mildly dilated with ejection fraction of 45 to 50% The left ventricular end-diastolic pressure 25 mmHg IMPRESSION Coronary disease as described above Successful stenting of the ostial proximal dominant right coronary severe disease reduced to 0% with 1 drug-eluting stent Mild left ventricular dilatation with mildly reduced ejection fraction Elevated LVEDP PLAN 1. Dual antiplatelet therapy 2. Risk factor modification 3. Treatment of LV dysfunction 4. Avoidance of tobacco products 5. Cardiac rehabilitation Electronically signed by : Sonido Santamaria MD 07/22/2021 14:01:11
[2021-07-22 10:00] LABS: Coronavirus 19, PCR Not Detected (NotDetected); Influenza A, PCR Not Detected (NotDetected); Influenza B, PCR Not Detected (NotDetected)
[2021-07-22 10:05] LABS: Basophils # 0.1 K/mm3 (0-0.2); Basophils % 0.8 % (0.1-2.0); Eosinophils # 0.3 K/mm3 (0.0-0.4); Eosinophils % 3.2 % (0.1-12.0); Hematocrit 35.2 % (37.0-47.0); Hemoglobin 11.2 g/dL (12.2-16.2); Lymphocytes # 3.1 K/mm3 (0.7-4.5); Lymphocytes % 37.6 % (10-50); Mean Corpuscular HGB Conc 31.7 g/dL (31.8-35.4); Mean Corpuscular Hemoglobin 27.3 pg (27.0-31.2); Monocytes # 0.5 K/mm3 (0.1-1.0); Monocytes % 5.8 % (1.7-9.3); Neutrophils # 4.3 K/mm3 (1.8-7.8); Neutrophils % 52.5 % (37.0-80.0); Platelet Count 150 K/mm3 (142-424); Red Blood Count 4.09 M/mm3 (4.20-5.40); Red Cell Distribution Width 15.1 % (11.5-17.5); White Blood Count 8.1 K/mm3 (4.8-10.8)
[2021-07-22 10:08] LABS: Chloride 103 mmol/L (98-107); Potassium 3.8 mmoL/L (3.5-5.1); Sodium 139 mmol/L (136-145)
[2021-07-22 10:11] LABS: Anion Gap 12.8 mEq/L (5-15); Blood Urea Nitrogen 22 mg/dl (7-17); Calcium 8.6 mg/dl (8.4-10.2); Carbon Dioxide 27 mmol/L (22.0-30.0); Creatinine Clearance Estimated 78 mL/min (50-200); Estimated Glomerular Filt Rate 63 ml/min (>60); GFR (African American) 76 ML/MIN (>60); Glucose 115 mg/dl (74-100)
--- NOTE | 2021-07-22 14:20 | HMH.PHACLD ---
Evelyne Hannah has received discharge medication counseling on the following medications: BISOPROLOL PLAVIX PATIENT IS ALREADY TAKING ELIQUIS, LISINOPRIL, AND ATORVASTATIN. PATIENT VERBALIZED UNDERSTANDING AND HAD NO QUESTIONS AT THIS TIME. -GIANCARLO SHERMAN, PEED
[2021-07-22 14:57] LABS: CATHL Activated Clotting Time 306 SEC (74-125)
== END 2021-07-22 15:07 | disposition home or self-care (01) ==
LOC: CATHLAB 09:14
PROVIDERS: PCP Family Medicine; Visit Provider Internal Medicine
DX: I25.110 Atherosclerotic heart disease of native coronary artery with unstable angina pectoris (principal); C92.10 Chronic myeloid leukemia, BCR/ABL-positive, not having achieved remission; D64.9 Anemia, unspecified; I11.0 Hypertensive heart disease with heart failure; Y83.1 Surgical operation with implant of artificial internal device as the cause of abnormal reaction of the patient, or of later complication, without mention of misadventure at the time of the procedure; E11.9 Type 2 diabetes mellitus without complications; T82.855A Stenosis of coronary artery stent, initial encounter; I50.23 Acute on chronic systolic (congestive) heart failure; E66.9 Obesity, unspecified; I35.0 Nonrheumatic aortic (valve) stenosis; Z79.01 Long term (current) use of anticoagulants; Z86.79 Personal history of other diseases of the circulatory system; Z95.0 Presence of cardiac pacemaker; Z79.84 Long term (current) use of oral hypoglycemic drugs; Z20.822 Contact with and (suspected) exposure to COVID-19
CPT/HCPCS: 80048; 85025; 85347; 92928; 93458; 99152; 99153; C1725; C1760; C1769; C1876; C9600; C9803; J1644; Q9967; U0003; U0005

== ENCOUNTER → 2021-10-16 13:44 | Outpatient (CLI) | payer OTHER, SELFPAY ==
[2021-10-16 15:11] LABS: Basophils % 0.5 % (0.1-2.0); Eosinophils # 0.1 K/mm3 (0.0-0.4); Eosinophils % 2.3 % (0.1-12.0); Hematocrit 33.3 % (37.0-47.0); Lymphocytes # 1.6 K/mm3 (0.7-4.5); Lymphocytes % 27.4 % (10-50); Mean Corpuscular Hemoglobin 28.4 pg (27.0-31.2); Mean Corpuscular Volume 86.1 fl (81-99); Mean Platelet Volume 9.2 fl (7.4-10.4); Monocytes # 0.3 K/mm3 (0.1-1.0); Monocytes % 5.1 % (1.7-9.3); Neutrophils # 3.7 K/mm3 (1.8-7.8); Neutrophils % 64.7 % (37.0-80.0); Platelet Count 224 K/mm3 (142-424); Red Blood Count 3.87 M/mm3 (4.20-5.40); Red Cell Distribution Width 14.7 % (11.5-17.5); White Blood Count 5.7 K/mm3 (4.8-10.8)
[2021-10-16 15:24] LABS: Chloride 103 mmol/L (98-107); Sodium 140 mmol/L (136-145)
[2021-10-16 15:25] LABS: Potassium 4.8 mmoL/L (3.5-5.1)
[2021-10-16 15:27] LABS: Alanine Aminotransferase 16 U/L (12-78); Albumin Level 4.3 g/dl (3.5-5.0); Albumin/Globulin Ratio 1.7 (1.1-1.8); Alkaline Phosphatase 113 U/L (38-126); Anion Gap 13.8 mEq/L (5-15); Aspartate Amino Transferase 26 U/L (14-36); Bilirubin,Total 0.8 mg/dl (0.2-1.3); Blood Urea Nitrogen 18 mg/dl (7-17); Calcium 9.5 mg/dl (8.4-10.2); Carbon Dioxide 28 mmol/L (22.0-30.0); Estimated Glomerular Filt Rate 56 ml/min (>60); GFR (African American) 68 ML/MIN (>60); Globulin 2.5 g/dL (1.3-3.2); Glucose 117 mg/dl (74-100); Iron 88 ug/dL (37-170); Total Protein,Serum 6.8 g/dl (6.3-8.2)
[2021-10-16 15:37] LABS: Total Iron Binding Capacity 420 ug/dL (265-497)
[2021-10-16 16:02] LABS: Ferritin 8.95 ng/ml (11.1-264)
[2021-10-24 02:18] LABS: Interpretation: Negative (.)
== END ==
PROVIDERS: Visit Provider Podiatrist
DX: C92.10 Chronic myeloid leukemia, BCR/ABL-positive, not having achieved remission (principal)
CPT/HCPCS: 36415; 80053; 81206; 82728; 83540; 83550; 85025

== ENCOUNTER → 2021-11-27 14:58 | Outpatient (CLI) | payer OTHER, SELFPAY | PROVIDERS: Visit Provider Nurse Practitioner | DX: Z20.822 Contact with and (suspected) exposure to COVID-19 (principal) | CPT/HCPCS: C9803; U0003; U0005 ==

== ENCOUNTER 2022-01-18 13:58 | Emergency (ER) | payer OTHER, SELFPAY ==
[2022-01-18 14:25] VITALS: BP 131/86; PULSE 63; RESP 17; TEMP 36.8; O2SAT 98; BMI 34.3
[2022-01-18 14:40] VITALS: BP 131/86; PULSE 63; RESP 17; TEMP 36.8; O2SAT 98; BMI 34.1
--- NOTE | 2022-01-18 15:19 | HMH.EDUTC ---
[facility] Disposition Clinical Impression: Sinusitis Qualifiers: Sinusitis location: maxillary Chronicity: acute Recurrence: non-recurrent Qualified Code(s): J01.00 - Acute maxillary sinusitis, unspecified Headache Qualifiers: Headache type: unspecified Headache chronicity pattern: acute headache Intractability: not intractable Qualified Code(s): R51.9 - Headache, unspecified Disposition: Still a Patient Condition on Discharge: Good Referrals: Nguyen Stone MD [Primary Care Provider] - Time of Disposition: 16:20 (report to lou) Medical Decision Making - Amanuel Inquiry Pt receiving controlled substance: No Vital Signs: 01/18/22 14:25 01/18/22 14:40 Temperature 98.3 F 98.3 F Temperature Source Oral Oral Pulse Rate [Left Radial] 63 63 Respiratory Rate 17 17 Blood Pressure [Right Arm] 131/86 131/86 Blood Pressure Mean [Right Arm] 101 101 Blood Pressure Source [Right Arm] Automatic Cuff Blood Pressure Position [Right Arm] Sitting 02 Sat by Pulse Oximetry 98 98 Oxygen Delivery Method Room Air Room Air [facility] HPI - General Chief complaint: Urgent Treatment Center Stated complaint: pressure h/a, vomiting, chills Time Seen by Provider: 01/18/22 15:19 Mode of Arrival: Ambulatory Source of Information: Patient Limitations: No Limitations Description of Symptoms (Recalled from Triage Doc. by RN): PATIENT C/O SINUS PRESSURE, HEADACHE, RUNNY NOSE AND COUGH X 2 DAYS HEENT Symptoms (Recalled from RN notes): Yes Resp Symptoms (Recalled from RN notes): Yes Skin Symptoms (Recalled from RN notes): No MS Symptoms (Recalled from RN notes): No Functional Status (Recalled from RN notes): WNL - History of Present Illness Provider Complaint: 66 yr old female presnets for nasal congestion, sinus pressure and headache. pt states her head is hurting really bad and she thinks she might have fallen but is not sure and would like to go to ed to have it checked out. - Related Data Home Medications Medication Instructions Recorded Confirmed Atorvastatin Calcium [Lipitor 80mg 80 mg PO HS 12/28/17 07/22/21 Tab] Ferrous Sulfate 325 mg PO BID 12/28/17 07/22/21 Fluticasone/Vilanterol [Breo 1 puff IH DAILY 12/28/17 07/22/21 Ellipta 100-25 Mcg INH] Furosemide [Furosemide 40MG tAB*] 40 mg PO BID 12/28/17 07/22/21 Metformin HCl [Glucophage 500mg 500 mg PO BIDWM 12/28/17 07/22/21 Tablet] Omeprazole [Omeprazole 20mg 40 mg PO DAILY 12/28/17 07/22/21 Capsule] diazePAM [diazePAM 5mg Tablet] 5 mg PO TID 12/28/17 07/22/21 lisinopriL [Lisinopril 5mg 5 mg PO DAILY 12/28/17 07/22/21 Tablet] Albuterol Sulfate [Ventolin HFA 2 puff PO QIDP PRN 01/20/18 07/22/21 Inhaler] apixaban 5 mg tablet 5 mg PO BID 02/17/19 07/22/21 potassium chloride 20 mEq 20 meq PO BID #60 tab 05/25/19 07/22/21 tablet,extended release(part/cryst) Oxybutynin Chloride [Ditropan 5mg 5 mg PO BID 07/26/19 07/22/21 tablet] Bisoprolol Fumarate [Bisoprolol 5 mg PO DAILY 07/22/21 07/22/21 5mg Tablet] Clopidogrel Bisulfate [Plavix 75mg 75 mg PO DAILY 07/22/21 07/22/21 Tab] Previous Rx's Medication Instructions Recorded spironolactone 25 mg tablet See Rx Instructions .ROUTE 08/28/21 .COMPLEX #30 tablet Allergies Allergy/AdvReac Type Severity Reaction Status Date / Time acetaminophen [ACETAMINOPHEN] Allergy Intermediate I-RASH Verified 10/16/21 14:42 adhesive tape [ADHESIVE TAPE] Allergy Intermediate I-RASH Verified 10/16/21 14:42 digoxin [DIGOXIN] Allergy Intermediate NA-NAUSEA/V Verified 10/16/21 14:42 OMITING hydrocortisone Allergy Intermediate I-RASH Verified 10/16/21 14:42 [HYDROCORTISONE] Penicillins [PENICILLINS] Allergy Intermediate I-RASH Verified 10/16/21 14:42 ciprofloxacin [CIPROFLOXACIN] Allergy Mild NA-NAUSEA/V Verified 10/16/21 14:42 OMITING milk [MILK] Allergy Mild DIARRHEA Verified 10/16/21 14:42 cephalexin [From Keflex] Allergy Verified 10/16/21 14:42 - Worker's Comp Is this
--- NOTE | 2022-01-18 15:28 | PC.NURSE ---
PATIENT WANTING TO BE SEEN IN ER, STATING SHE THINKS SHE HIT HER HEAD AND HAS A BAD HEADACHE. Jeremías VELIZ SPOKE WITH Sallie VELARDE RN, WHO STATES THERE ARE 2 PATIENT IN FRONT OF HER WAITING ON A BED. PATIENT NOTIFIED OF THIS AND SHE VERBALIZED UNDERSTANDING
--- NOTE | 2022-01-18 18:00 | HMH.EDGENADL ---
ED Disposition Clinical Impression: Headache Qualifiers: Headache type: unspecified Headache chronicity pattern: acute headache Intractability: not intractable Qualified Code(s): R51.9 - Headache, unspecified Otitis media Qualifiers: Otitis media type: suppurative Chronicity: acute Laterality: left Recurrence: not specified as recurrent Spontaneous tympanic membrane rupture: without spontaneous rupture Qualified Code(s): H66.002 - Acute suppurative otitis media without spontaneous rupture of ear drum, left ear Disposition: Home, Self-Care Condition on Discharge: Good Instructions: DI for Middle Ear Infection-Adult, DI for Headache Additional Instructions: See Dr. Stone in his office in 2 days. Call tomorrow to make appointment. Take antibiotic as prescribed. Additional instructions for HEADACHE: Return immediately if worsening headache, vomiting, problems with vision or speech, fever, numbness or weakness of the extremities, neck pain or stiffness. Prescriptions: Azithromycin [Zithromax 250mg tab] 250 mg PO DAILY #4 tab Transmission Status: Pending to [facility] Referrals: Nguyen Stone MD [Primary Care Provider] - - Critical Care Critical Care Time: No Attestation: On 01/18/22, the high probability of a clinically significant, sudden or life threatening deterioration of the following system(s) required my full and direct attention, intervention and personal management. The time I documented below is in addition to time spent performing reported procedures but includes the following listed in this critical care notation. Medical Decision Making - Amanuel Inquiry Pt receiving controlled substance: No Vital Signs: 01/18/22 14:25 01/18/22 14:40 01/18/22 18:28 Temperature 98.3 F 98.3 F 98.3 F Temperature Source Oral Oral Oral Pulse Rate [Left Radial] 63 63 60 Respiratory Rate 17 17 20 Blood Pressure [Right Arm] 131/86 131/86 169/64 H Blood Pressure Mean [Right Arm] 101 101 99 Blood Pressure Source [Right Arm] Automatic Cuff Automatic Cuff Blood Pressure Position [Right Arm] Sitting Sitting 02 Sat by Pulse Oximetry 98 98 97 Oxygen Delivery Method Room Air Room Air Room Air - Lab Data Lab Results 01/18/22 18:36: SARS-CoV-2 (PCR) Not detected, Influenza A Untype (PCR) Not detected, Influenza Type B (PCR) Not detected 01/18/22 19:13: WBC 7.2, RBC 4.29, Hgb 11.5 L, Hct 36.9 L, MCV 86.1, MCH 26.8 L, MCHC 31.2 L, RDW 14.2, Plt Count 342, MPV 8.4, Neut % (Auto) 66.9, Lymph % (Auto) 25.2, [place] % (Auto) 4.5, Eos % (Auto) 2.2, Baso % (Auto) 1.2, Neut # (Auto) 4.8, Lymph # (Auto) 1.8, [place] # (Auto) 0.3, Eos # (Auto) 0.2, Baso # (Auto) 0.1 01/18/22 19:13: Sodium 137, Potassium 4.4, Chloride 101, Carbon Dioxide 31 H, Anion Gap 9.4, BUN 23 H, Creatinine 0.80, Estimated Creat Clear 81, Estimated GFR 72, Est GFR ( Amer) 87, Glucose 99, Calcium 9.0, Total Bilirubin 0.7, AST 21, ALT 12, Alkaline Phosphatase 160 H, Total Protein 7.7, Albumin 4.1, Globulin 3.6 H, Albumin/Globulin Ratio 1.1 01/18/22 19:13: ESR 70 H 01/18/22 19:13: C-Reactive Protein 4.5 H Result diagrams: 01/18/22 19:13 01/18/22 19:13 - Radiology Data #1 Image(s): Chest Image Reviewed: Yes I have reviewed radiologist's interpretation PROCEDURE INFORMATION: Exam: XR Chest Exam date and time: 01/18/2022 6:34 PM Age: 66 years old Clinical indication: Cough; Prior surgery; Surgery date: 6+ months; Surgery type: Pacemaker, stents TECHNIQUE: Imaging protocol: XR of the chest. Views: 2 views. COMPARISON: CR XR CHEST AP 01/09/2020 4:21 PM FINDINGS: Tubes, catheters and devices: Dual chamber pacemaker/cardioverter in appropriate position with lead tips in the right atrium and right ventricle. Airway: Patent Lungs: Low lung volumes causes crowding of the bronchovascular structures. No acute interstitial or airspace disease. Pleural spaces: Unremarkable. No pleural effusion. No pneumothor
[2022-01-18 18:28] VITALS: BP 169/64; PULSE 60; RESP 20; TEMP 36.8; O2SAT 97; BMI 34.3
--- NOTE | 2022-01-18 18:33 | CT_ITS ---
PROCEDURE INFORMATION: Exam: CT Head Without Contrast Exam date and time: 01/18/2022 6:45 PM Age: 66 years old Clinical indication: Pain; Headache not specified TECHNIQUE: Imaging protocol: Computed tomography of the head without contrast. Radiation optimization: All CT scans at this facility use at least one of these dose optimization techniques: automated exposure control; mA and/or kV adjustment per patient size (includes targeted exams where dose is matched to clinical indication); or iterative reconstruction. COMPARISON: CT HEAD/BRAIN WO CON 04/09/2021 3:49 PM FINDINGS: Brain: Age related brain involution is present. No acute intracranial hemorrhage, mass effect, midline shift, or brain herniation. Diffuse subcortical and periventricular white matter hypodensities are most in favor with chronic small vessel disease. Cerebral ventricles: There is ex vacuo ventriculomegaly. Paranasal sinuses: Visualized sinuses are unremarkable. No fluid levels. Mastoid air cells: Visualized mastoid air cells are well aerated. Vasculature: Intracranial atherosclerosis is present. Bones/joints: Unremarkable. No acute fracture. Soft tissues: Unremarkable. Nasal cavity: Right nasal kaylee bullosa with mild leftward displacement of the nasal septum. IMPRESSION: No acute intracranial pathology.
--- NOTE | 2022-01-18 18:34 | XR_ITS ---
PROCEDURE INFORMATION: Exam: XR Chest Exam date and time: 01/18/2022 6:34 PM Age: 66 years old Clinical indication: Cough; Prior surgery; Surgery date: 6+ months; Surgery type: Pacemaker, stents TECHNIQUE: Imaging protocol: XR of the chest. Views: 2 views. COMPARISON: CR XR CHEST AP 01/09/2020 4:21 PM FINDINGS: Tubes, catheters and devices: Dual chamber pacemaker/cardioverter in appropriate position with lead tips in the right atrium and right ventricle. Airway: Patent Lungs: Low lung volumes causes crowding of the bronchovascular structures. No acute interstitial or airspace disease. Pleural spaces: Unremarkable. No pleural effusion. No pneumothorax. Heart/Mediastinum: The heart is mildly enlarged. Vasculature: Calcified aortic knob. Bones/joints: No acute skeletal abnormality or aggressive osseous lesion. IMPRESSION: No acute thoracic pathology.
[2022-01-18 18:41] LABS: Coronavirus 19, PCR Not Detected (NotDetected); Influenza A, PCR Not Detected (NotDetected); Influenza B, PCR Not Detected (NotDetected)
[2022-01-18 19:23] LABS: Basophils # 0.1 K/mm3 (0-0.2); Basophils % 1.2 % (0.1-2.0); Eosinophils # 0.2 K/mm3 (0.0-0.4); Eosinophils % 2.2 % (0.1-12.0); Hematocrit 36.9 % (37.0-47.0); Hemoglobin 11.5 g/dL (12.2-16.2); Lymphocytes # 1.8 K/mm3 (0.7-4.5); Lymphocytes % 25.2 % (10-50); Mean Corpuscular HGB Conc 31.2 g/dL (31.8-35.4); Mean Corpuscular Hemoglobin 26.8 pg (27.0-31.2); Mean Corpuscular Volume 86.1 fl (81-99); Mean Platelet Volume 8.4 fl (7.4-10.4); Monocytes # 0.3 K/mm3 (0.1-1.0); Monocytes % 4.5 % (1.7-9.3); Neutrophils # 4.8 K/mm3 (1.8-7.8); Neutrophils % 66.9 % (37.0-80.0); Platelet Count 342 K/mm3 (142-424); Red Blood Count 4.29 M/mm3 (4.20-5.40); Red Cell Distribution Width 14.2 % (11.5-17.5); White Blood Count 7.2 K/mm3 (4.8-10.8)
[2022-01-18 19:33] LABS: Chloride 101 mmol/L (98-107); Potassium 4.4 mmoL/L (3.5-5.1); Sodium 137 mmol/L (136-145)
[2022-01-18 19:35] LABS: Blood Urea Nitrogen 23 mg/dl (7-17); Creatinine Clearance Estimated 81 mL/min (50-200); Estimated Glomerular Filt Rate 72 ml/min (>60); GFR (African American) 87 ML/MIN (>60)
[2022-01-18 19:36] LABS: Alanine Aminotransferase 12 U/L (12-78); Albumin Level 4.1 g/dl (3.5-5.0); Albumin/Globulin Ratio 1.1 (1.1-1.8); Alkaline Phosphatase 160 U/L (38-126); Anion Gap 9.4 mEq/L (5-15); Aspartate Amino Transferase 21 U/L (14-36); Bilirubin,Total 0.7 mg/dl (0.2-1.3); Carbon Dioxide 31 mmol/L (22.0-30.0); Globulin 3.6 g/dL (1.3-3.2); Glucose 99 mg/dl (74-100); Total Protein,Serum 7.7 g/dl (6.3-8.2)
[2022-01-18 19:50] LABS: Erythrocyte Sedimentation Rate 70 mm/hr (0-30)
--- NOTE | 2022-01-18 19:56 | PC.NURSE ---
confirmed with lab that there was enough blood to complete added labs
--- NOTE | 2022-01-18 20:12 | PC.NURSE ---
Dr. Manuel ames for Dr. King
[2022-01-18 20:15] LABS: C-Reactive Protein 4.5 mg/L (0-4)
[2022-01-18 20:32] VITALS: BP 169/93; PULSE 60; RESP 18; TEMP 36.8; O2SAT 97
== END 2022-01-18 20:44 | disposition home or self-care (01) ==
LOC: UTC 14:26 → ER 16:20
PROVIDERS: Emergency Provider Emergency Medicine; PCP Family Medicine
DX: H66.002 Acute suppurative otitis media without spontaneous rupture of ear drum, left ear (principal); R06.02 Shortness of breath; R51.9 Headache, unspecified; D64.9 Anemia, unspecified; R11.10 Vomiting, unspecified; Z20.822 Contact with and (suspected) exposure to COVID-19; I11.0 Hypertensive heart disease with heart failure; I50.9 Heart failure, unspecified; I48.91 Unspecified atrial fibrillation; R01.1 Cardiac murmur, unspecified; I25.10 Atherosclerotic heart disease of native coronary artery without angina pectoris; I25.2 Old myocardial infarction; I38 Endocarditis, valve unspecified; I73.9 Peripheral vascular disease, unspecified; K21.9 Gastro-esophageal reflux disease without esophagitis; E78.5 Hyperlipidemia, unspecified; J98.4 Other disorders of lung; K44.9 Diaphragmatic hernia without obstruction or gangrene; M19.90 Unspecified osteoarthritis, unspecified site; J44.9 Chronic obstructive pulmonary disease, unspecified; F32.A Depression, unspecified; F17.210 Nicotine dependence, cigarettes, uncomplicated; Z79.01 Long term (current) use of anticoagulants; Z79.02 Long term (current) use of antithrombotics/antiplatelets; Z79.51 Long term (current) use of inhaled steroids; Z79.84 Long term (current) use of oral hypoglycemic drugs; Z79.899 Other long term (current) drug therapy; Z88.0 Allergy status to penicillin; Z88.1 Allergy status to other antibiotic agents; Z88.3 Allergy status to other anti-infective agents; Z88.5 Allergy status to narcotic agent; Z88.6 Allergy status to analgesic agent; Z88.8 Allergy status to other drugs, medicaments and biological substances; Z91.011 Allergy to milk products; Z91.048 Other nonmedicinal substance allergy status; Z95.0 Presence of cardiac pacemaker; Z95.5 Presence of coronary angioplasty implant and graft; Z92.21 Personal history of antineoplastic chemotherapy; Z80.9 Family history of malignant neoplasm, unspecified; Z82.49 Family history of ischemic heart disease and other diseases of the circulatory system; Z83.438 Family history of other disorder of lipoprotein metabolism and other lipidemia; Z84.1 Family history of disorders of kidney and ureter
CPT/HCPCS: 70450; 71046; 80053; 85025; 85651; 86140; 99285; C9803; U0003; U0005

== ENCOUNTER → 2022-04-30 13:18 | Outpatient (CLI) | payer MEDICARE, OTHER, SELFPAY ==
[2022-04-30 13:49] LABS: Basophils # 0.1 K/mm3 (0-0.2); Basophils % 0.9 % (0.1-2.0); Eosinophils # 0.2 K/mm3 (0.0-0.4); Eosinophils % 3.2 % (0.1-12.0); Hematocrit 32.2 % (37.0-47.0); Hemoglobin 10.8 g/dL (12.2-16.2); Lymphocytes # 2.1 K/mm3 (0.7-4.5); Lymphocytes % 43.1 % (10-50); Mean Corpuscular HGB Conc 33.5 g/dL (31.8-35.4); Mean Corpuscular Hemoglobin 27.3 pg (27.0-31.2); Mean Corpuscular Volume 81.6 fl (81-99); Mean Platelet Volume 9.7 fl (7.4-10.4); Monocytes # 0.2 K/mm3 (0.1-1.0); Monocytes % 4.8 % (1.7-9.3); Neutrophils # 2.3 K/mm3 (1.8-7.8); Platelet Count 161 K/mm3 (142-424); Red Blood Count 3.95 M/mm3 (4.20-5.40); Red Cell Distribution Width 14.2 % (11.5-17.5); White Blood Count 4.9 K/mm3 (4.8-10.8)
[2022-04-30 13:57] LABS: Alanine Aminotransferase 17 U/L (12-78); Albumin Level 4.1 g/dl (3.5-5.0); Albumin/Globulin Ratio 1.4 (1.1-1.8); Alkaline Phosphatase 130 U/L (38-126); Anion Gap 10.3 mEq/L (5-15); Aspartate Amino Transferase 24 U/L (14-36); Bilirubin,Total 0.5 mg/dl (0.2-1.3); Blood Urea Nitrogen 15 mg/dl (7-17); Calcium 9.1 mg/dl (8.4-10.2); Carbon Dioxide 29 mmol/L (22.0-30.0); Chloride 102 mmol/L (98-107); Estimated Glomerular Filt Rate 63 ml/min (>60); GFR (African American) 76 ML/MIN (>60); Globulin 2.9 g/dL (1.3-3.2); Glucose 101 mg/dl (74-100); Potassium 4.3 mmoL/L (3.5-5.1); Sodium 137 mmol/L (136-145)
[2022-04-30 14:13] LABS: Iron 64 ug/dL (37-170)
[2022-04-30 14:50] LABS: Ferritin 7.14 ng/ml (11.1-264)
[2022-04-30 15:36] LABS: Total Iron Binding Capacity 387 ug/dL (265-497)
[2022-05-08 03:41] LABS: Interpretation: Negative (.)
== END ==
LOC: LAB 13:25 → INF 13:26 → LAB 13:27
PROVIDERS: PCP Family Medicine; Visit Provider Internal Medicine Medical Oncology
DX: C92.21 Atypical chronic myeloid leukemia, BCR/ABL-negative, in remission (principal)
CPT/HCPCS: 36415; 80053; 81206; 82728; 83540; 83550; 85025

== ENCOUNTER 2022-07-20 14:16 | Inpatient (IN) | payer MEDICARE, OTHER, SELFPAY ==
[2022-07-20] VITALS (10 sets, daily range): BP systolic 109–125; BP diastolic 46–86; PULSE 60–63; RESP 16–20; TEMP 36.6–39.6; O2SAT 96–100; BMI 34.3
--- NOTE | 2022-07-20 14:27 | CT_ITS ---
FINAL REPORT TECHNIQUE: Axial CT images were performed through the head. Coronal reformatted images were submitted. This study was performed with techniques to keep radiation doses as low as reasonably achievable (ALARA). Individualized dose reduction techniques using automated exposure control or adjustment of mA and/or kV according to the patient's size were employed. CLINICAL HISTORY: fall, AMS FINDINGS: The ventricles are normal in size. There is no evidence of hemorrhage. There is no mass or edema identified. There is physiologic calcification in the basal ganglia. There is no abnormal extra-axial fluid seen. The sinuses are well aerated. There is no acute osseous abnormality. IMPRESSION: No acute intracranial process. Reviewed, Interpreted and Dictated by Tin Hobbs MD Transcribed by Bonifacio Riley Authenticated and [facility]
--- NOTE | 2022-07-20 14:28 | XR_ITS ---
FINAL REPORT CLINICAL HISTORY: SOB/CP COMPARISON: January 18, 2022 FINDINGS: The heart size is mildly enlarged. There is a left subclavian pacemaker. The mediastinum is normal. There are mild chronic changes. There are no pleural effusions. There is no pneumothorax. There is no osseous abnormality. IMPRESSION: No acute cardiopulmonary process Reviewed, Interpreted and Dictated by Tin Hobbs MD Transcribed by Bonifacio Riley Authenticated and [facility]
--- NOTE | 2022-07-20 14:30 | HMH.EDGENADL ---
Discharge Plan Disposition Patient Disposition: Admitted As Inpatient Condition: Fair Prescriptions Prescriptions: No Action omeprazole 40 mg capsule,delayed release(DR/EC) 40 mg PO DAILY cyanocobalamin (vitamin B-12) [Vitamin B-12] 1,000 mcg tablet 1,000 mcg PO DAILY Eliquis 5 mg tablet 5 mg PO BID potassium chloride 20 mEq tablet,ER particles/crystals 20 meq PO BID Qty: 60 Label Comments: TAKE 1 TABLET BY MOUTH TWICE DAILY clopidogrel 75 mg tablet See Rx Instructions .ROUTE .COMPLEX Qty: 30 5RF Dose Instruction: TAKE ONE TABLET BY MOUTH EVERY DAY Rx Instructions: TAKE ONE TABLET BY MOUTH EVERY DAY bisoprolol fumarate 5 mg tablet See Rx Instructions .ROUTE .COMPLEX Qty: 30 5RF Dose Instruction: TAKE ONE TABLET BY MOUTH EVERY DAY Rx Instructions: TAKE ONE TABLET BY MOUTH EVERY DAY spironolactone 25 mg tablet See Rx Instructions .ROUTE .COMPLEX Qty: 30 5RF Dose Instruction: TAKE ONE TABLET BY MOUTH EVERY DAY Rx Instructions: TAKE ONE TABLET BY MOUTH EVERY DAY furosemide 40 tablet 40 mg PO BID Label Comments: metformin 500 MG tablet 500 mg PO BIDWM atorvastatin 80 MG tablet 80 mg PO HS ferrous sulfate 325 MG tablet 325 mg PO BID lisinopril 5 tablet 5 mg PO DAILY Label Comments: fluticasone furoate-vilanterol 0 blister with device 1 puff IH DAILY Label Comments: diazepam 5 MG tablet 5 mg PO TID albuterol sulfate 108 HFA aerosol inhaler 2 puff PO QIDP PRN (Reason: Shortness Of Breath) Label Comments: oxybutynin chloride 5 MG tablet 5 mg PO BID Label Comments: TAKE 1 TABLET BY MOUTH TWICE DAILY Clinical Impressions Clinical Impression: Diarrhea, Acute dehydration, JUANITA (acute kidney injury), Elevated troponin, Acute alteration in mental status Discharge ED Provider: Darron Alejandra General Adult HPI General Chief complaint: Fever Stated complaint: fall Time Seen by Provider: 07/20/22 14:35 Mode of Arrival: EMS Limitations: Altered Mental Status History of Present Illness HPI narrative: History limited due to altered mental status, is a 67-year-old female from home, brought in by EMS for confusion, fever, diarrhea. No family coming patient at this time, she does arrive with a very loose stools, is febrile to 103, answers some questions appropriately but does exhibit some confusion. Is not exactly clear what her baseline mental status is Related Data Home Medications Medication Instructions Recorded Confirmed atorvastatin 80 mg tablet 80 mg PO HS Cholesterol 12/28/17 04/30/22 diazepam 5 mg tablet 5 mg PO TID Anxiety 12/28/17 04/30/22 ferrous sulfate 325 mg (65 mg 325 mg PO BID Supplement 12/28/17 04/30/22 iron) tablet fluticasone furoate 100 1 puff inhalation DAILY COPD 12/28/17 04/30/22 mcg-vilanterol 25 mcg/dose inhalation powder furosemide 40 mg tablet 40 mg PO BID Fluid 12/28/17 04/30/22 lisinopril 5 mg tablet 5 mg PO DAILY Hypertension 12/28/17 04/30/22 metformin 500 mg tablet 500 mg PO BIDWM Diabetes 12/28/17 04/30/22 albuterol sulfate 90 mcg/actuation 2 puff PO QIDP PRN Shortness Of 01/20/18 04/30/22 aerosol inhaler Breath apixaban 5 mg tablet (Eliquis) 5 mg PO BID Blood thinner 02/17/19 04/30/22 potassium chloride 20 mEq 20 meq PO BID Supplement #60 tabs 05/25/19 04/30/22 tablet,extended release(part/cryst) oxybutynin chloride 5 mg tablet 5 mg PO BID BLADDER 07/26/19 04/30/22 cyanocobalamin (vitamin B-12) 1,000 mcg PO DAILY 04/30/22 04/30/22 1,000 mcg tablet (Vitamin B-12) omeprazole 40 mg capsule,delayed 40 mg PO DAILY 04/30/22 04/30/22 release Previous Rx's Medication Instructions Recorded bisoprolol fumarate 5 mg tablet See Rx Instructions .Route 01/21/22 .COMPLEX #30 tabs clopidogrel 75 mg tablet See Rx Instructions .Route 01/21/22 .COMPLEX #30 tabs spironolactone 25 mg tablet S
[2022-07-20 14:45] LABS: Microscopic, Urine URINE MICROSCOPIC (MICROSCOPIC)
[2022-07-20 14:48] LABS: Appearance,Urine CLEAR (Clear); Blood, Urine 2+ (Negative); Color,Urine YELLOW (Yellow); Glucose,Urine (UA) Negative (Negative); Ketones,Urine Negative (Negative); Leukocyte Esterase,Urine Negative (Negative); Nitrate,Urine Negative (Negative); PH,Urine 5.5 (5.0-8.5); Protein,Urine 2+ (Negative); Specific Gravity, Urine >= 1.030 (1.005-1.030); Urobilinogen,Urine 0.2 EU/dl (0.2)
[2022-07-20 14:50] LABS: Bilirubin,Urine 1+ (Negative)
[2022-07-20 14:53] LABS: Alanine Aminotransferase 26 U/L (12-78); Albumin Level 3.6 g/dl (3.5-5.0); Albumin/Globulin Ratio 1.2 (1.1-1.8); Alkaline Phosphatase 116 U/L (38-126); Anion Gap 14.2 mEq/L (5-15); Aspartate Amino Transferase 40 U/L (14-36); Bilirubin,Total 0.9 mg/dl (0.2-1.3); Blood Urea Nitrogen 35 mg/dl (7-17); Calcium 8.2 mg/dl (8.4-10.2); Carbon Dioxide 25 mmol/L (22.0-30.0); Chloride 102 mmol/L (98-107); Creatinine Clearance Estimated 54 mL/min (50-200); Estimated Glomerular Filt Rate 35 ml/min (>60); GFR (African American) 42 ML/MIN (>60); Globulin 2.9 g/dL (1.3-3.2); Glucose 147 mg/dl (74-100); Potassium 3.2 mmoL/L (3.5-5.1); Sodium 138 mmol/L (136-145); Total Protein,Serum 6.5 g/dl (6.3-8.2)
[2022-07-20 14:54] LABS: Creatine Kinase 413 U/L (30-135); Lactic Acid 1.6 mmol/L (0.7-2.1)
[2022-07-20 15:04] LABS: Amorphous Sediment,Urine 3+ /lpf; Bacteria,Urine 1+ /lpf; Squamous Epithelial Cell,Urine Occasional #/hpf (0-5); Transitional Epi Cells,Urine OCC #/lpf (0-3); WBC,Urine Occasional #/hpf (0-3)
[2022-07-20 15:06] LABS: Troponin I 0.17 ng/ml (0.00-0.034)
[2022-07-20 15:11] LABS: Procalcitonin 18.5 ng/mL (0.0-2.0)
--- NOTE | 2022-07-20 15:26 | ECG_ITS ---
APPROVED REPORT Exam: Resting ECG HR:60 bpm ECG Measurements Heart Rate 60 AXES NV 176 P -48 QRSd 179 QRS -83 QT 453 T 108 QTc 454 Conclusion ELECTRONIC ATRIAL PACEMAKER ELECTRONIC VENTRICULAR PACEMAKER ABNORMAL RHYTHM ECG UNCONFIRMED REPORT Electronically signed by : Kole Acevedo MD 07/21/2022 21:10:36
[2022-07-20 15:37] LABS: Basophils % 0.4 % (0.1-2.0); Eosinophils % 0.2 % (0.1-12.0); Hemoglobin 10.3 g/dL (12.2-16.2); Lymphocytes # 0.3 K/mm3 (0.7-4.5); Lymphocytes % 3.8 % (10-50); Mean Corpuscular HGB Conc 33.4 g/dL (31.8-35.4); Mean Corpuscular Hemoglobin 27.8 pg (27.0-31.2); Mean Corpuscular Volume 83.3 fl (81-99); Mean Platelet Volume 10.9 fl (7.4-10.4); Monocytes # 0.2 K/mm3 (0.1-1.0); Monocytes % 3.1 % (1.7-9.3); Neutrophils # 7.1 K/mm3 (1.8-7.8); Neutrophils % 92.6 % (37.0-80.0); Platelet Count 89 K/mm3 (142-424); Red Blood Count 3.72 M/mm3 (4.20-5.40); Red Cell Distribution Width 14.8 % (11.5-17.5); White Blood Count 7.7 K/mm3 (4.8-10.8)
[2022-07-20 15:39] LABS: MANUAL DIFFERENTIAL MANUAL DIFFERENTIAL (MANUAL DIFF)
--- NOTE | 2022-07-20 15:42 | EXP.PHA.CONS ---
Pharmacy Consult Date: 07/20/22 Time: 15:43 Referring provider: DR FRENCH Reason for Consult:: VANCOMYCIN DOSING CONSULT Allergies Allergy/AdvReac Type Severity Reaction Status Date / Time acetaminophen [ACETAMINOPHEN] Allergy Intermediate I-RASH Verified 04/30/22 14:07 adhesive tape [ADHESIVE TAPE] Allergy Intermediate I-RASH Verified 04/30/22 14:07 digoxin [DIGOXIN] Allergy Intermediate NA-NAUSEA/V Verified 04/30/22 14:07 OMITING hydrocortisone Allergy Intermediate I-RASH Verified 04/30/22 14:07 [HYDROCORTISONE] Penicillins [PENICILLINS] Allergy Intermediate I-RASH Verified 04/30/22 14:07 ciprofloxacin [CIPROFLOXACIN] Allergy Mild NA-NAUSEA/V Verified 04/30/22 14:07 OMITING milk [MILK] Allergy Mild DIARRHEA Verified 04/30/22 14:07 cephalexin [From Keflex] Allergy Verified 04/30/22 14:07 Home Medications Medication Instructions Recorded Confirmed Type atorvastatin 80 mg tablet 80 mg PO HS Cholesterol 12/28/17 04/30/22 History diazepam 5 mg tablet 5 mg PO TID Anxiety 12/28/17 04/30/22 History ferrous sulfate 325 mg (65 mg 325 mg PO BID Supplement 12/28/17 04/30/22 History iron) tablet fluticasone furoate 100 1 puff inhalation DAILY COPD 12/28/17 04/30/22 History mcg-vilanterol 25 mcg/dose inhalation powder furosemide 40 mg tablet 40 mg PO BID Fluid 12/28/17 04/30/22 History lisinopril 5 mg tablet 5 mg PO DAILY Hypertension 12/28/17 04/30/22 History metformin 500 mg tablet 500 mg PO BIDWM Diabetes 12/28/17 04/30/22 History albuterol sulfate 90 mcg/actuation 2 puff PO QIDP PRN Shortness Of 01/20/18 04/30/22 History aerosol inhaler Breath apixaban 5 mg tablet (Eliquis) 5 mg PO BID Blood thinner 02/17/19 04/30/22 History potassium chloride 20 mEq 20 meq PO BID Supplement #60 tabs 05/25/19 04/30/22 History tablet,extended release(part/cryst) oxybutynin chloride 5 mg tablet 5 mg PO BID BLADDER 07/26/19 04/30/22 History bisoprolol fumarate 5 mg tablet See Rx Instructions .Route 01/21/22 04/30/22 Rx .COMPLEX #30 tabs clopidogrel 75 mg tablet See Rx Instructions .Route 01/21/22 04/30/22 Rx .COMPLEX #30 tabs spironolactone 25 mg tablet See Rx Instructions .Route 02/20/22 04/30/22 Rx .COMPLEX #30 tabs cyanocobalamin (vitamin B-12) 1,000 mcg PO DAILY 04/30/22 04/30/22 History 1,000 mcg tablet (Vitamin B-12) omeprazole 40 mg capsule,delayed 40 mg PO DAILY 04/30/22 04/30/22 History release New Prescriptions to Start Prescriptions: Height: 1.63 m Weight: 90.718 kg Laboratory Results:: Laboratory Results - last 24 hr 07/20/22 14:20: Total Creatine Kinase 413 H, Troponin I 0.17 H, Procalcitonin 18.5 H 07/20/22 14:20: Lactate 1.6 07/20/22 14:20: WBC 7.7, RBC 3.72 L, Hgb 10.3 L, Hct 31.0 L, MCV 83.3, MCH 27.8, MCHC 33.4, RDW 14.8, Plt Count 89 L, MPV 10.9 H, Neut % (Auto) 92.6 H, Lymph % (Auto) 3.8 L, Vilas % (Auto) 3.1, Eos % (Auto) 0.2, Baso % (Auto) 0.4, Neut # (Auto) 7.1, Lymph # (Auto) 0.3 L, Vilas # (Auto) 0.2, Eos # (Auto) 0.0, Baso # (Auto) 0.0 07/20/22 14:20: Sodium 138, Potassium 3.2 L, Chloride 102, Carbon Dioxide 25, Anion Gap 14.2, BUN 35 H, Creatinine 1.50 H, Estimated Creat Clear 54, Estimated GFR 35 L, Est GFR ( Amer) 42 L, Glucose 147 H, Calcium 8.2 L, Total Bilirubin 0.9, AST 40 H, ALT 26, Alkaline Phosphatase 116, Total Protein 6.5, Albumin 3.6, Globulin 2.9, Albumin/Globulin Ratio 1.2 07/20/22 14:30: Urine Color Yellow, Urine Appearance Clear, Urine pH 5.5, Ur Specific Matthews >= 1.030, Urine Protein 2+, Urine Glucose (UA) Negative, Urine Ketones Negative, Urine Blood 2+, Urine Nitrate Negative, Urine Bilirubin 1+ A, Urine Urobilinogen 0.2, Ur Leukocyte Esterase Negative, Urine RBC 5-10, Urine WBC Occasional, Ur Squamous Epith Cells Occasional, Ur Transition Epith Cell Occ, Amorphous Sediment 3+, Urine Bacteria 1+ Assessment and Plan Assessment and plan all Dx Assessment and Plan for all problems:: Pharmacokinetic dosing service Objective:
[2022-07-20 16:01] LABS: Coronavirus 19, PCR Not Detected (NotDetected); Influenza A, PCR Not Detected (NotDetected); Influenza B, PCR Not Detected (NotDetected)
[2022-07-20 16:11] LABS: Hypochromasia 1+; Lymphocytes % 6 % (10-50); Monocytes % 1 % (2-9); Neutrophils % 93 % (42-76); Ovalocytes 2+; Platelet Estimate Marked Decrease; Total Cells Counted 100
--- NOTE | 2022-07-20 17:20 | PC.NURSE ---
house called for admission
[2022-07-20 18:20] LABS: Troponin I 0.24 ng/ml (0.00-0.034)
--- NOTE | 2022-07-20 18:20 | PC.NURSE ---
TROP RESULT AT THIS TIME 0.24 PER MOOK IN LAB. PT NAME AND R/V. DR. FRENCH NOTIFIED
--- NOTE | 2022-07-20 18:27 | PC.NURSE ---
Dr Manuel ames
--- NOTE | 2022-07-20 18:28 | PC.NURSE ---
Dr Alejandra speaking with Dr Jackson
--- NOTE | 2022-07-20 18:29 | PC.NURSE ---
Dr Alejandra speaking with Dr Santamaria
--- NOTE | 2022-07-20 18:33 | PC.NURSE ---
Called report to Karis Sun
--- NOTE | 2022-07-20 18:38 | PC.NURSE ---
pt to med surg per BOOKER Ludwig
--- NOTE | 2022-07-20 18:45 | PC.NURSE ---
patient arrived to floor by stretcher from ED
--- NOTE | 2022-07-20 19:22 | PC.NURSE ---
Pt to floor at 1847. Report given to AREN Pearson. 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 Jackson for med for fever. Awaiting cb at this time. 1924.
--- NOTE | 2022-07-20 19:38 | PC.NURSE ---
Received order for PRN Ibuprofen 600 mg q 6 prn,from Dr. Jackson, given at 1939.
[2022-07-20 21:27] LABS: Troponin I 0.24 ng/ml (0.00-0.034)
--- NOTE | 2022-07-20 21:30 | PC.NURSE ---
received a call from lab reporting a critical troponin of 0.24, pt name and verified. results reported to MD Jackson. no new orders at this time.
[2022-07-21] VITALS (11 sets, daily range): BP systolic 112–133; BP diastolic 48–75; PULSE 60–68; RESP 16–20; TEMP 36.5–37.1; O2SAT 93–100
--- NOTE | 2022-07-21 04:28 | PC.NURSE ---
pt has rested well t/o this shift. pt is A&O to person and place. carrero cath is in place and draining adequately. pt has had episodes of diarrhea X3 this shift, she stated that this is normal for her. she has not c/o pain this shift. CB is in reach.
[2022-07-21 06:44] LABS: Basophils % 0.2 % (0.1-2.0); Eosinophils % 0.3 % (0.1-12.0); Hemoglobin 9.6 g/dL (12.2-16.2); Lymphocytes # 0.5 K/mm3 (0.7-4.5); Lymphocytes % 7.3 % (10-50); Mean Corpuscular HGB Conc 31.9 g/dL (31.8-35.4); Mean Corpuscular Hemoglobin 27.5 pg (27.0-31.2); Mean Corpuscular Volume 86.2 fl (81-99); Mean Platelet Volume 11.6 fl (7.4-10.4); Monocytes # 0.3 K/mm3 (0.1-1.0); Monocytes % 3.7 % (1.7-9.3); Neutrophils % 88.5 % (37.0-80.0); Platelet Count 69 K/mm3 (142-424); Red Blood Count 3.48 M/mm3 (4.20-5.40); Red Cell Distribution Width 15.1 % (11.5-17.5); White Blood Count 6.8 K/mm3 (4.8-10.8)
[2022-07-21 06:49] LABS: MANUAL DIFFERENTIAL MANUAL DIFFERENTIAL (MANUAL DIFF)
[2022-07-21 06:55] LABS: Anion Gap 13.5 mEq/L (5-15); Blood Urea Nitrogen 36 mg/dl (7-17); Calcium 7.2 mg/dl (8.4-10.2); Carbon Dioxide 21 mmol/L (22.0-30.0); Chloride 107 mmol/L (98-107); Creatinine Clearance Estimated 67 mL/min (50-200); Estimated Glomerular Filt Rate 45 ml/min (>60); GFR (African American) 55 ML/MIN (>60); Glucose 118 mg/dl (74-100); Potassium 3.5 mmoL/L (3.5-5.1); Sodium 138 mmol/L (136-145)
--- NOTE | 2022-07-21 07:51 | P.CONPHA_ITS ---
[facility] Pharmacy VTE Monitoring Patient Demographics Admission date: 07/20/22 Report Date: 07/21/22 Time: 07:51 Patient Allergies acetaminophen [ACETAMINOPHEN] Allergy (Intermediate, Verified 04/30/22 14:07) I-RASH adhesive tape [ADHESIVE TAPE] Allergy (Intermediate, Verified 04/30/22 14:07) I-RASH digoxin [DIGOXIN] Allergy (Intermediate, Verified 04/30/22 14:07) NA-NAUSEA/VOMITING hydrocortisone [HYDROCORTISONE] Allergy (Intermediate, Verified 04/30/22 14:07) I-RASH Penicillins [PENICILLINS] Allergy (Intermediate, Verified 04/30/22 14:07) I-RASH ciprofloxacin [CIPROFLOXACIN] Allergy (Mild, Verified 04/30/22 14:07) NA-NAUSEA/VOMITING milk [MILK] Allergy (Mild, Verified 04/30/22 14:07) DIARRHEA cephalexin [From Keflex] Allergy (Verified 04/30/22 14:07) Height: 1.63 m Weight: 90.718 kg Current Active Problems (Updated 07/20/22 @ 22:04 by Lili Stone RN) Diarrhea (Acute) Acute dehydration (Acute) JUANITA (acute kidney injury) (Acute) Elevated troponin (Acute) Acute alteration in mental status (Acute) VTE Risk Labs: VTE Related Lab Results Hgb 9.6 g/dL (12.2-16.2) L 07/21/22 05:57 Hct 30.0 % (37.0-47.0) L 07/21/22 05:57 Plt Count 69 K/mm3 (142-424) L 07/21/22 05:57 BUN 36 mg/dl (7-17) H 07/21/22 05:57 Creatinine 1.20 mg/dl (0.52-1.04) H 07/21/22 05:57 Estimated Creat Clear 67 mL/min (50-200) 07/21/22 05:57 Was VTE Risk Assessment Performed: Yes VTE Score: 4 VTE Risk Level: Low Risk Prophylaxis VTE Prophylaxis Ordered?: Yes Types of VTE Prophylaxis: TEDS Knee High and Pharmacological Location of Applied Device: Bilateral Lower Extremeties Pharmacologic Type: Other (ELIQUIS)
[2022-07-21 08:28] LABS: Lymphocytes % 8 % (10-50); Monocytes % 6 % (2-9); Neutrophils % 86 % (42-76); Total Cells Counted 100
[2022-07-21 08:31] LABS: Hypochromasia 2+; Platelet Estimate Moderate Decrease
--- NOTE | 2022-07-21 09:09 | CA_ITS ---
APPROVED REPORT EXAM: Comprehensive 2D, Doppler, and color-flow Echocardiogram Office Services Manager: Mag Harrington, SARKIS, RVS Ht: 5 ft 4 in Wt: 200lbs BSA: 1.96 BP: 109/79 mmHg Indications: JUANITA, COPD, Elevated tropnin, Smoker, murmur, dm , htn, HLD 2D Dimensions Aortic Root 2.89 cm LA Volume 77.20 mL Left Atrium 3.82 cm LA Volume Index [id number] mL/m2 (M/F) 16-34 LVOT 1.99 cm (M/F) 1.5-2.5 M-Mode Dimensions RVDd 3.43 cm (0.9-2.6) LA Diam 4.67 cm (1.9-4.0) LVDd 5.03 cm (3.5-5.7) Ao Diam 2.96 cm (2.0-3.7) LVDs 3.37 cm (3.5-5.7) IVSd 0.89 cm (0.6-1.1) PWd 0.87 cm (0.6-1.1) EF (Teich) 61.30% EPSs 0.20 cm FS 33.00% EDV (Teich) 119.90 mL TAPSE 1.09 (<1.7) ESV (Teich) 46.40 mL LV Diastology E Decel Time 357.00 (160-240 msec) E/A Ratio 7.32 MED E' 6.50 (< 7 cm/sec) MED A' 3.30 cm/s E'/MED E' Ratio 24.65 (>14) LAT E' 10.50 (<10 cm/sec) LAT A' 5.40 cm/s E/LAT E' Ratio 15.26 (>14) Aortic Valve LVOT Max 117.00 (70-110 cm/s) LVOT VTI 24.36 cm AoV Peak Lionel. 281.00 (50-130 cm/s) AI PHT 466.00 ms AO Peak GR. 31.60 mmHg AO Mean GR. 18.00 (<5 mmHg) AO VTI 61.62 (18-25 cm) PATIENCE (VTI) 1.23 (2.5-4.5 cm2) Mitral Valve MV E Max Lionel. 160.00 (40-130 cm/s) MV A Velocity 22.00 (40-130 cm/s) E/A Ratio 7.32 MV Decel. Time 357.00 (160-240 ms) MV PHT 104.00 ms Pulmonary Valve PV Peak Velocity 145.00 (50-150 cm/s) OK End VMAX 229.00 cm/s Tricuspid Valve TR P. Velocity 213.00 cm/s RAP Estimate 10.00 mmHg RVSP 28.20 mmHg Left Ventricle Left atrium is mildly enlarged, left ventricle is normal size mild concentric left ventricular hypertrophy, estimated ejection fraction 55% with no regional wall motion abnormality, diastolic parameters of inconclusive. Right Ventricle Right atrium and right ventricle are mildly enlarged with normal contractility, there is pacemaker lead seen in right ventricle. Aortic Valve Aortic valve is thickened and calcified, mean gradient across aortic valve is 20 mmHg, valve area is 1.3 cm Represents moderate aortic stenosis, there is mild aortic insufficiency. Mitral Valve Mitral valve leaflets are minimally thickened, there is mild mitral regurgitation. Tricuspid Valve Tricuspid valve is grossly normal, there is mild tricuspid regurgitation, tricuspid regurgitation jet velocity is inadequate for calculation of the right ventricular systolic pressure. Pulmonic Valve Pulmonic valve is poorly visualized. Great Vessels Aortic root is normal size. Inferior vena cava is poorly visualized. Pericardium No significant pericardial effusion noted. Conclusion 1. Mildly enlarged atrium, normal left ventricular size, mild concentric left ventricular hypertrophy, estimated ejection fraction 55% with no regional wall motion abnormality, diastolic parameters are inconclusive. 2. Thickened and calcified aortic valve with moderate aortic stenosis, valve area is 1.3 cm???, there is mild aortic insufficiency. 3. Mild mitral and tricuspid regurgitation. 4. No significant pericardial effusion noted. 5. Inferior vena cava is poorly visualized. Electronically signed by : Thong Rogel MD 07/21/2022 18:28:18
--- NOTE | 2022-07-21 09:14 | ECG_ITS ---
APPROVED REPORT Exam: Resting ECG HR:61 bpm ECG Measurements Heart Rate 61 AXES MS 188 P -84 QRSd 166 QRS -82 QT 467 T 100 QTc 471 Conclusion ELECTRONIC ATRIAL PACEMAKER ELECTRONIC VENTRICULAR PACEMAKER ABNORMAL RHYTHM ECG UNCONFIRMED REPORT Electronically signed by : Kole Acevedo MD 07/21/2022 21:08:20
--- NOTE | 2022-07-21 09:26 | EXP.HP ---
History of Present Illness *Admission Date: 07/20/22 *Reason for visit:: Altered mental status. Fever. *History of present illness: Ms. Hannah is a 67-year-old female with history of hypertension, depression, recurrent UTIs, hiatal hernia, hyperlipidemia, coronary artery disease with previous stent, interstitial cystitis, who was sent to [facility] by family via EMS due to altered mental status after a fall. Patient is a poor historian today and cannot remember much of 2 days ago and very little of yesterday. She does remember getting out of the bed yesterday tripping over a fan and falling and hurting her right foot. Her son with whom she lives had her brought to [facility] for evaluation. Patient does not think she had any chest pain. She does experience shortness of breath at times. He does not remember having a fever at home. She has chronic diarrhea and is incontinent.. She sometimes is nauseated but does not vomit. She does not think she has been eating and drinking very well. She states she voids every 5 minutes. She states she was not able to walk due to pain in her right foot. Patient states she has been mass for quite a while. She has been out of her nerve medicine. With evaluation in the emergency room she was found to have a fever of 103.2. Troponin I was found to be elevated at 0.17 with a CPK of 413. Lactate was 1.6. CBC revealed a white blood cell count of 7700 with a hemoglobin of 10.3 and hematocrit of 31. BUN was 35 and creatinine 1.5. Potassium 3.2. Blood sugar was 147. She was given doses of cefazolin pain and vancomycin IV as well as a liter x2 of IV fluids. She was given p.o. potassium.Head CT showed no acute intracranial process. Chest x-ray showed no acute cardiopulmonary process. Patient states she is doing okay this morning. She does not recall much of anything yesterday. She denies chest pain and shortness of breath at present. She states she has been incontinent of urine and stool. Her right foot does hurt. [facility] Medical History (Updated 07/21/22 @ 09:50 by Myla Moya APRN) COPD (chronic obstructive pulmonary disease) History of heart attack History of leukemia History of stroke Surgical History (Updated 07/20/22 @ 22:04 by Lili Stone RN) History of appendectomy History of colonoscopy History of hysterectomy Social History (Updated 07/20/22 @ 22:07 by Lili Stone RN) Smoking Status: Current every day smoker tobacco type: cigarettes packs per day: 1 second hand exposure: No alcohol intake: never substance use type: denies use current occupational status: unemployed Travel in the last 8 weeks: None household members: none housing: house marital status: single current occupational exposures/hazards: No caffeine: Yes Meds Home Medications and Allergies Home Medications Medication Instructions Recorded Confirmed Type atorvastatin 80 mg tablet 80 mg PO HS Cholesterol 12/28/17 07/20/22 History diazepam 5 mg tablet 5 mg PO TIDP PRN Anxiety 12/28/17 07/21/22 History ferrous sulfate 325 mg (65 mg 325 mg PO BID iron supplement 12/28/17 07/20/22 History iron) tablet fluticasone furoate 100 1 puff inhalation DAILY COPD 12/28/17 07/20/22 History mcg-vilanterol 25 mcg/dose inhalation powder furosemide 40 mg tablet 40 mg PO BIDL Fluid 12/28/17 07/21/22 History lisinopril 5 mg tablet 5 mg PO DAILY Hypertension 12/28/17 07/20/22 History metformin 500 mg tablet 500 mg PO BIDWMEAL Diabetes 12/28/17 07/21/22 History albuterol sulfate 90 mcg/actuation 2 puff inhalation QIDP PRN 01/20/18 07/21/22 History aerosol inhaler Shortness Of Breath apixaban 5 mg tablet (Eliquis) 5 mg PO BID Blood thinner 02/17/19 07/21/22 History potassium chloride 20 mEq 20 meq PO BID potassium 05/25/19 07/20/22 History tablet,extended release(part/cryst) replacement #60 tabs oxybutynin chloride 5 mg tablet 5 mg PO BID overactive bladder 07/26/19 07/20/22 Histor
--- NOTE | 2022-07-21 10:18 | EXP.CARD.CON ---
History of Present Illness History of Present Illness Consult date: 07/21/22 Requesting physician: Nguyen Stone Chief complaint: elevated trop Additional Medical History:: Past Medical Hx CAD-Prior stents x 2 (ostial RCA in 2013 and 2017) with [facility] ICM with improved EF on medical therapy HTN Afib-s/p AV node ablation and pacemaker 2014. Failed sotalol use prior to AV node ablation Aortic stenosis-moderate CASE < 20 % 2013 PPM- [place] Dual chamber pacemaker placed 2018, 100 V paced, 25% apaced, pacemaker dependant. 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 Chronic renal insuficiency LAST [facility] 07/2022 ANGIOGRAPHIC RESULTS The left main artery Normal The left anterior descending artery Is a large-caliber vessel which wraps the apex and has diffuse proximal and mid vessel 10 to 20% stenosis The circumflex artery Is nondominant yet still a large system with mild diffuse 10 to 20% luminal irregularities The right coronary artery Is a large dominant vessel with a stent in the ostial segment which has concentric 90% in-stent restenosis followed by proximal and mid vessel 30 to 40% stenosis The GARCIA ventriculogram reveals Mildly dilated with ejection fraction of 45 to 50% The left ventricular end-diastolic pressure 25 mmHg IMPRESSION Coronary disease as described above Successful stenting of the ostial proximal dominant right coronary severe disease reduced to 0% with 1 drug-eluting stent Mild left ventricular dilatation with mildly reduced ejection fraction Elevated LVEDP PLAN 1. Dual antiplatelet therapy 2. Risk factor modification 3. Treatment of LV dysfunction 4. Avoidance of tobacco products 5. Cardiac rehabilitation History of present illness: 67 year old white female with above past medical hx presented to [facility] ED last night for evaluation of acute confusion, fever, and diarrhea. In ED patient was found to have a fever of 103.2 and was noted to have had a loose stool on arrival. Initial trop was 0.17, repeat was 0.24. EKG showed a paced rhythm with no ischemic changes. Other labs significant for: Hgb of 10.3. BUN 35, creatinine 1.5 potassium 3.2. Patient was given IV antibiotics and admit for further eval. Today patient is alert and oriented to self and place. She tells me she remembers tripping over a fan when getting out of bed. She denies chest pain or worsening baseline soa. Patient currently complaining of abdominal pain and right foot pain from fall she states. [facility] Medical History (Updated 07/21/22 @ 10:46 by Adia Brown APRN) COPD (chronic obstructive pulmonary disease) History of heart attack History of leukemia History of stroke Surgical History (Updated 07/20/22 @ 22:04 by Lili Stone RN) History of appendectomy History of colonoscopy History of hysterectomy Social History (Updated 07/20/22 @ 22:07 by Lili Stone RN) Smoking Status: Current every day smoker tobacco type: cigarettes packs per day: 1 second hand exposure: No alcohol intake: never substance use type: denies use current occupational status: unemployed Travel in the last 8 weeks: None household members: none housing: house marital status: single current occupational exposures/hazards: No caffeine: Yes Review of Systems Review of Systems Review of systems:: pertinent systems reviewed and negative unless documented below *Cardiovascular Cardiovascular: Denies chest pain and Reports dyspnea Comments: reports soa is at baseline *Respiratory Respiratory: Reports dyspnea Exam Data for Last 24 hours Vital signs and Labs for Last 24 Hours: Temp Pulse Resp BP Pulse Ox 97.7 F 61 16 133/75 100 07/21/22 08:00 07/21/22 08:00 07/21/22 08:00 07/21/22 08:00 07/21/22 08:00 Laboratory Results - last 24 hr 07/20/22 14:20: Total Creatine Kinase 413 H, Troponin I 0.17 H, Procalcitonin 18.5 H 07/20/22 14:20: Lactate 1.6 07/20/22 14:20: WBC 7.7, RBC 3.72 L, Hgb 10.3 L, Hct 31.0 L, MCV 83.3, M
--- NOTE | 2022-07-21 11:26 | PC.NURSE ---
Called Dr. Stone at [facility], was neyda Stone was in room with a patient. Will call back office in 20 minutes
--- NOTE | 2022-07-21 11:51 | PC.NURSE ---
Spoke to Evelyne at [facility] who said she would have Dr. Stone call me back as he is in a room with a patient at the time.
[2022-07-21 13:20] LABS: Adenovirus F 40/41, stool Not Detected (NotDetected); Astrovirus Not Detected (NotDetected); Campylobacter Not Detected (NotDetected); Clostridium Difficile A/B, PCR Not Detected (NotDetected); Cryptosporidium Not Detected (NotDetected); Cyclospora Cayetanesis Not Detected (NotDetected); Entamoeba histolytica Not Detected (NotDetected); Enteroaggregative E coli Not Detected (NotDetected); Enteropathogenic E coli Not Detected (NotDetected); Enterotoxigenic E coli Not Detected (NotDetected); Giardia lamblia Not Detected (NotDetected); Norovirus Not Detected (NotDetected); Plesimonas Shigalloides, PCR Not Detected (NotDetected); Rotavirus A Not Detected (NotDetected); Salmonella, PCR Not Detected (NotDetected); Sapovirus Not Detected (NotDetected); Shiga-like toxin E coli Not Detected (NotDetected); Shigella Enterovasive E coli Not Detected (NotDetected); Vibrio Cholerae Not Detected (NotDetected); Vibrio, PCR Not Detected (NotDetected); Yersinia Entercolitica, PCR Not Detected (NotDetected)
--- NOTE | 2022-07-21 13:54 | EXP.PHA.CONS ---
Pharmacy Consult Date: 07/21/22 Time: 13:54 Referring provider: DR. ZAMUDIO Reason for Consult:: VANCOMYCIN DOSING Allergies Allergy/AdvReac Type Severity Reaction Status Date / Time acetaminophen [ACETAMINOPHEN] Allergy Intermediate I-RASH Verified 04/30/22 14:07 adhesive tape [ADHESIVE TAPE] Allergy Intermediate I-RASH Verified 04/30/22 14:07 digoxin [DIGOXIN] Allergy Intermediate NA-NAUSEA/V Verified 04/30/22 14:07 OMITING hydrocortisone Allergy Intermediate I-RASH Verified 04/30/22 14:07 [HYDROCORTISONE] Penicillins [PENICILLINS] Allergy Intermediate I-RASH Verified 04/30/22 14:07 ciprofloxacin [CIPROFLOXACIN] Allergy Mild NA-NAUSEA/V Verified 04/30/22 14:07 OMITING milk [MILK] Allergy Mild DIARRHEA Verified 04/30/22 14:07 cephalexin [From Keflex] Allergy Verified 04/30/22 14:07 Home Medications Medication Instructions Recorded Confirmed Type atorvastatin 80 mg tablet 80 mg PO HS Cholesterol 12/28/17 07/20/22 History diazepam 5 mg tablet 5 mg PO TIDP PRN Anxiety 12/28/17 07/21/22 History ferrous sulfate 325 mg (65 mg 325 mg PO BID iron supplement 12/28/17 07/20/22 History iron) tablet fluticasone furoate 100 1 puff inhalation DAILY COPD 12/28/17 07/20/22 History mcg-vilanterol 25 mcg/dose inhalation powder furosemide 40 mg tablet 40 mg PO BIDL Fluid 12/28/17 07/21/22 History lisinopril 5 mg tablet 5 mg PO DAILY Hypertension 12/28/17 07/20/22 History metformin 500 mg tablet 500 mg PO BIDWMEAL Diabetes 12/28/17 07/21/22 History albuterol sulfate 90 mcg/actuation 2 puff inhalation QIDP PRN 01/20/18 07/21/22 History aerosol inhaler Shortness Of Breath apixaban 5 mg tablet (Eliquis) 5 mg PO BID Blood thinner 02/17/19 07/21/22 History potassium chloride 20 mEq 20 meq PO BID potassium 05/25/19 07/20/22 History tablet,extended release(part/cryst) replacement #60 tabs oxybutynin chloride 5 mg tablet 5 mg PO BID overactive bladder 07/26/19 07/20/22 History cyanocobalamin (vitamin B-12) 1,000 mcg PO DAILY Supplement 04/30/22 07/20/22 History 1,000 mcg tablet (Vitamin B-12) omeprazole 40 mg capsule,delayed 40 mg PO DAILY acid reflux 04/30/22 07/20/22 History release bisoprolol fumarate 5 mg tablet 5 mg PO DAILY Hypertension 07/20/22 07/20/22 History clopidogrel 75 mg tablet 75 mg PO DAILY platelet inhibitor 07/20/22 07/20/22 History spironolactone 25 mg tablet 25 mg PO DAILY Fluid 07/20/22 07/20/22 History dasatinib 70 mg tablet (Sprycel) 70 mg PO DAILY leukemia 07/21/22 07/21/22 History polyethylene glycol 3350 17 17 g PO DAILY constipation 07/21/22 07/21/22 History gram/dose oral powder New Prescriptions to Start Prescriptions: Height: 1.63 m Weight: 90.718 kg Laboratory Results:: Laboratory Results - last 24 hr 07/20/22 14:20: Total Creatine Kinase 413 H, Troponin I 0.17 H, Procalcitonin 18.5 H 07/20/22 14:20: Lactate 1.6 07/20/22 14:20: WBC 7.7, RBC 3.72 L, Hgb 10.3 L, Hct 31.0 L, MCV 83.3, MCH 27.8, MCHC 33.4, RDW 14.8, Plt Count 89 L, MPV 10.9 H, Neut % (Auto) 92.6 H, Lymph % (Auto) 3.8 L, [place] % (Auto) 3.1, Eos % (Auto) 0.2, Baso % (Auto) 0.4, Neut # (Auto) 7.1, Lymph # (Auto) 0.3 L, [place] # (Auto) 0.2, Eos # (Auto) 0.0, Baso # (Auto) 0.0, Total Counted 100, Neutrophils % (Manual) 93 H, Lymphocytes % (Manual) 6 L, Monocytes % (Manual) 1 L, Platelet Estimate Marked decrease, Hypochromasia 1+, Ovalocytes 2+ 07/20/22 14:20: Sodium 138, Potassium 3.2 L, Chloride 102, Carbon Dioxide 25, Anion Gap 14.2, BUN 35 H, Creatinine 1.50 H, Estimated Creat Clear 54, Estimated GFR 35 L, Est GFR ( Amer) 42 L, Glucose 147 H, Calcium 8.2 L, Total Bilirubin 0.9, AST 40 H, ALT 26, Alkaline Phosphatase 116, Total Protein 6.5, Albumin 3.6, Globulin 2.9, Albumin/Globulin Ratio 1.2 07/20/22 14:30: Urine Color Yellow, Urine Appearance Clear, Urine pH 5.5, Ur Specific [place] >= 1.030, Urine Protein 2+, Urine Glucose (UA) Negative, Urine Ketones Negative, Urine Blood 2+, Urine Nitrate Negative, Urine Bilirubin 1+ A,
[2022-07-21 16:49] LABS: POC Glucose,Bedside 120 (70-110)
--- NOTE | 2022-07-21 17:26 | PC.NURSE ---
Patient remains on 3LNC. VS stable. Patient complains of abdominal pain and had three loose bowel movements on nightshift and 3 loose bowel movements on dayshift. Stool sample obtained and sent to lab. Blood cultures positive and vancomycin ordered. No other changes noted.
[2022-07-22] VITALS (10 sets, daily range): BP systolic 116–139; BP diastolic 52–71; PULSE 60–65; RESP 16–22; TEMP 36.6–37.6; O2SAT 98–100; BMI 34.1
[2022-07-22 00:43] LABS: POC Glucose,Bedside 127 (70-110)
--- NOTE | 2022-07-22 04:53 | PC.NURSE ---
NO ACUTE CHANGES SINCE PREVIOUS ASSESSMENT. PT REMAINS ALERT AND ORIENTED X4. LUNG SOUNDS ARE CLEAR BILATERALLY. PT STATES THAT SHE IS FEELING SOME BETTER. PT HAS SLEPT INTERMITTENTLY THIS SHIFT. VSAngelica TURNER REMAINS IN PLACE.
[2022-07-22 06:10] LABS: POC Glucose,Bedside 108 (70-110)
--- NOTE | 2022-07-22 08:30 | EXP.ACUTE.PN ---
Subjective *Date: 07/22/22 *Time: 08:30 Interval history: Patient states she feels about the same today. She was able to sleep last night which made her feel better. She was nauseated yesterday but denies any nausea today. She did try to eat a small amount of breakfast. Medical Exam Vital signs and Labs for Last 24 Hours: Temp Pulse Resp BP Pulse Ox 99.2 F 60 17 118/61 100 07/22/22 07:46 07/22/22 07:46 07/22/22 07:46 07/22/22 07:46 07/22/22 07:46 Laboratory Results - last 24 hr 07/20/22 13:10: Stl Aeromonas (PCR) Not detected, Stl C. cayetanensis PCR Not detected, Stool Rotavirus (PCR) Not detected, Stl Adenov F 40/41 PCR Not detected, Stool Astrovirus (PCR) Not detected, Stool Campylobacter PCR Not detected, Stl C.difficile Tox PCR Not detected, Stool Cryptosporidium PCR Not detected, Stl E.coli Shiga Tox PCR Not detected, Stool E coli O157 PCR Not detected, Stl Enterotoxigenic E PCR Not detected, Stool EPEC (PCR) Not detected, Stool EAEC (PCR) Not detected, Stl E. histolytica PCR Not detected, Stool Giardia Lamblia PCR Not detected, Stool Salmonella PCR Not detected, Stool Sapovirus (PCR) Not detected, Stl P. shigelloides PCR Not detected, Stl Shigella/EIEC PCR Not detected, St Y.enterocolitica PCR Not detected, Stool Vibrio (PCR) Not detected, Stl Vibrio cholerae PCR Not detected, Stl Norovirus GI/GII PCR Not detected 07/21/22 05:49: POC Glucose 120 H 07/21/22 05:57: Total Counted 100, Neutrophils % (Manual) 86 H, Lymphocytes % (Manual) 8 L, Monocytes % (Manual) 6, Platelet Estimate Moderate decrease, Hypochromasia 2+ 07/21/22 20:44: POC Glucose 127 H 07/22/22 06:02: POC Glucose 108 I & O for Labs for Last 24 Hours: Intake & Output 07/19/22 07/20/22 07/21/22 07/22/22 11:59 11:59 11:59 11:59 Intake Total 300 / 300 3984 / 3984 Output Total 500 / 500 900 / 900 Balance -200 / -200 3084 / 3084 Weight 200 lb 200 lb Microbiology Reports for the Last 24 Hours: Microbiology 07/20/22 14:20 Blood Blood Culture - Preliminary 07/20/22 14:20 Blood Blood Culture - Preliminary Constitutional: Present no acute distress Respiratory: Present CTA bilaterally Cardiac: Present Reg Rate and Rhythm GI: Present soft and tenderness (Bilateral lower quadrants); Absent distention Extremities: Absent edema, clubbing or cyanosis Skin: Present intact Neuro: Present alert and awake Assessment and Plan *Assessment and plan (1) Diarrhea: Status: Acute Category: Medical Code(s): R19.7 - Diarrhea, unspecified (2) Acute dehydration: Status: Acute Category: Medical Code(s): E86.0 - Dehydration (3) JUANITA (acute kidney injury): Status: Acute Category: Medical Code(s): N17.9 - Acute kidney failure, unspecified (4) Elevated troponin: Status: Acute Category: Medical Code(s): R77.8 - Other specified abnormalities of plasma proteins (5) Acute alteration in mental status: Status: Acute Category: Medical Code(s): R41.82 - Altered mental status, unspecified (6) Pulmonary arterial hypertension: Status: Acute Category: Medical Code(s): I27.21 - Secondary pulmonary arterial hypertension (7) Mild aortic insufficiency: Status: Acute Category: Medical Code(s): I35.1 - Nonrheumatic aortic (valve) insufficiency (8) Moderate aortic stenosis: Status: Acute Category: Medical Code(s): I35.0 - Nonrheumatic aortic (valve) stenosis (9) CLL (chronic lymphocytic leukemia): Status: Chronic Category: Medical Code(s): C91.10 - Chronic lymphocytic leukemia of B-cell type not having achieved remission (10) HTN (hypertension): Status: Chronic Qualifiers: Hypertension type: primary hypertension Qualified Code(s): I10 - Essential (primary) hypertension Category: Medical Code(s): I10 - Essential (primary) hypertension (11) Diabetes:
--- NOTE | 2022-07-22 08:56 | PC.NURSE ---
morning meds given to patient. educated on meds as given. no questions or concerns. states she is feeling better. call light within reach. encouraged her to ring out as needed
--- NOTE | 2022-07-22 09:12 | EXP.CARD.PN ---
Subjective Subjective Date: 07/22/22 Time: 09:13 Principal diagnosis: fever, ams, diarrhea Interval history: See echo below. Patient states feels the same, Denies chest pain or soa. morning labs pending Conclusion 1.? Mildly enlarged atrium, normal left ventricular size, mild concentric left ventricular hypertrophy, estimated ejection fraction 55% with no regional wall motion abnormality, diastolic parameters are inconclusive. 2.? Thickened and calcified aortic valve with moderate aortic stenosis, valve area is 1.3 cm???, there is mild aortic insufficiency. 3.? Mild mitral and tricuspid regurgitation. 4.? No significant pericardial effusion noted. 5.? Inferior vena cava is poorly visualized. Exam Data for Last 24 hours Vital signs and Labs for Last 24 Hours: Temp Pulse Resp BP Pulse Ox 99.2 F 60 17 118/61 100 07/22/22 07:46 07/22/22 07:46 07/22/22 07:46 07/22/22 07:46 07/22/22 07:46 Laboratory Results - last 24 hr 07/20/22 13:10: Stl Aeromonas (PCR) Not detected, Stl C. cayetanensis PCR Not detected, Stool Rotavirus (PCR) Not detected, Stl Adenov F 40/41 PCR Not detected, Stool Astrovirus (PCR) Not detected, Stool Campylobacter PCR Not detected, Stl C.difficile Tox PCR Not detected, Stool Cryptosporidium PCR Not detected, Stl E.coli Shiga Tox PCR Not detected, Stool E coli O157 PCR Not detected, Stl Enterotoxigenic E PCR Not detected, Stool EPEC (PCR) Not detected, Stool EAEC (PCR) Not detected, Stl E. histolytica PCR Not detected, Stool Giardia Lamblia PCR Not detected, Stool Salmonella PCR Not detected, Stool Sapovirus (PCR) Not detected, Stl P. shigelloides PCR Not detected, Stl Shigella/EIEC PCR Not detected, St Y.enterocolitica PCR Not detected, Stool Vibrio (PCR) Not detected, Stl Vibrio cholerae PCR Not detected, Stl Norovirus GI/GII PCR Not detected 07/21/22 05:49: POC Glucose 120 H 07/21/22 20:44: POC Glucose 127 H 07/22/22 06:02: POC Glucose 108 I & O for Last 24 hours: Intake & Output 07/19/22 07/20/22 07/21/2207/22/22 23:59 23:59 23:59 23:59 Intake Total 2325 / 2325 1958 / 1958 Output Total 0 / 0 900 / 900 500 / 500 Balance 0 / 0 1425 / 1425 1459 / 1459 Weight 200 lb 200 lb Microbiology Reports for the Last 24 Hours: Microbiology 07/20/22 14:20 Blood Blood Culture - Preliminary 07/20/22 14:20 Blood Blood Culture - Preliminary Constitutional Constitutional: no acute distress *Routine Respiratory Exam Respiratory: Present CTA bilaterally and symmetric chest movement *Routine Cardiovascular Exam Cardiovascular: Present RRR, Normal S1 and Normal S2 *Routine Abdominal Exam Abdominal: Present soft and normoactive bowel sounds; Absent tenderness *Routine Extremities Exam Extremities: Present full ROM and normal capillary refill; Absent edema *Routine Skin Exam Skin: Present intact, dry and warm Detailed Neck Exam: Thyroids Thyroid: Absent bruit Progress Note: A&P Assessment and plan (1) Diarrhea: Status: Acute (2) Acute dehydration: Status: Acute (3) JUANITA (acute kidney injury): Status: Acute (4) Elevated troponin: Status: Acute (5) Acute alteration in mental status: Status: Acute (6) Pulmonary arterial hypertension: Status: Acute (7) Mild aortic insufficiency: Status: Acute (8) Moderate aortic stenosis: Status: Acute (9) CLL (chronic lymphocytic leukemia): Status: Chronic (10) HTN (hypertension): Status: Chronic (11) Diabetes: Status: Chronic (12) DJD (degenerative joint disease) of cervical spine: Status: Acute (13) Fall: Status: Acute (14) Anemia: Status: Acute (15) Obesity: Status: Acute (16) History of atrial fibrillation: Status: Chronic (17) Tobacco use disorder: Status: Acute (18) Bronchitis due to tobacco use: Status: Acute (19) Foot pain, right: Status: Acute Assessment and Plan Assessment and Plan for All Diagnoses:
[2022-07-22 14:47] LABS: POC Glucose,Bedside 151 (70-110)
[2022-07-22 18:29] LABS: Anion Gap 12.9 mEq/L (5-15); Blood Urea Nitrogen 20 mg/dl (7-17); Calcium 7.5 mg/dl (8.4-10.2); Carbon Dioxide 18 mmol/L (22.0-30.0); Chloride 110 mmol/L (98-107); Creatinine Clearance Estimated 80 mL/min (50-200); Estimated Glomerular Filt Rate 72 ml/min (>60); GFR (African American) 87 ML/MIN (>60); Glucose 140 mg/dl (74-100); Potassium 3.9 mmoL/L (3.5-5.1); Sodium 137 mmol/L (136-145)
[2022-07-22 18:50] LABS: Vancomycin,Trough < 5.0 ug/mL (5.0-10.0)
--- NOTE | 2022-07-22 19:09 | PC.NURSE ---
Pt is A/Ox3. She has been in the bed all day. She has tolerated her cardiac diet well. She has not had any complaints all shift.
--- NOTE | 2022-07-22 19:19 | PC.NURSE ---
Spoke with shakira from night [facility] and told her vanc carrie. She stated that she is increasing dose, and to keep peak time at same.
[2022-07-22 21:41] LABS: POC Glucose,Bedside 112 (70-110)
[2022-07-22 23:52] LABS: Vancomycin,Peak 27.3 ug/ml (11-39)
[2022-07-23] VITALS: PULSE 60; O2SAT 98
[2022-07-23 04:00] VITALS: BP 137/72; PULSE 60; RESP 18; TEMP 37.1; O2SAT 98
[2022-07-23 06:00] VITALS: BMI 34.1
[2022-07-23 06:19] LABS: POC Glucose,Bedside 122 (70-110)
[2022-07-23 08:00] VITALS: BP 130/64; PULSE 60; PULSE 63; RESP 16; TEMP 36.9; O2SAT 97
--- NOTE | 2022-07-23 09:11 | EXP.ACUTE.PN ---
Subjective *Date: 07/23/22 *Time: 10:51 Interval history: Patient states she is feeling well today except for some back and abdominal pain. She did not sleep very much last night. She ate a small amount of breakfast this morning. Medical Exam Vital signs and Labs for Last 24 Hours: Temp Pulse Resp BP Pulse Ox 98.4 F 63 16 130/64 97 07/23/22 08:00 07/23/22 08:00 07/23/22 08:00 07/23/22 08:00 07/23/22 08:00 Laboratory Results - last 24 hr 07/22/22 14:34: POC Glucose 151 H 07/22/22 18:05: Sodium 137, Potassium 3.9, Chloride 110 H, Carbon Dioxide 18 L, Anion Gap 12.9, BUN 20 H D, Creatinine 0.80 D, Estimated Creat Clear 80, Estimated GFR 72, Est GFR ( Amer) 87 D, Glucose 140 H, Calcium 7.5 L 07/22/22 18:05: Vancomycin Trough < 5.0 L 07/22/22 21:31: POC Glucose 112 H 07/22/22 22:34: Vancomycin Peak 27.3 07/23/22 06:12: POC Glucose 122 H I & O for Labs for Last 24 Hours: Intake & Output 07/20/22 07/21/22 07/22/22 07/23/22 11:59 11:59 11:59 11:59 Intake Total 300 / 300 3984 / 3984 3441 / 3441 Output Total 500 / 500 900 / 900 1250 / 1250 Balance -200 / -200 3084 / 3084 2191 / 2191 Weight 200 lb 199 lb 15.701 oz 199 lb 15.701 oz Microbiology Reports for the Last 24 Hours: Microbiology 07/20/22 14:20 Blood Blood Culture - Final Streptococcus anginosus 07/20/22 14:20 Blood Blood Culture - Preliminary Gram Positive Cocci Constitutional: Present no acute distress Respiratory: Present CTA bilaterally Cardiac: Present Reg Rate and Rhythm GI: Present soft and tenderness (Bilateral lower quadrants); Absent distention Extremities: Absent edema, clubbing or cyanosis Skin: Present intact Neuro: Present alert and awake Assessment and Plan *Assessment and plan (1) Streptococcal septicemia: Status: Acute Category: Medical Code(s): A40.9 - Streptococcal sepsis, unspecified (2) Diarrhea: Status: Acute Category: Medical Code(s): R19.7 - Diarrhea, unspecified (3) Acute dehydration: Status: Acute Category: Medical Code(s): E86.0 - Dehydration (4) JUANITA (acute kidney injury): Status: Acute Category: Medical Code(s): N17.9 - Acute kidney failure, unspecified (5) Elevated troponin: Status: Acute Category: Medical Code(s): R77.8 - Other specified abnormalities of plasma proteins (6) Acute alteration in mental status: Status: Resolved Category: Medical Code(s): R41.82 - Altered mental status, unspecified (7) Pulmonary arterial hypertension: Status: Acute Category: Medical Code(s): I27.21 - Secondary pulmonary arterial hypertension (8) Mild aortic insufficiency: Status: Acute Category: Medical Code(s): I35.1 - Nonrheumatic aortic (valve) insufficiency (9) Moderate aortic stenosis: Status: Acute Category: Medical Code(s): I35.0 - Nonrheumatic aortic (valve) stenosis (10) CLL (chronic lymphocytic leukemia): Status: Chronic Category: Medical Code(s): C91.10 - Chronic lymphocytic leukemia of B-cell type not having achieved remission (11) HTN (hypertension): Status: Chronic Qualifiers: Hypertension type: primary hypertension Qualified Code(s): I10 - Essential (primary) hypertension Category: Medical Code(s): I10 - Essential (primary) hypertension (12) Diabetes: Status: Chronic Qualifiers: Diabetes mellitus complication detail: with other circulatory complications Diabetes mellitus complication status: with circulatory complication Diabetes mellitus half-way insulin use: without 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
--- NOTE | 2022-07-23 09:38 | XR_ITS ---
FINAL REPORT CLINICAL HISTORY: fall with foot and ankle pain FINDINGS: RIGHT ANKLE: Three views of the right ankle were obtained. There is no acute fracture or dislocation. The mortise is intact. There are mild hypertrophic changes at the lateral malleolus. There is a small plantar spur. There is no soft tissue abnormality. IMPRESSION: No acute process. Reviewed, Interpreted and Dictated by Tin Hobbs MD Transcribed by Bonifacio Riley Authenticated and [facility]
--- NOTE | 2022-07-23 09:38 | XR_ITS ---
FINAL REPORT CLINICAL HISTORY: fall with foot and ankle pain FINDINGS: 3 views of the right foot were obtained. There is no acute fracture or dislocation. There is mild osteophyte formation along the dorsal talonavicular joint. There is a small plantar spur. The joint spaces are intact. The soft tissues are unremarkable. IMPRESSION: No acute process. Reviewed, Interpreted and Dictated by Tin Hobbs MD Transcribed by Bonifacio Riley Authenticated and . [facility]
--- NOTE | 2022-07-23 11:19 | SW/DCPLANNER ---
Addendum entered by [facility] 07/24/22 11:30: Odalis vickers/ [facility] stated that services will begin today 07/24/22. Addendum entered by [facility] 07/23/22 15:25: Odalis vickers/ [facility] stated that services will begin Wednesday for this patient. Addendum entered by [facility] 07/23/22 14:36: This patient's Medicare part A is now inactive. I have presented patient with the option of [facility] pending or home with home health services. Patient spoke with friends and daughter and they have decided patient will be safe to return home with family/friend assistance and home health services. Patient information/order will be faxed to [facility]. Patient will discharge home today. Addendum entered by [facility] 07/23/22 13:42: This patient has been accepted to [facility] level of care today. Patient will need a COVID swab prior to discharge. I will update MD and patient regarding discharge plans. Addendum entered by [facility] 07/23/22 13:09: Patient is agreeable to placement at [facility]: patient information has been faxed. Addendum entered by [facility] 07/23/22 11:22: *Patient will call and discuss with daughter now. Original Note: I spoke with this patient regarding plans once medically stable for discharge. PT has recommended SNF level of care at time of discharge. I discussed that SNF is recommended with patient: patient stated that she would need to speak with her daughter prior to making any further decisions. I informed patient that she will be ready for discharge soon pending no setbacks and I would return after lunch to further discuss. Patient agrees with plan and will call and discuss with patient now.
--- NOTE | 2022-07-23 11:24 | HMH.PTEV ---
Physical Therapy Evaluation Rehab PT IP Evaluation Start: 07/23/22 09:41 Freq: ONCE Status: Active Protocol: Document 07/23/22 10:51 PHOLISA (Rec: 07/23/22 11:23 PHORRAFAEL [id number]) Subjective/History History History This is the initial IP PT eval for Evelyne Hannah, a 67 y/o female admitted to [facility] following a fever, change in mental staus, and recent fall in which she injured her R foot. Pt is currently being treated for elevated troponin and JUANITA, and has h/o COPD, AL, leukemia, stroke and is a current everyday smoker. Written by Mary Alice Lunsford, SPT Subjective Subjective Pt reports that she lives in duplex housing with her son who works part-time. Pt states that she was not recently using any assitive device but has used a walker in the past. Rehab PT IP Eval Objective Appearance Patient Behavior Appropriate,Cooperative Patient Orientation Person,Place,Birthday,Year, Situation Difficulty following instructions none Speech Pattern Clear,Appropriate Ambulation Patient Able to Ambulate Yes Ambulation Observation IP General Gait Pattern Observation Antalgic Gait,Wide Based Gait, Shuffling Step,Decrease Weight Bear (R) Ambulation Distance (feet) 4 Ambulation Assistive Device None Ambulation Ability Minimal x 2 (25% assist) Balance Ability to Arise Able, uses arms to help Sitting Balance Leans or slides in chair Standing Balance Unsteady Dynamic Sitting Balance Ability Poor Dynamic Standing Balance Ability Poor Transfers Bed Transfer Ability Independent,Supervision/Stand by Chair Transfer Ability Independent,Supervision/Stand by Sit to Stand Bed Transfer Ability Minimal x 2 (25% assist) Rehab PT IP prob,goals,plan Problems Date of Evaluation: 07/23/22 PT IP Problems Transfers,Gait,Balance,Self care,Safety Rehab Potential Rehab Potential Fair Equipment Needs Assistive Devices Rolling / Wheeled Walker Plan PT Intervention Plan Transfers,Gait,Balance,Self care,Safety,Therapeutic
[2022-07-23 12:00] VITALS: PULSE 60
--- NOTE | 2022-07-23 12:00 | HMH.OTEV ---
OT Inpatient Evaluation Rehab OT IP Evaluation Start: 07/23/22 09:41 Freq: ONCE Status: Complete Protocol: Document 07/23/22 11:53 [facility] (Rec: 07/23/22 12:00 [facility] [id number]) Rehab OT IP Assessment Subjective History Pt oriented x 3 on arrival. Pt agreeable to engage in therapy evaluation. Pt was admitted via ED on 07/20/22 due to alterned mental status and fever. Pt has a past medical history of hypertension, depression, recurrent UTIs, hiatal hernia, hyperlipidemia, coronary artery disease with previous stent, interstitial cystiti. Prior to being admitted she was living with her son. Pt claims she was independent with all ADLs and IADLs. She did not drive ( never has). She did use a walker during ambulation occasionally. Subjective I can do what I need to. Objective Patient Orientation Person,Place,Birthday Upper Extremity Gross ROM Min Limitation <25% Shoulder ROM Limitations Muscle Weakness Elbow ROM Limitations Muscle Weakness Wrist Limitations of Range of Motion Muscle Weakness Transfer Training Sit/Stand Transfer Assist Level Moderate x 1 (50% assist) Chair Transfer Ability Moderate x 1 (50% assist) Chair Transfer Technique Sit to/from Ambulatory Rehab OT IP prob,goals,plan Problems Date of Evaluation: 07/23/22 OT IP Problems Bed Mobility,Transfers,Balance ,Self care,Safety Rehab Potential Rehab Potential Good Equipment Needs Assistive Devices Rolling / Wheeled Walker Plan OT intervention Plan Bed Mobility,Transfers,Balance ,Self care,Safety,Therapeutic Exercise OT Plan Frequency BID Duration LOS Discharge Goals Bed Mobility Ability Assistance x1 Sit to Stand Chair Transfer Ability Minimal x 1 (25% assist) Chair Transfer Ability Minimal x 1 (25% assist) Chair Transfer Technique Sit to/from Ambulatory Chair Transfer Assistive Devices Rolling Walker Feeding Ability Assist with Tray Set Up Lower Body Dressing Ability Assistance X1 Upper Body Dressing Ability Standby Assistance Bathing Ability
--- NOTE | 2022-07-23 14:06 | EXP.DC.SUM ---
General Admission date:: 07/20/22 HPI HPI HPI: Ms. Hannah is a 67-year-old female with history of hypertension, depression, recurrent UTIs, hiatal hernia, hyperlipidemia, coronary artery disease with previous stent, interstitial cystitis, who was sent to [facility] by family via EMS due to altered mental status after a fall. Patient is a poor historian today and cannot remember much of 2 days ago and very little of yesterday. She does remember getting out of the bed yesterday tripping over a fan and falling and hurting her right foot. Her son with whom she lives had her brought to [facility] for evaluation. Patient does not think she had any chest pain. She does experience shortness of breath at times. He does not remember having a fever at home. She has chronic diarrhea and is incontinent.. She sometimes is nauseated but does not vomit. She does not think she has been eating and drinking very well. She states she voids every 5 minutes. She states she was not able to walk due to pain in her right foot. Patient states she has been mass for quite a while. She has been out of her nerve medicine. With evaluation in the emergency room she was found to have a fever of 103.2. Troponin I was found to be elevated at 0.17 with a CPK of 413. Lactate was 1.6. CBC revealed a white blood cell count of 7700 with a hemoglobin of 10.3 and hematocrit of 31. BUN was 35 and creatinine 1.5. Potassium 3.2. Blood sugar was 147. She was given doses of cefazolin pain and vancomycin IV as well as a liter x2 of IV fluids. She was given p.o. potassium.Head CT showed no acute intracranial process. Chest x-ray showed no acute cardiopulmonary process. Patient states she is doing okay this morning. She does not recall much of anything yesterday. She denies chest pain and shortness of breath at present. She states she has been incontinent of urine and stool. Her right foot does hurt. Hospital Course Hospital Course Hospital Course: She was admitted and started on IV fluid hydration and empirically started on IV Flagyl pending stool studies. Her PCR diarrhea panel returned being negative for infectious etiologies. Blood cultures obtained on admission initially grew gram-positive cocci which proved to be strep species that was pansensitive. She was switched from IV vancomycin to IV Rocephin and will be transition to an oral antibiotic. After IV hydration her renal function improved as did her mental status. She continued to complain of pain in her right foot and ankle. X-rays were obtained and were negative. She was evaluated by physical and Occupational Therapy and felt she would benefit from either skilled care or home health therapy at discharge.. A bed has been found available at [facility] but she declined and preferred to go home with home health which will be arranged. She has chronic microcytic anemia which has been stable. She will be continued on iron supplements. Blood sugars have been stable during the admission. Exam Data for Last 24 hours Vital signs and Labs for Last 24 Hours: Temp Pulse Resp BP Pulse Ox 98.4 F 63 16 130/64 97 07/23/22 08:00 07/23/22 08:00 07/23/22 08:00 07/23/22 08:00 07/23/22 08:00 Laboratory Results - last 24 hr 07/22/22 14:34: POC Glucose 151 H 07/22/22 18:05: Sodium 137, Potassium 3.9, Chloride 110 H, Carbon Dioxide 18 L, Anion Gap 12.9, BUN 20 H D, Creatinine 0.80 D, Estimated Creat Clear 80, Estimated GFR 72, Est GFR ( Amer) 87 D, Glucose 140 H, Calcium 7.5 L 07/22/22 18:05: Vancomycin Trough < 5.0 L 07/22/22 21:31: POC Glucose 112 H 07/22/22 22:34: Vancomycin Peak 27.3 07/23/22 06:12: POC Glucose 122 H I & O for Last 24 hours: Intake & Output 07/21/22 07/22/22 07/23/22 07/24/22 11:59 11:59 11:59 11:59 Intake Total 300 / 300 3984 / 3984 3681 / 3681 Output Total 500 / 500 900 / 900 1650 / 1650 0 / 0 Balance -200 / -200 3084 / 3084 2030 0 / 0 Weight 200 lb 199
[2022-07-23 15:06] VITALS: BP 111/61; PULSE 60; RESP 17; TEMP 36.9; O2SAT 100
--- NOTE | 2022-07-27 13:07 | CARE MANAGER ---
Contacted patient related to hospital discharge. Patient states that she is getting around better but is still having diarrhea that is dark in color. She has follow up in [address] Stone. She has appt. with Dr. Santamaria scheduled as well. She states they didn't refill her nerve pills when she was discharged. Discussed making an appointment with Dr. Stone sooner since she was still having diarrhea and being in need of nerve pills. She denies any other questions or concerns at this time. AREN Houser
== END 2022-07-23 16:10 | disposition home health service (06) | DRG 683 ==
LOC: ER 17:39 → 2ND 17:46
PROVIDERS: Admitting Provider Family Medicine; Emergency Provider Emergency Medicine; PCP Family Medicine; Visit Provider Family Medicine
DX: N17.9 Acute kidney failure, unspecified (principal); C91.10 Chronic lymphocytic leukemia of B-cell type not having achieved remission; I42.8 Other cardiomyopathies; E86.0 Dehydration; F17.210 Nicotine dependence, cigarettes, uncomplicated; R79.89 Other specified abnormal findings of blood chemistry; E78.5 Hyperlipidemia, unspecified; I25.10 Atherosclerotic heart disease of native coronary artery without angina pectoris; J44.9 Chronic obstructive pulmonary disease, unspecified; I27.20 Pulmonary hypertension, unspecified; I35.1 Nonrheumatic aortic (valve) insufficiency; I35.0 Nonrheumatic aortic (valve) stenosis; M47.812 Spondylosis without myelopathy or radiculopathy, cervical region; W19.XXXA Unspecified fall, initial encounter; E66.9 Obesity, unspecified; Z68.34 Body mass index [BMI] 34.0-34.9, adult; I48.91 Unspecified atrial fibrillation; M25.571 Pain in right ankle and joints of right foot; Z95.5 Presence of coronary angioplasty implant and graft; Z95.0 Presence of cardiac pacemaker; I65.29 Occlusion and stenosis of unspecified carotid artery; D63.0 Anemia in neoplastic disease; E11.22 Type 2 diabetes mellitus with diabetic chronic kidney disease; I12.9 Hypertensive chronic kidney disease with stage 1 through stage 4 chronic kidney disease, or unspecified chronic kidney disease; N18.9 Chronic kidney disease, unspecified; K52.9 Noninfective gastroenteritis and colitis, unspecified; R15.9 Full incontinence of feces
CPT/HCPCS: 36415; 70450; 71045; 73610; 73630; 80048; 80053; 80202; 81001; 82550; 82962; 83605; 84145; 84484; 85007; 85025; 87040; 87077; 87186; 87506; 93005; 93306; 94640; 97116; 97162; 97166; 97530; 99285; C9803; J0696; U0003; U0005

== ENCOUNTER 2022-08-08 15:59 | Emergency (ER) | payer MEDICARE, OTHER, SELFPAY ==
[2022-08-08 18:08] VITALS: BP 163/61; PULSE 60; RESP 18; TEMP 37; O2SAT 100; BMI 34.1
[2022-08-08 18:30] VITALS: BP 147/62; PULSE 62; O2SAT 99
--- NOTE | 2022-08-08 18:44 | XR_ITS ---
PROCEDURE INFORMATION: Exam: XR Right Hip Exam date and time: 08/08/2022 6:45 PM Age: 67 years old Clinical indication: Injury or trauma; Fall; Blunt trauma (contusions or hematomas); Right; Hip; Additional info: Fall 07/23 TECHNIQUE: Imaging protocol: Radiologic exam of the Right hip. Views: 2 or 3 views hip with pelvis when performed. COMPARISON: CT ABDOMEN PELVIS W CON 08/20/2020 8:33 PM FINDINGS: Bones/joints: Unremarkable. No acute fracture. Soft tissues: Unremarkable. IMPRESSION: No acute findings.
--- NOTE | 2022-08-08 18:44 | XR_ITS ---
PROCEDURE INFORMATION: Exam: XR Lumbosacral Spine Exam date and time: 08/08/2022 6:44 PM Age: 67 years old Clinical indication: Injury or trauma; Fall; Blunt trauma (contusions or hematomas); Additional info: Fall 07/23 TECHNIQUE: Imaging protocol: Radiologic exam of the lumbosacral spine. Views: 2 or 3 views. COMPARISON: CR LS5 LUMBAR SPINE 5 VIEWS 08/30/2015 3:56 PM FINDINGS: Bones/joints: Degenerative changes at L5-S1 with disc height narrowing, endplate sclerosis and facet joint arthropathy. No acute fracture. Normal alignment. Soft tissues: Unremarkable. IMPRESSION: No acute findings.
--- NOTE | 2022-08-08 18:49 | HMH.EDGENADL ---
Discharge Plan Disposition Patient Disposition: Home, Self-Care Condition: Good Chief Complaint: Back Pain/Injury Prescriptions Prescriptions: No Action omeprazole 40 mg capsule,delayed release(DR/EC) 40 mg PO DAILY cyanocobalamin (vitamin B-12) [Vitamin B-12] 1,000 mcg tablet 1,000 mcg PO DAILY potassium chloride 20 mEq tablet,ER particles/crystals 20 meq PO BID Qty: 60 Label Comments: TAKE 1 TABLET BY MOUTH TWICE DAILY spironolactone 25 mg tablet 25 mg PO DAILY Qty: 90 3RF furosemide 40 tablet 40 mg PO BIDL Label Comments: metformin 500 MG tablet 500 mg PO BIDWMEAL atorvastatin 80 MG tablet 80 mg PO HS ferrous sulfate 325 MG tablet 325 mg PO BID lisinopril 5 tablet 5 mg PO DAILY Label Comments: fluticasone furoate-vilanterol 0 blister with device 1 puff IH DAILY Label Comments: diazepam 5 MG tablet 5 mg PO TIDP PRN (Reason: Anxiety) albuterol sulfate 108 HFA aerosol inhaler 2 puff inhalation QIDP PRN (Reason: Shortness Of Breath) Label Comments: oxybutynin chloride 5 MG tablet 5 mg PO BID clopidogrel 75 mg tablet 75 mg PO DAILY bisoprolol fumarate 5 mg tablet 5 mg PO DAILY polyethylene glycol 3350 17 gram/dose powder 17 g PO DAILY Label Comments: DISSOLVE 17 GRAMS OF POWDER INTO 4 TO 8 OUNCES OF WATER, JUICE, SODA, COFFEE, OR TEA THEN DRINK EVERY DAY Sprycel 70 mg tablet 70 mg PO DAILY Referrals Follow up/Referrals: Nguyen Stone MD [Primary Care Provider] - See instructions Activity Restrictions/Add. Instructions Additional Instructions/Restrictions: Follow-up with primary care provider next week if not improving. Clinical Impressions Clinical Impression: Lumbar strain, Strain of right hip Instructions Patient Instructions: DI for Low Back Pain Discharge ED Provider: Sheldon King General Adult HPI General Chief complaint: Back Pain/Injury Stated complaint: lower backpain Time Seen by Provider: 08/08/22 18:40 Mode of Arrival: Wheelchair Source of Information: Patient Limitations: No Limitations Description of Symptoms (Recalled from ER Triage Doc. by RN): Pt c/o lower back pain. Advises that she fell a week ago and has had pain and stiffness since. Pt states It feels like my muscle. It's like it gets stuck . History of Present Illness HPI narrative: Patient states that she fell on 07/23/2022. She was admitted to the hospital here for altered mental status and acute kidney injury. She says that ever since the fall she has pain in her lower back and right hip which she feels she injured in the fall. However, she says all she had x-rayed when she was here with her foot and ankle. She was seen in the cardiology clinic 2 days ago for follow-up of her admission and told them about her hip pain. She says that x-rays were ordered as an outpatient, however she has not had them because she did not have the time to do it that day therefore comes in today to have x-rays. No numbness or weakness or loss of bowel or bladder control. Related Data Home Medications Medication Instructions Recorded Confirmed atorvastatin 80 mg tablet 80 mg PO HS Cholesterol 12/28/17 08/06/22 diazepam 5 mg tablet 5 mg PO TIDP PRN Anxiety 12/28/17 08/06/22 ferrous sulfate 325 mg (65 mg 325 mg PO BID iron supplement 12/28/17 08/06/22 iron) tablet fluticasone furoate 100 1 puff inhalation DAILY COPD 12/28/17 08/06/22 mcg-vilanterol 25 mcg/dose inhalation powder furosemide 40 mg tablet 40 mg PO BIDL Fluid 12/28/17 08/06/22 lisinopril 5 mg tablet 5 mg PO DAILY Hypertension 12/28/17 08/06/22 metformin 500 mg tablet 500 mg PO BIDWMEAL Diabetes 12/28/17 08/06/22 albuterol sulfate 90 mcg/actuation 2 puff inhalation QIDP PRN 01/20/18 08/06/22 aerosol inhaler Shortness Of Breath potassium chloride 20 mEq 20 meq PO BID potassium 05/25/19 08/06/22 tablet,extended re
[2022-08-08 19:30] VITALS: BP 147/63; PULSE 61; O2SAT 100
[2022-08-08 20:18] VITALS: BP 145/60; PULSE 73; RESP 18; TEMP 36.6; O2SAT 98
== END 2022-08-08 20:21 | disposition home or self-care (01) ==
PROVIDERS: Emergency Provider Emergency Medicine; PCP Family Medicine
DX: R41.82 Altered mental status, unspecified (principal); S73.101A Unspecified sprain of right hip, initial encounter; M54.50 Low back pain, unspecified; R06.02 Shortness of breath; R00.0 Tachycardia, unspecified; N17.9 Acute kidney failure, unspecified; I25.2 Old myocardial infarction; I48.0 Paroxysmal atrial fibrillation; I88.9 Nonspecific lymphadenitis, unspecified; C91.10 Chronic lymphocytic leukemia of B-cell type not having achieved remission; K52.9 Noninfective gastroenteritis and colitis, unspecified; J44.9 Chronic obstructive pulmonary disease, unspecified; F17.210 Nicotine dependence, cigarettes, uncomplicated; Z79.51 Long term (current) use of inhaled steroids; Z79.899 Other long term (current) drug therapy; Z88.0 Allergy status to penicillin; Z88.1 Allergy status to other antibiotic agents; Z88.3 Allergy status to other anti-infective agents; Z88.5 Allergy status to narcotic agent; Z88.6 Allergy status to analgesic agent; Z91.011 Allergy to milk products; Z86.73 Personal history of transient ischemic attack (TIA), and cerebral infarction without residual deficits; W19.XXXA Unspecified fall, initial encounter
CPT/HCPCS: 72100; 73502; 99283

== ENCOUNTER 2022-08-13 12:23 | Inpatient (IN) | payer MEDICARE, OTHER, SELFPAY ==
[2022-08-13] VITALS (8 sets, daily range): BP systolic 107–154; BP diastolic 45–65; PULSE 60–65; RESP 15–18; TEMP 36.4–36.7; O2SAT 99–100; BMI 32.4; BMI 30.9
--- NOTE | 2022-08-13 | ECG_ITS ---
APPROVED REPORT Exam: Resting ECG HR:60 bpm ECG Measurements Heart Rate 60 AXES AR 187 P 256 QRSd 158 QRS -83 QT 404 T 82 QTc 404 Conclusion ELECTRONIC ATRIAL PACEMAKER ELECTRONIC VENTRICULAR PACEMAKER ABNORMAL RHYTHM ECG UNCONFIRMED REPORT Electronically signed by : Kole Acevedo MD 08/13/2022 20:05:15
--- NOTE | 2022-08-13 12:36 | XR_ITS ---
FINAL REPORT CLINICAL HISTORY: fall, c/o back pain COMPARISON: August 08, 2022 FINDINGS: SINGLE VIEW PELVIS: A single view of the pelvis was obtained. There is no acute fracture or dislocation. Visualized joint spaces are normally aligned. Soft tissues are unremarkable. IMPRESSION: No acute bony abnormality. Reviewed, Interpreted and Dictated by Tin Hobbs MD Transcribed by Maral Dsouza Authenticated and [facility]
--- NOTE | 2022-08-13 12:36 | XR_ITS ---
FINAL REPORT CLINICAL HISTORY: cough, fall COMPARISON: July 20, 2022 FINDINGS: PORTABLE CHEST There is mild cardiomegaly. A left subclavian pacemaker is present. The mediastinum is unremarkable. There are mild chronic changes in the lung bases. No acute process is identified. There is no pneumothorax. IMPRESSION: No acute process. Reviewed, Interpreted and Dictated by Tin Hobbs MD Transcribed by Maral Dsouza Authenticated and [facility]
--- NOTE | 2022-08-13 12:39 | HMH.EDGENADL ---
Discharge Plan Disposition Patient Disposition: Admitted As Inpatient Condition: Fair Clinical Impressions Clinical Impression: Acute hyperkalemia, Renal insufficiency Discharge ED Provider: Fito Omalley General Adult HPI General Chief complaint: Nausea/Vomiting/Diarrhea Stated complaint: nausea,vomiting Time Seen by Provider: 08/13/22 12:27 Mode of Arrival: Ambulatory Source of Information: Patient Limitations: No Limitations Description of Symptoms (Recalled from ER Triage Doc. by RN): Pt c/o persistent N/V since Wednesday. States I think Im apparently dehydrated . History of Present Illness HPI narrative: Patient presents with generalized weakness for 1 week. She notes has had some intermittent vomiting since this past Wednesday and is concerned that she may be dehydrated. She complains of chronic pain to the right hip. But denies chest pain or shortness of air or fever productive cough at this time. Symptoms are described as moderate and without exacerbating or alleviating factors. Related Data Home Medications Medication Instructions Recorded Confirmed atorvastatin 80 mg tablet 80 mg PO HS Cholesterol 12/28/17 08/06/22 diazepam 5 mg tablet 5 mg PO TIDP PRN Anxiety 12/28/17 08/06/22 ferrous sulfate 325 mg (65 mg 325 mg PO BID iron supplement 12/28/17 08/06/22 iron) tablet fluticasone furoate 100 1 puff inhalation DAILY COPD 12/28/17 08/06/22 mcg-vilanterol 25 mcg/dose inhalation powder furosemide 40 mg tablet 40 mg PO BIDL Fluid 12/28/17 08/06/22 lisinopril 5 mg tablet 5 mg PO DAILY Hypertension 12/28/17 08/06/22 metformin 500 mg tablet 500 mg PO BIDWMEAL Diabetes 12/28/17 08/06/22 albuterol sulfate 90 mcg/actuation 2 puff inhalation QIDP PRN 01/20/18 08/06/22 aerosol inhaler Shortness Of Breath potassium chloride 20 mEq 20 meq PO BID potassium 05/25/19 08/06/22 tablet,extended release(part/cryst) replacement #60 tabs oxybutynin chloride 5 mg tablet 5 mg PO BID overactive bladder 07/26/19 08/06/22 cyanocobalamin (vitamin B-12) 1,000 mcg PO DAILY Supplement 04/30/22 08/06/22 1,000 mcg tablet (Vitamin B-12) omeprazole 40 mg capsule,delayed 40 mg PO DAILY acid reflux 04/30/22 08/06/22 release bisoprolol fumarate 5 mg tablet 5 mg PO DAILY Hypertension 07/20/22 08/06/22 clopidogrel 75 mg tablet 75 mg PO DAILY platelet inhibitor 07/20/22 08/06/22 dasatinib 70 mg tablet (Sprycel) 70 mg PO DAILY leukemia 07/21/22 08/06/22 polyethylene glycol 3350 17 17 g PO DAILY constipation 07/21/22 08/06/22 gram/dose oral powder Previous Rx's Medication Instructions Recorded spironolactone 25 mg tablet 25 mg PO DAILY Fluid #90 tabs 07/28/22 Allergies Allergy/AdvReac Type Severity Reaction Status Date / Time acetaminophen [ACETAMINOPHEN] Allergy Intermediate I-RASH Verified 08/06/22 14:16 adhesive tape [ADHESIVE TAPE] Allergy Intermediate I-RASH Verified 08/06/22 14:16 digoxin [DIGOXIN] Allergy Intermediate NA-NAUSEA/V Verified 08/06/22 14:16 OMITING hydrocortisone Allergy Intermediate I-RASH Verified 08/06/22 14:16 [HYDROCORTISONE] Penicillins [PENICILLINS] Allergy Intermediate I-RASH Verified 08/06/22 14:16 ciprofloxacin [CIPROFLOXACIN] Allergy Mild NA-NAUSEA/V Verified 08/06/22 14:16 OMITING milk [MILK] Allergy Mild DIARRHEA Verified 08/06/22 14:16 cephalexin [From Keflex] Allergy Verified 08/06/22 14:16 [facility] Medical History Broken tooth Bronchitis due to tobacco use Cellulitis of both lower extremities Cervical strain CLL (chronic lymphocytic leukemia) CML (chronic myelocytic leukemia) Colitis COPD (chronic obstructive pulmonary disease) E coli infection Fall Gastroenteritis History of heart attack History of leukemia History of stroke Leukopenia Lymph nodes enlarged Lymphadenitis Otitis media Paroxysmal atrial tachycardia with block Pre-syncope Regional enteritis of jejunum Scalp contusion Sinus bradycardia Thyroid
--- NOTE | 2022-08-13 12:46 | PC.NURSE ---
Radiology at bedside.
[2022-08-13 12:48] LABS: Basophils # 0.1 K/mm3 (0-0.2); Eosinophils # 0.2 K/mm3 (0.0-0.4); Eosinophils % 2.3 % (0.1-12.0); Hematocrit 34.3 % (37.0-47.0); Hemoglobin 10.7 g/dL (12.2-16.2); Lymphocytes # 2.2 K/mm3 (0.7-4.5); Lymphocytes % 33.3 % (10-50); Mean Corpuscular HGB Conc 31.1 g/dL (31.8-35.4); Mean Corpuscular Hemoglobin 26.9 pg (27.0-31.2); Mean Corpuscular Volume 86.4 fl (81-99); Mean Platelet Volume 8.2 fl (7.4-10.4); Monocytes # 0.4 K/mm3 (0.1-1.0); Neutrophils # 3.8 K/mm3 (1.8-7.8); Neutrophils % 57.4 % (37.0-80.0); Platelet Count 372 K/mm3 (142-424); Red Blood Count 3.97 M/mm3 (4.20-5.40); Red Cell Distribution Width 15.4 % (11.5-17.5); White Blood Count 6.5 K/mm3 (4.8-10.8)
[2022-08-13 12:55] LABS: Alanine Aminotransferase 14 U/L (12-78); Alkaline Phosphatase 147 U/L (38-126); Aspartate Amino Transferase 26 U/L (14-36); Bilirubin,Total 0.4 mg/dl (0.2-1.3); Blood Urea Nitrogen 69 mg/dl (7-17); Calcium 8.6 mg/dl (8.4-10.2); Carbon Dioxide 17 mmol/L (22.0-30.0); Chloride 108 mmol/L (98-107); Creatinine Clearance Estimated 27 mL/min (50-200); Estimated Glomerular Filt Rate 17 ml/min (>60); GFR (African American) 21 ML/MIN (>60); Glucose 111 mg/dl (74-100); Sodium 137 mmol/L (136-145)
--- NOTE | 2022-08-13 13:01 | PC.NURSE ---
Angela called from lab to report critical potassium of 7.0 Results read back and verified. notified.
[2022-08-13 13:17] LABS: Coronavirus 19, PCR Not Detected (NotDetected); Influenza A, PCR Not Detected (NotDetected); Influenza B, PCR Not Detected (NotDetected)
--- NOTE | 2022-08-13 13:19 | PC.NURSE ---
COVID swab sent to lab at this time.
--- NOTE | 2022-08-13 13:46 | PC.NURSE ---
DR MIHAI FUCHS
--- NOTE | 2022-08-13 13:50 | PC.NURSE ---
DR HOLM ADVISED US HE IS GOING OUT OF TOWN HE THINKS ITS BESSON SO HE HAS BEEN PAGED
--- NOTE | 2022-08-13 14:53 | PC.NURSE ---
CARE MANAGEMENT NOTIFIED OF ADMISSION
--- NOTE | 2022-08-13 14:57 | PC.NURSE ---
Bed assignment given to admissions at this time.
--- NOTE | 2022-08-13 15:13 | PC.NURSE ---
Pt urinated in bedpan.
--- NOTE | 2022-08-13 15:18 | PC.NURSE ---
called report to Niya Fitzgerald.
--- NOTE | 2022-08-13 15:32 | PC.NURSE ---
Patient arrived at the floor 9325
[2022-08-13 16:10] LABS: Anion Gap 17.9 mEq/L (5-15); Blood Urea Nitrogen 66 mg/dl (7-17); Calcium 8.8 mg/dl (8.4-10.2); Carbon Dioxide 16 mmol/L (22.0-30.0); Chloride 112 mmol/L (98-107); Creatinine Clearance Estimated 32 mL/min (50-200); Estimated Glomerular Filt Rate 21 ml/min (>60); GFR (African American) 26 ML/MIN (>60); Glucose 106 mg/dl (74-100); Potassium 5.9 mmoL/L (3.5-5.1); Sodium 140 mmol/L (136-145)
--- NOTE | 2022-08-13 19:41 | EXP.HP ---
History of Present Illness *Admission Date: 08/13/22 *Reason for visit:: Weakness/abdominal pain *History of present illness: 67-year-old female, patient of Dr. Yash Stone as an outpatient who presented to the emergency department with weakness, vomiting and significant abdominal pain over the past 4 to 5 days accelerated to the point that she cannot get up. She related initially to her hip pain. She had a fall about 8 to 10 days ago, presented to the ER, had no fractures but was found to be septic, admitted to hospital and treated for sepsis, discharged about 7 days ago on cephalosporin antibiotic. Apparently she is done well but reports that he has had increasing vomiting and nausea and that her stools have become scattered and dark green. It is difficult to get a longitudinal history from her because of her confusion and uncertainty about her medical facts. Regardless, she presented to the ER where she was found to have significant acute kidney injury over her baseline as well as hyperkalemia with potassium of 7. She was admitted after treatment in the ER for acute hyperkalemia for IV fluids, further observation and medication adjustment as indicated. I evaluated on the floor in cross cover for Dr. Stone who is out of the office today. [facility] Medical History (Updated 08/13/22 @ 19:44 by Kole Acevedo MD) Broken tooth Bronchitis due to tobacco use Cellulitis of both lower extremities Cervical strain CLL (chronic lymphocytic leukemia) CML (chronic myelocytic leukemia) Colitis COPD (chronic obstructive pulmonary disease) E coli infection Fall Gastroenteritis History of heart attack History of leukemia History of stroke Leukopenia Lymph nodes enlarged Lymphadenitis Otitis media Paroxysmal atrial tachycardia with block Pre-syncope Regional enteritis of jejunum Scalp contusion Sinus bradycardia Thyroid nodule Surgical History History of appendectomy History of colonoscopy History of hysterectomy Family History (Updated 08/13/22 @ 16:13 by Niya Fitzgerald RN) Family history of cancer Social History (Updated 08/13/22 @ 16:14 by Niya Fitzgerald RN) Smoking Status: Current every day smoker tobacco type: cigarettes packs per day: 1 second hand exposure: No alcohol intake: never substance use type: denies use current occupational status: unemployed and disabled Travel in the last 8 weeks: None household members: none housing: house marital status: single current occupational exposures/hazards: No caffeine: Yes Review of Systems Review of Systems Review of systems:: pertinent systems reviewed and negative unless documented below Meds Home Medications and Allergies Home Medications Medication Instructions Recorded Confirmed Type atorvastatin 80 mg tablet 80 mg PO HS Cholesterol 12/28/17 08/06/22 History diazepam 5 mg tablet 5 mg PO TIDP PRN Anxiety 12/28/17 08/06/22 History ferrous sulfate 325 mg (65 mg 325 mg PO BID iron supplement 12/28/17 08/06/22 History iron) tablet fluticasone furoate 100 1 puff inhalation DAILY COPD 12/28/17 08/06/22 History mcg-vilanterol 25 mcg/dose inhalation powder furosemide 40 mg tablet 40 mg PO BIDL Fluid 12/28/17 08/06/22 History lisinopril 5 mg tablet 5 mg PO DAILY Hypertension 12/28/17 08/06/22 History metformin 500 mg tablet 500 mg PO BIDWMEAL Diabetes 12/28/17 08/06/22 History albuterol sulfate 90 mcg/actuation 2 puff inhalation QIDP PRN 01/20/18 08/06/22 History aerosol inhaler Shortness Of Breath potassium chloride 20 mEq 20 meq PO BID potassium 05/25/19 08/06/22 History tablet,extended release(part/cryst) replacement #60 tabs oxybutynin chloride 5 mg tablet 5 mg PO BID overactive bladder 07/26/19 08/06/22 History cyanocobalamin (vitamin B-12) 1,000 mcg PO DAILY Supplement 04/30/22 08/06/22 History 1,000 mcg tablet (Vitamin B-12) omeprazole 40 mg capsule,delayed 40 mg PO JIMBO
[2022-08-13 21:35] LABS: POC Glucose,Bedside 75 (70-110)
[2022-08-14 04:00] VITALS: BP 114/56; PULSE 60; RESP 16; TEMP 36.5; O2SAT 98
[2022-08-14 05:50] VITALS: BMI 31.6
--- NOTE | 2022-08-14 06:27 | PC.NURSE ---
pt complained of pain most of night, states pain is in lower back and down right hip and side of leg, morphine given with some relief but states it still hurts, pt states she fell into a fan at home, VSS, pt is incontinent of bowel and bladder and have been unable to get stool sample, pt states she is incontinent sometimes at home and has a bsc beside the couch, FSBS have been less than 150, pt is alert and oriented x4, skin pwd, TEDS in use, +pedal pulses noted, no other issues or concerns at this time.
[2022-08-14 06:44] LABS: POC Glucose,Bedside 108 (70-110)
--- NOTE | 2022-08-14 07:33 | HMH.PHAINT1 ---
Pharmacy Intervention Comments: Home medication reconciliation completed using outpatient pharmacy list.
[2022-08-14 08:00] VITALS: BP 133/58; PULSE 64; RESP 21; TEMP 37.1; O2SAT 98
--- NOTE | 2022-08-14 08:19 | EXP.ACUTE.PN ---
Subjective *Date: 08/14/22 *Time: 09:00 Interval history: Patient states she is still not feeling well this morning. She had a horrible night due to right hip pain. She states she fell approximately a month ago and landed on her hip and her back and has had pain ever since. All x-rays have been negative for fracture. She states it is difficult for her to walk and lay on that side. She was finally able to fall asleep this morning after getting some pain medication. Medical Exam Vital signs and Labs for Last 24 Hours: Temp Pulse Resp BP Pulse Ox 97.7 F 60 16 114/56 L 98 08/14/22 04:00 08/14/22 04:00 08/14/22 04:00 08/14/22 04:00 08/14/22 04:00 Laboratory Results - last 24 hr 08/13/22 12:39: WBC 6.5, RBC 3.97 L, Hgb 10.7 L, Hct 34.3 L, MCV 86.4, MCH 26.9 L, MCHC 31.1 L, RDW 15.4, Plt Count 372, MPV 8.2, Neut % (Auto) 57.4, Lymph % (Auto) 33.3, [place] % (Auto) 6.0, Eos % (Auto) 2.3, Baso % (Auto) 1.0, Neut # (Auto) 3.8, Lymph # (Auto) 2.2, [place] # (Auto) 0.4, Eos # (Auto) 0.2, Baso # (Auto) 0.1 08/13/22 12:39: Sodium 137, Potassium 7.0 H*, Chloride 108 H, Carbon Dioxide 17 L, Anion Gap 19.0 H, BUN 69 H, Creatinine 2.80 H, Estimated Creat Clear 27, Estimated GFR 17 L*, Est GFR ( Amer) 21 L, Glucose 111 H, Calcium 8.6, Total Bilirubin 0.4, AST 26, ALT 14, Alkaline Phosphatase 147 H, Total Protein 8.0, Albumin 4.0, Globulin 4.0 H, Albumin/Globulin Ratio 1.0 L 08/13/22 13:15: SARS-CoV-2 (PCR) Not detected, Influenza A Untype (PCR) Not detected, Influenza Type B (PCR) Not detected 08/13/22 15:54: Sodium 140, Potassium 5.9 H, Chloride 112 H, Carbon Dioxide 16 L, Anion Gap 17.9 H, BUN 66 H, Creatinine 2.30 H, Estimated Creat Clear 32, Estimated GFR 21 L, Est GFR ( Amer) 26 L D, Glucose 106 H, Calcium 8.8 08/13/22 20:33: POC Glucose 75 08/14/22 06:16: POC Glucose 108 I & O for Labs for Last 24 Hours: Intake & Output 08/11/22 08/12/22 08/13/22 08/14/22 11:59 11:59 11:59 11:59 Intake Total 788 / 788 Output Total 0 / 0 Balance 788 / 788 Weight 185 lb 8 oz Constitutional: Present no acute distress Respiratory: Present CTA bilaterally Cardiac: Present Reg Rate and Rhythm GI: Present soft and tenderness (Bilateral lower quadrants); Absent distention Extremities: Present tenderness (Along the right hip and trochanteric bursa, pain with flexion, extension, internal, and external rotation of the right hip); Absent edema, clubbing or cyanosis Skin: Present intact Neuro: Present alert and awake Assessment and Plan *Assessment and plan (1) Hyperkalemia: Status: Acute Category: Medical Code(s): E87.5 - Hyperkalemia (2) Acute kidney injury: Status: Acute Category: Medical Code(s): N17.9 - Acute kidney failure, unspecified (3) Right hip pain: Status: Acute Category: Medical Code(s): M25.551 - Pain in right hip (4) Pacemaker: Status: Acute Category: Medical Code(s): Z95.0 - Presence of cardiac pacemaker (5) Afib: Status: Acute Category: Medical Code(s): I48.91 - Unspecified atrial fibrillation (6) Moderate aortic stenosis: Status: Acute Category: Medical Code(s): I35.0 - Nonrheumatic aortic (valve) stenosis (7) NICM (nonischemic cardiomyopathy): Status: Acute Category: Medical Code(s): I42.8 - Other cardiomyopathies (8) HTN (hypertension): Status: Chronic Qualifiers: Hypertension type: primary hypertension Qualified Code(s): I10 - Essential (primary) hypertension Category: Medical Code(s): I10 - Essential (primary) hypertension (9) Diabetes: Status: Chronic Qualifiers: Diabetes mellitus complication detail: with other circulatory complications Diabetes mellitus complication status: with circulatory complication Diabetes mellitus intermediate insulin use: without intermediate use Diabetes mellitus type: type 2 Qualifie
--- NOTE | 2022-08-14 08:57 | CT_ITS ---
FINAL REPORT CLINICAL HISTORY: pain with referral to right hip FINDINGS: Axial imaging of the lumbar spine was obtained without contrast. Sagittal and coronal reformatted images were also obtained and reviewed.This study was performed with techniques to keep radiation doses as low as reasonably achievable (ALARA). Individualized dose reduction techniques using automated exposure control or adjustment of mA and/or kV according to the patient's size were employed. There is a nondisplaced fracture at the inferior endplate of L5. There is 5 mm of retrolisthesis of L5 on S1. There is mild anterolisthesis of L4 on 5. Mild and moderate degenerative changes are present. L1-2: An annular bulge is present. No evidence of significant central canal stenosis or neuroforaminal narrowing. L2-3: An annular bulge is present. No evidence of significant central canal stenosis or neuroforaminal narrowing. L3-4: An annular bulge is present. No evidence of significant central canal stenosis or neuroforaminal narrowing. L4-5: An annular bulge and facet arthropathy are present. There is moderate bilateral neural foraminal narrowing. L5-S1: An annular bulge is present. Facet arthropathy and osteophytes are present. There is significant irregularity at the inferior L5 and superior S1 endplates, may represent degenerative change but discitis is not entirely excluded. There is severe bilateral neural foraminal narrowing. IMPRESSION: Nondisplaced fracture at the inferior endplate of L5. Irregularity at the inferior L5 and superior S1 endplates, may represent degenerative change but discitis is not entirely excluded. If indicated, follow-up MRI may be helpful. Multilevel degenerative disc disease and spondylosis. Reviewed, Interpreted and Dictated by Harpal Schultz III, MD Transcribed by Myla Wilkerson Authenticated and [facility]
--- NOTE | 2022-08-14 08:57 | CT_ITS ---
FINAL REPORT TECHNIQUE: Thin section axial CT images with coronal and sagittal reformats were performed. 3D reconstructed images were obtained and reviewed. This study was performed with techniques to keep radiation doses as low as reasonably achievable (ALARA). Individualized dose reduction techniques using automated exposure control or adjustment of mA and/or kV according to the patient''s size were employed. CLINICAL HISTORY: pain after a fall FINDINGS: There are no fractures. Mild degenerative changes are present. The musculature is intact. There is vascular calcification. IMPRESSION: No acute fracture. Reviewed, Interpreted and Dictated by Harpal Schultz III, MD Transcribed by Myla Wilkerson Authenticated and [facility]
[2022-08-14 08:59] LABS: Basophils % 0.4 % (0.1-2.0); Eosinophils # 0.2 K/mm3 (0.0-0.4); Eosinophils % 3.7 % (0.1-12.0); Hematocrit 30.5 % (37.0-47.0); Hemoglobin 9.9 g/dL (12.2-16.2); Lymphocytes # 0.9 K/mm3 (0.7-4.5); Lymphocytes % 21.3 % (10-50); Mean Corpuscular HGB Conc 32.6 g/dL (31.8-35.4); Mean Corpuscular Hemoglobin 27.5 pg (27.0-31.2); Mean Corpuscular Volume 84.3 fl (81-99); Mean Platelet Volume 8.2 fl (7.4-10.4); Monocytes # 0.4 K/mm3 (0.1-1.0); Monocytes % 9.1 % (1.7-9.3); Neutrophils # 2.6 K/mm3 (1.8-7.8); Neutrophils % 65.4 % (37.0-80.0); Platelet Count 222 K/mm3 (142-424); Red Blood Count 3.62 M/mm3 (4.20-5.40); Red Cell Distribution Width 15.2 % (11.5-17.5)
--- NOTE | 2022-08-14 09:00 | P.PN_ITS ---
Subjective *Date: 08/14/22 *Time: 09:00 Medical Exam Vital signs and Labs for Last 24 Hours: Temp Pulse Resp BP Pulse Ox 97.7 F 60 16 114/56 L 98 08/14/22 04:00 08/14/22 04:00 08/14/22 04:00 08/14/22 04:00 08/14/22 04:00 Laboratory Results - last 24 hr 08/13/22 12:39: WBC 6.5, RBC 3.97 L, Hgb 10.7 L, Hct 34.3 L, MCV 86.4, MCH 26.9 L, MCHC 31.1 L, RDW 15.4, Plt Count 372, MPV 8.2, Neut % (Auto) 57.4, Lymph % (Auto) 33.3, [place] % (Auto) 6.0, Eos % (Auto) 2.3, Baso % (Auto) 1.0, Neut # (Auto) 3.8, Lymph # (Auto) 2.2, [place] # (Auto) 0.4, Eos # (Auto) 0.2, Baso # (Auto) 0.1 08/13/22 12:39: Sodium 137, Potassium 7.0 H*, Chloride 108 H, Carbon Dioxide 17 L, Anion Gap 19.0 H, BUN 69 H, Creatinine 2.80 H, Estimated Creat Clear 27, Estimated GFR 17 L*, Est GFR ( Amer) 21 L, Glucose 111 H, Calcium 8.6, Total Bilirubin 0.4, AST 26, ALT 14, Alkaline Phosphatase 147 H, Total Protein 8.0, Albumin 4.0, Globulin 4.0 H, Albumin/Globulin Ratio 1.0 L 08/13/22 13:15: SARS-CoV-2 (PCR) Not detected, Influenza A Untype (PCR) Not detected, Influenza Type B (PCR) Not detected 08/13/22 15:54: Sodium 140, Potassium 5.9 H, Chloride 112 H, Carbon Dioxide 16 L , Anion Gap 17.9 H, BUN 66 H, Creatinine 2.30 H, Estimated Creat Clear 32, Estimated GFR 21 L, Est GFR ( Amer) 26 L D, Glucose 106 H, Calcium 8.8 08/13/22 20:33: POC Glucose 75 08/14/22 06:16: POC Glucose 108 08/14/22 08:50: WBC 4.0 L D, RBC 3.62 L, Hgb 9.9 L, Hct 30.5 L, MCV 84.3, MCH 27.5, MCHC 32.6, RDW 15.2, Plt Count 222 D, MPV 8.2, Neut % (Auto) 65.4, Lymph % (Auto) 21.3, [place] % (Auto) 9.1, Eos % (Auto) 3.7, Baso % (Auto) 0.4, Neut # (Auto) 2.6, Lymph # (Auto) 0.9, [place] # (Auto) 0.4, Eos # (Auto) 0.2, Baso # (Auto) 0.0 I & O for Labs for Last 24 Hours: Intake & Output 08/11/22 08/12/22 08/13/22 08/14/22 11:59 11:59 11:59 11:59 Intake Total 788 / 788 Output Total 0 / 0 Balance 788 / 788 Weight 185 lb 8 oz
[2022-08-14 09:29] LABS: Chloride 112 mmol/L (98-107); Potassium 4.6 mmoL/L (3.5-5.1); Sodium 140 mmol/L (136-145)
[2022-08-14 09:32] LABS: Anion Gap 13.6 mEq/L (5-15); Blood Urea Nitrogen 36 mg/dl (7-17); Carbon Dioxide 19 mmol/L (22.0-30.0); Creatinine Clearance Estimated 68 mL/min (50-200); Estimated Glomerular Filt Rate 50 ml/min (>60); GFR (African American) 60 ML/MIN (>60); Glucose 98 mg/dl (74-100)
[2022-08-14 09:33] LABS: Calcium 8.6 mg/dl (8.4-10.2)
--- NOTE | 2022-08-14 13:55 | HMH.OTEV ---
OT Inpatient Evaluation Rehab OT IP Evaluation Start: 08/14/22 09:45 Freq: ONCE Status: Complete Protocol: Document 08/14/22 13:46 JEANETH (Rec: 08/14/22 13:55 [facility] [id number]) Rehab OT IP Assessment Subjective History Pt oriented x 3. Pt agreeable to engage in therapy evaluation. Pt was admitted via ED on 08/13/22 due to weakness and abdominal pain. Prior to abdominal pain, pt had a fall injurying her back ~2 weeks ago. She does live with her son. Pt claims prior to her fall she was independent with all ADLs and IADLs. Since she fell she has been requiring assistance with all daily activities due to pain and decreased functional ability. She has also had to begin using a walker during ambulation. She was receiving home health therapy services prior to this hospital admission. Pt has a past medical history of: Broken tooth Bronchitis due to tobacco use Cellulitis of both lower extremities Cervical strain CLL (chronic lymphocytic leukemia) CML (chronic myelocytic leukemia) Colitis COPD (chronic obstructive pulmonary disease) E coli infection Fall Gastroenteritis History of heart attack History of leukemia History of stroke Leukopenia Lymph nodes enlarged Lymphadenitis Otitis media Paroxysmal atrial tachycardia with block Pre-syncope Regional enteritis of jejunum Scalp contusion
--- NOTE | 2022-08-14 13:57 | HMH.PTEV ---
Physical Therapy Evaluation Rehab PT IP Evaluation Start: 08/14/22 09:45 Freq: ONCE Status: Active Protocol: Document 08/14/22 13:46 ANNE-MARIE (Rec: 08/14/22 13:56 ANNE-MARIE [id number]) Subjective/History History History Patient is a 67 year old female admitted to [facility] after a fall from the toilet at home. Most recent CT scans indicate an L5 non- displaced fracture. Prior to admittance, patient was living at home with her son. She was independent with all ADL's , but required a RW for ambulation. Patient reports that her son is not always around and needs help with certain actvities. Patient to have an orthopedic consult. Prior to admittance, she was receiving home health services . Subjective Subjective I'm a lot of pain in my back and it goes down into my R hip . Rehab PT IP Eval Objective Appearance Patient Behavior Appropriate,Cooperative Patient Orientation Person,Place,Birthday Difficulty following instructions none Speech Pattern Clear,Appropriate Ambulation Patient Able to Ambulate No Balance Ability to Arise Able, uses arms to help Sitting Balance Leans or slides in chair Standing Balance Unsteady Dynamic Sitting Balance Ability Fair Dynamic Standing Balance Ability Fair Transfers Bed Transfer Ability Minimal x 2 (25% assist) Sit to Stand Bed Transfer Ability Minimal x 2 (25% assist) Pain Back Pain Intensity 7 ROM All Extremities PT ROM Status WFL MMT All Extremities PT MMT WFL Rehab PT IP prob,goals,plan Problems Date of Evaluation: 08/14/22 PT IP Problems Bed Mobility,Transfers,Gait, Balance,Self care,Safety Rehab Potential Rehab Potential Good Plan PT Intervention Plan Bed Mobility,Transfers,Gait, Balance,Self care,Safety, Therapeutic Exercise PT Plan Frequency BID Duration LOS Discharge Goals Bed Transfer Ability Minimal x 1 (25% assist) Sit to Stand Chair Transfer Ability Minimal x 1 (25% assist)
[2022-08-14 14:28] LABS: POC Glucose,Bedside 96 (70-110)
--- NOTE | 2022-08-14 14:40 | EXP.ORTH.CON ---
History of Present Illness *Admission Date: 08/13/22 *History of present illness: 67-year-old female who I was consulted for evaluation for L5 fracture. Patient had recent admission for sepsis was subsequently discharged and return to the emergency room with hyperkalemia and GI complaints. She was having complaints of severe hip and back pains having difficulty walking and significant amount of pain. Appropriate further work-up with CT scans revealed nondisplaced L5 endplate fracture. Speaking with the patient she has a long history of low back issues that she relates back to following through the floor at her house. She feels this was approximately 3 years ago. After that she also had a significant fall in the wintertime when she fell on/down a ramp that also resulted in some back pain. She is aware that she has some degenerative arthritis in her spine as well. Since this last fall she has had some hip and back pain which has been fairly significant when she gets around. She reports that this has kept her at her house and she has not been able to do her normal activities like grocery shopping and going out. [facility] Medical History Broken tooth Bronchitis due to tobacco use Cellulitis of both lower extremities Cervical strain CLL (chronic lymphocytic leukemia) CML (chronic myelocytic leukemia) Colitis COPD (chronic obstructive pulmonary disease) E coli infection Fall Gastroenteritis History of heart attack History of leukemia History of stroke Leukopenia Lymph nodes enlarged Lymphadenitis Otitis media Paroxysmal atrial tachycardia with block Pre-syncope Regional enteritis of jejunum Scalp contusion Sinus bradycardia Thyroid nodule Surgical History History of appendectomy History of colonoscopy History of hysterectomy Family History Other Family history of cancer Social History Smoking Status: Current every day smoker tobacco type: cigarettes packs per day: 1 second hand exposure: No alcohol intake: never substance use type: denies use current occupational status: unemployed and disabled Travel in the last 8 weeks: None household members: none housing: house marital status: single current occupational exposures/hazards: No caffeine: Yes Meds Home Medications and Allergies Home Medications Medication Instructions Recorded Confirmed Type atorvastatin 80 mg tablet 80 mg PO HS Cholesterol 12/28/17 08/14/22 History ferrous sulfate 325 mg (65 mg 325 mg PO BID iron supplement 12/28/17 08/14/22 History iron) tablet furosemide 40 mg tablet 40 mg PO BIDL Fluid 12/28/17 08/14/22 History lisinopril 5 mg tablet 5 mg PO DAILY Hypertension 12/28/17 08/14/22 History metformin 500 mg tablet 500 mg PO BIDWMEAL Diabetes 12/28/17 08/14/22 History albuterol sulfate 90 mcg/actuation 2 puff inhalation QIDP PRN 01/20/18 08/14/22 History aerosol inhaler Shortness Of Breath potassium chloride 20 mEq 20 meq PO BID potassium 05/25/19 08/14/22 History tablet,extended release(part/cryst) replacement #60 tabs oxybutynin chloride 5 mg tablet 5 mg PO BID overactive bladder 07/26/19 08/14/22 History cyanocobalamin (vitamin B-12) 1,000 mcg PO DAILY Supplement 04/30/22 08/14/22 History 1,000 mcg tablet (Vitamin B-12) omeprazole 40 mg capsule,delayed 40 mg PO DAILY acid reflux 04/30/22 08/14/22 History release bisoprolol fumarate 5 mg tablet 5 mg PO DAILY Hypertension 07/20/22 08/14/22 History clopidogrel 75 mg tablet 75 mg PO DAILY pacemaker 07/20/22 08/14/22 History dasatinib 70 mg tablet (Sprycel) 70 mg PO HS leukemia 07/21/22 08/14/22 History polyethylene glycol 3350 17 17 g PO NEEDED PRN Constipation 07/21/22 08/14/22 History gram/dose oral powder spironolactone 25 mg tablet 25 mg PO JIMBO
--- NOTE | 2022-08-14 15:04 | SW/DCPLANNER ---
Addendum entered by Mary Ellen Baum 08/21/22 15:01: Patient stated that she is unsure how she would receive IV antibiotics and would need to speak with family prior to making any decisions. Discharge options for IV antibiotics has been explained to patient: home with home health and someone at home to be taught the days home health can not be present vs return to [facility] for outpatient IV antibiotics vs placement under [facility] pending (patient does not have Medicare policy for SNF level of care). Patient stated that she will speak with family this evening regarding discharge plans. I will update MD. Addendum entered by Mary Ellen Baum 08/21/22 14:13: I have attempted to speak with this patient regarding discharge plans. Per MD patient will need IV antibiotics at discharge and antibiotic is unknown at this time until cultures result. I will attempt to speak with patient after PICC placement regarding discharge plans: home with home health vs outpatient at [facility] vs placement. Addendum entered by Mary Ellen Baum 08/21/22 12:34: Patient information/order to resume home health services has been faxed to Odalis vickers/ [facility]. Odalis stated that services will resume on Wednesday. Addendum entered by Mary Ellen Baum 08/14/22 15:21: Patient is not interested in placement at time of discharge. Patient stated that she prefer to return home w/ home health services. Original Note: This patient is currently established with [facility]. During previous hospital admission patient refused placement due to Medicaid placement. I will continue to follow up with this patient during hospital stay. Discharge date is unknown at this time.
[2022-08-14 16:00] VITALS: BP 101/54; PULSE 61; RESP 22; TEMP 36.4; O2SAT 100
--- NOTE | 2022-08-14 18:14 | PC.NURSE ---
Patient still complains of pain in back and down right leg. Patient aware of findings and ortho talked to patient. No surgery plans at this time. VS stable and patient remained on room air. Morphine given for pain. Patient's potassium level as neutralized. No other complaints noted.
[2022-08-14 20:00] VITALS: BP 119/55; PULSE 60; RESP 16; TEMP 36.7; O2SAT 100
--- NOTE | 2022-08-14 21:00 | PC.NURSE ---
[address] at this time for periods of incontinence noted.
[2022-08-14 22:16] LABS: POC Glucose,Bedside 98 (70-110)
[2022-08-15] VITALS: BP 117/68; PULSE 60; RESP 17; TEMP 36.6; O2SAT 94
[2022-08-15 01:27] LABS: POC Glucose,Bedside 138 (70-110)
[2022-08-15 04:00] VITALS: BP 131/45; PULSE 60; RESP 16; TEMP 36.8; O2SAT 98
--- NOTE | 2022-08-15 04:46 | PC.NURSE ---
pt rested well through the night, medicated twice with morphine as ordered for pain in back and right leg with relief, VSS, purewick in place with clear yellow urine noted, pt is alert and oriented x4, skin pwd, VSS, no acute distress, no other issues or concerns at this time.
[2022-08-15 05:00] VITALS: BMI 30.9
[2022-08-15 06:35] LABS: POC Glucose,Bedside 109 (70-110)
[2022-08-15 08:00] VITALS: BP 109/46; PULSE 64; RESP 16; TEMP 36.7; O2SAT 98
[2022-08-15 11:38] LABS: POC Glucose,Bedside 147 (70-110)
--- NOTE | 2022-08-15 12:28 | EXP.ACUTE.PN ---
Subjective *Date: 08/15/22 *Time: 12:28 Interval history: She is resting without distress in her bed. She states she would like to get up. She has finished her lunch. She states that her pain ranges from a 6 to a 9. She was able to rest last night. See the consult by Dr. Ramirez. He felt that her L5 endplate injury did not require surgical intervention. Medical Exam Vital signs and Labs for Last 24 Hours: Temp Pulse Resp BP Pulse Ox 98.0 F 64 16 109/46 L 98 08/15/22 08:00 08/15/22 08:00 08/15/22 08:00 08/15/22 08:00 08/15/22 08:00 Laboratory Results - last 24 hr 08/14/22 11:57: POC Glucose 96 08/14/22 16:47: POC Glucose 138 H 08/14/22 22:02: POC Glucose 98 08/15/22 06:28: POC Glucose 109 08/15/22 11:23: POC Glucose 147 H I & O for Labs for Last 24 Hours: Intake & Output 08/13/22 08/14/22 08/15/22 08/16/22 11:59 11:59 11:59 11:59 Intake Total 908 / 908 1764 / 1764 Output Total 0 / 0 501 / 501 Balance 908 / 908 1263 / 1263 Weight 185 lb 8 oz 181 lb 6.4 oz Head: Present normocephalic Neck: Present normal inspection Respiratory: Present CTA bilaterally; Absent respiratory distress Cardiac: Present Reg Rate and Rhythm; Absent No Murmur (High-pitched murmur of aortic stenosis.) GI: Present soft; Absent tenderness Rectal (female): Present deferred (female): Present deferred Extremities: Absent edema Skin: Present intact Neuro: Present alert and oriented x 3 Additional Findings:: See x-ray reports. Assessment and Plan *Assessment and plan (1) Closed traumatic nondisplaced fracture of lumbar vertebra: Status: Acute Category: Medical Code(s): S32.009A - Unspecified fracture of unspecified lumbar vertebra, initial encounter for closed fracture (2) Hyperkalemia: Status: Acute Category: Medical Code(s): E87.5 - Hyperkalemia (3) Pacemaker: Status: Acute Category: Medical Code(s): Z95.0 - Presence of cardiac pacemaker (4) Moderate aortic stenosis: Status: Acute Category: Medical Code(s): I35.0 - Nonrheumatic aortic (valve) stenosis (5) HTN (hypertension): Status: Chronic Qualifiers: Hypertension type: primary hypertension Qualified Code(s): I10 - Essential (primary) hypertension Category: Medical Code(s): I10 - Essential (primary) hypertension (6) Anticoagulant long-term use: Status: Chronic Category: Medical Code(s): Z79.01 - nursing home (current) use of anticoagulants (7) History of permanent cardiac pacemaker placement: Status: Chronic Category: Surgical Code(s): Z95.0 - Presence of cardiac pacemaker (8) Lumbar strain: Status: Acute Category: Medical Code(s): S39.012A - Strain of muscle, fascia and tendon of lower back, initial encounter Plan See lab reports. Encourage up in chair today. She maintains she will be going home on discharge.
[2022-08-15 16:00] VITALS: BP 109/51; PULSE 60; RESP 18; TEMP 36.9; O2SAT 100
[2022-08-15 17:05] LABS: POC Glucose,Bedside 113 (70-110)
--- NOTE | 2022-08-15 17:30 | PC.NURSE ---
Patient up to chair during the evening. VS stable and no pain medication given. Patient remained on room air with no other complaints.
[2022-08-15 20:00] VITALS: BP 131/66; PULSE 60; RESP 18; TEMP 37.9; O2SAT 99
[2022-08-15 22:58] LABS: POC Glucose,Bedside 147 (70-110)
[2022-08-16 04:00] VITALS: BP 101/54; PULSE 58; RESP 18; TEMP 36.9; O2SAT 96
--- NOTE | 2022-08-16 04:26 | PC.NURSE ---
Pt alert and oriented x 4. Pt has rested majority of my shift. Pt has been medicated per MAR for pain x 1 thus far during my shift. IV fluids infusing per order. Purewick draining yellow urine with good UOP. No other complaints voiced at this time. Call light in reach.
[2022-08-16 05:57] LABS: POC Glucose,Bedside 126 (70-110)
[2022-08-16 08:00] VITALS: BP 153/51; PULSE 64; RESP 14; TEMP 37.1; O2SAT 98
[2022-08-16 12:06] LABS: POC Glucose,Bedside 164 (70-110)
--- NOTE | 2022-08-16 14:29 | P.PN_ITS ---
Subjective *Date: 08/16/22 *Time: 14:29 Interval history: She still complains of back pain. She states she has not rested well. She plans to go home at discharge. Improvement in renal functions and electrolytes are noted on 1014 labs. GFR has improved to 50. We will repeat labs today. Medications are adjusted today for pain relief. Medical Exam Vital signs and Labs for Last 24 Hours: Temp Pulse Resp BP Pulse Ox 98.7 F 64 14 153/51 H 98 08/16/22 08:00 08/16/22 08:00 08/16/22 08:00 08/16/22 08:00 08/16/22 08:00 Laboratory Results - last 24 hr 08/15/22 16:57: POC Glucose 113 H 08/15/22 20:38: POC Glucose 147 H 08/16/22 05:39: POC Glucose 126 H 08/16/22 11:58: POC Glucose 164 H I & O for Labs for Last 24 Hours: Intake & Output 08/14/22 08/15/22 08/16/22 08/17/22 11:59 11:59 11:59 11:59 Intake Total 908 / 908 1884 / 1884 1857 / 1857 120 / 120 Output Total 0 / 0 1301 / 1301 1600 / 1600 Balance 908 / 908 583 / 583 257 / 257 120 / 120 Weight 185 lb 8 oz 181 lb 6.4 oz Head: Present normocephalic Neck: Present normal inspection Respiratory: Present CTA bilaterally Cardiac: Present Reg Rate and Rhythm GI: Present soft; Absent tenderness Extremities: Absent edema Skin: Present pallor Neuro: Present alert, awake and oriented x 3 Assessment and Plan *Assessment and plan (1) Closed traumatic nondisplaced fracture of lumbar vertebra: Status: Acute Category: Medical Code(s): S32.009A - Unspecified fracture of unspecified lumbar vertebra, initial encounter for closed fracture (2) Acute kidney injury: Status: Acute Category: Medical Code(s): N17.9 - Acute kidney failure, unspecified (3) Acute hyperkalemia: Status: Acute Category: Medical Code(s): E87.5 - Hyperkalemia (4) Right hip pain: Status: Acute Category: Medical Code(s): M25.551 - Pain in right hip (5) Pacemaker: Status: Acute Category: Medical Code(s): Z95.0 - Presence of cardiac pacemaker (6) Moderate aortic stenosis: Status: Acute Category: Medical Code(s): I35.0 - Nonrheumatic aortic (valve) stenosis (7) HTN (hypertension): Status: Chronic Qualifiers: Hypertension type: primary hypertension Qualified Code(s): I10 - Essential (primary) hypertension Category: Medical Code(s): I10 - Essential (primary) hypertension (8) Diabetes: Status: Chronic Qualifiers: Diabetes mellitus complication detail: with other circulatory compl ications Diabetes mellitus complication status: with circulatory complication Diabetes mellitus intermediate manager insulin use: without intermediate manager use Diabetes mellitus type: type 2 Qualified Code(s): E11.59 - Type 2 diabetes mellitus with other circulatory complications Category: Medical Code(s): E11.9 - Type 2 diabetes mellitus without complications Plan Increase diazepam to 5 mg and schedule 3 times daily. 650 mg of Tylenol scheduled 3 times daily. Oxycodone 5 mg scheduled 3 times daily. Morphine discontinued.
[2022-08-16 15:07] LABS: Basophils % 0.5 % (0.1-2.0); Eosinophils # 0.1 K/mm3 (0.0-0.4); Eosinophils % 1.7 % (0.1-12.0); Hematocrit 33.5 % (37.0-47.0); Hemoglobin 10.7 g/dL (12.2-16.2); Lymphocytes # 1.3 K/mm3 (0.7-4.5); Lymphocytes % 18.1 % (10-50); Mean Corpuscular Hemoglobin 26.9 pg (27.0-31.2); Monocytes # 0.7 K/mm3 (0.1-1.0); Monocytes % 9.2 % (1.7-9.3); Neutrophils # 5.1 K/mm3 (1.8-7.8); Neutrophils % 70.5 % (37.0-80.0); Platelet Count 267 K/mm3 (142-424); Red Blood Count 3.98 M/mm3 (4.20-5.40); Red Cell Distribution Width 15.2 % (11.5-17.5); White Blood Count 7.2 K/mm3 (4.8-10.8)
[2022-08-16 15:11] LABS: Chloride 100 mmol/L (98-107); Potassium 3.5 mmoL/L (3.5-5.1); Sodium 140 mmol/L (136-145)
[2022-08-16 15:13] LABS: Blood Urea Nitrogen 22 mg/dl (7-17); Creatinine Clearance Estimated 61 mL/min (50-200); Estimated Glomerular Filt Rate 45 ml/min (>60); GFR (African American) 55 ML/MIN (>60)
[2022-08-16 15:14] LABS: Alanine Aminotransferase 17 U/L (12-78); Albumin Level 3.7 g/dl (3.5-5.0); Alkaline Phosphatase 130 U/L (38-126); Anion Gap 14.5 mEq/L (5-15); Aspartate Amino Transferase 25 U/L (14-36); Bilirubin,Total 0.2 mg/dl (0.2-1.3); Carbon Dioxide 29 mmol/L (22.0-30.0); Globulin 3.7 g/dL (1.3-3.2); Glucose 133 mg/dl (74-100); Total Protein,Serum 7.4 g/dl (6.3-8.2)
[2022-08-16 16:00] VITALS: BP 110/40; PULSE 59; RESP 16; TEMP 36.9; O2SAT 98
[2022-08-16 16:46] LABS: POC Glucose,Bedside 98 (70-110)
[2022-08-16 20:00] VITALS: BP 110/45; PULSE 61; RESP 16; TEMP 36.6; O2SAT 100
[2022-08-16 21:31] LABS: POC Glucose,Bedside 107 (70-110)
[2022-08-17 03:54] VITALS: BP 112/43; PULSE 62; RESP 16; TEMP 36.6; O2SAT 98
[2022-08-17 05:00] VITALS: BMI 30.9
--- NOTE | 2022-08-17 05:25 | PC.NURSE ---
pt slept well after prescribed valium given, pt complains of pain to the right leg and hip, purewick in place, pt is alert and oriented x4, skin pwd, sbp have been 110, dpb have been 40-45 with maps 65 or less noted, pt asymptomatic, lung sounds diminished with 02 sats 98% on room air, mild generalized edema noted, no other issues or concerns at this time, pt in no acute distress.
[2022-08-17 06:54] LABS: POC Glucose,Bedside 115 (70-110)
[2022-08-17 07:53] VITALS: BP 86/34; PULSE 96; RESP 16; TEMP 37.4; O2SAT 98
--- NOTE | 2022-08-17 07:59 | PC.NURSE ---
RN aware of low bp.
[2022-08-17 08:00] VITALS: O2SAT 98
--- NOTE | 2022-08-17 09:02 | EXP.ACUTE.PN ---
Subjective *Date: 08/17/22 *Time: 09:02 Interval history: Patient complains of more back pain today. BP has been low this morning. Medical Exam Vital signs and Labs for Last 24 Hours: Temp Pulse Resp BP Pulse Ox 99.4 F 96 H 16 86/34 L 98 08/17/22 07:53 08/17/22 07:53 08/17/22 07:53 08/17/22 07:53 08/17/22 07:53 Laboratory Results - last 24 hr 08/16/22 11:58: POC Glucose 164 H 08/16/22 14:51: WBC 7.2 D, RBC 3.98 L, Hgb 10.7 L, Hct 33.5 L, MCV 84.0, MCH 26.9 L, MCHC 32.0, RDW 15.2, Plt Count 267, MPV 9.0, Neut % (Auto) 70.5, Lymph % (Auto) 18.1, [place] % (Auto) 9.2, Eos % (Auto) 1.7, Baso % (Auto) 0.5, Neut # (Auto) 5.1, Lymph # (Auto) 1.3, [place] # (Auto) 0.7, Eos # (Auto) 0.1, Baso # (Auto) 0.0 08/16/22 14:51: Sodium 140, Potassium 3.5 D, Chloride 100, Carbon Dioxide 29, Anion Gap 14.5, BUN 22 H D, Creatinine 1.20 H, Estimated Creat Clear 61, Estimated GFR 45 L, Est GFR ( Amer) 55 L, Glucose 133 H, Calcium 8.0 L, Total Bilirubin 0.2, AST 25, ALT 17, Alkaline Phosphatase 130 H, Total Protein 7.4, Albumin 3.7, Globulin 3.7 H, Albumin/Globulin Ratio 1.0 L 08/16/22 16:26: POC Glucose 98 08/16/22 21:21: POC Glucose 107 08/17/22 06:43: POC Glucose 115 H I & O for Labs for Last 24 Hours: Intake & Output 08/14/22 08/15/22 08/16/22 08/17/22 23:59 23:59 23:59 23:59 Intake Total 193 / 1931 1902 / 1902 2159 / 2159 690 / 690 Output Total 0 / 1 2401 / 2401 900 / 900 600 / 600 Balance 1931 / 1930 -499 / -499 1259 / 1259 90 / 90 Weight 185 lb 8 oz 181 lb 6.4 oz 181 lb 3.2 oz Head: Present normocephalic Neck: Present normal inspection Respiratory: Present CTA bilaterally Cardiac: Present Reg Rate and Rhythm GI: Present soft; Absent tenderness Extremities: Absent edema Neuro: Present alert, awake and oriented x 3 Assessment and Plan *Assessment and plan (1) Closed traumatic nondisplaced fracture of lumbar vertebra: Status: Acute Category: Medical Code(s): S32.009A - Unspecified fracture of unspecified lumbar vertebra, initial encounter for closed fracture (2) Acute kidney injury: Status: Acute Category: Medical Code(s): N17.9 - Acute kidney failure, unspecified (3) Acute hyperkalemia: Status: Acute Category: Medical Code(s): E87.5 - Hyperkalemia (4) Right hip pain: Status: Acute Category: Medical Code(s): M25.551 - Pain in right hip (5) Pacemaker: Status: Acute Category: Medical Code(s): Z95.0 - Presence of cardiac pacemaker (6) Moderate aortic stenosis: Status: Acute Category: Medical Code(s): I35.0 - Nonrheumatic aortic (valve) stenosis (7) HTN (hypertension): Status: Chronic Qualifiers: Hypertension type: primary hypertension Qualified Code(s): I10 - Essential (primary) hypertension Category: Medical Code(s): I10 - Essential (primary) hypertension (8) Diabetes: Status: Chronic Qualifiers: Diabetes mellitus complication detail: with other circulatory complications Diabetes mellitus complication status: with circulatory complication Diabetes mellitus exterminator helper insulin use: without exterminator helper use Diabetes mellitus type: type 2 Qualified Code(s): E11.59 - Type 2 diabetes mellitus with other circulatory complications Category: Medical Code(s): E11.9 - Type 2 diabetes mellitus without complications (9) Low back pain: Status: Acute Category: Medical Code(s): M54.50 - Low back pain, unspecified (10) Hypotension: Status: Acute Category: Medical Code(s): I95.9 - Hypotension, unspecified Plan Plan to check blood cultures, lactate an MRI of the L-spine to evaluate for possible discitis.
[2022-08-17 09:42] VITALS: BP 96/41
[2022-08-17 09:55] LABS: Basophils % 0.4 % (0.1-2.0); Eosinophils # 0.1 K/mm3 (0.0-0.4); Eosinophils % 2.5 % (0.1-12.0); Lymphocytes # 1.2 K/mm3 (0.7-4.5); Lymphocytes % 20.8 % (10-50); Mean Corpuscular HGB Conc 33.4 g/dL (31.8-35.4); Mean Corpuscular Hemoglobin 27.4 pg (27.0-31.2); Mean Corpuscular Volume 82.2 fl (81-99); Mean Platelet Volume 8.7 fl (7.4-10.4); Monocytes # 0.6 K/mm3 (0.1-1.0); Monocytes % 10.1 % (1.7-9.3); Neutrophils # 3.9 K/mm3 (1.8-7.8); Neutrophils % 66.2 % (37.0-80.0); Platelet Count 189 K/mm3 (142-424); Red Blood Count 3.29 M/mm3 (4.20-5.40); Red Cell Distribution Width 15.2 % (11.5-17.5); White Blood Count 5.8 K/mm3 (4.8-10.8)
[2022-08-17 10:00] LABS: Chloride 101 mmol/L (98-107)
[2022-08-17 10:01] LABS: Potassium 3.3 mmoL/L (3.5-5.1); Sodium 136 mmol/L (136-145)
[2022-08-17 10:03] LABS: Alanine Aminotransferase 14 U/L (12-78); Alkaline Phosphatase 124 U/L (38-126); Aspartate Amino Transferase 22 U/L (14-36); Bilirubin,Total 0.3 mg/dl (0.2-1.3); Blood Urea Nitrogen 26 mg/dl (7-17); Creatinine Clearance Estimated 73 mL/min (50-200); Estimated Glomerular Filt Rate 56 ml/min (>60); GFR (African American) 67 ML/MIN (>60)
[2022-08-17 10:04] LABS: Albumin Level 3.2 g/dl (3.5-5.0); Anion Gap 13.3 mEq/L (5-15); Calcium 7.6 mg/dl (8.4-10.2); Carbon Dioxide 25 mmol/L (22.0-30.0); Globulin 3.3 g/dL (1.3-3.2); Glucose 145 mg/dl (74-100); Total Protein,Serum 6.5 g/dl (6.3-8.2)
[2022-08-17 12:05] LABS: POC Glucose,Bedside 101 (70-110)
[2022-08-17 14:10] VITALS: BMI 30.9
[2022-08-17 16:00] VITALS: BP 115/45; PULSE 60; RESP 16; TEMP 37.2; O2SAT 98
--- NOTE | 2022-08-17 16:15 | PC.NURSE ---
Patient has had decreased BP throughout the day; BP meds, pain meds & valium were held; IV fluids increased. Patient decided this afternoon to get up to chair with use of walker and 2 assist. No c/o of dizziness or lightheadedness during transfer from bed to chair.
[2022-08-17 16:31] LABS: POC Glucose,Bedside 131 (70-110)
[2022-08-17 20:00] VITALS: BP 113/50; PULSE 61; RESP 16; TEMP 37.3; O2SAT 98
[2022-08-17 20:12] LABS: POC Glucose,Bedside 136 (70-110)
[2022-08-18 04:00] VITALS: BP 110/48; PULSE 60; RESP 16; TEMP 37.1; O2SAT 94
[2022-08-18 05:07] LABS: POC Glucose,Bedside 111 (70-110)
--- NOTE | 2022-08-18 05:16 | PC.NURSE ---
pt has rested well this shift. A&OX4. no reports of pain. bp has been 110/48 to 113/50. FSBS was 111 this am. CB in reach
[2022-08-18 06:49] LABS: Basophils % 0.7 % (0.1-2.0); Eosinophils # 0.1 K/mm3 (0.0-0.4); Eosinophils % 3.3 % (0.1-12.0); Hematocrit 25.9 % (37.0-47.0); Hemoglobin 8.4 g/dL (12.2-16.2); Lymphocytes # 1.1 K/mm3 (0.7-4.5); Lymphocytes % 24.6 % (10-50); Mean Corpuscular HGB Conc 32.5 g/dL (31.8-35.4); Mean Corpuscular Hemoglobin 27.1 pg (27.0-31.2); Mean Corpuscular Volume 83.2 fl (81-99); Monocytes # 0.5 K/mm3 (0.1-1.0); Monocytes % 12.2 % (1.7-9.3); Neutrophils # 2.5 K/mm3 (1.8-7.8); Neutrophils % 59.2 % (37.0-80.0); Platelet Count 172 K/mm3 (142-424); Red Blood Count 3.11 M/mm3 (4.20-5.40); Red Cell Distribution Width 15.2 % (11.5-17.5); White Blood Count 4.3 K/mm3 (4.8-10.8)
[2022-08-18 06:53] LABS: Chloride 104 mmol/L (98-107); Sodium 137 mmol/L (136-145)
[2022-08-18 06:54] LABS: Potassium 3.4 mmoL/L (3.5-5.1)
[2022-08-18 06:56] LABS: Blood Urea Nitrogen 20 mg/dl (7-17); Creatinine Clearance Estimated 73 mL/min (50-200); Estimated Glomerular Filt Rate 72 ml/min (>60); GFR (African American) 87 ML/MIN (>60)
[2022-08-18 06:57] LABS: Anion Gap 9.4 mEq/L (5-15); Calcium 7.6 mg/dl (8.4-10.2); Carbon Dioxide 27 mmol/L (22.0-30.0); Glucose 104 mg/dl (74-100)
[2022-08-18 07:34] VITALS: BP 113/56; PULSE 60; RESP 17; TEMP 36.7; O2SAT 97
[2022-08-18 08:00] VITALS: O2SAT 96
--- NOTE | 2022-08-18 08:51 | EXP.ACUTE.PN ---
Subjective *Date: 08/18/22 *Time: 08:51 Interval history: Patient reports feeling dizzy today, no fever over night. Medical Exam Vital signs and Labs for Last 24 Hours: Temp Pulse Resp BP Pulse Ox 98.0 F 60 17 113/56 L 97 08/18/22 07:34 08/18/22 07:34 08/18/22 07:34 08/18/22 07:34 08/18/22 07:34 Laboratory Results - last 24 hr 08/17/22 09:45: WBC 5.8, RBC 3.29 L, Hgb 9.0 L D, Hct 27.0 L, MCV 82.2, MCH 27.4, MCHC 33.4, RDW 15.2, Plt Count 189 D, MPV 8.7, Neut % (Auto) 66.2, Lymph % (Auto) 20.8, [place] % (Auto) 10.1 H, Eos % (Auto) 2.5, Baso % (Auto) 0.4, Neut # (Auto) 3.9, Lymph # (Auto) 1.2, [place] # (Auto) 0.6, Eos # (Auto) 0.1, Baso # (Auto) 0.0 08/17/22 09:45: Sodium 136, Potassium 3.3 L, Chloride 101, Carbon Dioxide 25, Anion Gap 13.3, BUN 26 H, Creatinine 1.00, Estimated Creat Clear 73, Estimated GFR 56 L, Est GFR ( Amer) 67 D, Glucose 145 H, Calcium 7.6 L, Total Bilirubin 0.3, AST 22, ALT 14, Alkaline Phosphatase 124, Total Protein 6.5, Albumin 3.2 L D, Globulin 3.3 H, Albumin/Globulin Ratio 1.0 L 08/17/22 11:58: POC Glucose 101 08/17/22 16:25: POC Glucose 131 H 08/17/22 20:04: POC Glucose 136 H 08/18/22 04:59: POC Glucose 111 H 08/18/22 06:25: WBC 4.3 L D, RBC 3.11 L, Hgb 8.4 L, Hct 25.9 L, MCV 83.2, MCH 27.1, MCHC 32.5, RDW 15.2, Plt Count 172, MPV 9.0, Neut % (Auto) 59.2, Lymph % (Auto) 24.6, [place] % (Auto) 12.2 H, Eos % (Auto) 3.3, Baso % (Auto) 0.7, Neut # (Auto) 2.5, Lymph # (Auto) 1.1, [place] # (Auto) 0.5, Eos # (Auto) 0.1, Baso # (Auto) 0.0 08/18/22 06:25: Sodium 137, Potassium 3.4 L, Chloride 104, Carbon Dioxide 27, Anion Gap 9.4, BUN 20 H, Creatinine 0.80, Estimated Creat Clear 73, Estimated GFR 72, Est GFR ( Amer) 87 D, Glucose 104 H D, Calcium 7.6 L I & O for Labs for Last 24 Hours: Intake & Output 08/15/22 08/16/22 08/17/22 08/18/22 23:59 23:59 23:59 23:59 Intake Total 1902 / 1902 2159 / 2159 2388 / 2388 1368 / 1368 Output Total 2401 / 2401 900 / 900 1800 / 1800 1400 / 1400 Balance -499 / -499 1259 / 1259 588 / 588 -32 / -32 Weight 181 lb 6.4 oz 181 lb 3.167 oz Head: Present normocephalic Neck: Present normal inspection Respiratory: Present CTA bilaterally Cardiac: Present Reg Rate and Rhythm and Systolic Murmur GI: Present soft; Absent tenderness Extremities: Absent edema Neuro: Present alert, awake and oriented x 3 Assessment and Plan *Assessment and plan (1) Closed traumatic nondisplaced fracture of lumbar vertebra: Status: Acute Category: Medical Code(s): S32.009A - Unspecified fracture of unspecified lumbar vertebra, initial encounter for closed fracture (2) Acute kidney injury: Status: Acute Category: Medical Code(s): N17.9 - Acute kidney failure, unspecified (3) Acute hyperkalemia: Status: Acute Category: Medical Code(s): E87.5 - Hyperkalemia (4) Right hip pain: Status: Acute Category: Medical Code(s): M25.551 - Pain in right hip (5) Pacemaker: Status: Acute Category: Medical Code(s): Z95.0 - Presence of cardiac pacemaker (6) Moderate aortic stenosis: Status: Acute Category: Medical Code(s): I35.0 - Nonrheumatic aortic (valve) stenosis (7) HTN (hypertension): Status: Chronic Qualifiers: Hypertension type: primary hypertension Qualified Code(s): I10 - Essential (primary) hypertension Category: Medical Code(s): I10 - Essential (primary) hypertension (8) Diabetes: Status: Chronic Qualifiers: Diabetes mellitus complication detail: with other circulatory complications Diabetes mellitus complication status: with circulatory complication Diabetes mellitus liquor commissioner insulin use: without intermediate use Diabetes mellitus type: type 2 Qualified Code(s): E11.59 - Type 2 diabetes mellitus with other circulatory complications Category: Medical Code(s): E11.9 - Type 2 diabetes mellitus without com
--- NOTE | 2022-08-18 09:15 | NM_ITS ---
FINAL REPORT CLINICAL HISTORY: Evaluate for discitis, lumbar fx, back pain 10:30am 24.2 mci tc mdp FINDINGS: Multiple projection images of the axial and appendicular skeleton were obtained after intravenous injection of 2.4 mCi of technetium 99 MDP. Correlation made with lumbar spine CT dated August 14, 2022 and right foot radiographs dated July 23, 2022. There is increased tracer activity in the shoulders, hips and left ankle which are felt to represent degenerative change. There is increased tracer activity that localizes to the inferior L5 vertebra at the site of the fracture on CT. There is no significant increased activity in the upper sacrum. There is abnormal tracer activity in the right anterior mid foot. The radiographs show significant degenerative change at the anterior talonavicular joint which likely accounts for this. IMPRESSION: Increased tracer activity in L5 corresponds to the known fracture, discitis is felt less likely. Follow-up CT or follow-up bone scan may be helpful. Abnormal tracer activity in the in right mid foot, favor degenerative over traumatic. Reviewed, Interpreted and Dictated by Harpal Schultz III, MD Transcribed by Maral Dsouza Authenticated and [facility]
--- NOTE | 2022-08-18 11:22 | DIET.NUTRFU ---
claims she drinks milk even though listed as allergy.
[2022-08-18 15:11] VITALS: BP 124/46; PULSE 60; RESP 17; TEMP 37.2; O2SAT 100
--- NOTE | 2022-08-18 15:22 | US_ITS ---
PROCEDURE INFORMATION: Exam: US Left Non-Vascular Joint or Other Extremity Structure Exam date and time: 08/18/2022 4:32 PM Age: 67 years old Clinical indication: Cellulitis and edema; Elbow; Left; Additional info: Redness at left ac TECHNIQUE: Imaging protocol: Left US joint or other nonvascular extremity structure or structures. Real-time ultrasound with image documentation. Limited study. Exam focused on the upper extremity in the region of clinical interest. COMPARISON: US CA venous doppler UE LT 10/14/2018 11:06 AM FINDINGS: Soft tissues: Unremarkable. No loculated collections. Vasculature: In the area of interest of the left antecubital fossa, there is a thrombosed vein. IMPRESSION: In the area of interest of the left antecubital fossa, there is a thrombosed vein. This is most likely superficial venous thrombus. Superimposed infection is possible in the appropriate clinical setting.
--- NOTE | 2022-08-18 16:50 | CA_ITS ---
FINAL REPORT TECHNIQUE: Graded compression, spectral analysis and ultrasound images of the venous system of the upper extremity were obtained. CLINICAL HISTORY: rule out blood clot, patient has a red bruised area in the left antecubital region. Recent IV stick in this region. Smoker, hx of CML and CLL. COPD, hx CVA. FINDINGS: The jugular vein, subclavian vein, axillary vein, brachial vein, and basilic venous system are fully compressible and demonstrate no evidence of thrombosis. There is venous thrombosis of the cephalic vein. IMPRESSION: There is venous thrombosis of the cephalic vein. Reviewed, Interpreted and Dictated by Harpal Schultz III, MD Transcribed by Myla Wilkerson Authenticated and [facility]
[2022-08-18 16:59] LABS: POC Glucose,Bedside 114 (70-110)
[2022-08-18 16:59] LABS: POC Glucose,Bedside 103 (70-110)
--- NOTE | 2022-08-18 17:39 | PC.NURSE ---
Patient states she takes Plavix daily and was on Eliquis also until the heart doctor took you off approximately 1 wk to 10 days ago.
--- NOTE | 2022-08-18 18:49 | PC.NURSE ---
Patient VSS, very fatigued and sleepy this AM, B/L lungs clear to auscultation, c/o of left AC hurting, upon assessment noticed redness, swelling, wamr, tender to touch, provider notified recvd v.o. for US for Left AC soft tissue which was negative with new order for Vascular, provider notified with new orders for Lovenox injections 40mg SQ now and then daily. Had NM bone scan today provider notified of results. Patient was up to chair this AM through lunch.
[2022-08-18 19:44] VITALS: BP 125/40; PULSE 63; RESP 16; TEMP 37.2; O2SAT 99
[2022-08-18 21:56] LABS: POC Glucose,Bedside 160 (70-110)
[2022-08-19] VITALS (8 sets, daily range): BP systolic 110–140; BP diastolic 44–57; PULSE 60–63; RESP 17–18; TEMP 36.8–40.3; O2SAT 92–98; BMI 32.5
[2022-08-19 06:20] LABS: POC Glucose,Bedside 115 (70-110)
--- NOTE | 2022-08-19 06:26 | PC.NURSE ---
SHIFT SUMMARY: Pt rmains aox4. Pt c/o right hip pain 1x and prn med administered per DEC. Pt became febrile at 0400 with fever of 102.8. Ibuprofen administered, temp rechecked at 0600 and temp was 100.4. Redness/swelling on left arm monitored t/o night. Appears to be no change. Call light within reach.
[2022-08-19 07:26] LABS: Basophils % 0.3 % (0.1-2.0); Eosinophils # 0.1 K/mm3 (0.0-0.4); Eosinophils % 0.8 % (0.1-12.0); Hematocrit 26.3 % (37.0-47.0); Hemoglobin 8.7 g/dL (12.2-16.2); Lymphocytes # 0.6 K/mm3 (0.7-4.5); Lymphocytes % 9.3 % (10-50); Mean Corpuscular HGB Conc 33.3 g/dL (31.8-35.4); Mean Corpuscular Hemoglobin 27.5 pg (27.0-31.2); Mean Corpuscular Volume 82.7 fl (81-99); Mean Platelet Volume 9.3 fl (7.4-10.4); Monocytes # 0.5 K/mm3 (0.1-1.0); Neutrophils % 81.6 % (37.0-80.0); Platelet Count 180 K/mm3 (142-424); Red Blood Count 3.18 M/mm3 (4.20-5.40); Red Cell Distribution Width 15.2 % (11.5-17.5); White Blood Count 6.2 K/mm3 (4.8-10.8)
[2022-08-19 07:37] LABS: Chloride 104 mmol/L (98-107); Potassium 3.7 mmoL/L (3.5-5.1); Sodium 136 mmol/L (136-145)
[2022-08-19 07:40] LABS: Anion Gap 10.7 mEq/L (5-15); Blood Urea Nitrogen 18 mg/dl (7-17); Carbon Dioxide 25 mmol/L (22.0-30.0); Creatinine Clearance Estimated 77 mL/min (50-200); Estimated Glomerular Filt Rate 63 ml/min (>60); GFR (African American) 76 ML/MIN (>60); Glucose 109 mg/dl (74-100)
--- NOTE | 2022-08-19 08:08 | EXP.ACUTE.PN ---
Subjective *Date: 08/19/22 *Time: 08:41 Interval history: Patient states she is not feeling well this morning. She states she ran a fever throughout the night and is achy. She slept off and on throughout the night and does not feel like eating much this morning. She is complaining of some diffuse abdominal pain. Medical Exam Vital signs and Labs for Last 24 Hours: Temp Pulse Resp BP Pulse Ox 100.7 F H 61 17 140/57 L 98 08/19/22 07:46 08/19/22 07:46 08/19/22 07:46 08/19/22 07:46 08/19/22 07:46 Laboratory Results - last 24 hr 08/18/22 11:35: POC Glucose 103 08/18/22 16:52: POC Glucose 114 H 08/18/22 20:28: POC Glucose 160 H 08/19/22 06:09: POC Glucose 115 H 08/19/22 07:12: WBC 6.2 D, RBC 3.18 L, Hgb 8.7 L, Hct 26.3 L, MCV 82.7, MCH 27.5, MCHC 33.3, RDW 15.2, Plt Count 180, MPV 9.3, Neut % (Auto) 81.6 H, Lymph % (Auto) 9.3 L, [place] % (Auto) 8.0, Eos % (Auto) 0.8, Baso % (Auto) 0.3, Neut # (Auto) 5.0, Lymph # (Auto) 0.6 L, [place] # (Auto) 0.5, Eos # (Auto) 0.1, Baso # (Auto) 0.0 08/19/22 07:12: Sodium 136, Potassium 3.7, Chloride 104, Carbon Dioxide 25, Anion Gap 10.7, BUN 18 H, Creatinine 0.90, Estimated Creat Clear 77, Estimated GFR 63, Est GFR ( Amer) 76, Glucose 109 H, Calcium 8.0 L I & O for Labs for Last 24 Hours: Intake & Output 08/16/22 08/17/22 08/18/22 08/19/22 11:59 11:59 11:59 11:59 Intake Total 1857 / 1857 2393 / 2393 2826 / 2826 840 / 840 Output Total 1600 / 1600 1800 / 1800 1999 2725 / 2725 Balance 257 / 257 593 / 593 826 / 826 -1885 / -1885 Weight 181 lb 3.2 oz 181 lb 3.167 oz 190 lb 11.2 oz Constitutional: Present no acute distress Head: Present normocephalic Neck: Present normal inspection Respiratory: Present CTA bilaterally Cardiac: Present Reg Rate and Rhythm and Systolic Murmur GI: Present soft and tenderness (diffusely tender) Extremities: Absent edema Neuro: Present alert, awake and oriented x 3 Assessment and Plan *Assessment and plan (1) Closed traumatic nondisplaced fracture of lumbar vertebra: Status: Acute Category: Medical Code(s): S32.009A - Unspecified fracture of unspecified lumbar vertebra, initial encounter for closed fracture (2) Acute kidney injury: Status: Acute Category: Medical Code(s): N17.9 - Acute kidney failure, unspecified (3) Acute hyperkalemia: Status: Acute Category: Medical Code(s): E87.5 - Hyperkalemia (4) Right hip pain: Status: Acute Category: Medical Code(s): M25.551 - Pain in right hip (5) Pacemaker: Status: Acute Category: Medical Code(s): Z95.0 - Presence of cardiac pacemaker (6) Moderate aortic stenosis: Status: Acute Category: Medical Code(s): I35.0 - Nonrheumatic aortic (valve) stenosis (7) HTN (hypertension): Status: Chronic Qualifiers: Hypertension type: primary hypertension Qualified Code(s): I10 - Essential (primary) hypertension Category: Medical Code(s): I10 - Essential (primary) hypertension (8) Diabetes: Status: Chronic Qualifiers: Diabetes mellitus complication detail: with other circulatory complications Diabetes mellitus complication status: with circulatory complication Diabetes mellitus long term care pharmacist insulin use: without long term care pharmacist use Diabetes mellitus type: type 2 Qualified Code(s): E11.59 - Type 2 diabetes mellitus with other circulatory complications Category: Medical Code(s): E11.9 - Type 2 diabetes mellitus without complications (9) Low back pain: Status: Acute Category: Medical Code(s): M54.50 - Low back pain, unspecified (10) Hypotension: Status: Acute Category: Medical Code(s): I95.9 - Hypotension, unspecified (11) Fever: Status: Acute Category: Medical Code(s): R50.9 - Fever, unspecified Plan Blood pressure has improved. H&H is stable. Potassium has normalize
[2022-08-19 12:09] LABS: POC Glucose,Bedside 112 (70-110)
--- NOTE | 2022-08-19 12:22 | PC.NURSE ---
Called and LM for Dr. Jackson in [place] office in RE to pt's temp of 104.5 rectally. Have removed all blankets and applied ice packs to nape of neck and under r arm pit, removed socks, motrin po per dec and turned room temp down. CB in reach.
--- NOTE | 2022-08-19 13:49 | XR_ITS ---
FINAL REPORT CLINICAL HISTORY: fever COMPARISON: 08/13/2022 FINDINGS: A single portable view of the chest was obtained. A left subclavian pacemaker is present. There is cardiomegaly. There is mild pulmonary vascular congestion, worse. The mediastinum is within normal limits. No acute pulmonary abnormality is identified. The bony thorax is intact. IMPRESSION: Cardiomegaly with worsening pulmonary vascular congestion. Reviewed, Interpreted and Dictated by Harpal Schultz III, MD Transcribed by Maral Dsouza Authenticated and [facility]
[2022-08-19 16:14] LABS: POC Glucose,Bedside 91 (70-110)
--- NOTE | 2022-08-19 20:31 | PC.NURSE ---
Addendum entered by Guido Sun RN 08/19/22 20:54: Pt also refused therapy this shift. Original Note: Still need urine sample on pt. Hasn't voided since earlier. Got order to increase motrin per dec. Dr. Jackson aware of high fever's today and ordered repeat blood cx's and cxr as well. Only one blood cx able to be obtained, Dr. Jackson aware. CB in reach. VSS
[2022-08-19 22:43] LABS: POC Glucose,Bedside 104 (70-110)
[2022-08-20 00:26] LABS: Microscopic, Urine URINE MICROSCOPIC (MICROSCOPIC)
[2022-08-20 00:28] LABS: Appearance,Urine CLEAR (Clear); Bilirubin,Urine Negative (Negative); Blood, Urine Negative (Negative); Color,Urine YELLOW (Yellow); Glucose,Urine (UA) Negative (Negative); Ketones,Urine Negative (Negative); Leukocyte Esterase,Urine Negative (Negative); Nitrate,Urine Negative (Negative); Protein,Urine Negative (Negative); Specific Gravity, Urine 1.025 (1.005-1.030); Urobilinogen,Urine 0.2 EU/dl (0.2)
[2022-08-20 00:48] LABS: Bacteria,Urine 1+ /lpf; WBC,Urine Occasional #/hpf (0-3)
[2022-08-20 04:00] VITALS: BP 125/75; PULSE 69; RESP 16; TEMP 38.6; O2SAT 97
--- NOTE | 2022-08-20 04:22 | PC.NURSE ---
pt rested well through the night, pt is alert and oriented x4, skin pwd, pt remains afebrile, VSS, Left arm with redness and swelling noted, pt complained of pain in left shoulder at times, IV changed and pt has limited vein access due to no sticks in left arm, #24g was started in left wrist, pt may require invasive line for further antibiotic administration, IVF's held at this time due to limited IV access, pt encouraged to drink fluids and TCDB, +pedal pulses noted, pt with +bm this shift, purewick in use, no other issues or concerns at this time, no acute distress noted.
[2022-08-20 05:00] VITALS: BMI 32.5
[2022-08-20 06:59] LABS: POC Glucose,Bedside 119 (70-110)
[2022-08-20 08:00] VITALS: BP 100/43; PULSE 61; RESP 20; TEMP 37.8; O2SAT 96
--- NOTE | 2022-08-20 08:26 | EXP.ACUTE.PN ---
Subjective *Date: 08/20/22 *Time: 08:48 Interval history: Patient states she is having shoulder pain this morning. She thinks her left antecubital area may be more swollen as well. Nursing states they cannot get an IV on the patient. They feel she may need a PICC line. She began running a low-grade fever again this morning. Her blood pressure has also been low. Medical Exam Vital signs and Labs for Last 24 Hours: Vital Signs Temp Pulse Resp BP Pulse Ox 08/20/22 08:00 100.0 F H 61 20 100/43 L 96 08/20/22 04:00 101.5 F H 69 16 125/75 97 08/19/22 20:00 60 97 08/19/22 19:36 98.2 F 60 18 110/46 L 97 08/19/22 19:00 99 F 08/19/22 15:50 103.3 F H 60 17 131/53 L 92 L 08/19/22 12:00 104.5 F H 08/19/22 10:47 103.1 F H Intake and Output 08/19/22 08/20/22 08/20/22 19:59 03:59 11:59 Intake Total 1800 / 1870 70 / 1870 Output Total 200 / 700 300 / 700 200 / 700 Balance 1600 / 1170 -300 / 1170 -130 / 1170 Intake: Intake, Oral Amount 600 / 600 Intake, Total IV Amount 1200 / 1270 70 / 1270 0.9 % Sodium Chloride 1,000 ml 1100 / 1120 20 / 1120 @ 100 mls/hr IV .Q10H JONAS Rx#: [id number] Clindamycin Phosphate/D5w 900 100 / 150 50 / 150 mg In 50 ml @ 100 mls/hr IV Q8H JONAS Rx#:[id number] Output: Output, Urine Amount 200 / 700 300 / 700 200 / 700 Other: Number of Unmeasured Voids 0 0 0 Number of Bowel Movements 1 Weight 190 lb 7 oz Patient Weight 08/20/22 11:59 Weight 190 lb 7 oz Laboratory Results - last 24 hr 08/19/22 11:43: POC Glucose 112 H 08/19/22 16:04: POC Glucose 91 08/19/22 22:31: POC Glucose 104 08/20/22 00:00: Urine Color Yellow, Urine Appearance Clear, Urine pH 6.0, Ur Specific [place] 1.025, Urine Protein Negative, Urine Glucose (UA) Negative, Urine Ketones Negative, Urine Blood Negative, Urine Nitrate Negative, Urine Bilirubin Negative, Urine Urobilinogen 0.2, Ur Leukocyte Esterase Negative, Urine WBC Occasional, Urine Bacteria 1+ 08/20/22 06:49: POC Glucose 119 H I & O for Labs for Last 24 Hours: Intake & Output 08/17/22 08/18/22 08/19/22 08/20/22 11:59 11:59 11:59 11:59 Intake Total 2393 / 2393 2826 / 2826 840 / 840 1870 / 1870 Output Total 1800 / 1800 1999 / 1999 2925 / 2925 700 / 700 Balance 593 / 593 826 / 826 -2085 / -5 1170 / 1170 Weight 181 lb 3.2 oz 181 lb 3.167 oz 190 lb 11.2 oz 190 lb 7 oz Microbiology Reports for the Last 24 Hours: Microbiology 08/17/22 09:45 Blood - Other Blood Culture - Preliminary NO GROWTH AFTER 48 HOURS 08/17/22 09:45 Blood - Other Blood Culture - Preliminary NO GROWTH AFTER 48 HOURS Constitutional: Present no acute distress Head: Present normocephalic Neck: Present normal inspection Respiratory: Present CTA bilaterally Cardiac: Present Reg Rate and Rhythm and Systolic Murmur GI: Present soft and tenderness (diffusely tender) Extremities: Present tenderness (along the left AC joint and the muscles surrounding the left shoulder, pain with ROM); Absent edema Skin: Present erythema (erythema and edema along the left antecubital area with tenderness) Neuro: Present alert, awake and oriented x 3 Assessment and Plan *Assessment and plan (1) Closed traumatic nondisplaced fracture of lumbar vertebra: Status: Acute Category: Medical Code(s): S32.009A - Unspecified fracture of unspecified lumbar vertebra, initial encounter for closed fracture (2) Acute kidney injury: Status: Acute Category: Medical Code(s): N17.9 - Acute kidney failure, unspecified (3) Acute hyperkalemia: Status: Acute Category: Medical Code(s): E87.5 - Hyperkalemia (4) Right hip pain: Status: Acute Category: Medical Code(s): M25.551 - Pain in right hip (5) Pacemaker: Status: Acute Category: Medical Code(s): Z95.0 - Presence of ca
[2022-08-20 12:06] LABS: POC Glucose,Bedside 137 (70-110)
[2022-08-20 13:32] LABS: Adenovirus F 40/41, stool Not Detected (NotDetected); Astrovirus Not Detected (NotDetected); Campylobacter Not Detected (NotDetected); Cryptosporidium Not Detected (NotDetected); Cyclospora Cayetanesis Not Detected (NotDetected); Entamoeba histolytica Not Detected (NotDetected); Enteroaggregative E coli Not Detected (NotDetected); Enteropathogenic E coli Not Detected (NotDetected); Enterotoxigenic E coli Not Detected (NotDetected); Giardia lamblia Not Detected (NotDetected); Norovirus Not Detected (NotDetected); Plesimonas Shigalloides, PCR Not Detected (NotDetected); Rotavirus A Not Detected (NotDetected); Salmonella, PCR Not Detected (NotDetected); Sapovirus Not Detected (NotDetected); Shiga-like toxin E coli Not Detected (NotDetected); Shigella Enterovasive E coli Not Detected (NotDetected); Vibrio Cholerae Not Detected (NotDetected); Vibrio, PCR Not Detected (NotDetected); Yersinia Entercolitica, PCR Not Detected (NotDetected)
[2022-08-20 15:34] VITALS: BP 123/58; PULSE 63; RESP 17; TEMP 37; O2SAT 99
[2022-08-20 16:27] LABS: POC Glucose,Bedside 132 (70-110)
--- NOTE | 2022-08-20 18:00 | PC.NURSE ---
PT IS RESTING IN BED. ALERT AND ORIENTED X4. PT HAS BEEN REALLY DROWSY THIS SHIFT. TOLERATED SITTING UP IN THE CHAIR FOR SEVERAL HOURS. PT IS A 2 ASSIST TO TRANSFER. PURWICK IN PLACE. PT HAD A BOWEL MOVEMENT THIS SHIFT. REDNESS/ SWELLING NOTED TO LUE. WILL CONTINUE TO MONITOR.
[2022-08-20 20:00] VITALS: BP 103/48; PULSE 60; RESP 18; TEMP 37.1; O2SAT 100; O2SAT 96
[2022-08-20 21:28] LABS: POC Glucose,Bedside 172 (70-110)
--- NOTE | 2022-08-20 23:25 | PC.NURSE ---
[address] Patient awake and watching Tv. Patient voiced no needs at this time . Trash and linens emptied
[2022-08-21 03:10] LABS: Clostridium Difficile A/B, PCR Detected (NotDetected)
--- NOTE | 2022-08-21 03:55 | PC.NURSE ---
pt has rested well through the night, pt is alert and oriented x4, VSS, Left arm with redness and swelling noted. pt placed in contact precautions for cdiif this shift. pt voiced no concerns @ this time
[2022-08-21 04:00] VITALS: BP 102/59; PULSE 73; RESP 16; TEMP 36.9; O2SAT 98
[2022-08-21 04:54] VITALS: BMI 33.5
--- NOTE | 2022-08-21 05:48 | PC.NURSE ---
[address] Trash emptied and ice water refilled
[2022-08-21 07:11] LABS: POC Glucose,Bedside 128 (70-110)
[2022-08-21 08:00] VITALS: BP 134/58; PULSE 60; RESP 20; TEMP 37; O2SAT 100
--- NOTE | 2022-08-21 08:33 | EXP.ACUTE.PN ---
Subjective *Date: 08/21/22 *Time: 08:54 Interval history: Patient states she is feeling a little better this morning. She has not had high fevers. Her only complaint is of some left arm pain. She did eat most of her breakfast this morning and slept a little better last night. Medical Exam Vital signs and Labs for Last 24 Hours: Vital Signs Temp Pulse Resp BP Pulse Ox 08/21/22 04:00 98.4 F 73 16 102/59 L 98 08/20/22 20:00 96 08/20/22 20:00 98.7 F 60 18 103/48 L 100 08/20/22 15:34 98.6 F 63 17 123/58 L 99 Intake and Output 08/20/22 08/21/22 08/21/22 19:59 03:59 11:59 Intake Total 600 / 600 Output Total 0 / 0 Balance 600 / 600 Intake: Intake, Oral Amount 600 / 600 Output: Output, Urine Amount 0 / 0 Other: Number of Unmeasured Voids 1 1 Weight 196 lb 1.6 oz Patient Weight 08/21/22 11:59 Weight 196 lb 1.6 oz Laboratory Results - last 24 hr 08/13/22 13:25: Stl Aeromonas (PCR) Not detected, Stl C. cayetanensis PCR Not detected, Stool Rotavirus (PCR) Not detected, Stl Adenov F 40/41 PCR Not detected, Stool Astrovirus (PCR) Not detected, Stool Campylobacter PCR Not detected, Stl C.difficile Tox PCR Detected A, Stool Cryptosporidium PCR Not detected, Stl E.coli Shiga Tox PCR Not detected, Stool E coli O157 PCR Not detected, Stl Enterotoxigenic E PCR Not detected, Stool EPEC (PCR) Not detected, Stool EAEC (PCR) Not detected, Stl E. histolytica PCR Not detected, Stool Giardia Lamblia PCR Not detected, Stool Salmonella PCR Not detected, Stool Sapovirus (PCR) Not detected, Stl P. shigelloides PCR Not detected, Stl Shigella/EIEC PCR Not detected, St Y.enterocolitica PCR Not detected, Stool Vibrio (PCR) Not detected, Stl Vibrio cholerae PCR Not detected, Stl Norovirus GI/GII PCR Not detected 08/20/22 12:00: POC Glucose 137 H 08/20/22 16:20: POC Glucose 132 H 08/20/22 20:41: POC Glucose 172 H 08/21/22 07:04: POC Glucose 128 H I & O for Labs for Last 24 Hours: Intake & Output 08/18/22 08/19/22 08/20/22 08/21/22 11:59 11:59 11:59 11:59 Intake Total 2826 / 2826 840 / 840 2170 / 2170 600 / 600 Output Total 1999 2925 / 2925 700 / 700 0 / 0 Balance 826 / 826 -2085 / -2085 1470 / 1470 600 / 600 Weight 181 lb 3.167 oz 190 lb 11.2 oz 190 lb 7 oz 196 lb 1.6 oz Microbiology Reports for the Last 24 Hours: Microbiology 08/19/22 14:25 Blood Blood Culture - Preliminary Constitutional: Present no acute distress Head: Present normocephalic Neck: Present normal inspection Respiratory: Present CTA bilaterally Cardiac: Present Reg Rate and Rhythm and Systolic Murmur GI: Present soft and tenderness (diffusely tender) Extremities: Present tenderness (along the left AC joint and the muscles surrounding the left shoulder, pain with ROM); Absent edema Skin: Present erythema (erythema and edema along the left antecubital area with tenderness - improved from yesterday) Neuro: Present alert, awake and oriented x 3 Assessment and Plan *Assessment and plan (1) Closed traumatic nondisplaced fracture of lumbar vertebra: Status: Acute Category: Medical Code(s): S32.009A - Unspecified fracture of unspecified lumbar vertebra, initial encounter for closed fracture (2) Acute kidney injury: Status: Acute Category: Medical Code(s): N17.9 - Acute kidney failure, unspecified (3) Acute hyperkalemia: Status: Acute Category: Medical Code(s): E87.5 - Hyperkalemia (4) Right hip pain: Status: Acute Category: Medical Code(s): M25.551 - Pain in right hip (5) Pacemaker: Status: Acute Category: Medical Code(s): Z95.0 - Presence of cardiac pacemaker (6) Moderate aortic stenosis: Status: Acute Category: Medical Code(s): I35.0 - Nonrheumatic aortic (valve) stenosis (7) HTN (hypertension): Status: Chronic Qualifiers: Hypertension type: primary hypertension
[2022-08-21 09:34] LABS: Basophils % 0.2 % (0.1-2.0); Eosinophils # 0.1 K/mm3 (0.0-0.4); Eosinophils % 1.4 % (0.1-12.0); Hematocrit 27.7 % (37.0-47.0); Hemoglobin 8.8 g/dL (12.2-16.2); Lymphocytes # 0.8 K/mm3 (0.7-4.5); Mean Corpuscular HGB Conc 31.8 g/dL (31.8-35.4); Mean Corpuscular Hemoglobin 26.4 pg (27.0-31.2); Mean Corpuscular Volume 83.2 fl (81-99); Mean Platelet Volume 10.4 fl (7.4-10.4); Monocytes # 0.4 K/mm3 (0.1-1.0); Monocytes % 5.3 % (1.7-9.3); Neutrophils # 6.2 K/mm3 (1.8-7.8); Neutrophils % 83.1 % (37.0-80.0); Platelet Count 135 K/mm3 (142-424); Red Blood Count 3.33 M/mm3 (4.20-5.40); Red Cell Distribution Width 15.4 % (11.5-17.5); White Blood Count 7.5 K/mm3 (4.8-10.8)
[2022-08-21 09:56] LABS: Chloride 102 mmol/L (98-107); Potassium 4.4 mmoL/L (3.5-5.1); Sodium 137 mmol/L (136-145)
[2022-08-21 09:58] LABS: Blood Urea Nitrogen 34 mg/dl (7-17)
[2022-08-21 09:59] LABS: Anion Gap 19.4 mEq/L (5-15); Calcium 8.3 mg/dl (8.4-10.2); Carbon Dioxide 20 mmol/L (22.0-30.0); Creatinine Clearance Estimated 72 mL/min (50-200); Estimated Glomerular Filt Rate 50 ml/min (>60); GFR (African American) 60 ML/MIN (>60); Glucose 146 mg/dl (74-100)
[2022-08-21 12:11] LABS: POC Glucose,Bedside 145 (70-110)
--- NOTE | 2022-08-21 13:17 | XR_ITS ---
FINAL REPORT CLINICAL HISTORY: Confirm PICC line placement COMPARISON: 08/19/2022 FINDINGS: A single portable view of the chest was obtained. A right-sided PICC line is present with the tip in the upper SVC. A left subclavian pacemaker is present. There is cardiomegaly with mild pulmonary vascular congestion. The mediastinum is within normal limits. No acute pulmonary abnormality is identified. The bony thorax is intact. IMPRESSION: Right PICC line with tip in the upper SVC. Cardiomegaly with mild vascular congestion. Reviewed, Interpreted and Dictated by Harpal Schultz III, MD Transcribed by Maral Dsouza Authenticated and [facility]
[2022-08-21 16:00] VITALS: BP 135/55; PULSE 61; RESP 20; TEMP 37.3; O2SAT 100
[2022-08-21 16:30] LABS: POC Glucose,Bedside 116 (70-110)
--- NOTE | 2022-08-21 17:17 | PC.NURSE ---
PT IS RESTING IN BED. ALERT AND ORIENTED X4. EATING AND DRINKING FAIR. PT NOW HAS A PICC NOTED TO THE [facility]. PT HAS BEEN ON THE PHONE THIS AFTERNOON TRYING TO FIND OUT HOW SHE IS GOING TO GET HER CONTINUED IV ABX WHEN DISCHARGED FROM THE HOSPITAL. ABDOMEN SOFT/NON TENDER WITH ACTIVE BOWEL SOUNDS. LUNG SOUNDS DIMINISHED WITH SCATTERED WHEEZES. VSS. WILL CONTINUE TO MONITOR.
[2022-08-21 19:48] VITALS: BP 113/30; PULSE 63; RESP 18; TEMP 36.8; O2SAT 98
[2022-08-21 20:00] VITALS: O2SAT 98
[2022-08-22 04:00] VITALS: BP 122/66; PULSE 60; RESP 16; TEMP 36.7; O2SAT 94
[2022-08-22 05:49] LABS: POC Glucose,Bedside 107 (70-110)
[2022-08-22 06:00] VITALS: BMI 33.7
[2022-08-22 06:02] LABS: POC Glucose,Bedside 96 (70-110)
[2022-08-22 07:54] VITALS: BP 134/65; PULSE 61; RESP 18; TEMP 37.5; O2SAT 96
--- NOTE | 2022-08-22 09:08 | EXP.ACUTE.PN ---
Subjective *Date: 08/22/22 *Time: 09:08 Interval history: Patient feels a little better this morning, no fever. Medical Exam Vital signs and Labs for Last 24 Hours: Vital Signs Temp Pulse Resp BP Pulse Ox 08/22/22 07:54 99.5 F 61 18 134/65 96 08/22/22 04:00 98.0 F 60 16 122/66 94 L 08/21/22 20:00 98 08/21/22 19:48 98.3 F 63 18 113/30 L 98 08/21/22 16:00 99.2 F 61 20 135/55 L 100 Intake and Output 08/21/22 08/22/22 08/22/22 23:59 07:59 15:59 Intake Total 240 / 720 457 / 457 Output Total 200 / 500 550 / 550 Balance - / Intake: Intake, Oral Amount 240 / 720 Intake, Total IV Amount 457 / 457 0.9 % Sodium Chloride 1,000 ml 307 / 307 @ 100 mls/hr IV .Q10H [facility] Rx#: [id number] Clindamycin Phosphate/D5w 900 50 / 50 mg In 50 ml @ 100 mls/hr IV Q8H [facility] Rx#:[id number] Metronidaz/Sod Chl 500 mg In 100 / 100 100 ml @ 100 mls/hr IV Q8H [facility] Rx#:[id number] Output: Output, Urine Amount 200 / 500 550 / 550 Other: Weight 197 lb 8 oz Patient Weight 08/22/22 23:59 Weight 197 lb 8 oz Laboratory Results - last 24 hr 08/21/22 09:20: WBC 7.5, RBC 3.33 L, Hgb 8.8 L, Hct 27.7 L, MCV 83.2, MCH 26.4 L, MCHC 31.8, RDW 15.4, Plt Count 135 L, MPV 10.4, Neut % (Auto) 83.1 H, Lymph % (Auto) 10.0, [place] % (Auto) 5.3, Eos % (Auto) 1.4, Baso % (Auto) 0.2, Neut # (Auto) 6.2, Lymph # (Auto) 0.8, [place] # (Auto) 0.4, Eos # (Auto) 0.1, Baso # (Auto) 0.0 08/21/22 09:20: Sodium 137, Potassium 4.4, Chloride 102, Carbon Dioxide 20 L, Anion Gap 19.4 H, BUN 34 H D, Creatinine 1.10 H D, Estimated Creat Clear 72, Estimated GFR 50 L, Est GFR ( Amer) 60 D, Glucose 146 H, Calcium 8.3 L 08/21/22 12:04: POC Glucose 145 H 08/21/22 15:57: POC Glucose 116 H 08/21/22 21:04: POC Glucose 107 08/22/22 05:10: POC Glucose 96 I & O for Labs for Last 24 Hours: Intake & Output 08/19/22 08/20/22 08/21/22 08/22/22 23:59 23:59 23:59 23:59 Intake Total 2160 / 2160 970 / 970 720 / 720 457 / 457 Output Total 1100 / 1400 500 / 500 200 / 500 550 / 550 Balance 1060 / 760 470 / 470 520 / 220 -93 / -93 Weight 190 lb 11.2 oz 190 lb 7 oz 196 lb 1.6 oz 197 lb 8 oz Microbiology Reports for the Last 24 Hours: Microbiology 08/19/22 06:56 Blood Blood Culture - Preliminary Constitutional: Present no acute distress Head: Present normocephalic Neck: Present normal inspection Respiratory: Present CTA bilaterally Cardiac: Present Reg Rate and Rhythm and Systolic Murmur GI: Present soft and tenderness (diffusely tender) Extremities: Absent tenderness or edema Skin: Present erythema (erythema and edema along the left antecubital fossa has improved, almost resolved) Neuro: Present alert, awake and oriented x 3 Assessment and Plan *Assessment and plan (1) Closed traumatic nondisplaced fracture of lumbar vertebra: Status: Acute Category: Medical Code(s): S32.009A - Unspecified fracture of unspecified lumbar vertebra, initial encounter for closed fracture (2) Acute kidney injury: Status: Acute Category: Medical Code(s): N17.9 - Acute kidney failure, unspecified (3) Acute hyperkalemia: Status: Acute Category: Medical Code(s): E87.5 - Hyperkalemia (4) Right hip pain: Status: Acute Category: Medical Code(s): M25.551 - Pain in right hip (5) Pacemaker: Status: Acute Category: Medical Code(s): Z95.0 - Presence of cardiac pacemaker (6) Moderate aortic stenosis: Status: Acute Category: Medical Code(s): I35.0 - Nonrheumatic aortic (valve) stenosis (7) HTN (hypertension): Status: Chronic Qualifiers: Hypertension type: primary hypertension Qualified Code(s): I10 - Essential (primary) hypertension Category: Medical Code(s): I10 - Essential (primary) hypertension (8) Diabetes: Status: Chronic
[2022-08-22 11:27] LABS: POC Glucose,Bedside 129 (70-110)
[2022-08-22 15:01] VITALS: TEMP 37.3
[2022-08-22 16:00] VITALS: BP 118/49; PULSE 60; RESP 16; TEMP 37.3; O2SAT 95
[2022-08-22 16:18] LABS: POC Glucose,Bedside 119 (70-110)
--- NOTE | 2022-08-22 17:53 | PC.NURSE ---
patient had 1 unmeasured void
[2022-08-22 19:45] VITALS: BP 116/54; PULSE 60; RESP 20; TEMP 37.2; O2SAT 99
[2022-08-22 20:26] LABS: POC Glucose,Bedside 126 (70-110)
[2022-08-23 04:00] VITALS: BP 120/53; PULSE 60; RESP 18; TEMP 37.1; O2SAT 96
[2022-08-23 04:39] VITALS: BMI 34.4
--- NOTE | 2022-08-23 05:04 | PC.NURSE ---
NO ACUTE CHANGES SINCE PREVIOUS ASSESSMENT. PT HAS SLEPT WELL THIS SHIFT. TURNING IN BED INDEPENDENTLY OR WITH X1 ASSIST. C.O A HEADACHE AT THE BEGINNING OF THE SHIFT AND WAS MEDICATED PER DEC. VSS. LUNG SOUNDS CLEAR. REMAINS ON ROOM AIR.
[2022-08-23 05:56] LABS: POC Glucose,Bedside 120 (70-110)
[2022-08-23 07:32] VITALS: BP 124/58; PULSE 60; RESP 16; TEMP 36.7; O2SAT 97
--- NOTE | 2022-08-23 08:06 | EXP.ACUTE.PN ---
Subjective *Date: 08/23/22 *Time: 08:06 Interval history: Patient with no new complaints today. Medical Exam Vital signs and Labs for Last 24 Hours: Vital Signs Temp Pulse Resp BP Pulse Ox 08/23/22 07:32 98.0 F 60 16 124/58 L 97 08/23/22 04:00 98.8 F 60 18 120/53 L 96 08/22/22 19:45 99.0 F 60 20 116/54 L 99 08/22/22 16:00 99.1 F 60 16 118/49 L 95 08/22/22 15:01 99.1 F Intake and Output 08/22/22 08/23/22 08/23/22 23:59 07:59 15:59 Intake Total 1983 Output Total 75 / 825 Balance -75 / 112 1983 Intake: Intake, Total IV Amount 1983 0.9 % Sodium Chloride 1,000 ml 1983 @ 100 mls/hr IV .Q10H [facility] Rx#: [id number] Output: Output, Urine Amount 75 / 825 Other: Number of Unmeasured Voids 1 1 Weight 201 lb 6 oz Patient Weight 08/23/22 23:59 Weight 201 lb 6 oz Laboratory Results - last 24 hr 08/22/22 11:19: POC Glucose 129 H 08/22/22 16:08: POC Glucose 119 H 08/22/22 20:06: POC Glucose 126 H 08/23/22 05:46: POC Glucose 120 H I & O for Labs for Last 24 Hours: Intake & Output 08/20/22 08/21/22 08/22/22 08/23/22 23:59 23:59 23:59 23:59 Intake Total 970 / 970 720 / 720 937 / 937 1983 Output Total 500 / 500 200 / 500 825 / 825 Balance 470 / 470 520 / 220 112 / 112 1983 Weight 190 lb 7 oz 196 lb 1.6 oz 197 lb 8 oz 201 lb 6 oz Microbiology Reports for the Last 24 Hours: Microbiology 08/19/22 06:56 Blood Blood Culture - Preliminary Staphylococcus aureus 08/17/22 09:45 Blood - Other Blood Culture - Final NO GROWTH AFTER 5 DAYS 08/17/22 09:45 Blood - Other Blood Culture - Final NO GROWTH AFTER 5 DAYS 08/19/22 14:25 Blood Blood Culture - Preliminary Staphylococcus aureus Constitutional: Present no acute distress Head: Present normocephalic Neck: Present normal inspection Respiratory: Present CTA bilaterally Cardiac: Present Reg Rate and Rhythm and Systolic Murmur GI: Present soft and normal bowel sounds; Absent tenderness Extremities: Absent tenderness or edema Neuro: Present alert, awake and oriented x 3 Assessment and Plan *Assessment and plan (1) Closed traumatic nondisplaced fracture of lumbar vertebra: Status: Acute Category: Medical Code(s): S32.009A - Unspecified fracture of unspecified lumbar vertebra, initial encounter for closed fracture (2) Acute kidney injury: Status: Acute Category: Medical Code(s): N17.9 - Acute kidney failure, unspecified (3) Acute hyperkalemia: Status: Acute Category: Medical Code(s): E87.5 - Hyperkalemia (4) Right hip pain: Status: Acute Category: Medical Code(s): M25.551 - Pain in right hip (5) Pacemaker: Status: Acute Category: Medical Code(s): Z95.0 - Presence of cardiac pacemaker (6) Moderate aortic stenosis: Status: Acute Category: Medical Code(s): I35.0 - Nonrheumatic aortic (valve) stenosis (7) HTN (hypertension): Status: Chronic Qualifiers: Hypertension type: primary hypertension Qualified Code(s): I10 - Essential (primary) hypertension Category: Medical Code(s): I10 - Essential (primary) hypertension (8) Diabetes: Status: Chronic Qualifiers: Diabetes mellitus complication detail: with other circulatory complications Diabetes mellitus complication status: with circulatory complication Diabetes mellitus custodial insulin use: without medical terminologist use Diabetes mellitus type: type 2 Qualified Code(s): E11.59 - Type 2 diabetes mellitus with other circulatory complications Category: Medical Code(s): E11.9 - Type 2 diabetes mellitus without complications (9) Low back pain: Status: Acute Category: Medical Code(s): M5
[2022-08-23 11:17] LABS: POC Glucose,Bedside 167 (70-110)
[2022-08-23 16:27] VITALS: BP 103/63; PULSE 60; RESP 18; TEMP 37.5; O2SAT 99
[2022-08-23 16:59] LABS: POC Glucose,Bedside 101 (70-110)
[2022-08-23 20:00] VITALS: BP 129/75; PULSE 62; RESP 18; TEMP 37.2; O2SAT 98
[2022-08-23 21:19] LABS: POC Glucose,Bedside 157 (70-110)
--- NOTE | 2022-08-24 03:53 | PC.NURSE ---
No changes since previous assessment. Pt has rested well this shift w/ no c/o thus far. IV infusing per order. PICC dressing c/d/i. Pt remains on RA, lungs CTA. BS active x 4. VSS at this time. Pt receiving lovenox for VTE. Plan is for pt to go to a SNF tomorrow.
[2022-08-24 04:12] VITALS: BP 141/49; PULSE 60; RESP 16; TEMP 37.6; O2SAT 97
--- NOTE | 2022-08-24 04:12 | PC.NURSE ---
VS COMPLETED. PATIENT REQUESTED FRESH ICE WATER. NO OTHER NEEDS AT THIS TIME.
--- NOTE | 2022-08-24 04:13 | PC.NURSE ---
NOTIFIED Perlita SINCLAIR RN OF ORAL TEMPERATURE: 99.7
[2022-08-24 05:00] VITALS: BMI 35.3
[2022-08-24 06:05] LABS: POC Glucose,Bedside 119 (70-110)
--- NOTE | 2022-08-24 06:33 | PC.NURSE ---
pump cleared - multiple shifts
[2022-08-24 08:00] VITALS: BP 117/51; PULSE 61; RESP 19; TEMP 36.8; O2SAT 95
--- NOTE | 2022-08-24 08:03 | EXP.PN ---
Subjective *Date: 08/24/22 *Time: 08:49 Interval history: Patient states she is feeling better today. She did sleep. She is hungry for breakfast. She states she has been up in the chair. She denies chest pain and shortness of breath and diarrhea. She feels her arm is somewhat better. Exam Data for Last 24 hours Vital signs and Labs for Last 24 Hours: Temp Pulse Resp BP Pulse Ox 99.7 F H 60 16 141/49 H 97 08/24/22 04:12 08/24/22 04:12 08/24/22 04:12 08/24/22 04:12 08/24/22 04:12 Laboratory Results - last 24 hr 08/23/22 10:58: POC Glucose 167 H 08/23/22 16:51: POC Glucose 101 08/23/22 21:02: POC Glucose 157 H 08/24/22 05:56: POC Glucose 119 H I & O for Last 24 hours: Intake & Output 08/21/22 08/22/22 08/23/22 08/24/22 11:59 11:59 11:59 11:59 Intake Total 840 / 840 937 / 937 2704 / 2704 2780 / 2780 Output Total 0 / 0 750 / 750 325 / 325 Balance 840 / 840 187 / 187 2379 / 2379 2780 / 2780 Weight 196 lb 1.6 oz 197 lb 8 oz 201 lb 6 oz 207 lb 1.6 oz Microbiology Reports for the Last 24 Hours: Microbiology 08/19/22 06:56 Blood Blood Culture - Preliminary Staphylococcus aureus Constitutional Constitutional: no acute distress Comments: Awakened for exam. *Routine Respiratory Exam Respiratory: Present wheezes (Audible on the right posteriorly) *Routine Cardiovascular Exam Cardiovascular: Present RRR and murmur *Routine Abdominal Exam Abdominal: Present soft and normoactive bowel sounds; Absent tenderness or distended *Routine Extremities Exam Extremities: Absent edema or calf tenderness Comments: Left arm with minimal edema. No erythema. Nontender to palpation. Has full range of motion. *Routine Neurological Exam Neurological: Present alert Comments: Patient is very slow to respond to questions. Assessment and Plan *Assessment and plan (1) Closed traumatic nondisplaced fracture of lumbar vertebra: Status: Acute Category: Medical Code(s): S32.009A - Unspecified fracture of unspecified lumbar vertebra, initial encounter for closed fracture (2) Acute kidney injury: Status: Acute Category: Medical Code(s): N17.9 - Acute kidney failure, unspecified (3) Acute hyperkalemia: Status: Acute Category: Medical Code(s): E87.5 - Hyperkalemia (4) Right hip pain: Status: Acute Category: Medical Code(s): M25.551 - Pain in right hip (5) Pacemaker: Status: Acute Category: Medical Code(s): Z95.0 - Presence of cardiac pacemaker (6) Moderate aortic stenosis: Status: Acute Category: Medical Code(s): I35.0 - Nonrheumatic aortic (valve) stenosis (7) HTN (hypertension): Status: Chronic Qualifiers: Hypertension type: primary hypertension Qualified Code(s): I10 - Essential (primary) hypertension Category: Medical Code(s): I10 - Essential (primary) hypertension (8) Diabetes: Status: Chronic Qualifiers: Diabetes mellitus complication detail: with other circulatory complications Diabetes mellitus complication status: with circulatory complication Diabetes mellitus core composer machine tender insulin use: without core composer machine tender use Diabetes mellitus type: type 2 Qualified Code(s): E11.59 - Type 2 diabetes mellitus with other circulatory complications Category: Medical Code(s): E11.9 - Type 2 diabetes mellitus without complications (9) Low back pain: Status: Acute Category: Medical Code(s): M54.50 - Low back pain, unspecified (10) Hypotension: Status: Acute Category: Medical Code(s): I95.9 - Hypotension, unspecified (11) Fever: Status: Acute Category: Medical Code(s): R50.9 - Fever, unspecified (12) Left shoulder pain: Status: Acute Category: Medical Code(s): M25.512 - Pain in left shoulder (13) Venous thrombosis of upper extrem
--- NOTE | 2022-08-24 08:08 | EXP.PHA.PN ---
Subjective *Date: 08/24/22 *Time: 08:08 Medical Exam Vital signs and Labs for Last 24 Hours: Vital Signs Temp Pulse Resp BP Pulse Ox 08/24/22 04:12 99.7 F H 60 16 141/49 H 97 08/23/22 20:00 98.9 F 62 18 129/75 98 08/23/22 16:27 99.5 F 60 18 103/63 L 99 Intake and Output 08/23/22 08/24/22 08/24/22 23:59 07:59 15:59 Intake Total 240 / 2944 2059 Balance 240 / 2894 2059 Intake: Intake, Oral Amount 240 / 960 0 / 0 Intake, Total IV Amount 2059 0.9 % Sodium Chloride 1,000 ml 2059 @ 100 mls/hr IV .Q10H [facility] Rx#: [id number] Other: Number of Voids 0 Number of Unmeasured Voids 1 2 Weight 93.939 kg Patient Weight 08/24/22 23:59 Weight 93.939 kg Laboratory Results - last 24 hr 08/23/22 10:58: POC Glucose 167 H 08/23/22 16:51: POC Glucose 101 08/23/22 21:02: POC Glucose 157 H 08/24/22 05:56: POC Glucose 119 H I & O for Labs for Last 24 Hours: Intake & Output 08/21/22 08/22/22 08/23/22 08/24/22 23:59 23:59 23:59 23:59 Intake Total 720 / 720 937 / 937 2944 / 2944 2059 Output Total 200 / 500 825 / 825 50 / 50 Balance 520 / 220 112 / 112 2894 / 2894 2059 Weight 88.949 kg 89.584 kg 91.342 kg 93.939 kg Microbiology Reports for the Last 24 Hours: Microbiology 08/19/22 06:56 Blood Blood Culture - Preliminary Staphylococcus aureus The patient's infection will respond to the chosen ABx?: Yes (C DIFF INFECTION) Is the patient receiving the right drug, dose, and route?: Yes Could a more targeted ABx be ordered?: No How long ABx needed (days)?: 10 (CAN EXTEND UP TO 14 DAYS IF SYMPTOMS PERSIST.)
--- NOTE | 2022-08-24 09:50 | CARE MANAGER ---
Patient referral faxed to [facility] today as patient states that she is ok for placement wherever you can find local. Also will fax to [facility] as well.
[2022-08-24 11:37] LABS: POC Glucose,Bedside 147 (70-110)
[2022-08-24 11:38] LABS: Coronavirus 19, PCR Not Detected (NotDetected); Influenza A, PCR Not Detected (NotDetected); Influenza B, PCR Not Detected (NotDetected)
--- NOTE | 2022-08-24 11:42 | CARE MANAGER ---
Patient has been accepted at [facility], she will discharge today.
--- NOTE | 2022-08-24 13:17 | EXP.DC.SUM ---
General Admission date:: 08/13/22 Discharge date: 08/24/22 HPI HPI HPI: 67-year-old female who I was consulted for evaluation for L5 fracture. Patient had recent admission for sepsis was subsequently discharged and return to the emergency room with hyperkalemia and GI complaints. She was having complaints of severe hip and back pains having difficulty walking and significant amount of pain. Appropriate further work-up with CT scans revealed nondisplaced L5 endplate fracture. Speaking with the patient she has a long history of low back issues that she relates back to following through the floor at her house. She feels this was approximately 3 years ago. After that she also had a significant fall in the wintertime when she fell on/down a ramp that also resulted in some back pain. She is aware that she has some degenerative arthritis in her spine as well. Since this last fall she has had some hip and back pain which has been fairly significant when she gets around. She reports that this has kept her at her house and she has not been able to do her normal activities like grocery shopping and going out. 67-year-old female, patient of Dr. Yash Stone as an outpatient who presented to the emergency department with weakness, vomiting and significant abdominal pain over the past 4 to 5 days accelerated to the point that she cannot get up. She related initially to her hip pain.? She had a fall about 8 to 10 days ago, presented to the ER, had no fractures but was found to be septic, admitted to hospital and treated for sepsis, discharged about 7 days ago on cephalosporin antibiotic.? Apparently she is done well but reports that he has had increasing vomiting and nausea and that her stools have become scattered and dark green. It is difficult to get a longitudinal history from her because of her confusion and uncertainty about her medical facts. Regardless, she presented to the ER where she was found to have significant acute kidney injury over her baseline as well as hyperkalemia with potassium of 7.? She was admitted after treatment in the ER for acute hyperkalemia for IV fluids, further observation and medication adjustment as indicated.? I evaluated on the floor in cross cover for Dr. Stone who is out of the office today. Hospital Course Hospital Course Hospital Course: On admission patient was treated for hyperkalemia which decreased within 24 hours to 5.9. She initially had low-dose IV fluids was placed on sliding scale insulin to cover her blood sugars. She then described right hip pain which she experienced since a fall about a month ago. Previous x-rays were negative for fracture. She was seen by orthopedic surgeon Dr. Ramirez, who noted the L5 fracture. He felt the fracture of the L5 endplate was nonoperative in nature. She demonstrated no evidence of neurologic compromise of L4 L5/S1 disc distributions. He felt the pain was most likely from the spine fracture. Since the fracture was not a compression type she would not require consultation intervention from a [facility] specialist for kyphoplasty. On 08/15 potassium was 4.9. She was able to rest and was eating and was out of bed. Renal function also improved. Medications were adjusted for ongoing pain. Diazepam was added and scheduled for 3 times daily. Tylenol was scheduled for 3 times daily and oxycodone 5 mg was scheduled for 3 times daily. Morphine was discontinued. Patient then experienced a low blood pressure. She had blood cultures completed which eventually grew staph aureus. Patient could not have an MRI of her back due to her pacemaker. Therefore a bone scan was ordered. She then also began to run a fever and was achy. She was sleeping more. She was not eating as well. She had some diffuse abdominal pain. At this point white blood cell count was 6200 and hemoglobin was 8.7. Electrolytes were normal; BUN was 18 and creatinine 0.9. Her blood pressure did improve. H&H remained stable an
== END 2022-08-24 16:29 | DRG 683 ==
LOC: ER 14:01 → 2ND 15:06
PROVIDERS: Family Medicine; Admitting Provider Internal Medicine Adolescent Medicine; Emergency Provider Emergency Medicine; PCP Family Medicine; Visit Provider Family Medicine
DX: N17.9 Acute kidney failure, unspecified (principal); A04.72 Enterocolitis due to Clostridium difficile, not specified as recurrent; S32.059A Unspecified fracture of fifth lumbar vertebra, initial encounter for closed fracture; C92.10 Chronic myeloid leukemia, BCR/ABL-positive, not having achieved remission; I25.110 Atherosclerotic heart disease of native coronary artery with unstable angina pectoris; I42.8 Other cardiomyopathies; C91.10 Chronic lymphocytic leukemia of B-cell type not having achieved remission; I82.622 Acute embolism and thrombosis of deep veins of left upper extremity; E87.5 Hyperkalemia; M25.551 Pain in right hip; I48.91 Unspecified atrial fibrillation; Z95.0 Presence of cardiac pacemaker; I35.0 Nonrheumatic aortic (valve) stenosis; I10 Essential (primary) hypertension; E11.59 Type 2 diabetes mellitus with other circulatory complications; D64.9 Anemia, unspecified; Z79.01 Long term (current) use of anticoagulants; S39.012A Strain of muscle, fascia and tendon of lower back, initial encounter; J44.9 Chronic obstructive pulmonary disease, unspecified; F17.210 Nicotine dependence, cigarettes, uncomplicated; Z86.73 Personal history of transient ischemic attack (TIA), and cerebral infarction without residual deficits; Z79.84 Long term (current) use of oral hypoglycemic drugs
CPT/HCPCS: 36569; 36415; 71045; 72131; 72170; 73700; 76882; 78306; 80048; 80053; 81001; 82962; 85025; 87040; 87077; 87186; 87507; 93005; 93971; 97110; 97116; 97163; 97166; 97530; 99291; A9503; C1751; C9803; U0003; U0005

== ENCOUNTER 2022-08-25 15:22 | Emergency (ER) | payer MEDICARE, OTHER, SELFPAY ==
--- NOTE | 2022-08-25 15:46 | HMH.EDGENADL ---
Discharge Plan Disposition Patient Disposition: Date/Time: 08/25/22 15:37 Clinical Impressions Clinical Impression: Cardiac arrest Discharge ED Provider: Sheldon King [facility] HPI General Stated complaint: Cardiac Arrest Time Seen by Provider: 08/25/22 15:31 History of Present Illness HPI narrative: Brought in by ambulance from [facility] in cardiac arrest. EMS has intubated the patient, CPR and ACLS provided, she has received several doses of epinephrine prior to arrival for PEA. She developed ventricular tachycardia in the ambulance before being brought into the emergency room and was defibrillated once. EMS reports that the patient was discharged from this hospital yesterday and has a PICC line in. Related Data Home Medications Medication Instructions Recorded Confirmed atorvastatin 80 mg tablet 80 mg PO HS Cholesterol 12/28/17 08/14/22 ferrous sulfate 325 mg (65 mg 325 mg PO BID iron supplement 12/28/17 08/14/22 iron) tablet furosemide 40 mg tablet 40 mg PO BIDL Fluid 12/28/17 08/14/22 lisinopril 5 mg tablet 5 mg PO DAILY Hypertension 12/28/17 08/14/22 metformin 500 mg tablet 500 mg PO BIDWMEAL Diabetes 12/28/17 08/14/22 albuterol sulfate 90 mcg/actuation 2 puff inhalation QIDP PRN 01/20/18 08/14/22 aerosol inhaler Shortness Of Breath potassium chloride 20 mEq 20 meq PO BID potassium 05/25/19 08/14/22 tablet,extended release(part/cryst) replacement #60 tabs oxybutynin chloride 5 mg tablet 5 mg PO BID overactive bladder 07/26/19 08/14/22 cyanocobalamin (vitamin B-12) 1,000 mcg PO DAILY Supplement 04/30/22 08/14/22 1,000 mcg tablet (Vitamin B-12) omeprazole 40 mg capsule,delayed 40 mg PO DAILY acid reflux 04/30/22 08/14/22 release bisoprolol fumarate 5 mg tablet 5 mg PO DAILY Hypertension 07/20/22 08/14/22 clopidogrel 75 mg tablet 75 mg PO DAILY pacemaker 07/20/22 08/14/22 dasatinib 70 mg tablet (Sprycel) 70 mg PO HS leukemia 07/21/22 08/14/22 polyethylene glycol 3350 17 17 g PO NEEDED PRN Constipation 07/21/22 08/14/22 gram/dose oral powder fluticasone furoate 100 1 inh inhalation DAILY lung disease 08/14/22 08/14/22 mcg-vilanterol 25 mcg/dose inhalation powder (Breo Ellipta) Previous Rx's Medication Instructions Recorded spironolactone 25 mg tablet 25 mg PO DAILY Fluid #90 tabs 07/28/22 clindamycin 900 mg/50 mL in 5 % 900 mg IV Q8H 14 days #0 mL 08/24/22 dextrose intravenous piggyback diazepam 2 mg tablet 2 mg PO BID PRN anxiety #30 tabs 08/24/22 ibuprofen 600 mg tablet 600 mg PO TID PRN pain #60 tabs 08/24/22 metronidazole 500 mg tablet 500 mg PO TID #30 tabs 08/24/22 Allergies Allergy/AdvReac Type Severity Reaction Status Date / Time acetaminophen [ACETAMINOPHEN] Allergy Intermediate I-RASH Verified 08/06/22 14:16 adhesive tape [ADHESIVE TAPE] Allergy Intermediate I-RASH Verified 08/06/22 14:16 digoxin [DIGOXIN] Allergy Intermediate NA-NAUSEA/V Verified 08/06/22 14:16 OMITING hydrocortisone Allergy Intermediate I-RASH Verified 08/06/22 14:16 [HYDROCORTISONE] Penicillins [PENICILLINS] Allergy Intermediate I-RASH Verified 08/06/22 14:16 ciprofloxacin [CIPROFLOXACIN] Allergy Mild NA-NAUSEA/V Verified 08/06/22 14:16 OMITING milk [MILK] Allergy Mild DIARRHEA Verified 08/06/22 14:16 cephalexin [From Keflex] Allergy Verified 08/06/22 14:16 [facility] Medical History Broken tooth Bronchitis due to tobacco use Cellulitis of both lower extremities Cervical strain CLL (chronic lymphocytic leukemia) CML (chronic myelocytic leukemia) Colitis COPD (chronic obstructive pulmonary disease) E coli infection Fall Gastroenteritis History of heart attack History of leukemia History of stroke Leukopenia Lymph nodes enlarged Lymphadenitis Otitis media Paroxysmal atrial tachycardia with block Pre-syncope Regional enteritis of jejunum Scalp contusion Sinus bradycardia Thyroid nodule Surgica
--- NOTE | 2022-08-25 15:58 | PC.NURSE ---
pt arrived to ED via ems as a code in progress. pt arrived at 1522 with cpr in progress. ems reports intubation in conjunction with 3 epi in route. per [facility] staff, pt was rounded on at approx 1430 and was alert and oriented. [facility] staff states they checked on her at approx 1500 and pt was found pulseless, cpr was initiated by [facility] staff. arrival to ed at 1522 at [facility]. PEA on arrival to ed. rhythm check @ 1525- PEA 1 epi given @ 1526 bicarb given @ 1526 rhythm check @ 1527- PEA BP obtained @ 1527 (73/45) bicarb @ 1528 rhythm check & epi @ 1529 Vfib @ 1529 shock delivered @ 1530 CPR back in progress @ 1531 epi given @ 1532 rhythm check @ 1533- PEA Epi given @ 1535 Rhythm check @ 1535- PEA Phythm check @ 1537- PEA Efforts terminated by MD Pat
--- NOTE | 2022-08-25 16:17 | PC.NURSE ---
speaking with Dr Acevedo to notify him of pt's .
--- NOTE | 2022-08-25 16:24 | PC.NURSE ---
Spoke with Octavia with [facility]. She advised that they will follow up with family regarding eye and tissue donation. Octavia advised that after speaking with family, they will call us back with a reference number.
--- NOTE | 2022-08-25 16:35 | PC.NURSE ---
spoke with family.
--- NOTE | 2022-08-25 16:43 | PC.NURSE ---
Called telescope operator to speak to family
[2022-08-25 16:54] VITALS: BMI 46.0
--- NOTE | 2022-08-25 17:16 | PC.NURSE ---
dmitriy handley at the bedside
--- NOTE | 2022-08-25 18:20 | PC.NURSE ---
Pt removed from room by Vicki Cedeno with [facility]
--- NOTE | 2022-08-25 18:20 | PC.NURSE ---
calling [facility] for update
--- NOTE | 2022-08-25 18:30 | PC.NURSE ---
Octavia at [facility] states she will return call once she speaks with family about r/o organ donation to complete case file
--- NOTE | 2022-08-26 08:04 | PC.NURSE ---
spoke with [facility] medical claims representative Shirley at this time, states they are no long pursuing donation from this pt states they have been unable to make contact with family.
== END 2022-08-25 19:13 | disposition expired ==
PROVIDERS: Emergency Provider Emergency Medicine
DX: I46.9 Cardiac arrest, cause unspecified (principal); Z79.84 Long term (current) use of oral hypoglycemic drugs; Z79.899 Other long term (current) drug therapy; Z86.73 Personal history of transient ischemic attack (TIA), and cerebral infarction without residual deficits; I48.91 Unspecified atrial fibrillation; I10 Essential (primary) hypertension; E11.9 Type 2 diabetes mellitus without complications; K21.9 Gastro-esophageal reflux disease without esophagitis; Z95.1 Presence of aortocoronary bypass graft; Z88.1 Allergy status to other antibiotic agents; Z88.0 Allergy status to penicillin; Z88.8 Allergy status to other drugs, medicaments and biological substances; J44.9 Chronic obstructive pulmonary disease, unspecified; C91.10 Chronic lymphocytic leukemia of B-cell type not having achieved remission; C92.10 Chronic myeloid leukemia, BCR/ABL-positive, not having achieved remission
CPT/HCPCS: 31500; 92950; 96374; 96375; 99284